=== PATIENT | male | born 1950 | race Caucasian/White ===

== ENCOUNTER → 2018-11-26 08:14 | Outpatient (CLI) | payer MEDICARE, OTHER, SELFPAY ==
--- NOTE | 2018-11-26 08:25 | RAD_ITS ---
STUDY: X-RAY - ESOPHAGUS (BARIUM SWALLOW) WITH FLUOROSCOPY REASON FOR EXAM: Male, 68 years old. Dysphagia for solids. Hoarseness. TECHNIQUE: 17 view(s) of the esophagus were obtained following swallowing of barium. FLUOROSCOPY TIME (if supplied): (0:39) minutes/seconds COMPARISON: None. FINDINGS: There is no demonstrated esophageal foreign body. There is no demonstrated stricture or mucosal abnormality. Normal gastroesophageal junction, without a demonstrated hiatal hernia. The patient ingested a 12 mm tablet of barium without any difficulty. Normal visualized aortic arch and descending thoracic aorta. Normal visualized pulmonary parenchyma. Normal visualized osseous structures of the thorax. RAD/Esophagus Only IMPRESSION: Normal plain film x-ray examination (barium swallow) of the esophagus. Electronically Signed: Tomás Davison, at 10:26 EDT , Service support ,
== END ==
PROVIDERS: Family Provider Family Medicine; PCP Family Medicine; Referring Provider Otolaryngology; Visit Provider Otolaryngology
DX: R13.10 Dysphagia, unspecified (principal)
CPT/HCPCS: 74220

== ENCOUNTER 2019-06-06 05:29 | Day surgery (SDC) | payer MEDICARE, OTHER, SELFPAY ==
--- NOTE | 2019-05-23 03:14 | HP_ITS ---
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 Is patient in pain?: No Allergies amoxicillin trihydrate [From Augmentin] Allergy (Verified 05/23/19 09:03) Angioedema potassium clavulanate [From Augmentin] Allergy (Verified 05/23/19 09:03) Angioedema Medications Aspirin [Aspirin, Baby] 81 mg PO QHS 01/21/16 [History Confirmed 05/23/19] Colestipol Tablet [Colestid Tablet] 1 gm PO BID 01/21/16 [History Confirmed 05/23/19] Gemfibrozil [Lopid] 600 mg PO BIDAC 01/21/16 [History Confirmed 05/23/19] Hydrochlorothiazide [Hctz] 25 mg PO DAILY 01/21/16 [History Confirmed 05/23/19] Lisinopril [Zestril] 20 mg PO DAILY 01/21/16 [History Confirmed 05/23/19] azelastine 137 mcg (0.1 %) nasal spray aerosol 2 spray INTRANASAL ONCE ml 05/23/19 [History Confirmed 05/23/19] fluticasone propionate 50 mcg/actuation nasal spray,suspension 2 spray INTRANASAL DAILY 05/23/19 [History Confirmed 05/23/19] gabapentin 300 mg capsule 300 mg PO TID cap 05/23/19 [History Confirmed 05/23/19] inulin 2 gram chewable tablet 4 g PO QDAY tab 05/23/19 [History Confirmed 05/23/19] multivitamin chewable tablet 2 tab PO DAILY 05/23/19 [History] omeprazole 20 mg capsule,delayed release 20 mg PO DAILY 05/23/19 [History Confirmed 05/23/19] vitamin B complex tablet 2 tab PO DAILY tab 05/23/19 [History Confirmed 05/23/19] [facility] Medical History Acid reflux (Acute) Hemorrhoids (Acute) Hypertension (Chronic) Hypertriglyceridemia (Acute) Hypercholesterolemia (Acute) Gout (Acute) Neuropathy (Acute) COPD (chronic obstructive pulmonary disease) (Chronic) B12 deficiency (Acute) Surgical History Hx of colonoscopy (Acute) Hx of tonsillectomy (Acute) Hx of hemorrhoidectomy (Acute) Hx of right inguinal hernia repair (Acute) Family History Father Heart disease Hypertension High cholesterol Mother High cholesterol Hypertension Sister CVA (cerebral vascular accident) Social History (Updated 05/23/19 @ 15:14 by Nils Brown MD) Smoking Status: Former smoker second hand exposure: No alcohol intake: current alcohol intake frequency: holidays/special occasions only substance use type: does not use caffeine: Yes what type of physical activity do you participate in: none frequency: does not exercise HPI HPI HPI: VALERIA PRADHAN, is a 69 M who presents to the office today for HPI HPI Surgical H&P: Yes HPI: VALERIA PRADHAN, is a 69 M who presents to the office today for surgical consultation regarding a suspected recurrent right inguinal the patient had a remote emergency repair of a right inguinal hernia that was incarcerated when he was in the [employer]. 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 Small bowel was involved in the hernia. Prior to that he had had a burning sensation. Recently he has been doing more heavy lifting straining. He has had recurrence of the discomfort. It is of note that January 21, [address] scan for diverticulitis. Already at that time there was felt to be a mildly enlarged prostate and fat prominently within 2 small internal ring defects and a small umbilical hernia. It is only the right side that is currently causing him a burning discomfort. He does have nocturia 1-3 times nightly. He has been a previously heavy cigarette smoker and then cigar smoker. He finally quit approximately 12 years ago. He has been evaluated by pulmonology and does have a degree of pulmonary disease The patient is referred to me by Dr. Eulalio Pan his primary care physician for evaluation of potential recurrent right inguinal hernia and a written compromise surgical consult recommendations will be returned to him Pelvis CT [facility] Imaging Services [address] [place] [address] Abdomen/Pelvis WITH Contrast MR#: [id number]:[id number] Name: VALERIA PRADHAN [facility] #:[id number] : 1950M 65 From: Nathan Miranda MD PCP:Eulalio Pan MD Status:REG ER Study:Abdomen/Pelvis WITH Contrast Date of Exam:01/21/16 Exam#[id number] Ordering Dr: Radhika Rucker MD STUDY: CT ABDOMEN AND PELVIS WITH CONTRAST REASON FOR EXAM: Male, 65 years old. Lower abdominal pain since yesterday, blood in stool RADIATION DOSAGE (If Supplied By Facility): CTDIvol = ( 18.40 ) mGy, DLP = ( 1021.90 ) mGycm TECHNIQUE: Transaxial images were obtained from the dome of the diaphragm to the symphysis pubis without oral contrast. 100mL ml of Isovue 300 contrast was administered. Sagittal and coronal images were reconstructed. Individualized dose optimization techniques were used for this CT. COMPARISON: None. FINDINGS: The visualized lung bases are unremarkable. The visualized portions of the heart are within normal limits. There is a subcentimeter low-attenuation focus of the dome of the liver indeterminate for solid versus cystic process. Normal gallbladder and extrahepatic biliary system. Normal spleen. Normal pancreas. Normal bilateral adrenal glands. Normal right kidney. Normal left kidney. Normal visualized stomach. Normal small intestine. There is mild fatty stranding of the left paracolic gutter. There are several short segment regions of wall thickening of the mid to distal descending colon. There is moderately severe sigmoid diverticulosis. The appendix is visualized and appears normal. There are calcified plaques of the abdominal aorta and iliac arteries. Normal inferior vena cava. Normal retroperitoneum. Normal urinary bladder. The prostate is mildly enlarged and contains calcifications. The seminal vesicles and seminal vesicle angles are preserved. The fascial planes of the ischiorectal fossa are intact. There are prominent bilateral inguinal rings with no bowel seen in either defect. There is a tiny fat-containing available hernia. There are mild degenerative changes of the lumbar spine. IMPRESSION: 1. Fatty stranding of the left paracolic cutter with several short segment regions of wall thickening of the mid to distal descending colon. There is moderately severe sigmoid diverticulosis. Findings are compatible with diverticulitis. 2. Calcified plaques of the abdominal aorta and iliac arteries. 3. Tiny fat-containing umbilical hernia. 4. Degenerative changes of the lumbar spine. 5. Subcentimeter low-attenuation focus of the dome of the liver indeterminate for solid versus cystic process. If clinically indicated, ultrasound may be helpful for further evaluation of this finding. 6. Mildly enlarged prostate containing calcifications. 7. Prominent inguinal rings bilaterally with no bowel seen in either hernia defect. Electronically Signed: Nathan Miranda MD at 18:17 EDT , Service support [phone], ROS General General: No weight change, appetite, fatigue, colon cancer, breast cancer or weakness HEENT HEENT: No difficulty swallowing, eye injury, eye surgery, swollen glands or hoarseness Endo Endocrine: No thyroid disease, diabetes mellitus, thyroid cancer, Hair loss, heat intolerance or cold intolerance Skin Skin: No rash or changing moles Musc Musculoskeletal: No back problems, arthritis, rheumatoid arthritis, gout or joint pain Cardio Cardiovascular: Yes high blood pressure; no murmur, pacemaker, heart disease, atrial fibrillation, heart attack, heart stent, palpitations, shortness of breat with exertion or chest pain Psych Psychiatric: No depression, anxiety or hearing voices Resp Respiratory: No shortness of breath, No sleep apnea, No cough, No COPD, No asthma, No emphysema, No wheezing Gastro Gastrointestinal: No abdominal pain, No nausea or vomiting, No diarrhea, No constipation, No blood in stool, Yes acid reflux, Yes hemorrhoids, No ulcers, No gallbladder problem, No black,tarry stools Nolan Hematologic: No blood thinners, No blood disorders, No bleeding, No anemia, No blood clots Neuro Neurologic: Yes numbness, Yes tingling, No weakness Exam Const General: cooperative, comfortable, no acute distress Nutritional Appearance: average body habitus Orientation: alert, awake [facility] Head: normal to inspection Eyes General: appearance normal, both eyes and all related structures Chest Other: Increased anterior posterior diameter Resp Effort & Inspection: normal respiratory effort Auscultation: clear to auscultation bilaterally Other: Intermittent nonproductive cough. Slight shortness of breath with movement Cardio Rate: regular rate Rhythm: regular rhythm Heart Sounds: no murmurs GI Palpation: soft, no hepatosplenomegaly Other: Small nonreducible umbilical hernia Not pulsatile or expansile, normal bowel sounds Other: Testicles are descended bilaterally. Left groin appears solid. Right groin is tender at the external ring with slight bulging. No evidence to suggest incarceration Skin Other: Small erythematous punctate changes in the suprapubic hairline. Neuro Cognition: normal cognition Extrem General: no calf tenderness bilaterally Other: No lower extremity swelling Psych Affect: normal affect Assessment & Plan Problems 1. Umbilical hernia without obstruction or gangrene K42.9 2. Recurrent inguinal hernia of right side without obstruction or gangrene K40.91 3. Symptom of bladder outlet obstruction R39.89 Plan I have recommended to the patient a laparoscopic recurrent right inguinal hernia repair with mesh. He is aware that I would utilize a umbilical incision and then need to proceed with either a suture or suture and mesh repair of his umbilical hernia. He is aware of the technique, benefits, risks, alternatives to these combined procedures. He has had an opportunity to ask and have questions answered. In light of his bladder outlet obstruction and frequent nocturia we will initiate him on Flomax 0.4 mg nightly and we will do that preoperatively. He is aware of the potential need for a urinary catheter postoperatively. Questions were answered. We will now schedule and proceed at his discretion. I very much appreciate the kind opportunity of assisting with his surgical care. CC: Dr. Eulalio Brown M.D., F.A.C.S. Medications New: multivitamin chewable tablet 2 tabs PO DAILY fluticasone propionate 50 mcg/actuation 2 sprays intranasal DAILY azelastine 2 sprays intranasal ONCE inulin (Fiber Gummies) 4 grams PO QDAY vitamin B complex tablet (B Complex-Vitamin B12) 2 tabs PO DAILY Coding Level of Care Code 99512 Diagnoses Umbilical hernia without obstruction or gangrene K42.9 Recurrent inguinal hernia of right side without obstruction or gangrene K40.91 Symptom of bladder outlet obstruction R39.89 05/23/19 1514 <Electronically signed by Nils gore MD> Date _ Nils Brown MD I have re-examined the patient. There are no clinical changes since date of exam.
[2019-05-23 09:01] VITALS: BMI 28.2
--- NOTE | 2019-06-04 13:57 | EKG12_ITS ---
Test Reason : PRE OP Blood Pressure : / mmHG Vent. Rate : 073 BPM Atrial Rate : 073 BPM P-R Int : 190 ms QRS Dur : 094 ms QT Int : 388 ms P-R-T Axes : 039 -05 035 degrees QTc Int : 427 ms Sinus rhythm with Fusion complexes Otherwise normal ECG Confirmed by DIPIKA MCCLURE, NATALIO ([id number]), publications editor DEMETRIA GERMAN ([id number]) on 06/06/2019 12:35:05 PM Referred By: Nils Brown Confirmed By:ZEINA BAR MD
[2019-06-04 14:29] LABS: Hematocrit 42.5 % (40-54); Hemoglobin 14.7 g/dL (13.0-16.5); Mean Corp Hgb Conc 34.6 g/dL (32-36); Mean Corpuscular Volume 98.4 fL (80-94); Platelet Count 290 K/mm3 (150-450); RBC Distribution Width CV 12.2 % (11.6-14.6); Red Blood Count 4.32 M/mm3 (4.6-6.2); White Blood Count 7.1 K/mm3 (4.4-11.0)
[2019-06-04 14:53] LABS: Anion Gap 8 (5-15); BUN 18 mg/dL (7-18); BUN/Creat Ratio 18.8 RATIO (10-20); Calcium,Total 9.2 mg/dL (8.5-10.1); Chloride 98 mmol/L (98-107); Creatinine, Serum 0.96 mg/dL (0.70-1.30); EST Glomerular Filtration Rate 83 mL/min (>60); Est Glom Filt Rate - Afr Amer 101 mL/min (>60); Glucose 96 mg/dL (74-106); Potassium 4.1 mmol/L (3.5-5.1); Sodium Level 132 mmol/L (136-145)
[2019-06-06 05:57] VITALS: BP 135/86; PULSE 58; RESP 18; TEMP 36.5; O2SAT 97; BMI 29.1
--- NOTE | 2019-06-06 06:17 | DCINST_ITS ---
Discharge Diet: Light diet - advance as tolerated - if you have questions about your diet instructions, please talk to you doctor. Discharge Activity: May Not Drive - for 3-5 days or while taking narcotic pain medicine. May shower in (days): 1 Lifting Restrictions: 10 pounds Call your doctor if your incision/area has: Continuous Slow Oozing, Sudden Increased Bleeding, Increased Pain/ Swelling, Increased Redness, Foul Smelling Discharge Call your doctor if you observe: Fever of 101 or Higher Suture Line Care: Avoid Pulling/Pushing, Avoid Pinching/Bending Additional Dressing/Incision Instructions:: Change or remove dressing in 4 days. Leave steri-strips in place for 1 week. Allergies/Adverse Reactions: Allergies amoxicillin trihydrate [From Augmentin] Allergy (Verified 06/06/19 05:56) Angioedema potassium clavulanate [From Augmentin] Allergy (Verified 06/06/19 05:56) Angioedema Medications to take at Discharge Aspirin [Aspirin, Baby] 81 mg PO QHS 01/21/16 Colestipol Tablet [Colestid Tablet] 1 gm PO BID 01/21/16 Gemfibrozil [Lopid] 600 mg PO BIDAC 01/21/16 Hydrochlorothiazide [Hctz] 25 mg PO DAILY 01/21/16 Lisinopril [Zestril] 20 mg PO DAILY 01/21/16 azelastine 137 mcg (0.1 %) nasal spray aerosol 2 spray INTRANASAL ONCE ml 05/23/19 fluticasone propionate 50 mcg/actuation nasal spray,suspension 2 spray IN TRANASAL DAILY 05/23/19 gabapentin 300 mg capsule 300 mg PO TID cap 05/23/19 multivitamin chewable tablet 2 tab PO DAILY 05/23/19 omeprazole 20 mg capsule,delayed release 20 mg PO DAILY 05/23/19 Cyanocobalamin (Vitamin B-12) [Vitamin B-12] 1,000 mcg PO DAILY 06/04/19 Hydrocodone Bitart/Apap 5-325 [Hibernia 5MG-325MG] 1 tablet PO Q4H PRN PRN 2 Days #10 tablet 06/06/19 The following prescriptions were given: Hydrocodone Bitart/Apap 5-325 [Hibernia 5MG-325MG] 1 tablet PO Q4H PRN PRN 2 Days #10 tablet PRN Reason: Pain Transmission Status: Sent to [id number] Orders to be completed after discharge: Basic Metabolic Profile (BMP) Time Frame: 06/04/19, Facility: [facility], Location: Laboratory CBC-Complete Blood Cnt No Diff Time Frame: 06/04/19, Facility: [facility], Location: Laboratory Primary Care Physician: Eulalio Pan MD [Primary Care Provider] - Test Results: Test results from this visit will be discussed in further detail at your follow- up appointment, if applicable. Please Follow Up With: Nils Brown MD - [phone] When: Call to make an appointment to be seen in about 10 days.
[2019-06-06] MEDS: Lactated Ringers 1,000 ML 100 ML IV (06:18)
[2019-06-06] MEDS: Cefazolin 2 GM in 0.9% Normal Saline 100 ML IV (07:11)
--- NOTE | 2019-06-06 07:15 | HERN_PTH ---
PATIENT: VALERIA PRADHAN LOC: [facility] U#:[id number] AGE/SX: 69/M ROOM: RE06/06/[address]: Dr. Nils Brown MD : 1950 BED: DIS: 06/06/2019 SPEC #: [id number] RECD: 06/06/19 11:52 STATUS: ISABEL RERony #: [id number] TRACY: 06/06/19 07:[address]: Nils Brown DEPT: SURGICAL PATHOLOGY RECD BY: Ramone Valladares ENTERED: 06/06/19 13:22 SP TYPE: Hernia OTHR DR: Dr. Eulalio Pan MD Tissues: HERNIA Procedures: Surgery Specimen Level II HEADER OPERATION: Laparoscopic, recurrent inguinal/umbilical hernia repair PRE-OP DIAGNOSIS: Right inguinal hernia TISSUE SUBMITTED: Umbilical hernia sac MICROSCOPIC DIAGNOSIS Umbilical hernia sac: Fragments of fibroadipose and fibroconnective, consistent with hernia sac. SJ:damián 06/09/19 MICROSCOPIC DESCRIPTION Slides are reviewed. GROSS DESCRIPTION Received in fixative is one container labeled with the patient's name and designated umbilical hernia sac. The specimen consists of two pieces of yellow adipose tissue that in aggregate measure 2 x 0.7 x 0.5 cm. Both pieces are bisected. The entire specimen is submitted in one cassette. / SJ:rg 06/06/19 TC:5 [facility]: [id number]
[2019-06-06] MEDS: Bupivacaine Mpf 0.5% 30 ML VIAL (07:45)
--- NOTE | 2019-06-06 08:43 | OP.PCM_ITS ---
Problem List (1) Recurrent inguinal hernia of right side without obstruction or gangrene Status: Acute (2) Umbilical hernia without obstruction or gangrene Status: Acute Report of Operation Date of Procedure: 06/06/19 Pre-Operative Diagnosis: Recurrent right inguinal hernia. Umbilical hernia without obstruction Post-Operative Diagnosis: Recurrent indirect right inguinal hernia. Umbilical hernia without obstruction Surgery/Procedure Performed:: Laparoscopic repair recurrent right inguinal hernia. Umbilical herniorrhaphy with 6.4 cm ventralex mesh. 3 DMax right large colon lot number [id number]. Ventralex Lot number [id number]. Secure strap: Lot number [id number] Description of Surgical Findings:: Timeout and informed consent was obtained. 69-year-old gent was taken the operating taken to the operating room underwent general trach intubation anesthesia Ancef 2 g given for the M sterilely prepped draped Ioban draping was used as well 0.5% Marcaine was used as local anesthetic throughout the procedure total 30 cc was used. Skin sites were pre-anesthetized a curvilinear incision was made the inferior portion of the umbilicus sharp dissection carried down through the subcutaneous tissues hernia sac was identified it was sharply dissected free electrocautery was used for hemostasis specimen was sac and contents holding sutures of 0 Vicryl placed varies needle inserted saline drop test performed the abdomen was insufflated with CO2 to pressure of 10 the cervical pressure Lorrie trocar inserted 10 lap scope inserted of his ventricular injuries and direct physician 5 Martinez ports were placed in the right left lower quadrant. The left groin visually appeared to be intact the right groin appear to have a small indirect recurrence. The peritoneum superior lateral to the internal ring on the right was incised carried immediately it is of note that the patient noted to be significantly heavy with significant amount of fibrofatty tissue. Careful blunt dissection performed hemo-lock clips were used were needed with hemostasis the peritoneum was completely dissected free the direct indirect and femoral artery clearly identified. A large 3D max right- sided mesh was placed those to cover the defect. It nicely sent in the position and only 3 secure straps were required to help hold it in position. The peritoneum was then approximated to itself with hemo-lock clips and secure strap. Complete obliteration of the mesh was achieved. Because of the 2 cm defect at the umbilicus I placed a 6.4 cm ventral Ebenezer mesh. The tails were secured with 3-0 Nurolon and the fascia approximated transversely with the same. I inspected internally and I placed a 0 Vicryl suture with a grainy needle ball to help flatten the mesh and I placed one secure strap to help secure it. Peer to have a good positional lie and I made sure that the greater omentum was overlying the small bowel. Trochars removed. The abdomen was allowed to deflate the CO2. Skin edges approximate interrupted 4 Monocryl subdermal stitches. Were needed surgical glue was applied followed by Telfa and OpSite dressings. Sponge and instrument and needle counts reported the surgery were correct. Blood loss was minimal. It is of additional note that during the procedure lap scopic right inguinal hernia inguinal nerve block was performed using Marcaine and lap scopic control. Specimens umbilical hernia sac and contents. Drains none. Blood loss minimal. Nils Brown M.D., F.A.C.S. Type of Anesthesia:: General Anesthesiologist: Rashaun Weiss
[2019-06-06 08:50] VITALS: BP 128/93; BP 135/86; PULSE 68; RESP 18; TEMP 36.4; O2SAT 95
[2019-06-06 09:00] VITALS: BP 125/77; BP 135/86; PULSE 55; RESP 14; O2SAT 98
[2019-06-06 09:15] VITALS: BP 118/80; BP 135/86; PULSE 70; RESP 18; O2SAT 96
[2019-06-06 09:23] VITALS: BP 119/73; BP 135/86; PULSE 57; RESP 18; TEMP 36.2; O2SAT 95
[2019-06-06] MEDS: HYDROcodone Bitartrate/Apap 5/325 Tablet PO (10:01)
[2019-06-06 11:06] VITALS: BP 135/86; BP 149/103; PULSE 73; RESP 18; TEMP 36.1; O2SAT 100
== END 2019-06-06 11:06 | disposition home or self-care (01) ==
LOC: SDC 05:29 → AC 05:30
PROVIDERS: Family Provider Family Medicine; PCP Family Medicine; Referring Provider Surgery; Visit Provider Surgery
PROC: (CPT 49650; principal; 2019-06-06 06:55)
DX: K40.91 Unilateral inguinal hernia, without obstruction or gangrene, recurrent (principal); K42.9 Umbilical hernia without obstruction or gangrene; R39.89 Other symptoms and signs involving the genitourinary system; I10 Essential (primary) hypertension; E78.00 Pure hypercholesterolemia, unspecified; E78.1 Pure hyperglyceridemia; G62.9 Polyneuropathy, unspecified; M10.9 Gout, unspecified; Z79.82 Long term (current) use of aspirin; Z79.899 Other long term (current) drug therapy; Z87.891 Personal history of nicotine dependence
CPT/HCPCS: 49585; 49651; 36415; 80048; 85027; 88302; 93005; C1781; J7120; J2405

== ENCOUNTER → 2019-06-26 07:10 | Outpatient (CLI) | payer MEDICARE, OTHER, SELFPAY ==
[2019-06-06 05:57] VITALS: BMI 29.1
[2019-06-26 10:06] LABS: Color, Urine Yellow (Yellow); Glucose, Dipstick Normal (Normal); Ketone-Dipstick Negative (Negative); Leukocyte Esterase-Dipstick Negative /ul (Negative); Nitrite-Dipstick Negative (Negative); Occult Blood-Urine Negative /ul (Negative); Protein-Dipstick Negative (Negative); Urine Bilirubin Dipstick Negative (Negative); Urine Clarity Sl. Cloudy (Clear); Urine Urobilinogen Normal (Normal)
[2019-06-26 10:09] LABS: Absolute Lymphocyte Count 2.06 X10^3/uL (0.83-4.51); Absolute Neutrophil Count 3.8 X10^3/uL (2.0-7.7); Basophil# 0.02 X10^3/uL; Basophil% 0.3 % (0-1); Eosinophil# 0.38 X10^3/uL; Eosinophils% 5.3 % (0-5); Hematocrit 42.7 % (40-54); Hemoglobin 14.5 g/dL (13.0-16.5); Lymphocyte # 2.06 X10^3/ul (4.0); Lymphocyte % 28.8 % (19-41); Mean Corpuscular Hgb 33.7 pg (27.0-32.0); Mean Corpuscular Volume 99.3 fL (80-94); Mean Platelet Vol. 10.2 fl (6.2-12.0); Monocyte# 0.89 X10^3/uL; Monocyte% 12.4 % (0-10); NRBC Flagged by Analyzer 0 % (0-5); Neutrophil # 3.76 X10^3/uL (2.7-7.7); Neutrophil % 52.6 % (47-70); Platelet Count 311 K/mm3 (150-450); RBC Distribution Width CV 12.8 % (11.6-14.6); RBC Distribution Width SD 46.5 fl (35.1-43.9); White Blood Count 7.2 K/mm3 (4.4-11.0)
[2019-06-26 10:29] LABS: ALB/GLOB Ratio 1.1 RATIO (0.9-2.4); AST(SGOT) 12 U/L (15-37); Alanine Aminotransfer ALT/SGPT 29 U/L (16-61); Alkaline Phosphatase 61 U/L (45-117); Anion Gap 6 (5-15); BUN 19 mg/dL (7-18); BUN/Creat Ratio 21.8 RATIO (10-20); Calcium,Total 8.9 mg/dL (8.5-10.1); Chloride 99 mmol/L (98-107); Cholesterol 237 mg/dL (200); Creatinine, Serum 0.87 mg/dL (0.70-1.30); EST Glomerular Filtration Rate 93 mL/min (>60); Est Glom Filt Rate - Afr Amer 112 mL/min (>60); Globulin 3.5 g/dL (2.2-4.2); Glucose 85 mg/dL (74-106); High Density Lipoprotein 54 mg/dL; PSA,Total - Annual Screen 0.46 ng/mL (0.00-4.00); Protein, Total 7.5 g/dL (6.4-8.2); Sodium Level 134 mmol/L (136-145); Triglycerides 160 mg/dL; Uric Acid 5.5 mg/dL (3.5-7.2); Very Low Density Lipoprotein 32 mg/dL (5-40)
[2019-06-26 10:32] LABS: Vitamin B12 809 pg/mL (211-911)
== END ==
PROVIDERS: Family Provider Family Medicine; PCP Family Medicine; Referring Provider Family Medicine; Visit Provider Family Medicine
DX: Z00.00 Encounter for general adult medical examination without abnormal findings (principal); Z12.5 Encounter for screening for malignant neoplasm of prostate; E78.00 Pure hypercholesterolemia, unspecified; I10 Essential (primary) hypertension; M10.9 Gout, unspecified; E53.8 Deficiency of other specified B group vitamins
CPT/HCPCS: 36415; 80053; 80061; 81002; 82607; 84153; 84550; 85025; G0103

== ENCOUNTER 2019-08-13 07:05 | Emergency (ER) | payer MEDICARE, OTHER, SELFPAY ==
[2019-08-13 07:06] VITALS: BP 176/88; PULSE 78; RESP 17; TEMP 36.6; O2SAT 99; BMI 29.6
--- NOTE | 2019-08-13 07:16 | VDLE_ITS ---
Reason For Study: Pain RIGHT LEFT CFV is compressible, spontaneous, phasic, GSV is normal. competent and demonstrates normal CFV is compressible, spontaneous, phasic, augmentation. competent, and demonstrates normal Procedure augmentation. Exam performed portable in ED. FV is compressible, spontaneous, phasic, A preliminary report was called and/or faxed competent and demonstrates normal to [place]. augmentation. POP V is compressible, spontaneous, phasic, competent and demonstrates normal augmentation. T/P Trunk is compressible. PTV is compressible. LT PerV is compressible. Interpretation Summary There is no evidence of left lower extremity deep vein thrombosis. Left great saphenous vein appears patent and compressible segmentally. Patent and compressible right common femoral vein Ordering Physician: Ke Jeronimo Referring Physician: Rd Pan M.D. Performed By: Melissa Richard RVT
--- NOTE | 2019-08-13 07:18 | ED.VISSUMM ---
- ER Visit Summary Date of Service: 08/13/19 Chief Complaint: [Left calf pain] History of Present Illness: The patient is a 69 M [presents to the emergency department with complaint of pain in his left calf for the last 6 days. Patient denies any injury. Patient incidentally states that he had a massage the day before the pain started however his legs were not massaged. Patient denies any trauma to the leg. He denies any chest pain or shortness of breath. He denies recent travel. Patient did have a hernia repair 2-1/2 months ago. He has no history of prior PE or DVT. Patient states that the pain is worse with walking. Patient was concerned because his sister has factor V Leiden and has had prior stroke.] Physical Examination: [HEENT-PERRLA, EOMI. Cranial nerves II through XII grossly intact. TMs clear. Mucous membranes moist. No adenopathy. Cardiovascular-regular rate and rhythm without murmur or ectopy Lungs-clear to auscultation, chest wall stable without crepitus or subcu emphysema Abdomen-normoactive bowel sounds, soft, nontender, no rebound or rigidity, no peritoneal signs. Extremities-intact ?4, normal range of motion, normal pulses, atraumatic. Left calf-patient has diffuse tenderness over the calf muscle. No ropes or cords palpated. He does have a positive Homans sign. He is neurovascular intact with normal cap refill and normal dorsal pedal and posterior tibial pulses. There is no evidence of edema or erythema.] Test Results: [Venous Doppler of left lower extremity ordered and was negative for DVT.] Emergency Department Course and Treatment: [] Treatment Plan: [Patient advised to follow-up with primary care physician in 5 to 7 days. Patient to use ibuprofen or Tylenol for discomfort.] Disposition: [Discharged home in stable condition] Impression: [Left calf strain] This note was generated with [employer] dictation software. It may contain incorrect words, spelling, and punctuation that were not noted in review of the chart prior to signing ED Disposition - Plan for ED Patient: Referrals: Eulalio Pan MD [Primary Care Provider] -
--- NOTE | 2019-08-13 08:59 | ED.DEP ---
ED Disposition - Plan for ED Patient: Instructions: MUSCLE STRAIN, Extremity Referrals: Eulalio Pan MD [Primary Care Provider] - 5-7 Days
== END 2019-08-13 09:30 | disposition home or self-care (01) ==
LOC: ED 07:19
PROVIDERS: Emergency Provider Emergency Medicine; PCP Family Medicine
DX: S86.112A Strain of other muscle(s) and tendon(s) of posterior muscle group at lower leg level, left leg, initial encounter (principal); X58.XXXA Exposure to other specified factors, initial encounter; Y93.9 Activity, unspecified; I10 Essential (primary) hypertension; J44.9 Chronic obstructive pulmonary disease, unspecified; K21.9 Gastro-esophageal reflux disease without esophagitis; M10.9 Gout, unspecified; G62.9 Polyneuropathy, unspecified; Z79.82 Long term (current) use of aspirin
CPT/HCPCS: 93971; 99282

== ENCOUNTER → 2020-06-29 07:36 | Outpatient (CLI) | payer MEDICARE, OTHER, SELFPAY ==
[2020-06-29 10:04] LABS: Absolute Lymphocyte Count 2.89 X10^3/uL (0.83-4.51); Absolute Neutrophil Count 3.2 X10^3/uL (2.0-7.7); Basophil# 0.04 X10^3/uL; Basophil% 0.6 % (0-1); Eosinophil# 0.31 X10^3/uL; Eosinophils% 4.3 % (0-5); Hematocrit 47.3 % (40-54); Lymphocyte # 2.89 X10^3/ul (4.0); Mean Corp Hgb Conc 33.8 g/dL (32-36); Mean Corpuscular Hgb 34.1 pg (27.0-32.0); Mean Corpuscular Volume 100.9 fL (80-94); Mean Platelet Vol. 10.5 fl (6.2-12.0); Monocyte# 0.78 X10^3/uL; Monocyte% 10.8 % (0-10); NRBC Flagged by Analyzer 0 % (0-5); Neutrophil # 3.16 X10^3/uL (2.7-7.7); Neutrophil % 43.6 % (47-70); Platelet Count 314 K/mm3 (150-450); RBC Distribution Width CV 12.1 % (11.6-14.6); RBC Distribution Width SD 45.3 fl (35.1-43.9); Red Blood Count 4.69 M/mm3 (4.6-6.2); White Blood Count 7.2 K/mm3 (4.4-11.0)
[2020-06-29 10:17] LABS: Vitamin B12 1000 pg/mL (211-911)
[2020-06-29 10:26] LABS: ALB/GLOB Ratio 1.2 RATIO (0.9-2.4); AST(SGOT) 15 U/L (15-37); Alanine Aminotransfer ALT/SGPT 32 U/L (16-61); Albumin, Serum 4.1 g/dL (3.2-5.0); Alkaline Phosphatase 69 U/L (45-117); Anion Gap 6 (5-15); BUN 12 mg/dL (7-18); BUN/Creat Ratio 15.3 RATIO (10-20); Calcium,Total 8.9 mg/dL (8.5-10.1); Chloride 102 mmol/L (98-107); Cholesterol 227 mg/dL (200); Creatinine, Serum 0.78 mg/dL (0.70-1.30); EST Glomerular Filtration Rate 105 mL/min (>60); Est Glom Filt Rate - Afr Amer 127 mL/min (>60); Globulin 3.5 g/dL (2.2-4.2); Glucose 82 mg/dL (74-106); High Density Lipoprotein 58 mg/dL; PSA,Total - Annual Screen 0.32 ng/mL (0.00-4.00); Potassium 4.3 mmol/L (3.5-5.1); Protein, Total 7.6 g/dL (6.4-8.2); Sodium Level 136 mmol/L (136-145); Triglycerides 128 mg/dL; Very Low Density Lipoprotein 26 mg/dL (5-40)
== END ==
PROVIDERS: PCP Family Medicine; Referring Provider Family Medicine; Visit Provider Family Medicine
DX: Z00.00 Encounter for general adult medical examination without abnormal findings (principal); Z12.5 Encounter for screening for malignant neoplasm of prostate; E53.8 Deficiency of other specified B group vitamins; E78.00 Pure hypercholesterolemia, unspecified; I10 Essential (primary) hypertension
CPT/HCPCS: 36415; 80053; 80061; 82607; 84153; 85025; G0103

== ENCOUNTER 2020-09-08 09:32 | Outpatient (RCR) | payer MEDICARE, OTHER, SELFPAY | END 2020-09-08 23:59 | LOC: IMMUN 09:32 | PROVIDERS: PCP Family Medicine; Referring Provider Family Medicine; Visit Provider Family Medicine | DX: Z23 Encounter for immunization (principal) | CPT/HCPCS: 0011A; 0012A; 91301 ==

== ENCOUNTER → 2022-08-05 | Outpatient (CLI) | payer MEDICARE, OTHER, SELFPAY ==
--- NOTE | 2022-08-05 07:02 | MRI_ITS ---
STUDY: MRI CERVICAL SPINE WITHOUT CONTRAST REASON FOR EXAM: Male, 72 years old. PAIN,RADICULOPATHY TECHNIQUE: Standardized fat and water weighted pulse sequences were obtained in the sagittal and axial planes. COMPARISON: July 27, 2006 FINDINGS: Craniocervical junction is intact and aligned with mild C1-C2 degeneration. There is reversal of cervical lordosis with mild kyphosis centered on C5-C6. There is no AP plane displacement. Marrow and paraspinous soft tissues are normal. There are small ventral osteophytes at C3 C5 and C6. Prevertebral soft tissues are normal. C2-C3 has patent canal. There is left greater than right facet hypertrophy. Foraminal are patent. C3-C4 has uncinate and facet hypertrophy with mild canal stenosis without cord compression. Facet degenerative change produces mild left foraminal stenosis with patent right foramen. C4-C5 has uncinate and facet hypertrophy, asymmetrically worse on the right. Canal is patent. There is mild right foraminal stenosis with patent left foramina. C5-C6 has uncinate and facet hypertrophy and broad disc endplate osteophyte. Canal is patent. There is flattening of the ventral cord with effacement of ventral but not dorsal CSF. There is mild impression on the ventral cord without circumferential cord compression. Foramina are mildly stenotic bilaterally. C6-C7 has uncinate and facet hypertrophy and broad disc endplate osteophyte. Canal is patent. Foramina are moderately stenotic on the left, patent on the right. C7-T1 has uncinate and facet hypertrophy with patent canal and foramina. There is mild spinal cord deviation around reversed cervical lordosis with impression on the ventral cord due to anterior positioning of the cord within the canal. There is no cord compression. MRI/Spine Cervical (Routine) IMPRESSION: 1. Multilevel mild ventral impression on the cord without thecal sac or cord compression. 2. Multilevel mild and moderate bilateral foraminal stenoses. Electronically Signed: Eula Boateng MD at 15:04 EST ,
== END | disposition home or self-care (01) ==
PROVIDERS: PCP Family Medicine; Visit Provider Nurse Practitioner Family
DX: M54.2 Cervicalgia (principal); M54.12 Radiculopathy, cervical region; M48.02 Spinal stenosis, cervical region; M47.812 Spondylosis without myelopathy or radiculopathy, cervical region
CPT/HCPCS: 72141

== ENCOUNTER → 2022-12-30 | Outpatient (CLI) | payer MEDICARE, OTHER, SELFPAY ==
--- NOTE | 2022-12-30 08:12 | MRI_ITS ---
STUDY: MRI LUMBAR SPINE WITHOUT CONTRAST REASON FOR EXAM: Male, 72 years old. Low back pain and left l4 radiculopathy with neurological deficits, quadriceps atrophy. TECHNIQUE: Standardized fat and water weighted pulse sequences were obtained in the sagittal and axial planes. COMPARISON: CT abdomen and pelvis with contrast 01/21/2016. No prior MRI lumbar spine for comparison. FINDINGS: T11-T12: (Sagittal only). Normal endplates. Mild disc space height narrowing. No ventral extradural defect. Normal central canal and bilateral intervertebral neural foramina. T12-L1: (Sagittal only). Normal endplates. Normal disc height, hydration and morphology. Normal central canal and bilateral intervertebral neural foramina. Normal lumbar lordosis. There is no substantial scoliosis. Normal conus medullaris that terminates at the upper L1 vertebral body level. L1-2: Mild Modic type I degenerative vertebral marrow edema underneath the anterior vertebral endplates.. Mild disc space height narrowing. Mild ventral extradural defect due to posterior bulging annulus. No significant facet arthropathy. Capacious central canal and bilateral lateral recesses. Normal bilateral intervertebral neural foramina. L2-3: Normal endplates. Mild disc space height narrowing. Mild ventral extradural defect due to posterior bulging annulus. No significant facet arthropathy. Normal central canal and bilateral lateral recesses. Normal bilateral intervertebral neural foramina. L3-4: Moderate Modic type I degenerative vertebral marrow edema underneath the right side of the L4 superior endplate more than the L3 inferior endplate. Mild disc space height narrowing. Mild degenerative retrolisthesis of L3 on L4 with posterior bulging annulus. Mild asymmetric degenerative facet arthropathy. Normal central canal and bilateral lateral recesses. Prominent dorsal epidural lipomatosis. Mild stenosis of the right intervertebral neural foramen. Normal left intervertebral neural foramen. L4-5: Mild Modic type II degenerative vertebral marrow fat infiltration underneath the vertebral endplates. Pronounced right-sided disc space height narrowing. Minimal ventral extradural defect due to posterior marginal spur. Mild asymmetric degenerative facet arthropathy. Prominent dorsal epidural lipomatosis. Normal central canal and bilateral lateral recesses. Moderately pronounced stenosis of the right intervertebral neural foramen with osteophytic impingement of the right L4 nerve. Mild stenosis of the left intervertebral neural foramen. L5-S1: Normal endplates. Normal disc height, hydration and morphology. Mild asymmetric degenerative facet arthropathy, left greater than right. Normal central canal and bilateral lateral recesses. Moderate stenosis of the left intervertebral neural foramen. Normal right intervertebral neural foramen. Normal visualized sacral ala. Normal visualized paraspinous soft tissue structures. MRI/Spine Lumbar (Routine) IMPRESSION: 1. Moderate stenosis of the left L5-S1 intervertebral neural foramen with suspicious impingement of the left L5 nerve. 2. Moderately pronounced stenosis of the right L4-L5 intervertebral neural foramen with osteophytic impingement of the right L4 nerve. 3. Right-sided L3-L4 intervertebral osteochondritis (Modic type I), mild degenerative retrolisthesis of L3 on L4 limits small posterior bulging annulus and mild stenosis of the right intervertebral neural foramen. 4. No MRI evidence of lumbar extruded disc fragment. Electronically Signed: Fernando Hines MD at 9:58 EDT ,
== END | disposition home or self-care (01) ==
PROVIDERS: PCP Family Medicine; Referring Provider Orthopaedic Surgery; Visit Provider Orthopaedic Surgery
DX: M54.17 Radiculopathy, lumbosacral region (principal)
CPT/HCPCS: 72148

== ENCOUNTER 2023-04-24 09:30 | Outpatient (RCR) | payer MEDICARE, OTHER, SELFPAY ==
--- NOTE | 2023-01-12 09:59 | HP.PTEVAL_ITS ---
Patient's Visit Information Visit Information Visit Information: VALERIA PRADHAN is a 72 year old M referred to Physical Therapy by Dr. Ced Johnston, DO with a diagnosis of RADICULOPATHY ,LUMBOSCARAL. Date of Evaluation: 01/12/23 Physical Therapist: Reggie Marie, PT, Cert MDT, OCS Visit Plan Frequency: 2x /Week Duration: 4 Weeks Plan: PT INTERVTIONS LUMBAR FLEXION ,DLS ,POSTURAL EX'S ,LE FLEXABLITY ,LEFT LEG STRENGTHNEING AND MODALTIES PRN Subjective Subjective: This 72 y/o male presents to physical therapy with lumbar radiculopathy. Patient has had lumbar pain L4 with weakness in thigh for ~ [address] Johnston and had MRI DDD /bulging disc/stenosis. Patient said not Candidate with lumbar surgery. Patient seen DR Trevizo did epidural injection 2 days ago. Pain has pain in lumbar and buttock . Aggravating factors standing/walking. Alleviating factors rest and sitting. Patient condition affects sleeping. C/O paresthesia in legs from neuropathy. Patient has fallen due to knee give way on left side ~ 3months ago. Patient has difficulty with steps. Coughing/sneezing-. Bowel/bladder-. Pain medication Aleve ,hydrocodone . Patient condition affects QOL and function. Patient goals to have less pain and get stronger. Patient had THR 2 years ago. SOCIAL: VOCATION: retired Pain Bilateral Back: Pain Intensity (Out of 10): 2 Pain Intensity Range: 10 Left Hip: Pain Intensity (Out of 10): 2 Pain Intensity Range: 10 Objective Objective: POSTURE: mild forward posture NEURO: denies paresthesia/tingling , reflexes L3-L4-5 ,L5-S1 1/3 SYMMTRIES: align PALAPTION: tender SI/LS FLEXABLITY: hamstrings WFL MMT: (peak force) left quads 22.2 ,hamstrings 28.8 ,hip flexion 13.8 ,hip bad 12.0 LUMBAR ROM: flexion mod loss ,extension mod loss ,side glides mod loss Special Tests L/S Slump test left side: Negative L/S Slump test right side: Negative L/S Left Straight Leg Raise: Negative L/S Right Straight Leg Raise: Negative Lumbar Standing: Flexion - Mechanical Response: No effect Lumbar Standing: Flexion - Symptoms During Testing: No effect Lumbar Standing: Flexion - Symptoms After Testing: No effect Lumbar Standing: Extension - Mechanical Response: No effect Lumbar Standing: Extension - Symptoms During Testing: Increases Lumbar Standing: Extension - Symptoms After Testing: No worse Lumbar Standing: Right Side Glides - Mechanical Response: No effect Lumbar Standing: Right Side [place] - Symptoms During Testing: No effect Lumbar Standing: Right Side [place] - Symptoms After Testing: No effect Lumbar Standing: Left Side [place] - Mechanical Response: No effect Lumbar Standing: Left Side [place] - Symptoms During Testing: No effect Lumbar Standing: Left Side [place] - Symptoms After Testing: No effect Comments:: SEATED BACK FLEXION --ABOLISHED ; BETTER Lumbar Lying: Flexion - Mechanical Response: No effect Lumbar Lying: Flexion - Symptoms During Testing: Decreases Lumbar Lying: Flexion - Symptoms After Testing: Better Balance/Special Test Scores Oswestry Low Back Score: 26 Goals Goal 1:: Patient to be I with HEP Goal Time Frame: 4-6 Weeks Goal 2:: Patient to demonstrate 50% improvement with decrease pain and improved function. Goal Time Frame: 4-6 Weeks Goal 3:: Patient to improve lumbar ROM for function of recovery to tie shoes Goal Time Frame: 4-6 Weeks Goal 4:: Patient to improve peak force left leg by 10 # to improve gait and function Goal Time Frame: 4-6 Weeks Goal 5:: Patient to improve back oswestry score by 5 points to improve QOL and function Goal Time Frame: 4-6 Weeks Rehabilitation Potential Physical Therapy Diagnosis: This patient has lumbar radiculopathy with stenosis causing pain with symptoms worse with walking/standing ,better with sitting and worse with motion testing and positioning thus benefit from skilled PT Rehabilitation Potential: Good Anticipated Interventions Patient/Client Instruction: Educate patient on: Condition and Plan of Care For the Purpose of:: To decrease pain, To increase ROM, To improve muscle performance and motor function, To improve ability to perform ADL's, To increase tolerance to activity/condition/position, To improve ability of physical actions for home/community/work/leisure, To improve health of tissue, To decrease soft tissue restriction, To increase flexibility/ROM, To improve endurance, To improve balance and To improve safety with gait Therapeutic Exercise to Include: Strength training, Endurance training, Balance training, Body mechanics, Postural training, Flexibilty training and Dynamic Lumbar Stabilization For the Purpose of:: To decrease pain, To improve muscle performance and motor function, To improve ability to perform ADL's, To increase tolerance to act ivity/condition/position, To improve ability of physical actions for home/community/work/leisure, To improve health of tissue, To decrease soft tissue restriction, To increase flexibility/ROM and To improve tolerance to ADL's TENS: Yes IF ES: Yes Cryotherapy (ice pack, ice massage): Yes Thermo therapy (hot pack): Yes Ultrasound (thermal/non thermal): Yes For the Purpose of:: To decrease pain, To increase ROM, To improve nutrient delivery to tissue, To increase oxygenation perfusion, To improve health of tissue and To decrease soft tissue restriction Text: Thank you for the opportunity to evaluate your patient. For Medicare and Medicare HMO plans, please review the plan of care and approve it. It will need to be FAXED BACK to us at [phone] for Medicare purposes. For Medicare only, by signing this I certify the plan of care. Please let me know if there are questions or concerns regarding this plan of care. Physician Signature: Date:
--- NOTE | 2023-02-09 09:14 | HP.PTREVAL_ITS ---
Re-Evaluation Intro: Dr. Ced Johnston, DO, It has been my pleasure to treat VALERIA PRADHAN over the last 8 visits for RADICULOPATHY ,LUMBOSCARAL. Please see the progress note below for an update on the physical therapy plan of care! Subjective Subjective: Patient feels like getting stronger. Some less walking and standing but end day pain is worse. No pain medication Objective Objective/Function: Objective: POSTURE: mild forward posture NEURO: denies paresthesia/tingling , reflexes L3-L4-5 ,L5-S1 1/3 SYMMTRIES: align PALAPTION: tender SI/LS FLEXABLITY: hamstrings WFL MMT: (peak force) left quads 34.2 ,hamstrings 28.9 ,hip flexion 21.0 ,hip bad 12.0 LUMBAR ROM: flexion min loss ,extension min loss ,side glides mod loss Plan Plan Plan: PT INTERVTIONS LUMBAR FLEXION ,DLS ,POSTURAL EX'S ,LE FLEXABLITY ,LEFT LEG STRENGTHNEING ( HIP STRENGTHENING) AND MODALTIES PRN Balance/Gait/Functional tests Balance/Special Test Scores Oswestry Low Back Score: 20 Goals Goals Goal 1:: Patient to be I with HEP Goal Time Frame: 4-6 Weeks Goal Progress: Progressing Goal 2:: Patient to demonstrate 50% improvement with decrease pain and improved function. Goal Time Frame: 4-6 Weeks Goal Progress: Progressing Goal 3:: Patient to improve lumbar ROM for function of recovery to tie shoes Goal Time Frame: 4-6 Weeks Goal Progress: Progressing Goal 4:: Patient to improve peak force left leg by 10 # to improve gait and function Goal Time Frame: 4-6 Weeks Goal Progress: Progressing Goal 5:: Patient to improve back oswestry score by 5 points to improve QOL and function Goal Time Frame: 4-6 Weeks Goal Progress: Progressing Anticipated Interventions Anticipated Interventions Patient/Client Instruction: Educate patient on: Condition and Plan of Care For the Purpose of:: To decrease pain, To increase ROM, To improve muscle performance and motor function, To improve ability to perform ADL's, To increase tolerance to activity/condition/position, To improve ability of physical actions for home/community/work/leisure, To improve health of tissue, To decrease soft tissue restriction, To increase flexibility/ROM, To improve endurance, To improve balance and To improve safety with gait Therapeutic Exercise to Include: Strength training, Endurance training, Balance training, Body mechanics, Postural training, Flexibilty training and Dynamic Lumbar Stabilization For the Purpose of:: To decrease pain, To improve muscle performance and motor function, To improve ability to perform ADL's, To increase tolerance to activity/condition/position, To improve ability of physical actions for home/community/work/leisure, To improve health of tissue, To decrease soft tissue restriction, To increase flexibility/ROM and To improve tolerance to ADL's TENS: Yes IF ES: Yes Cryotherapy (ice pack, ice massage): Yes Thermo therapy (hot pack): Yes Ultrasound (thermal/non thermal): Yes For the Purpose of:: To decrease pain, To increase ROM, To improve nutrient del johann to tissue, To increase oxygenation perfusion, To improve health of tissue and To decrease soft tissue restriction Re-Evaluation Ending Re-evaluation ending: Please do not hesitate to contact me at [phone] by phone or if you have questions or concerns regarding this new plan of care! Sincerely, Reggie Marie, PT, Cert MDT, OCS
--- NOTE | 2023-03-22 09:57 | HP.PTREVAL ---
Re-Evaluation Intro: Dr. Ced Johnston, DO, It has been my pleasure to treat VALERIA PRADHAN over the last 16 visits for RADICULOPATHY ,LUMBOSCARAL. Please see the progress note below for an update on the physical therapy plan of care! Subjective Subjective: Seen DR happy with progress ,getting stronger ..pain same with standing/walking Dr sent new order Objective Objective/Function: POSTURE: mild forward posture NEURO: denies paresthesia/tingling , reflexes L3-L4-5 ,L5-S1 1/3 GAIT: reciprocal pattern slight decrease stance PALAPTION: tender SI/LS FLEXABLITY: hamstrings WFL MMT: (peak force) left quads 45.6 ,hamstrings 35.9 ,hip flexion 49.0 ,hip bad 25.5 LUMBAR ROM: flexion min loss ,extension min loss ,side glides mod loss Plan Plan Plan: PT INTERVTIONS LUMBAR FLEXION ,DLS ,POSTURAL EX'S ,LE FLEXABLITY ,LEFT LEG STRENGTHNEING ( HIP STRENGTHENING) AND MODALTIES PRN Balance/Gait/Functional tests Balance/Special Test Scores Oswestry Low Back Score: 17 Goals Goals Goal 1:: Patient to be I with HEP Goal Time Frame: 4-6 Weeks Goal Progress: Progressing Goal 2:: Patient to demonstrate 50% improvement with decrease pain and improved function. Goal Time Frame: 4-6 Weeks Goal Progress: Progressing Goal 3:: Patient to improve lumbar ROM for function of recovery to tie shoes Goal Time Frame: 4-6 Weeks Goal Progress: Progressing Goal 4:: Patient to improve peak force left leg by 10 # to improve gait and function Goal Time Frame: 4-6 Weeks Goal Progress: Progressing Goal 5:: Patient to improve back oswestry score by 5 points to improve QOL and function Goal Time Frame: 4-6 Weeks Goal Progress: Progressing Anticipated Interventions Anticipated Interventions Patient/Client Instruction: Educate patient on: Condition and Plan of Care For the Purpose of:: To decrease pain, To increase ROM, To improve muscle performance and motor function, To improve ability to perform ADL's, To increase tolerance to activity/condition/position, To improve ability of physical actions for home/community/work/leisure, To improve health of tissue, To decrease soft tissue restriction, To increase flexibility/ROM, To improve endurance, To improve balance and To improve safety with gait Therapeutic Exercise to Include: Strength training, Endurance training, Balance training, Body mechanics, Postural training, Flexibilty training and Dynamic Lumbar Stabilization For the Purpose of:: To decrease pain, To improve muscle performance and motor function, To improve ability to perform ADL's, To increase tolerance to activity/condition/position, To improve ability of physical actions for home/community/work/leisure, To improve health of tissue, To decrease soft tissue restriction, To increase flexibility/ROM and To improve tolerance to ADL's TENS: Yes IF ES: Yes Cryotherapy (ice pack, ice massage): Yes Thermo therapy (hot pack): Yes Ultrasound (thermal/non thermal): Yes For the Purpose of:: To decrease pain, To increase ROM, To improve nutrient delivery to tissue, To increase oxygenation perfusion, To improve health of tissue and To decrease soft tissue restriction Re-Evaluation Ending Re-evaluation ending: Please do not hesitate to contact me at [phone] by phone or if you have questions or concerns regarding this new plan of care! Sincerely, Reggie Marie, PT, Cert MDT, OCS
--- NOTE | 2023-04-24 10:10 | HP.PTDCSUM ---
Discharge Summary D/C summary: It has been my pleasure to treat VALERIA PRADHAN referred by Dr. Ced Johnston DO, with the diagnosis of RADICULOPATHY ,LUMBOSCARAL for a total of 24 visit(s). Discharge Date: Please see the following information for a summary of their discharge status. Subjective Subjective: Ready to be d/c own on to gym Pain Bilateral Back: Pain Intensity (Out of 10): 3 Left Hip: Pain Intensity (Out of 10): 3 Overall Improvement % Improvement: 60 Objective Objective/Function: POSTURE: mild forward posture NEURO: denies paresthesia/tingling , reflexes L3-L4-5 ,L5-S1 1/3 GAIT: reciprocal pattern slight decrease stance PALAPTION: tender SI/LS FLEXABLITY: hamstrings WFL MMT: (peak force) left quads 45.6 ,hamstrings 35.9 ,hip flexion 49.0 ,hip abd 25.5 LUMBAR ROM: flexion min loss ,extension min loss ,side glides mod loss Goals Goal 1:: Patient to be I with HEP Goal Progress: Progressing Goal 2:: Patient to demonstrate 50% improvement with decrease pain and improved function. Goal Progress: Goal Met Goal 3:: Patient to improve lumbar ROM for function of recovery to tie shoes Goal Progress: Goal Met Goal 4:: Patient to improve peak force left leg by 10 # to improve gait and function Goal Progress: Progressing Goal 5:: Patient to improve back oswestry score by 5 points to improve QOL and function Goal Progress: Goal Met Plan Plan: d/c to Gym on own and HEP D/C Information d/c sentence: If there are questions or concerns regarding this patient's physical therapy, please feel free to call me at [phone]. Thank you for the referral of this patient. Sincerely, Reggie Marie, PT, Cert MDT, OCS Balance/Gait/Functional tests Balance/Special Test Scores Oswestry Low Back Score: 9 Improvement % Improvement: 60
== END 2023-04-24 19:00 | disposition home or self-care (01) ==
LOC: PT 09:30
PROVIDERS: PCP Family Medicine; Referring Provider Orthopaedic Surgery; Visit Provider Orthopaedic Surgery
DX: M54.17 Radiculopathy, lumbosacral region (principal)
CPT/HCPCS: 97110; 97162; 97530

== ENCOUNTER 2023-09-20 10:00 | Outpatient (RCR) | payer MEDICARE, OTHER, SELFPAY ==
--- NOTE | 2023-08-16 11:59 | HP.PTEVAL_ITS ---
Patient's Visit Information Visit Information Visit Information: VALERIA PRADHAN is a 73 year old M referred to Physical Therapy by Dr. Joe James DO with a diagnosis of L shoulder strain, impingement, and arthritis. Date of Evaluation: 08/16/23 Physical Therapist: Epifanio Guerra DPT Visit Plan Frequency: 2x /Week Duration: 4 Weeks Plan: 1) Stretch neck/shoulders/pecs, may include STM d/t hx of neck pain 2) Improve ER and scapular strength 3) Shoulder stability ex Subjective Subjective: Pt presents to PT with L shoulder pain that began 3 months ago. For the last 2-3 years, overhead motions bothered him while exercising and he began avoiding those movements. Pt has tried using heat and rest. Pt takes tramadol and xanax to help with sleep, pt has some pain while trying to sleep but meds help, sleeps about 6 hours. Pt describes pain as aching in post L shoulder, worse with movement and overhead lifting. Pain Left Shoulder: Pain Intensity (Out of 10): 2 Pain Intensity Range: 2 and 8 Objective Objective: ROM: WNL, felt scaption helped, scapular retraction with functional ER behind head helped relieve pain MMT: global strength 4+/5, some pain and fatigue with L ER 4/5 POSTURE: extended trunk, some shoulder rounding PALPATION: tenderness and tightness in L delt, pecs, UT, supra, teres major/minor, mild chris scapular winging JOINT PLAY: WNL Dougherty Elfego: positive Speeds test: negative Hornblowers at 30 deg flex in scap: positive at 90 deg flex in scap: positive pain in post L shoulder Balance/Special Test Scores Quick DASH Score: 38.6350 Goals Goal 1:: Pt will report <3/10 pain at worst with overhead movement Goal Time Frame: 2-4 Weeks Goal 2:: Pt will improve L shoulder strength to 5/5 with 0/10 pain Goal Time Frame: 2-4 Weeks Goal 3:: Pt will consistently perform HEP at least 4 days per week with correct form Goal Time Frame: 2-4 Weeks Goal 4:: Pt will improve Quick DASH sum to 19 to demonstrate improved ADL tolerance and function Rehabilitation Potential Physical Therapy Diagnosis: Pt presents to PT with L shoulder pain. Pt would benefit from PT services to improve rotator cuff strength, decrease muscular tightness in neck and shoulders, and improve scapular endurance/posture with overhead act. Anticipated Interventions Patient/Client Instruction: Educate patient on: Plan of Care and Benefits of Fitness Program For the Purpose of:: To decrease pain, To improve ability to perform ADL's, To increase tolerance to activity/condition/position, To improve performance and independence with ADL's, To improve ability of physical actions for home/community/work/leisure, To decrease soft tissue restriction, To increase flexibility/ROM, To assume or resume ADL's, To improve health and function, To foster healthy habits, To improve self management and To improve tolerance to ADL's Therapeutic Exercise to Include: Strength training, Body mechanics, Postural training, Flexibilty training and Relaxation training For the Purpose of:: To decrease pain, To improve nutrient delivery to tissue, To improve muscle performance and motor function, To improve ability to perform ADL's, To increase tolerance to activity/condition/position, To decrease soft tissue restriction, To increase flexibility/ROM, To assume or resume ADL's, To foster healthy habits, To improve self management and To improve ability to perform tasks related to life management Manual Therapy Techniques to Include: Passive ROM and Soft tissue mobilization For the Purpose of:: To decrease pain, To improve nutrient delivery to tissue, To increase oxygenation perfusion, To improve muscle performance and motor function, To improve ability to perform ADL's, To decrease soft tissue restriction and To increase flexibility/ROM Biofeedback: Yes TENS: Yes Cryotherapy (ice pack, ice massage): Yes Thermo therapy (hot pack): Yes Ultrasound (thermal/non thermal): Yes For the Purpose of:: To decrease pain, To improve health of tissue, To decrease soft tissue restriction, To increase flexibility/ROM and To improve ability to perform tasks related to life management Text: Thank you for the opportunity to evaluate your patient. For Medicare and Medicare HMO plans, please review the plan of care and approve it. It will need to be FAXED BACK to us at [phone] for Medicare purposes. For Medicare only, by signing this I certify the plan of care. Please let me know if there are questions or concerns regarding this plan of care. Physician Signature: Date:
--- NOTE | 2023-09-20 12:51 | HP.PTDCSUM ---
Discharge Summary D/C summary: It has been my pleasure to treat VALERIA PRADHAN referred by Dr. Joe James DO, with the diagnosis of L shoulder strain, impingement, and arthritis for a total of 9 visit(s). Discharge Date: 09/20/23 Please see the following information for a summary of their discharge status. Subjective Subjective: Pt feels that PT has helped with shoulder pain, but still feels that it needs to be fixed with surgery . Has been working out a few time a week consistently and has no major limitations d/t shoulder pain. Pain Left Shoulder: Pain Intensity (Out of 10): 2 Overall Improvement % Improvement: 50 Objective Objective/Function: ROM: full AROM, some pain with IR at 90 deg ABD MMT: 5/5 chris shoulders PALPATION: some tightness in L biceps, UT, and teres major Dougherty-Elfego: (+) at very end range with OP Pt overall has decreased pain, still has some catching with impingement positions. Pt has been able to workout consistently and recognizes what he can or cannot do and feels he would benefit the most from surgery. Goals Goal 1:: Pt will report <3/10 pain at worst with overhead movement Goal Progress: 1/10 Goal 2:: Pt will improve L shoulder strength to 5/5 with 0/10 pain Goal Progress: Goal Met Goal 3:: Pt will consistently perform HEP at least 4 days per week with correct form Goal Progress: Goal Met Goal 4:: Pt will improve Quick DASH sum to 19 to demonstrate improved ADL tolerance and function Goal Progress: 21 not met Plan Plan: Pt to d/c back to physician to have further work up. Pt has had some pain relief with PT, but feels it did not fix the problem. D/C Information Discharge Comments: D/C back to surgeon, pt feels PT helped to reduce pain but did not fix the issue . d/c sentence: If there are questions or concerns regarding this patient's physical therapy, please feel free to call me at [phone]. Thank you for the referral of this patient. Sincerely, Epifanio Christian Sipos, DPT Balance/Gait/Functional tests Balance/Special Test Scores Quick DASH Score: 22.7250 Improvement % Improvement: 50
== END 2023-09-20 14:18 | disposition home or self-care (01) ==
LOC: PT 10:00
PROVIDERS: PCP Family Medicine; Referring Provider Student in an Organized Health Care Education/Training Program; Visit Provider Student in an Organized Health Care Education/Training Program
DX: S46.012D Strain of muscle(s) and tendon(s) of the rotator cuff of left shoulder, subsequent encounter (principal); M19.012 Primary osteoarthritis, left shoulder; M75.42 Impingement syndrome of left shoulder
CPT/HCPCS: 97110; 97140; 97161; 97530

== ENCOUNTER 2023-11-04 05:57 | Emergency (ER) | payer MEDICARE, OTHER, SELFPAY ==
[2023-11-04 05:57] VITALS: BP 162/89; PULSE 114; RESP 14; TEMP 36.4; O2SAT 98; BMI 24.5
--- NOTE | 2023-11-04 06:22 | EX.ED.DYSGE1 ---
[facility] <Dr. Chris Madden DO - Last Filed: 11/10/23 15:36> History of Present Illness Chief Complaint: General Illness Informant: patient Narrative Narrative: Presents here with spouse currently not feeling well with recent elevated blood pressure. Patient on lisinopril 40 mg hydrochlorothiazide 25 mg daily for blood pressure. Stable blood pressure 130s over 70s. Over a week ago had spinal stimulator placed for his chronic back pain. This was turned on 2 days ago. He also had blood work 2 days ago as an outpatient. He reports 30 pound weight loss unintentional over 8 months. He saw his PCP couple weeks ago had blood work was drawn 2 days ago. Concerning numbers reporting and seen on his phone is a hemoglobin 18 and sodium 129. He does have tobacco history of smoking cigars. No cancer history. PSA was normal. He said colonoscopies in the past. Normal bowel movements for him with constipation with 1 normal today. No bloody stools. No upper endoscopies in the past. Reports decreased appetite. States over the last few days systolic blood pressure up to 200. No headache or chest pain. He does report continued ongoing chronic low back pain. FORMERLY [facility], [facility]–1983 <Dr. Chris Madden DO - Last Filed: 11/10/23 15:36> FORMERLY [facility], [facility] Medical History (Updated 11/04/23 @ 07:[address] Chris Madden DO) Acid reflux B12 deficiency COPD (chronic obstructive pulmonary disease) Gout Hemorrhoids Hypercholesterolemia Hypertension Hypertriglyceridemia Neuropathy Recurrent inguinal hernia of right side without obstruction or gangrene Symptom of bladder outlet obstruction Umbilical hernia without obstruction or gangrene Home Medications lisinopril 20 mg tablet 40 mg PO DAILY 01/21/16 [History Last Taken 06/06/19] azelastine 137 mcg (0.1 %) nasal spray aerosol 2 spray intranasal ONCE 05/23/19 [History Last Taken Unknown] fluticasone propionate 50 mcg/actuation nasal spray,suspension 2 spray intranasal DAILY 05/23/19 [History Last Taken Unknown] gabapentin 300 mg capsule 100 mg PO TID 05/23/19 [History Last Taken 06/06/19] omeprazole 20 mg capsule,delayed release 40 mg PO DAILY 05/23/19 [History Last Taken 11/03/23] cyanocobalamin (vitamin B-12) 1,000 mcg tablet 1,000 mcg PO DAILY 06/04/19 [History Last Taken 11/03/23] naproxen sodium 220 mg tablet (Aleve) 440 mg PO BID PRN pain 02/12/23 [History Last Taken Unknown] alprazolam 0.5 mg tablet (Xanax) 0.5 mg PO BID PRN anxiety 11/04/23 [History Last Taken 11/03/23] atorvastatin 20 mg tablet 20 mg PO DAILY 11/04/23 [History Last Taken 11/03/23] tramadol 25 mg tablet 25 mg PO QHS 11/04/23 [History Last Taken Unknown] Allergy/AdvReac Type Severity Reaction Status Date / Time amoxicillin trihydrate Allergy Angioedema Verified 11/04/23 05:57 [From Augmentin] potassium clavulanate Allergy Angioedema Verified 11/04/23 05:57 [From Augmentin] Family History Father Heart disease Hypertension High cholesterol Mother High cholesterol Hypertension Sister CVA (cerebral vascular accident) Surgical History Hx of colonoscopy Hx of hemorrhoidectomy Hx of right inguinal hernia repair Hx of tonsillectomy Hx of umbilical hernia repair Social History Smoking Status: Light Smoker (<10/day) second hand exposure: No alcohol intake: current alcohol intake frequency: holidays/special occasions only substance use type: does not use caffeine: Yes what type of physical activity do you participate in: none frequency: does not exercise ROS <Dr. Chris Madden DO - Last Filed: 11/10/23 15:36> ROS ED Constitutional Constitutional ED: Denies chills, fever(s) or sweats Eyes Eyes: Denies change in vision ENT ENT ED: Denies dysphagia or sore throat Cardiovascular Cardiovascular: Denies chest pain, leg edema, palpitations or racing heartbeat Respiratory/Chest Respiratory/Chest: Denies cough, dyspnea or dyspnea on exertion Gastrointestinal Gastrointestinal: Denies abdominal pain, diarrhea, nausea or vomiting Genitourinary Genitourinary ED: Denies dysuria, hematuria or urinary frequency Musculoskeletal Musculoskeletal: Reports back pain; Denies extremity pain or neck pain Integumentary Denies rash or wounds Neurologic Neurologic: Denies headache(s), paresthesias or weakness EXAM <Dr. Chris Madden DO - Last Filed: 11/10/23 15:36> Physical Exam Const Vital Signs: 11/04/23 05:57 11/04/23 05:57 11/04/23 08:00 Temperature 97.5 F L Temperature Source Temporal Pulse Rate 114 H 67 Respiratory Rate 14 19 H Respiratory Effort Normal Non-Labored Respiratory Pattern Normal Blood Pressure 162/89 H 140/79 H Blood Pressure Mean 113 99 Pulse Ox 98 97 Oxygen Delivery Method Room Air Room Air Positive well nourished and well developed General Appearance ED: well developed and NAD HEENT Reports moist mucous membranes normocephalic and atraumatic Eyes PERRL, EOMs intact bilaterally and conjunctivae normal General Eye ED: Yes normal appearance of both eyes Neck no lymphadenopathy and supple General: Negative for tenderness Chest Wall Chest: Negative for tenderness Resp normal respiratory effort and normal air movement Effort and Inspection: symmetric chest movement; Negative for respiratory distress Cardio regular rhythm and no murmurs Rate: tachycardic Peripheral Pulses: pulses 2+ throughout GI normal to inspection, nondistended, normoactive bowel sounds and non-tender Palpation: Negative for guarding or rebound tenderness present Back/Spine no CVA tenderness and no thoracic nor lumbar tenderness Back/Spine Narrative: Incision vertical left paralumbar couple of loose stitches, no surrounding erythema or induration. No drainage. Extremity normal to inspection General Extremety ED: Negative for edema or tenderness General Extremity: Negative for edema Neuro oriented x3 and no sensory deficits noted Sensorium / Orientation: awake and alert Skin no rashes or lesions noted and no wounds <Dr. Rick Galvez MD - Last Filed: 11/04/23 09:32> Physical Exam Const Vital Signs: 11/04/23 05:57 11/04/23 05:57 11/04/23 08:00 Temperature 97.5 F L Temperature Source Temporal Pulse Rate 114 H 67 Respiratory Rate 14 19 H Respiratory Effort Normal Non-Labored Respiratory Pattern Normal Blood Pressure 162/89 H 140/79 H Blood Pressure Mean 113 99 Pulse Ox 98 97 Oxygen Delivery Method Room Air Room Air MDM <Dr. Chris Madden DO - Last Filed: 11/10/23 15:36> MDM MDM Narrative Medical decision making narrative: Interventions / MDM: Differential diagnosis: Weight loss, elevated blood pressure, cancer, electrolyte abnormalities Diagnosis considered but do not suspect: No stimulator infection. My EKG interpretation: N/A Imaging independently reviewed and interpreted by myself: 1 view chest x-ray: No acute process. CT abdomen pelvis with IV contrast: External documents reviewed: N/A Test considered but not ordered:N/A ED course: Patient blood pressure arrived 160/89 in the room systolic 145 during my evaluation. Blood work sodium 129 hemoglobin 18. Blood pressure improving without intervention. However discussed concern of his unexpected weight loss over the last 8 months of 30 pounds. 0705: Hemoglobin 18.1. Sodium 127 potassium 3.4 creatinine 0.75. Chest x-ray 1 view shows no acute process. CT abdomen pelvis IV contrast ordered due to unexpected weight loss and hyponatremia to rule out cancers. Patient signed out to morning physician Dr. Galvez. Re-evaluation: stable Disposition discussed with patient/family/significant other: Patient and significant other Case discussed with consulting clinician: N/A This note was generated with [employer] dictation software. It may contain incorrect words, spelling, and punctuation that were not noted in checking the note before signing. Lab Data Labs: Laboratory Results - last 24 hr 11/04/23 06:08 WBC 7.2 RBC 5.12 Hgb 18.1 H* Hct 50.5 MCV 98.6 H MCH 35.4 H MCHC 35.8 RDW Std Deviation 49.0 H RDW Coeff of Luna 13.4 Plt Count 258 MPV 10.2 Immature Gran % (Auto) 0.400 Neut % (Auto) 43.7 L Lymph % (Auto) 39.4 Taney % (Auto) 13.1 H Eos % (Auto) 2.7 Baso % (Auto) 0.7 Absolute Neuts (auto) 3.1 Absolute Lymphs (auto) 2.82 Nucleated RBC % 0 Sodium 127 L Potassium 3.4 L Chloride 95 L Carbon Dioxide 26.0 Anion Gap 6 BUN 13 Creatinine 0.75 Estim Creat Clear Calc 106.73 Est GFR (MDRD) Af Amer 132 Est GFR (MDRD) Non-Af 109 BUN/Creatinine Ratio 17.4 Glucose 117 H Calcium 8.9 Radiography Diagnostic Testing: Clinical Impression(s) from Imaging Studies Abdomen/Pelvis CT 11/04/23 06:32 IMPRESSION: No acute abdominal or pelvic pathology. No cause for patient''s weight loss identified on this examination. Please note that this study does not exclude colon cancer. Electronically Signed: Zion Gaffney MD at 8:33 EDT , Chest X-Ray 11/04/23 06:32 IMPRESSION: No acute thoracic pathology. Electronically Signed: Zion Gaffney MD at 7:27 EDT , <Dr. Rick Galvez MD - Last Filed: 11/04/23 09:32> [facility] Lab Data Labs: Laboratory Results - last 24 hr 11/04/23 06:08 WBC 7.2 RBC 5.12 Hgb 18.1 H* Hct 50.5 MCV 98.6 H MCH 35.4 H MCHC 35.8 RDW Std Deviation 49.0 H RDW Coeff of Luna 13.4 Plt Count 258 MPV 10.2 Immature Gran % (Auto) 0.400 Neut % (Auto) 43.7 L Lymph % (Auto) 39.4 Taney % (Auto) 13.1 H Eos % (Auto) 2.7 Baso % (Auto) 0.7 Absolute Neuts (auto) 3.1 Absolute Lymphs (auto) 2.82 Nucleated RBC % 0 Sodium 127 L Potassium 3.4 L Chloride 95 L Carbon Dioxide 26.0 Anion Gap 6 BUN 13 Creatinine 0.75 Estim Creat Clear Calc 106.73 Est GFR (MDRD) Af Amer 132 Est GFR (MDRD) Non-Af 109 BUN/Creatinine Ratio 17.4 Glucose 117 H Calcium 8.9 Radiography Diagnostic Testing: Clinical Impression(s) from Imaging Studies Abdomen/Pelvis CT 11/04/23 06:32 IMPRESSION: No acute abdominal or pelvic pathology. No cause for patient''s weight loss identified on this examination. Please note that this study does not exclude colon cancer. Electronically Signed: Zion Gaffney MD at 8:33 EDT , Chest X-Ray 11/04/23 06:32 IMPRESSION: No acute thoracic pathology. Electronically Signed: Zion Gaffney MD at 7:27 EDT , Treatment and Re-Evaluation Comments:: Patient checked out to me pending CT results. I reviewed the images and the report which I agree with. It is negative for anything acute or any type of radiographically visible mass or suspicion for cancer. I discussed this with him in addition to the fact that this does not necessarily rule out colon cancer which is not uncommon, he states he gets regular screening colonoscopies every 5 years and he thinks he is due later this year. I recommend following up prior to that. With regards to his hyponatremia, he is on a thiazide diuretic, and so for now I am having him discontinue that. If he still has high blood pressures he may double his lisinopril which she was given in the instructions. Discharge Plan Triage Chief Complaint: General Illness ED Provider: Chris Madden Dx/Rx/DC Orders Clinical Impression: Unintentional weight loss, Hyponatremia, Elevated blood pressure reading in office with diagnosis of hypertension Instructions: Hypertension Dc, ED Hyponatremia Prescriptions: Continued omeprazole 20 mg capsule,delayed release(DR/EC) 40 mg PO DAILY fluticasone propionate 50 mcg/actuation spray,suspension 2 spray INTRANASAL DAILY azelastine 137 mcg (0.1 %) aerosol,spray 2 spray INTRANASAL ONCE naproxen sodium [Aleve] 220 mg tablet 440 mg PO BID PRN (Reason: pain) lisinopril 20 MG tablet 40 mg PO DAILY Patient Comments: BLOOD PRESSURE gabapentin 300 mg capsule 100 mg PO TID Patient Comments: NERVE PAIN cyanocobalamin (vitamin B-12) 1,000 MCG tablet 1,000 mcg PO DAILY atorvastatin 20 mg tablet 20 mg PO DAILY alprazolam [Xanax] 0.5 mg tablet 0.5 mg PO BID PRN (Reason: anxiety) tramadol 25 mg tablet 25 mg PO QHS Patient Comments: Unsure about dose. Discontinued hydrochlorothiazide 25 MG tablet 25 mg PO DAILY Patient Comments: WATER PILL/DIURETIC/BLOOD PRESSURE Primary Care Provider: Eulalio Pan Referrals: Eulalio Pan MD [Primary Care Provider] - Doctor,Your [Non-Staff] - As soon as possible Activity Restrictions/Additional Instructions: Stop your diuretic it could be causing your low sodium level. Follow-up with your doctor regarding your blood pressure. If you continue to have very high readings over 165 fairly consistently before you follow-up, you may double your dose of lisinopril to 40 mg daily. Disposition Disposition: Home, Self Care Discharge Date/Time: 11/04/23 09:43
--- NOTE | 2023-11-04 06:32 | RAD_ITS ---
STUDY: X-RAY CHEST REASON FOR EXAM: Male, 73 years old. Cough. TECHNIQUE: Frontal view of the chest COMPARISON: None. FINDINGS: The lungs are clear. There are no pleural effusions. There is no pneumothorax. The heart is normal in size. There is a spinal stimulator electrode in place. The visualized osseous structures are within normal limits. RAD/Chest 1 View (Portable) IMPRESSION: No acute thoracic pathology. Electronically Signed: Zion Gaffney MD at 7:27 EDT ,
--- NOTE | 2023-11-04 06:32 | CT_ITS ---
STUDY: CT ABDOMEN AND PELVIS WITH CONTRAST REASON FOR EXAM: Male, 73 years old. Pain. Weight loss. RADIATION DOSAGE (If Supplied By Facility): CTDIvol = ( 16.64 ) mGy, DLP = ( 1096.08 ) mGycm TECHNIQUE: Transaxial images were obtained through the abdomen and pelvis without oral contrast. 100 ml of Isovue-370 contrast was administered. Sagittal and coronal images were reconstructed. Individualized dose optimization techniques were used for this CT. COMPARISON: No relevant prior comparison study available FINDINGS: LOWER THORAX: The visualized lung bases are clear. The visualized portions of the heart and pericardium are within normal limits. GALLBLADDER / BILE DUCTS: There are no calcified gallstones present. There is no intrahepatic biliary duct dilatation. The common bile duct is normal in caliber. There are no calcified ductal stones. LIVER: The liver is within normal limits. There are no suspicious hepatic lesions. SPLEEN: The spleen is normal in size. PANCREAS: The pancreas is within normal limits. ADRENAL GLANDS: The adrenal glands are within normal limits. KIDNEYS / BLADDER: There are no renal or ureteral stones. There is no hydronephrosis. There are no focal renal lesions. The urinary bladder is partially distended and appears grossly unremarkable. STOMACH / BOWEL: Normal visualized stomach. There is no bowel obstruction or inflammation. The appendix is visualized and appears normal. PERITONEUM/RETROPERITONEUM: There is no abdominal or pelvic free air, free fluid or fluid collection. There is no abnormal soft tissue mass identified. There is no abdominal or pelvic lymphadenopathy. VESSELS: There are atherosclerotic calcifications noted in the aorta and its branches. The aorta is normal in caliber. The IVC is unremarkable. BONES: There are degenerative changes noted in the spine. There are no destructive osseous lesions. The patient is status post left hip arthroplasty. SOFT TISSUES: The visualized soft tissues are within normal limits. CT/Abdomen/Pelvis W IV Cont ONLY IMPRESSION: No acute abdominal or pelvic pathology. No cause for patient''s weight loss identified on this examination. Please note that this study does not exclude colon cancer. Electronically Signed: Zion Gaffney MD at 8:33 EDT ,
[2023-11-04 06:40] LABS: Absolute Lymphocyte Count 2.82 X10^3/uL (0.83-4.51); Absolute Neutrophil Count 3.1 X10^3/uL (2.0-7.7); Basophil# 0.05 X10^3/uL; Basophil% 0.7 % (0-1); Eosinophil# 0.19 X10^3/uL; Eosinophils% 2.7 % (0-5); Hematocrit 50.5 % (40-54); Lymphocyte # 2.82 X10^3/ul (0.83-4.51); Lymphocyte % 39.4 % (19-41); Mean Corp Hgb Conc 35.8 g/dL (32-36); Mean Corpuscular Hgb 35.4 pg (27.0-32.0); Mean Corpuscular Volume 98.6 fL (80-94); Mean Platelet Vol. 10.2 fl (6.2-12.0); Monocyte# 0.94 X10^3/uL; Monocyte% 13.1 % (0-10); NRBC Flagged by Analyzer 0 % (0-5); Neutrophil # 3.12 X10^3/uL (2.7-7.7); Neutrophil % 43.7 % (47-70); Platelet Count 258 K/mm3 (150-450); RBC Distribution Width CV 13.4 % (11.6-14.6); Red Blood Count 5.12 M/mm3 (4.6-6.2); White Blood Count 7.2 K/mm3 (4.4-11.0)
[2023-11-04 06:50] LABS: Hemoglobin 18.1 g/dL (13.0-16.5)
[2023-11-04 06:53] LABS: Anion Gap 6 (5-15); BUN 13 mg/dL (7-18); BUN/Creat Ratio 17.4 RATIO (10-20); Calcium,Total 8.9 mg/dL (8.5-10.1); Chloride 95 mmol/L (98-107); Creatinine, Serum 0.75 mg/dL (0.70-1.30); EST Glomerular Filtration Rate 109 mL/min (>60); Est Glom Filt Rate - Afr Amer 132 mL/min (>60); Estimated Creatinine Clearance 106.73 ml/min; Glucose 117 mg/dL (74-106); Potassium 3.4 mmol/L (3.5-5.1); Sodium Level 127 mmol/L (136-145)
[2023-11-04] MEDS: 0.9% Normal Saline (500mL Bag) 500 ML 999 ML IV (07:15)
[2023-11-04 08:00] VITALS: BP 140/79; PULSE 67; RESP 19; O2SAT 97
[2023-11-04 09:41] VITALS: BP 130/69; PULSE 60; RESP 17; TEMP 36.3; O2SAT 98
[2023-11-05 16:07] LABS: Pathologist Review Reviewed
== END 2023-11-04 09:43 | disposition home or self-care (01) ==
PROVIDERS: Emergency Provider Emergency Medicine; PCP Family Medicine; Visit Provider Emergency Medicine
DX: I10 Essential (primary) hypertension (principal); E87.1 Hypo-osmolality and hyponatremia; E78.00 Pure hypercholesterolemia, unspecified; F17.200 Nicotine dependence, unspecified, uncomplicated; R63.4 Abnormal weight loss; Z68.24 Body mass index [BMI] 24.0-24.9, adult; Z79.899 Other long term (current) drug therapy
CPT/HCPCS: 71045; 74177; 80048; 85025; 99285; Q9967; A4216

== ENCOUNTER 2024-02-14 13:05 | Emergency (ER) | payer MEDICARE, OTHER, SELFPAY ==
[2024-02-14 13:05] VITALS: BP 162/84; PULSE 67; RESP 19; TEMP 36.4; O2SAT 98; BMI 25.6
--- NOTE | 2024-02-14 13:29 | CT_ITS ---
STUDY: CT ABDOMEN AND PELVIS WITH CONTRAST REASON FOR EXAM: Male, 74 years old. Left lower quadrant pain, history diverticulitis, -- No improvement with antibiotics x 1 week RADIATION DOSAGE (If Supplied By Facility): CTDIvol = ( 13.32 ) mGy, DLP = ( 934.49 ) mGycm TECHNIQUE: Transaxial images were obtained from the dome of the diaphragm to the symphysis pubis without oral contrast. IV 100mL Isovue-370 was administered. Sagittal and coronal images were reconstructed. Individualized dose optimization techniques were used for this CT. COMPARISON: Comparison is made with prior study dated November 04, 2023. FINDINGS: Minimal increase in the markings in the anterior lateral aspect of the right lower lobe abutting the right major fissure. This suggestive of a mild scarring. Coronary artery calcification. Normal liver. Normal gallbladder and extrahepatic biliary system. Normal spleen. Normal pancreas. Normal bilateral adrenal glands. Normal right kidney. Normal left kidney. Nonspecific mild degree of bilateral perinephric stranding. There is diffuse gastric wall thickening. Clinical correlation is recommended. This is unchanged. Normal small intestine. There are multiple colonic diverticula consistent with diverticulosis. The appendix is visualized and appears normal. There is diffuse atherosclerotic calcification of the abdominal aorta, without a demonstrated aneurysm. Normal inferior vena cava. Normal retroperitoneum. Normal urinary bladder. Prostatic enlargement with central prostatic calcification. Small bilateral inguinal hernias containing fat. There are diffuse degenerative changes of the visualized lumbar spine. There is loss of the normal lumbar lordosis. Prior left total hip replacement. The spinal cord similar device is seen. CT/Abdomen/Pelvis W IV Cont ONLY IMPRESSION: There is diffuse gastric wall thickening. Clinical correlation recommended. Sigmoid diverticulosis. No radiographic evidence of diverticulitis at this time. Electronically Signed: Tomás Davison MD at 14:48 EDT ,
[2024-02-14 13:55] LABS: Absolute Lymphocyte Count 2.01 X10^3/uL (0.83-4.51); Absolute Neutrophil Count 4.3 X10^3/uL (2.0-7.7); Basophil# 0.03 X10^3/uL; Basophil% 0.4 % (0-1); Eosinophil# 0.19 X10^3/uL; Eosinophils% 2.6 % (0-5); Hematocrit 45.4 % (40-54); Hemoglobin 15.4 g/dL (13.0-16.5); Lymphocyte # 2.01 X10^3/ul (0.83-4.51); Lymphocyte % 27.1 % (19-41); Mean Corp Hgb Conc 33.9 g/dL (32-36); Mean Corpuscular Hgb 34.6 pg (27.0-32.0); Mean Platelet Vol. 11.5 fl (6.2-12.0); Monocyte# 0.84 X10^3/uL; Monocyte% 11.3 % (0-10); NRBC Flagged by Analyzer 0 % (0-5); Neutrophil # 4.34 X10^3/uL (2.7-7.7); Neutrophil % 58.3 % (47-70); Platelet Count 155 K/mm3 (150-450); RBC Distribution Width CV 13.5 % (11.6-14.6); RBC Distribution Width SD 51.5 fl (35.1-43.9); Red Blood Count 4.45 M/mm3 (4.6-6.2); White Blood Count 7.4 K/mm3 (4.4-11.0)
[2024-02-14 14:08] LABS: Anion Gap 6 (5-15); BUN 12 mg/dL (7-18); BUN/Creat Ratio 17.2 RATIO (10-20); Calcium,Total 8.8 mg/dL (8.5-10.1); Chloride 102 mmol/L (98-107); EST Glomerular Filtration Rate 118 mL/min (>60); Est Glom Filt Rate - Afr Amer 143 mL/min (>60); Estimated Creatinine Clearance 105.19 ml/min; Glucose 109 mg/dL (74-106); Potassium 3.8 mmol/L (3.5-5.1); Sodium Level 134 mmol/L (136-145)
--- NOTE | 2024-02-14 15:23 | EX.ED.DYSGE1 ---
HPI History of Present Illness Chief Complaint: Abd Pain Detail of Chief Complaint: Lower left quadrant abdominal pain, diagnosed with diverticulitis on ciprof Informant: patient Onset/Context/Timing Onset: Weeks Context: Sudden Onset Timing: Intermittent Quality: Pain Location: Left lower quadrant Current Severity: Mild Maximum Severity: Moderate Worsened by: Palpation and movement Relieved by: Nothing Associated Symptoms Associated Symptoms: None Narrative Narrative: Patient is a 74-year-old male. He has history of diverticulitis, hypertriglycerides, hypercholesterolemia, COPD, umbilical and inguinal hernia, degenerative disc disease cervical and lumbar who presents with. He was seen last Sunday by his primary care physician Dr. Pan. He was placed on ciprofloxacin. He states he felt better on Sunday. He developed pain again on Sunday. He presents because of persistent pain. He denies fever or chills. He has had intermittent night sweats. He does not endorse weight loss or weight gain. He states he has chronic back pain. His pain is no different than normal. He denies change in consistency or caliber of his stool. Patient denies dysuria, frequency, urgency or hematuria Patient has not noted a recurrent umbilical or inguinal which she has had in the past. Prior similar symptoms: Yes Recent Illness/Hospitalization: Yes [facility] Medical History (Updated 02/14/24 @ 15:[address] Zach Weber MD) Symptom of bladder outlet obstruction Recurrent inguinal hernia of right side without obstruction or gangrene Umbilical hernia without obstruction or gangrene Acid reflux Hemorrhoids Hypertension Hypertriglyceridemia Hypercholesterolemia Gout Neuropathy COPD (chronic obstructive pulmonary disease) B12 deficiency Home Medications ?Medication ?Instructions ?Recorded ?Last Taken ?Type lisinopril 20 mg tablet 40 mg PO DAILY 01/21/16 06/06/19 History azelastine 137 mcg (0.1 %) nasal 2 spray intranasal ONCE 05/23/19 Unknown History spray fluticasone propionate 50 2 spray intranasal DAILY 05/23/19 Unknown History mcg/actuation nasal spray,suspension gabapentin 300 mg capsule 100 mg PO TID 05/23/19 06/06/19 History omeprazole 20 mg capsule,delayed 40 mg PO DAILY 05/23/19 11/03/23 History release cyanocobalamin (vitamin B-12) 1,000 mcg PO DAILY 06/04/19 11/03/23 History 1,000 mcg tablet naproxen sodium 220 mg tablet 440 mg PO BID PRN pain 02/12/23 Unknown History (Aleve) alprazolam 0.5 mg tablet (Xanax) 0.5 mg PO BID PRN anxiety 11/04/23 11/03/23 History atorvastatin 20 mg tablet 20 mg PO DAILY 11/04/23 11/03/23 History tramadol 25 mg tablet 25 mg PO QHS 11/04/23 Unknown History Allergy/AdvReac Type Severity Reaction Status Date / Time amoxicillin trihydrate (From Allergy Angioedema Verified 11/04/23 05:57 Augmentin) potassium clavulanate (From Allergy Angioedema Verified 11/04/23 05:57 Augmentin) Family History Father Heart disease Hypertension High cholesterol Mother High cholesterol Hypertension Sister CVA (cerebral vascular accident) Surgical History Hx of umbilical hernia repair Hx of colonoscopy Hx of tonsillectomy Hx of hemorrhoidectomy Hx of right inguinal hernia repair Social History Smoking Status: Light Smoker (<10/day) second hand exposure: No alcohol intake: current alcohol intake frequency: holidays/special occasions only substance use type: does not use caffeine: Yes what type of physical activity do you participate in: none frequency: does not exercise ROS ROS ED Constitutional Constitutional ED: Reports sweats; Denies chills, fever(s), subjective or weight loss Eyes Eyes: Denies blurry vision or change in vision ENT ENT ED: Denies ear pain, rhinorrhea or sore throat Cardiovascular Cardiovascular: Denies palpitations Respiratory/Chest Respiratory/Chest: Denies cough, dyspnea or dyspnea on exertion Gastrointestinal Gastrointestinal: Reports abdominal pain and nausea; Denies constipation, diarrhea, melena or vomiting Genitourinary Genitourinary ED: Denies dysuria, hematuria or urinary frequency Musculoskeletal Musculoskeletal: Denies arthralgias, back pain, myalgias or neck pain Integumentary Denies rash Neurologic Neurologic: Denies headache(s), paresthesias or weakness Psychiatric Psychiatric: Denies anxiety or depression Endocrine Endocrinology: Denies cold intolerance or heat intolerance Hematologic/Lymphatic Hematologic/Lymphatic: Reports systems reviewed and no addt'l complaints, except as documented EXAM Physical Exam Const Vital Signs: 02/14/24 13:05 Temperature 97.5 F L Temperature Source Temporal Pulse Rate 67 Respiratory Rate 19 H Blood Pressure 162/84 H Blood Pressure Mean 110 Pulse Ox 98 Oxygen Delivery Method Room Air Positive well nourished and well developed General Appearance ED: well developed and NAD; Negative for cyanotic, diaphoretic or pallor HEENT Reports moist mucous membranes HEENT Narrative: Head is atraumatic normocephalic. Ears normal. Nares patent Eyes PERRL and EOMs intact bilaterally General Eye ED: Negative for pale conjunctiva or scleral icterus Neck no lymphadenopathy Chest Wall inspection of chest normal and palpation of chest normal Resp normal respiratory effort and clear to auscultation bilaterally Cardio regular rate, regular rhythm, S1 normal heart sound, S2 normal heart sound and no murmurs GI normal to inspection, nondistended, normoactive bowel sounds, non-tender, non-distended and no masses; Negative for hepatosplenomegaly Back/Spine no CVA tenderness Extremity normal to inspection General Extremety ED: Negative for edema or tenderness General Extremity: Negative for edema Neuro oriented x3, CN's II-XII intact bilaterally and no sensory deficits noted Sensorium / Orientation: alert Motor Exam: strength 5/5 throughout Psych mental status grossly normal Skin no rashes or lesions noted, no wounds and skin turgor normal General Skin Exam: Negative for jaundice or pallor MDM MDM MDM Narrative Medical decision making narrative: The patient have left lower quadrant pain initially improving with antibiotics and now worse need to rule out failed outpatient therapy or perforation or abscess. Will obtain CT as well as appropriate blood work. UA was not obtained since he has no urinary symptoms. Prior records were reviewed. His senior courtroom clerk is Dr. Joel Cervantes. His primary care physician is Dr. Pan. Lab Data Attestation: I reviewed the patient's lab results. Lab results narrative: CBC reveals macrocytic indices. Electrolyte panel is unremarkable. Labs: Laboratory Results - last 24 hr 02/14/24 13:45 WBC 7.4 RBC 4.45 L Hgb 15.4 Hct 45.4 MCV 102.0 H MCH 34.6 H MCHC 33.9 RDW Std Deviation 51.5 H RDW Coeff of Luna 13.5 Plt Count 155 MPV 11.5 Immature Gran % (Auto) 0.300 Neut % (Auto) 58.3 Lymph % (Auto) 27.1 [place] % (Auto) 11.3 H Eos % (Auto) 2.6 Baso % (Auto) 0.4 Absolute Neuts (auto) 4.3 Absolute Lymphs (auto) 2.01 Nucleated RBC % 0 Sodium 134 L Potassium 3.8 Chloride 102 Carbon Dioxide 26.0 Anion Gap 6 BUN 12 Creatinine 0.70 Estim Creat Clear Calc 105.19 Est GFR (MDRD) Af Amer 143 Est GFR (MDRD) Non-Af 118 BUN/Creatinine Ratio 17.2 Glucose 109 H Calcium 8.8 Radiography Diagnostic Testing: Clinical Impression(s) from Imaging Studies Abdomen/Pelvis CT 02/14/24 13:29 IMPRESSION: There is diffuse gastric wall thickening. Clinical correlation recommended. Sigmoid diverticulosis. No radiographic evidence of diverticulitis at this time. Electronically Signed: Tomás Davison MD at 14:48 EDT , CT reveals diverticulosis without evidence of diverticulitis. Patient has significant gastric wall thickening. Patient was told he will need to contact Dr. Cervantes for EGD and biopsy. Discharge Plan Triage Chief Complaint: Abd Pain ED Provider: Zach Weber Dx/Rx/DC Orders Clinical Impression: Gastric wall thickening, Hypercholesterolemia, Hypertriglyceridemia, Hypertension, Diverticulosis, Abdominal pain, left lower quadrant Instructions: ED Diverticulosis Prescriptions: No Action omeprazole 20 mg capsule,delayed release(DR/EC) 40 mg PO DAILY fluticasone propionate 50 mcg/actuation spray,suspension 2 spray INTRANASAL DAILY azelastine 137 mcg (0.1 %) aerosol,spray 2 spray INTRANASAL ONCE naproxen sodium [Aleve] 220 mg tablet 440 mg PO BID PRN (Reason: pain) lisinopril 20 MG tablet 40 mg PO DAILY Patient Comments: BLOOD PRESSURE gabapentin 300 mg capsule 100 mg PO TID Patient Comments: NERVE PAIN cyanocobalamin (vitamin B-12) 1,000 MCG tablet 1,000 mcg PO DAILY atorvastatin 20 mg tablet 20 mg PO DAILY alprazolam [Xanax] 0.5 mg tablet 0.5 mg PO BID PRN (Reason: anxiety) tramadol 25 mg tablet 25 mg PO QHS Patient Comments: Unsure about dose. Primary Care Provider: Eulalio Pan Referrals: Eulalio Pan MD [Primary Care Provider] - 1 Week if not improving Joel Cervantes MD [Non-Staff] - 1 Week Print Language: [place] Disposition Disposition: Home, Self Care
[2024-02-14 15:28] VITALS: BP 153/81; PULSE 79; RESP 14; O2SAT 98
[2024-02-14 15:46] VITALS: BP 153/75; PULSE 97; RESP 14; TEMP 36.1; O2SAT 98
== END 2024-02-14 15:47 | disposition home or self-care (01) ==
PROVIDERS: Emergency Provider Emergency Medicine; PCP Family Medicine; Visit Provider Emergency Medicine
DX: K57.30 Diverticulosis of large intestine without perforation or abscess without bleeding (principal); J44.9 Chronic obstructive pulmonary disease, unspecified; G89.29 Other chronic pain; F17.200 Nicotine dependence, unspecified, uncomplicated; E78.00 Pure hypercholesterolemia, unspecified; I10 Essential (primary) hypertension; Z87.19 Personal history of other diseases of the digestive system; R10.32 Left lower quadrant pain; E78.1 Pure hyperglyceridemia
CPT/HCPCS: 74177; 80048; 85025; 99282; Q9967; A4216

== ENCOUNTER → 2024-08-13 | Outpatient (CLI) | payer MEDICARE, OTHER, SELFPAY ==
--- NOTE | 2024-08-13 16:20 | MRI_ITS ---
PROCEDURE: SPINE LUMBAR (ROUTINE) REASON FOR EXAM: Low back pain. Spinal stimulator TECHNIQUE: Multiplanar multisequence imaging of the lumbar spine performed without IV contrast enhancement, utilizing a standard protocol. COMPARISON: Plain film imaging dated 12/30/2022 FINDINGS: Levocurvature involving the lumbar spine. Multilevel Modic endplate changes most conspicuous at the L3 through L5 levels. No acute lumbar spine fractures or dislocations are identified. There is disc desiccation noted at all levels, with loss of intervertebral disc space height most prominent at the L3-4 and L4-5 levels. The conus medullaris terminates posterior to the T12-L1 level. Distal cord and cauda equina appear intact. Susceptibility artifact from stimulator wires overlie the right gluteal region and enter the spinal canal at the T11-12 level. Paraspinal soft tissues appear intact. Disc levels as follows:: T11-12, T12-L1: Evaluated on sagittal imaging only. No disc herniation, central spinal or neural foraminal stenosis bilaterally L1-2: Mild paracentral disc bulge on the left. Facet arthrosis and ligamentum flavum thickening. No central spinal or neural foraminal stenosis bilaterally L2-3: Broad-based disc bulge. Subtle posterior annular tear. There is facet arthrosis and mild ligamentum flavum thickening. No significant central spinal or neural foraminal stenosis bilaterally L3-4: Broad-based disc osteophyte complex. Facet arthrosis and ligamentum flavum thickening. Mild narrowing of the lateral recesses. No central spinal or neural foraminal stenosis bilaterally L4-5: Broad-based disc osteophyte complex. There are facet arthrosis and mild ligamentum flavum thickening. No central spinal or left neural foraminal stenosis. Moderate to severe neural foraminal stenosis on the right. L5-S1: Broad-based disc bulge. There is facet arthrosis bilaterally. No central spinal stenosis. Moderate left and mild right neural foraminal stenosis. Sacrum: Visualized upper sacrum and SI joints are unremarkable. MRI/Spine Lumbar (Routine) IMPRESSION: 1. Levocurvature involving the lumbar spine. 2. At the L4-5 level, degenerative disc and endplate changes with a broad-based disc osteophyte complex. Facet arthrosis contributes to moderate to severe neuroforaminal stenosis on the right. No lars tral spinal stenosis. 3. At the L5-S1 level, broad-based disc bulge. Facet arthrosis contributes to moderate left and mild right neural foraminal stenosis. No central spinal stenosis. 4. Additional less prominent spondylotic changes of the remaining lumbar spine, as detailed above. Reading [facility]
== END | disposition home or self-care (01) ==
LOC: MRI 16:16
PROVIDERS: PCP Family Medicine; Referring Provider Orthopaedic Surgery Orthopaedic Surgery of the Spine; Visit Provider Orthopaedic Surgery Orthopaedic Surgery of the Spine
DX: M48.061 Spinal stenosis, lumbar region without neurogenic claudication (principal)
CPT/HCPCS: 72148

== ENCOUNTER 2024-10-06 08:00 | Outpatient (CLI) | payer MEDICARE, OTHER, SELFPAY ==
[2024-10-07 10:37] LABS: Absolute Lymphocyte Count 1.85 X10^3/uL (0.83-4.51); Absolute Neutrophil Count 2.3 X10^3/uL (2.0-7.7); Basophil# 0.02 X10^3/uL; Basophil% 0.4 % (0-1); Eosinophil# 0.26 X10^3/uL; Eosinophils% 5.1 % (0-5); Hematocrit 44.3 % (40-54); Hemoglobin 15.4 g/dL (13.0-16.5); Lymphocyte # 1.85 X10^3/ul (0.83-4.51); Lymphocyte % 36.6 % (19-41); Mean Corp Hgb Conc 34.8 g/dL (32-36); Mean Corpuscular Hgb 34.1 pg (27.0-32.0); Mean Platelet Vol. 10.9 fl (6.2-12.0); Monocyte% 11.9 % (0-10); NRBC Flagged by Analyzer 0 % (0-5); Neutrophil # 2.31 X10^3/uL (2.7-7.7); Neutrophil % 45.6 % (47-70); Platelet Count 183 K/mm3 (150-450); RBC Distribution Width CV 13.2 % (11.6-14.6); RBC Distribution Width SD 47.6 fl (35.1-43.9); Red Blood Count 4.52 M/mm3 (4.6-6.2); White Blood Count 5.1 K/mm3 (4.4-11.0)
[2024-10-07 12:13] LABS: Magnesium 1.9 mg/dL (1.5-2.2)
[2024-10-07 12:15] LABS: Anion Gap 12 (5-15); BUN 13 mg/dL (4-19); BUN/Creat Ratio 14.8 RATIO (10-20); Calcium,Total 8.9 mg/dL (7.6-11.0); Carbon Dioxide 23.5 mmol/L (21.0-32.0); Chloride 101 mmol/L (98-108); Creatinine, Serum 0.91 mg/dL (0.70-1.20); EST Glomerular Filtration Rate 90 (>60); Glucose 86 mg/dL (70-99); HIV Nonreactive (Nonreactive); Potassium 3.9 mmol/L (3.3-5.1); Sodium Level 136 mmol/L (133-145)
[2024-10-08 01:08] LABS: Hepatitis B Surface Antibody Nonreactive; Hepatitis C Antibody Nonreactive (Nonreactive)
[2024-10-08 07:08] LABS: Hepatitis A AB, Total Negative (Negative)
== END 2024-10-06 19:00 | disposition home or self-care (01) ==
LOC: SDC 05-14 08:00
PROVIDERS: Anesthesiology; PCP Family Medicine; Referring Provider Orthopaedic Surgery Orthopaedic Surgery of the Spine; Visit Provider Orthopaedic Surgery Orthopaedic Surgery of the Spine
DX: Z01.818 Encounter for other preprocedural examination (principal)
CPT/HCPCS: 36415; 80048; 83735; 85025; 86703; 86706; 86708; 86803; 86850; 86900; 86901; 87081; 93005

== ENCOUNTER → 2024-10-28 | Outpatient (CLI) | payer MEDICARE, OTHER, SELFPAY ==
[2024-10-28 13:42] LABS: ALB/GLOB Ratio 1.7 RATIO (0.9-2.4); AST(SGOT) 22 U/L (<=37); Alanine Aminotransfer ALT/SGPT 25 U/L (<=46); Albumin, Serum 4.3 g/dL (3.4-4.8); Alkaline Phosphatase 72 U/L (40-129); Anion Gap 10 (5-15); BUN 15 mg/dL (4-19); BUN/Creat Ratio 16.7 RATIO (10-20); Calcium,Total 9.1 mg/dL (7.6-11.0); Carbon Dioxide 26.5 mmol/L (21.0-32.0); Chloride 101 mmol/L (98-108); Creatinine, Serum 0.91 mg/dL (0.70-1.20); EST Glomerular Filtration Rate 89 (>60); Globulin 2.5 g/dL (2.2-4.2); Glucose 104 mg/dL (70-99); Potassium 4.1 mmol/L (3.3-5.1); Protein, Total 6.8 g/dL (5.9-8.4); Sodium Level 137 mmol/L (133-145); Total Bilirubin 0.99 mg/dL (0.00-1.30)
== END | disposition home or self-care (01) ==
LOC: LAB 11:56
PROVIDERS: PCP Family Medicine; Referring Provider Internal Medicine Cardiovascular Disease; Visit Provider Internal Medicine Cardiovascular Disease
DX: I10 Essential (primary) hypertension (principal)
CPT/HCPCS: 36415; 80053; 84443

== ENCOUNTER → 2024-11-19 | Outpatient (CLI) | payer MEDICARE, OTHER, SELFPAY ==
--- NOTE | 2024-11-19 06:47 | ECHOD_ITS ---
Reason For Study Reason For Study: PREOP CV EXAM Procedure This was a 2D Doppler, Color Flow transthoracic echocardiogram. Exam performed in department. Left Ventricle Normal LV size. Mild concentric left ventricular hypertrophy. The LV systolic function is normal. EF is 65 %. Stage 1 diastolic dysfunction. Right Ventricle Normal right ventricle. Atria The left atrium is mildly enlarged. Normal right atrium. Mitral Valve Trivial mitral valve insufficiency. Tricuspid Valve Trivial tricuspid valve insufficiency. Right ventricular systolic pressure estimated to be 43 mmHg. Aortic Valve Trisinus/trileaflet aortic valve. Mildly thickened and calcified noncoronary cusp of the aortic valve. Pulmonic Valve The pulmonic valve is not well visualized. Great Vessels Normal sized aortic root. Pericardium/Pleural No pericardial effusion. MMode/2D Measurements & Calculations LVIDd: 5.7 cm IVSd: 1.2 cm Ao root diam: 3.5 cm LVIDs: 3.9 cm LVPWd: 1.1 cm LA dimension: 4.2 cm RVDd: 3.6 cm FS: 30.6 % LAV(MOD-bp): 97.1 ml LVAd ap4: 30.9 cm2 SV(MOD-sp4): 63.1 ml LAV(MOD-bp) Indexed: 40.6 ml/m2 LVLd ap4: 8.2 cm SI(MOD-sp4): 26.4 ml/m2 LAV(MOD-sp2): 95.6 ml EDV(MOD-sp4): 96.6 ml LAV(MOD-sp4): 95.4 ml EDV(sp4-el): 99.2 ml LVAs ap4: 16.5 cm2 LVLs ap4: 6.7 cm ESV(MOD-sp4): 33.6 ml ESV(sp4-el): 34.6 ml EF(MOD-sp4): 65.3 % EF(sp4-el): 65.1 % SV(sp4-el): 64.6 ml LA A4 area: 26.2 cm2 LA dimension(2D): 3.9 cm RA A4 area: 17.9 cm2 TAPSE: 2.6 cm Time Measurements MV dec time: 0.22 sec Doppler Measurements & Calculations MV E max cholo: 63.1 cm/sec Lat Peak E' Cholo: 7.1 cm/sec Med Peak E' Cholo: 6.1 cm/sec MV A max cholo: 72.0 cm/sec E/E' lat: 8.9 E/E' med: 10.3 MV E/A: 0.88 Ao V2 max: 116.4 cm/sec LV V1 max: 115.3 cm/sec MV dec slope: 297.1 cm/sec2 Ao max P.4 mmHg LV V1 max P.3 mmHg Ao V2 mean: 80.7 cm/sec LV V1 mean P.8 mmHg Ao mean P.8 mmHg LV V1 mean: 78.9 cm/sec Ao V2 VTI: 28.9 cm LV V1 VTI: 28.5 cm AV (velocity ratio): 0.99 PA V2 max: 108.0 cm/sec TR max cholo: 266.5 cm/sec PA V2 mean: 76.6 cm/sec TR max P.4 mmHg ECHO/Echo Complete Interpretation Summary Mild concentric left ventricular hypertrophy. The LV systolic function is normal. EF is 65 %. Stage 1 diastolic dysfunction. The left atrium is mildly enlarged. Right ventricular systolic pressure estimated to be 43 mmHg. Mildly thickened and calcified noncoronary cusp of the aortic valve. Ordering Physician: Eileen Soto Referring Physician: Eulalio Pan Performed By: Meron Paz, JERMAN, RVT
--- NOTE | 2024-11-19 06:47 | CDU_ITS ---
Reason For Study Reason For Study: Preop Rt. Velocities/BP Lt. Velocities/BP Prox CCA 78.7/8.4 cm/sec. Prox CCA 92.4/23.0 cm/sec. Mid CCA 82.0/16.0 cm/sec. Mid CCA 86.9/17.5 cm/sec. Dist CCA 84.2/19.3 cm/sec. Dist CCA 68.7/13.9 cm/sec. Prox ICA 49.0/17.1 cm/sec. Prox ICA 56.0/19.2 cm/sec. Mid ICA 73.4/21.7 cm/sec. Mid ICA 75.1/23.2 cm/sec. Dist ICA 110.4/27.5 cm/sec. Dist ICA 113.4/39.6 cm/sec. Rt. ICA/CCA = 1.3. Lt. ICA/CCA = 1.3. Prox ECA 85.5/4.4 cm/sec. Prox ECA 70.7/4.4 cm/sec. Rt. Vert. 25.1/2.5 cm/sec. Lt. Vert. 45.0/12.8 cm/sec. Right Extracranial There is intimal thickening but no significant atherosclerotic plaque noted in the right common carotid artery. There is heterogeneous, irregular atherosclerotic plaque noted in the right internal carotid artery. There is heterogeneous, irregular atherosclerotic plaque noted in the right external carotid artery. Antegrade flow is noted in the right vertebral artery. Left Extracranial There is heterogeneous, smooth atherosclerotic plaque noted in the left common carotid artery. There is heterogeneous, irregular atherosclerotic plaque noted in the left internal carotid artery. There is heterogeneous, irregular atherosclerotic plaque noted in the left external carotid artery. Antegrade flow is noted in the left vertebral artery. Procedure Carotid Duplex 43251. This is a Carotid Duplex examination using B-mode, color flow and specral Doppler. Exam performed in department. VL/Carotid Duplex Ultrasound Interpretation Summary Mild (<50%) stenosis right extracranial internal carotid. Mild (<50%) stenosis left extracranial internal carotid. Patent and antegrade vertebrals bilaterally. Ordering Physician: Eileen Soto Referring Physician: Rd Pan M.D. Performed By: Latrice Paris RVT
--- NOTE | 2024-11-19 09:38 | STRESSREP ---
Stress Test Report Date: 11/19/2024 Procedure: Pharmacologic stress nuclear imaging study Indications: Preoperative cardiovascular risk assessment Consent: Per the patient Procedure: The patient underwent pharmacologic (Regadenoson 0.4mg ) evaluation with a peak heart rate of 71 beats per minute (47%predicted maximal heart rate) and a peak blood pressure of 158/76 mmHg. The baseline ECG demonstrated sinus rhythm. The peak pharmacologic ECG failed to show any ischemic changes. There were no cardiac dysrhythmias pretest, during pharmacologic infusion, or recovery. There was no complaint of chest discomfort during pharmacologic infusion or recovery. The patient was injected with 13.9 millicuries of technetium 99m Cardiolite and subsequently rest SPECT Cardiolite nuclear imaging was obtained in the horizontal long, vertical long, and short axis views. The patient underwent pharmacologic (Regadenoson) evaluation. The patient was injected with 44.6 millicuries of technetium 99m Cardiolite and subsequently stress SPECT Cardiolite nuclear imaging was obtained in the horizontal long, vertical long, and short axis views. A gated Cardiolite study at peak stress was obtained. The examination was stopped secondary to completion of protocol. Rest and stress SPECT Cardiolite nuclear imaging status post realignment, normalization, and attenuation correction demonstrate mildly reduced perfusion of the mid to distal anterior wall and apex suggestive of mild ischemia. There is end systolic thickening and brightening. The gated Cardiolite study demonstrates myocardial thickening and inward wall motion. The reported LVEF is 64%. Impression: 1. Pharmacologic (Regadenoson) evaluation 2. Peak pharmacologic ECG with no ischemic changes. 3. There were no cardiac dysrhythmias pretest, during pharmacologic infusion, or recovery. 5. Anterior and apical reversible perfusion defect suggestive of ischemia. 6. The gated Cardiolite study reports an LVEF of 64%. This note was generated with Booyahation software. It may contain incorrect words, spelling, and punctuation that were not noted in checking the note before signing.
== END | disposition home or self-care (01) ==
LOC: CVS 06:47
PROVIDERS: PCP Family Medicine; Referring Provider Internal Medicine Cardiovascular Disease; Visit Provider Internal Medicine Cardiovascular Disease
DX: Z01.810 Encounter for preprocedural cardiovascular examination (principal); I49.5 Sick sinus syndrome; R26.89 Other abnormalities of gait and mobility; I25.10 Atherosclerotic heart disease of native coronary artery without angina pectoris
CPT/HCPCS: 78452; 93017; 93306; 93880; A9500; A4216; J2785

== ENCOUNTER → 2024-11-24 | Outpatient (CLI) | payer MEDICARE, OTHER, SELFPAY ==
--- NOTE | 2024-11-24 08:45 | RAD_ITS ---
PROCEDURE: CHEST PA AND LATERAL 11/24/2024 REASON FOR EXAM: PRE-PROCEDURE DIAGNOSTIC TECHNIQUE: Frontal and lateral views of the chest. COMPARISON: Prior study dated November 04, 2019 4. FINDINGS: Hardware: Electrodes from a spinal cord stimulating device is seen. Heart: The heart size is normal. Mediastinum: The mediastinal contour is unremarkable. Lungs: Stable mild increased markings at the lung bases suggestive of mild basilar scarring. Bones: Degenerative changes are identified within the thoracic spine. RAD/Chest PA and Lateral IMPRESSION: Mild degree of stable linear scarring at the lung bases. Reading Location: [id number]
[2024-11-24 09:16] LABS: Absolute Lymphocyte Count 2.66 X10^3/uL (0.83-4.51); Absolute Neutrophil Count 3.5 X10^3/uL (2.0-7.7); Basophil# 0.04 X10^3/uL; Basophil% 0.6 % (0-1); Eosinophil# 0.33 X10^3/uL; Eosinophils% 4.6 % (0-5); Hemoglobin 15.5 g/dL (13.0-16.5); Lymphocyte # 2.66 X10^3/ul (0.83-4.51); Lymphocyte % 36.9 % (19-41); Mean Corp Hgb Conc 34.4 g/dL (32-36); Mean Corpuscular Hgb 34.2 pg (27.0-32.0); Mean Corpuscular Volume 99.3 fL (80-94); Mean Platelet Vol. 10.4 fl (6.2-12.0); Monocyte# 0.68 X10^3/uL; Monocyte% 9.4 % (0-10); NRBC Flagged by Analyzer 0 % (0-5); Neutrophil # 3.46 X10^3/uL (2.7-7.7); Neutrophil % 47.9 % (47-70); Platelet Count 225 K/mm3 (150-450); RBC Distribution Width CV 14.8 % (11.6-14.6); RBC Distribution Width SD 54.3 fl (35.1-43.9); Red Blood Count 4.53 M/mm3 (4.6-6.2); White Blood Count 7.2 K/mm3 (4.4-11.0)
[2024-11-24 09:27] LABS: Prothrombin Time (Protime)PT. 12.9 SECONDS (11.7-14.9)
[2024-11-24 09:43] LABS: Anion Gap 11 (5-15); BUN 11 mg/dL (4-19); BUN/Creat Ratio 14.5 RATIO (10-20); Calcium,Total 9.1 mg/dL (7.6-11.0); Carbon Dioxide 24.9 mmol/L (21.0-32.0); Chloride 102 mmol/L (98-108); Creatinine, Serum 0.78 mg/dL (0.70-1.20); EST Glomerular Filtration Rate 95 (>60); Glucose 114 mg/dL (70-99); Potassium 3.6 mmol/L (3.3-5.1); Sodium Level 138 mmol/L (133-145)
== END | disposition home or self-care (01) ==
LOC: LAB 08:37
PROVIDERS: Physician Assistant Medical; PCP Family Medicine; Referring Provider Internal Medicine Cardiovascular Disease; Visit Provider Internal Medicine Cardiovascular Disease
DX: R94.39 Abnormal result of other cardiovascular function study (principal); I49.5 Sick sinus syndrome
CPT/HCPCS: 36415; 71046; 80048; 85025; 85610

== ENCOUNTER 2024-12-04 08:26 | Day surgery (SDC) | payer MEDICARE, OTHER, SELFPAY ==
--- NOTE | 2024-11-24 10:13 | HP.PCM_ITS ---
History and Physical Date of Admission: 12/04/24 This is a 74-year-old male who presents to the cardiac Placement Specialist to undergo a cardiac catheterization following an abnormal stress test. He has a past medical history significant for hypertension, dyslipidemia and COPD. He has been having chronic back pain and is being contemplated for spinal fusion. We are asked to evaluate his cardiac risk for the proposed procedure. Patient denies any chest pains either at rest or with exertion. He does have some shortness of breath with exertion. His functional capacity is limited because of his severe lower back pain. Denies orthopnea. No PND. No ankle edema. Per patient, he occasionally sees floaters in front of his eyes. This is mostly after he exerts himself. No syncope or presyncope with these events. Remote history of syncope which according to the patient, happened because of his neck problems. Per patient, he checks his pulse and notices it to be in the 40s on occasions. He has had a 14-day event monitor done. It showed normal sinus rhythm. Low heart rate was noted to be sinus bradycardia at 37 bpm. Few runs of supraventricular rhythm were also noted. Intake Vital Signs See EMR Allergies See EMR Medications See EMR [facility] Medical History Acid reflux Alcohol use Arthritis B12 deficiency Back pain Cardiology follow-up encounter COPD (chronic obstructive pulmonary disease) Easy bruising Former smoker Gastric reflux Gout Hemorrhoids High cholesterol History of echocardiogram History of Holter monitoring History of pain when walking History of stress test Hypercholesterolemia Hypertension Hypertriglyceridemia Injury of back Recurrent inguinal hernia of right side without obstruction or gangrene Symptom of bladder outlet obstruction Umbilical hernia without obstruction or gangrene Wears glasses Wears hearing aid Surgical History History of right and left heart catheterization (01/06/10) Hx of colonoscopy Hx of hemorrhoidectomy Hx of right inguinal hernia repair Hx of tonsillectomy Hx of umbilical hernia repair Family History Father Heart disease Hypertension High cholesterolMother High cholesterol HypertensionSister CVA (cerebral vascular accident) Social History Smoking Status: Light Smoker (<10/day) second hand exposure: No alcohol intake: current alcohol intake frequency: holidays/special occasions only substance use type: does not use caffeine: Yes what type of physical activity do you participate in: none frequency: does not exercise ROS Const Const: Negative for fatigue, weakness, headache(s) or weight gain Eyes Eyes: Positive for blurry vision, change in vision and other (yellow/nevarez spots; exertion worsens) ENT ENT: Positive for balance problems (r/t neuropathy); Negative for headache(s), dizziness or Nosebleed/epistaxis Cardio Chest Pain: No Palpitations: Yes (seconds) feels like its: fast Edema: None Muscle aches with walking: None Additional Details: Low HR- 40s-50s Resp Respiratory: Negative for SOB with activity, SOB at rest or SOB orthopnea\SOB lying down GI GI: Negative nausea, vomiting or heartburn Musc Musc: Positive for joint pain (back; surgery pending) and balance problems (r/t neuropathy); Negative for muscle aches/ myalgia or muscle weakness Neuro Neuro: Positive for blurry vision; Negative for dizziness, lightheadedness, near syncope, syncope, headache(s) or weakness Endo Endo: Negative for fatigue Cardiology Exam Const Appearance: comfortable and no acute distress Nutritional Appearance: well nourished Neck Neck: no JVD Carotids: Negative bruit Chest Auscultation: Bilateral: Clear to Auscultation Cardio Rate: regular rate Rhythm: regular rhythm Heart sounds: S1 normal and S2 normal Neuro General: patient alert, patient awake and patient oriented x3 Extremities Lower Extremity Edema: None: Bilateral Supplemental Info Supplemental Information Blood Flow Screening 10/02/2022 Interpretation Summary Normal carotid artery screening (0 to 15% narrowing). Normal aortic ultrasound exam. The ankle/brachial index is normal (1.0 or greater). Echocardiogram 11/01/2009 Interpretation Summary Normal LV size. Mild concentric left ventricular hypertrophy. Left ventricular systolic function is normal. The estimated ejection fraction is 65%. Structurally normal valves. Stress Test 11/01/2009 Conclusion 1. Normal myocardial perfusion scan. 2. Preserved ejection fraction. Assessment and Plan Assessment and Plan (1) Abnormal Stress Test: Status: Acute Plan: Patient's most recent stress test was noted to be abnormal. Would like to proceed with a cardiac catheterization to further assess this. Depending on r esults, further recommendations will be made.
[2024-12-03 09:01] VITALS: BMI 27.2
--- NOTE | 2024-12-04 12:21 | CL.D_ITS ---
Patient Name: VALERIA PRADHAN Study Date: 12/04/2024 Performing: Eileen Soto MD Ht: 77 inches 195.58 cm : 1950 Wt: 230.01 lbs 104.33 kg Age: 74 Gender: male BSA: 2.37 PROCEDURE(S) PERFORMED [id number]-([id number])[facility] CLINICAL PROFILE AND INDICATIONS Indications: Suspected CAD Heart Failure: None Stress/Imaging Stress Test w/SPECT MPI: Yes Result: Positive Intermediate RiskStress Test with SPECT MPI: Positive Intermediate Risk CAD Presentations: Symptom unlikely to be ischemic. CONCLUSIONS Mild LAD disease; Moderate bridging midLAD 50% prox high OM RECOMMENDATIONS Medical therapy Risk factor modification DESCRIPTION OF PROCEDURE The patient arrived to the procedure lab. The risks and benefits of the procedure as well as a full description of our services here and current unavailability of surgical backup were fully explained to the patient and/or their significant other prior to the catheterization. The Timeout was completed, verifying the correct patient and procedure. The patient's procedural site was prepped and draped in the usual fashion. Local anesthetic was given subcutaneously to right radial region with Lidocaine 2%. Using a modified Seldinger technique, arterial access was obtained via the right radial artery, a 6Fr sheath was inserted. LV to AO pullback pressures were then recorded. Left Coronary Artery selective angiography was performed in multiple views using a 5 Fr. 4.0 [place] catheter. Right Coronary Artery selective angiography was then performed in multiple views using a 5 Fr. 4.0 [place] catheter.The arterial sheath was pulled and a TR Band was applied for hemostasis CORONARY ANGIOGRAPHY DOMINANCE: Right Dominant LEFT MAIN: Angiographically normal LEFT ANTERIOR DESCENDING ARTERY: LAD: Tubular 40% Proximal lesion in LAD OM 1: Tubular 50% Ostial lesion in MARG1 OM 2: Tubular 50% Ostial lesion in MARG1 RIGHT CORONARY ARTERY: RCA: Tubular 40% Proximal lesion in RCA RT PDA: Tubular 50% Proximal lesion in RT PDA Tubular 50% Mid lesion in RT PDA COMPLICATIONS No Complications PROCEDURE MEDICATIONS Versed 1 mg IV Fentanyl 50 mcg IV Fentanyl 50 mcg IV Oxygen: 2 L/min via nasal cannula Heparin given IA 12/04/2024 11:55:55 Verapamil 2.5mg, Ntg 200mcgs, 2000 units of Heparin given IA 12/04/2024 11:55:55 SUMMARY OF HEMODYNAMIC DATA Time AIR REST ECG 08:49:21 LV 111/10, 21 12:02:18 LV 98/16, 24 12:02:27 LVp 110/11, 26 12:02:45 AOp 101/64 (76) 12:02:52 AIR REST 12:19:33 Signed By Eileen Soto MD On 12/04/2024 12:20:18 Eileen Soto MD
== END 2024-12-04 14:05 | disposition home or self-care (01) ==
PROVIDERS: PCP Family Medicine; Referring Provider Internal Medicine Cardiovascular Disease; Visit Provider Internal Medicine Cardiovascular Disease
DX: I25.10 Atherosclerotic heart disease of native coronary artery without angina pectoris (principal); J44.9 Chronic obstructive pulmonary disease, unspecified; F17.200 Nicotine dependence, unspecified, uncomplicated; I10 Essential (primary) hypertension; E78.00 Pure hypercholesterolemia, unspecified; Z79.82 Long term (current) use of aspirin; Z79.899 Other long term (current) drug therapy
CPT/HCPCS: 93454; 99152; 99153; Q9967; C1769; C1894

== ENCOUNTER 2025-02-04 13:49 | Inpatient (IN) | payer MEDICARE, OTHER, SELFPAY ==
--- NOTE | 2025-01-21 07:26 | PAT.ANESEVAL ---
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 When Was Last Pacemaker Check QUESTION #4 FULL TEXT: You/Your Family Experience fever (hyperthermia) with Anesthesia Last Oral Intake Last Oral intake: Last Oral Intake NPO since Meds taken in AM with sips of water? Meds patient instructed to take am of surgery PONV PONV - nuclear equipment design engineer: PONV - nuclear equipment design engineer Female No 01/20/25 11:35 HX of Motion Sickness No 01/20/25 11:35 HX of N/V After Surgery No 01/20/25 11:35 Non-Smoker Yes 01/20/25 11:35 Duration of Surgery greater Yes 01/20/25 11:35 than 60 minutes Number of Risk Factors 2 01/20/25 11:35 PONV Score Moderate Risk 01/20/25 11:35 Height & Weight Height & Weight: Anesthesia: Height & Weight Height 6 ft 5 in 12/04/24 08:37 Respiratory Assessment Respiratory Assessment - nuclear equipment design engineer: Respiratory Tract Infection Hx - nuclear equipment design engineer Hx Respiratory Tract Infection No 01/20/25 11:35 STOP Sleep Apnea STOP Sleep Apnea - nuclear equipment design engineer: STOP Sleep Apnea - nuclear equipment design engineer Hx Hypertension Yes: CONTROLLED WITH MED 01/20/25 11:35 Hx Sleep Apnea No 01/20/25 11:35 CPAP BIPAP Do you snore loudly (louder No 01/20/25 11:35 than talking or can be heard Do you often feel tired/ Yes 01/20/25 11:35 fatigued/ sleepy during daytime? Has anyone observed you stop No 01/20/25 11:35 breathing during sleep? STOP Results Positive 01/20/25 11:35 QUESTION #5 FULL TEXT : Do you snore loudly (louder than talking or can be heard through closed doors)? Tobacco Use History Tobacco Use History - nuclear equipment design engineer: Tobacco Use History - nuclear equipment design engineer Tobacco Use Smoking Status Former smoker 01/20/25 11:35 Hx Tobacco Use Yes 01/20/25 11:35 Years Smoking Packs Smoked per Day Smoking Cessation Date was Yes - quit smoking within 15 01/20/25 11:35 within the last 15 years years Hx Smoking Cessation Date Hx Smoking Cessation Counseling Hematologic Medial History Hematologic Hx - nuclear equipment design engineer: Hematologic Medical Hx - behaviorist Hx of Blood Transfusion No 01/20/25 11:35 Hx of Transfusion in last 3 No 01/20/25 11:35 Months Date of Last Transfusion (if within last 3 months) Ever experience any problems No 01/20/25 11:35 with transfusion(s)? Specify any problems Hx of Preganancy in last 3 N/A 01/20/25 11:35 Months Nurse Filling Out Transfusion DSCHRIBER 01/20/25 11:35 & Questions: Date: 01/20/25 01/20/25 11:35 Time: 11:38 01/20/25 11:35 Patient unable to answer at this time (ie. confused, unrespo /Reproduction History /Reproductive History - nuclear equipment design engineer: /Reproductive Hx- nuclear equipment design engineer Hx Now No 01/20/25 11:35 Gestational Age (in weeks): EDC: Hx Hx Para Hx Section SAB No 01/20/25 11:35 [facility] Medical History (Updated 01/20/25 @ 11:46 by China Espinosa) Bladder disease Shortness of breath on exertion Neuropathy Wears hearing aid Wears glasses Alcohol use Arthritis High cholesterol Easy bruising Back pain Injury of back Gastric reflux Former smoker History of pain when walking History of echocardiogram History of stress test Cardiology follow-up encounter History of Holter monitoring Symptom of bladder outlet obstruction Recurrent inguinal hernia of right side without obstruction or gangrene Umbilical hernia without obstruction or gangrene Hemorrhoids Hypertension Hypertriglyceridemia Hypercholesterolemia Gout COPD (chronic obstructive pulmonary disease) B12 deficiency Home Medications ?Medication ?Instructions ?Recorded ?Last Taken ?Type cyanocobalamin (vitamin B-12) 1,000 mcg PO DAILY SUPPLEMENT 06/04/19 12/04/24 History 1,000 mcg tablet atorvastatin 20 mg tablet 20 mg PO QHS CHOLESTEROL 11/04/23 11/03/23 History amlodipine 5 mg tablet 5 mg PO QDAY BP 08/07/24 12/04/24 History gabapentin 300 mg capsule 300 mg PO 1200 PAIN 08/07/24 12/04/24 History trazodone 50 mg tablet 50 mg PO QHS SLEEP 08/07/24 Unknown History alprazolam 0.5 mg tablet (Xanax) 0.5 mg PO BID PRN anxiety 10/10/24 Unknown History coenzyme Q10 200 mg capsule 200 mg PO QDAY SUPPLEMENT 10/10/24 Unknown History lisinopril 40 mg tablet 40 mg PO QDAY BP 10/10/24 12/04/24 History omeprazole 20 mg capsule,delayed 20 mg PO DAILY GERD 10/10/24 12/04/24 History release tamsulosin 0.4 mg capsule 0.8 mg PO QHS PROSTATE 10/10/24 Unknown History aspirin 81 mg tablet,delayed 81 mg PO QDAY HEART HEALTH #90 tabs 11/25/24 12/04/24 Rx release (Adult Aspirin Regimen) isosorbide mononitrate 30 mg 30 mg PO QDAY HEART #90 tabs 11/25/24 12/04/24 Rx tablet,extended release 24 hr hydrocodone 7.5 mg-acetaminophen 1 tab PO QD-BID PRN pain 12/23/24 Unknown History 325 mg tablet gabapentin 300 mg capsule 600 mg PO BID NERVE PAIN 01/20/25 Unknown History Allergy/AdvReac Type Severity Reaction Status Date / Time amoxicillin trihydrate (From Allergy Angioedema Verified 01/20/25 11:27 Augmentin) potassium clavulanate (From Allergy Angioedema Verified 01/20/25 11:27 Augmentin) pravastatin AdvReac Unknown Unknown Verified 01/20/25 11:27 simvastatin AdvReac Unknown Unknown Verified 01/20/25 11:27 Family History Father Heart disease Hypertension High cholesterol Mother High cholesterol Hypertension Sister CVA (cerebral vascular accident) Surgical History (Updated 01/20/25 @ 11:46 by China Espinosa) History of right and left heart catheterization (01/06/10) Hx of umbilical hernia repair Hx of colonoscopy Hx of tonsillectomy Hx of hemorrhoidectomy Hx of right inguinal hernia repair Social History Smoking Status: Former smoker second hand exposure: No alcohol intake: current alcohol intake frequency: holidays/special occasions only substance use type: does not use caffeine: Yes what type of physical activity do you participate in: none frequency: does not exercise Audit: Pertinent Findings Pertinent Findings EKG Perinent findings: EKG on October 07, 2024 sinus bradycardia Heart catheterization pertinent findings: Cardiac cath on 12/04/2024. Findings mild LAD disease. Moderate bridging mild LAD 50% proximal high OM. recommendations: medical therapy Consult pertinent findings: Cardiology visit 11/25/2024. Patient had a Lexiscan stress done showed mild anterior and apical ischemia. Echo showed normal left ventricular systolic function. Stage I diastolic dysfunction was noted. Additional pertinent findings: Holter monitoring results on the September 2024 minimum heart rate of 34. Maximum heart rate of 158. Average heart rate of 54. Underlying sinus rhythm. First-degree AV block was present. 6 supraventricular tachycardia runs occurred. The run with the fastest interval lasting 7 beats with a max rate of 158. The longest lasting 8 beats with average rate of 116 bpm Recommendation Anesthesia Recommendation Anesthesia recommendation: OPTIMIZED for anesthesia (Cardiac cath reviewed showed mild disease. [employer] had recommended medication therapy)
[2025-01-21 09:08] LABS: AST(SGOT) 16 U/L (<=37); Alanine Aminotransfer ALT/SGPT 14 U/L (<=46); Albumin, Serum 4.4 g/dL (3.4-4.8); Alkaline Phosphatase 78 U/L (40-129); Bilirubin, Direct 0.29 mg/dL (0.00-0.30); Globulin 2.7 g/dL (2.2-4.2); Magnesium 2.0 mg/dL (1.5-2.2)
[2025-01-21 09:23] LABS: HIV Nonreactive (Nonreactive); Hepatitis C Antibody Nonreactive (Nonreactive)
[2025-02-04] VITALS (17 sets, daily range): BP systolic 101–146; BP diastolic 61–89; PULSE 56–89; RESP 15–18; TEMP 36.1–36.6; O2SAT 95–100; BMI 27.1
--- OUTSIDE RECORDS SUMMARY | 2025-02-04 05:34 | XMS RPT_ITS | CCD ---
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 Reyes Saucedo Primary Care Provider Dr. Nils Brown Attending Provider Dr. Reyes Saucedo Referring Provider Dr. Ced Johnston Attending Provider Reyes Saucedo MD Primary Care Provider Joel Cervantes Unavailable Joel Cervantes MD Unavailable Dr. Reyes Saucedo Primary Care Provider Dr. Reyes Saucedo Referring Provider Dr. Ced Johnston Attending Provider [phone] Reyes Saucedo MD Primary Care Provider Reyes Saucedo MD Primary Care Provider REYES SAUCEDO Primary Care Unavailab REYES Thakur Referring Unavailab SHELLY Rodriguez Referring Unavailable REYES SAUCEDO Primary Care Unavailab le REYES SAUCEDO Referring Unavailab le SHELLY ROSE Attending Unavailable REYES SAUCEDO Primary Care Unavailab le REYES SAUCEDO Referring Unavailab le REYES SAUCEDO Primary Care Unavailab le REYES SAUCEDO Referring Unavailab REYES Thakur Primary Care Unavailab lane Saucedo MD, Dr. Tsai Primary Care Provider Lewis MCCLURE, Dr. Tsai Referring Provider Dylan MCCLURE, Dr. Ye Attending Provider Deysi MCCLURE, Dr. Salmeron Attending Provider Dylan MCCLURE, Dr. Ye Referring Provider Charles MCCLURE, Dr. Arellano Attending Provider Charles MCCLURE, Dr. Arellano Referring Provider Rashmi MCCLURE, Dr. Ralph Attending Provider Charles MCCLURE, Dr. Arellano Other Provider Lewis MCCLURE, Dr. Tsai Primary Care Provider Deysi MCCLURE, Dr. Salmeron Attending Provider Dylan MCCLURE, Dr. Ye Referring Provider Lewis MCCLURE, Dr. Tsai Referring Provider Dylan MCCLURE, Dr. Ye Attending Provider REYES SAUCEDO Attending Unavailab le LEWISREYES Primary Care Unavailab le LEWISREYES Attending Unavailab le LEWISREYES Primary Care Unavailab le LEWISREYES Attending Unavailab le LEWISREYES Primary Care Unavailab le LEWISREYES Attending Unavailab le LEWIS, REYES VIVEROS Primary Care Unavailab le LEWISREYES Attending Unavailab le LEWIS, REYES VIVEROS Primary Care Unavailab le LEWISREYES Attending Unavailab le SELF Referring Unavailable LEWISREYES Primary Care Unavailab le Lewis, Reyes Primary Care Unavailable Charles, Eileen Attending Unavailable Charles, Eileen Referring Unavailable LewisReyes Referring Unavailable Charles, Eileen Attending Unavailable Lewis, Reyes Primary Care Unavailable Lewis, Reyes Primary Care Unavailable Jaron Jo Attending Unavailable Lewis, Reyes Primary Care Unavailable LewisReyes Referring Unavailable Charles, Eileen Attending Unavailable Charles, Eileen Referring Unavailable Charles, Eileen Attending Unavailable Lewis, Reyes Primary Care Unavailable Lewis, Reyes Primary Care Unavailable Charles, Eileen Attending Unavailable Charles, Eileen Referring Unavailable Lewis, Reyes Primary Care Unavailable Weber, Zach Attending Unavailable Richardson, Timothy Attending Unavailable Richardson, Timothy Admitting Unavailable Richardson, Timothy Referring Unavailable Lewis, Reyes Primary Care Unavailable Richardson, Timothy Attending Unavailable Lewis, Reyes Referring Unavailable Lewis, Reyes Primary Care Unavailable Lewis, Reyes Primary Care Unavailable Deysi, Carolina Attending Unavailable Richardson, Timothy Admitting Unavailable Richardson, Timothy Referring Unavailable Richardson, Timothy Attending Unavailable Kancherla, Bin Consulting Unavailable Lewis, Reyes Primary Care Unavailable Charles, Eileen Referring Unavailable Charles, Eileen Attending Unavailable Lewis, Reyes Primary Care Unavailable Richardson, Timothy Attending Unavailable Lewis, Reyes Referring Unavailable Lewis, Reyes Primary Care Unavailable Lewis, Reyes Primary Care Unavailable Deysi, Jaron Attending Unavailable Richardson, Timothy Attending Unavailable Lewis, Reyes Referring Unavailable Lewis, Reyes Primary Care Unavailable Richardson, Timothy Attending Unavailable Lewis, Reyes Primary Care Unavailable Lewis, Reyes Referring Unavailable Richardson, Timothy Referring Unavailable Lewis, Reyes Primary Care Unavailable Deysi, Jaron Attending Unavailable [place], Ramo Attending Unavailable Lewis, Reyes Primary Care Unavailable Charles, Eileen Referring Unavailable Lewis, Reyes Primary Care Unavailable Charles, Eileen Attending Unavailable Charles, Eileen Consulting Unavailable Charles, Eileen Referring Unavailable Charles, Eileen Referring Unavailable Charles, Eileen Attending Unavailable Charles, Eileen Consulting Unavailable Lewis, Reyes Primary Care Unavailable Richardson, Timothy Attending Unavailable Lewis, Reyes Primary Care Unavailable Lewis, Reyes Referring Unavailable Richardson, Timothy Attending Unavailable Richardson, Timothy Referring Unavailable Lewis, Reyes Primary Care Unavailable Allergies Allergy Classification Reported Allergen(s) Allergy Type Date of Onset Reaction(s) Facility Clavulanate (1 source) Clavulanate Drug Allergy 9 Angioedema [facility] HMG-CoA Reductase Inhibitors (statins) (2 sources) Pravastatin Drug Allergy 2 Unknown [facility] (17 sources) Amoxicillin / Clavulanate; Translations: [AMOXICILLIN-PO T CLAVULANATE] Drug Allergy 1 Swelling [facility] (5 sources) House dust mite Allergy to substance 8 Unknown [facility] (13 sources) Amoxicillin; Translations: [amoxicillin trihydrate] Drug Allergy 0 Angioedema [facility] (20 sources) potassium clavulanate; Translations: [POTASSIUM CLAVULANATE] Allergy to substance 9 Angioedema [facility] (20 sources) Pravastatin; Translations: [PRAVASTATIN] Drug Allergy 2 Other: See Comments, Unknown [facility] (20 sources) Simvastatin; Translations: [SIMVASTATIN] Drug Allergy 2 Other: See Comments, Unknown [facility] (20 sources) House Dust Mite; Translations: [HOUSE DUST MITE] Drug Allergy 8 Other: See Comments, Unknown [facility] (10 sources) Amoxicillin; Translations: [AMOXICILLIN] Drug Allergy 9 Angioedema [facility] (1 source) Pravastatin Drug Allergy 5 [facility] (1 source) Simvastatin Drug Allergy 5 [facility] Medications Current Medications Medication Drug Class(es) Dates Sig (Normalized) Sig (Original) ALPRAZolam 0.5 mg oral tablet (20 sources) Benzodiazepine Start: 01-05-2025 End: 04-05-2025 take 1 tablet by mouth once daily at bedtime ALPRAZolam (XANAX) 0.5 mg tablet Indications: Anxiety Take 1 tablet by mouth daily at bedtime for 90 days. 30 tablet 2 01/05/2025 04/05/2025 Active Start: 08-06-2024 End: 09-26-2024 take 1 tablet by mouth every twelve hours ALPRAZolam (XANAX) 0.5 mg tablet Take 1 tablet by mouth every 12 hours. 08/06/2024 09/26/2024 Discontinued Start: 06-13-2023 End: 12-25-2024 take 1 tablet by mouth twice daily as needed for anxiety Alprazolam (Xanax) 0.5 mg tablet Discontinued 0.5 mg PO TWICE A DAY as needed for anxiety November 04, 2023 12:00am October 10, 2024 11:29am Start: 01-18-2023 End: 07-15-2023 take 1 tablet by mouth once daily at bedtime ALPRAZolam (XANAX) 0.5 mg tablet Indications: Anxiety Take 1 tablet by mouth daily at bedtime for 90 days. 30 tablet 2 04/16/2023 06/13/2023 Discontinued Start: 09-18-2022 End: 01-09-2023 take 1 tablet by mouth once daily at bedtime ALPRAZolam (XANAX) 0.5 mg tablet Indications: Anxiety Take 1 tablet by mouth daily at bedtime for 90 days. 30 tablet 2 10/11/2022 01/09/2023 Active Start: [birth year]-1969 End: 07-18-2022 ALPRAZolam (XANAX) 0.5 mg ta blet Indications: Anxiety TAKE 1 TABLET BY MOUTH AT NIGHT 30 tablet 2 04/19/2022 04/19/2022 Discontinued Comment on above: Take by mouth. TAKE 1 TABLET BY EMILEE TH AT NIGHT Take 1 tablet by emilee th daily at bedtime for 90 days. Take 0.5 mg by mouth daily at bedtime. Take 1 tablet by emilee th two times a day as needed for up to 90 days. amLODIPine 5 mg oral tablet (20 sources) Dihydropyridine Calcium Channel Shayy Start: 11-04-19 End: 09-25-19 26 take 1 tablet by mouth once daily Amlodipine 5 mg tablet Active 5 mg PO daily August 07, 2024 1:00am BP Comment on above: Take 1 tablet by emilee th once daily. amoxicillin 500 mg oral capsule (12 sources) Penicillin-class Antibacterial Start: 09-16-19 25 take 4 capsules by mouth every hour amoxicillin (AMOXIL) 500 mg capsule take 4 capsules by mouth 1 hour prior to dental appointment 09/15/2024 Active Start: 10-03-2022 End: 10-11-2022 take 1 capsule by mouth three times daily amoxicillin (AMOXIL) 500 mg capsule TAKE 1 CAPSULE BY MOUTH THREE TIMES DAILY UNTIL GONE 0 10/03/2022 10/11/2022 Discontinued Comment on above: TAKE 1 CAPSULE BY MO UTH THREE TIMES DAILY UNTIL GONE aspirin 81 mg delayed release oral tablet (20 sources) Platelet Aggregation Inhibitor, Nonsteroidal Anti-inflammatory Drug Start: 11-25-2024 take 1 tablet by mouth once daily Aspirin (Adult Aspirin Regimen) 81 mg tablet,delayed release (DR/EC) Active 81 mg PO daily 90 November 25, 2024 12:00am HEART HEALTH Start: 05-25-2017 End: 10-11-2022 aspirin 81 mg cap ADULT ASPI RIN EC LOW STRENGTH 81 MG ORAL TABLET DELAYED RELEASE 0 05/25/2017 10/11/2022 Discontinued Start: 01-21-2016 End: 11-04-2023 take 1 tablet by mouth at bedtime Aspirin 81 MG tablet,chewable Discontinued 81 mg PO AT BEDTIME January 21, 2016 12:00am November 04, 2023 6:34am Comment on above: ADULT ASPIRIN EC LOW STRENGTH 81 MG ORAL TABLET DELAYED RELEASE atorvastatin 20 mg oral tablet (20 sources) HMG-CoA Reductase Inhibitor Start: 03-13-20 take 1 tablet by mouth at bedtime Atorvastatin 20 mg tablet Active 20 mg PO AT BEDTIME November 04, 2023 12:00am CHOLESTEROL Comment on above: 20 mg. Take 20 mg by mouth once daily. diazePAM 10 mg oral tablet (2 sources) Benzodiazepine Start: 02-04-20 End: 04-19-20 take 1 tablet by mouth every hour diazePAM (VALIUM) 10 mg tablet TAKE 1 TABLET BY MOUTH ONE HOUR PRIOR TO MRI 0 02/03/2022 04/19/2022 Discontinued (Course of therapy completed) Comment on above: TAKE 1 TABLET BY EMILEE TH ONE HOUR PRIOR TO MRI 24 hr isosorbide mononitrate 30 mg extended release oral tablet (8 sources) Nitrate Vasodilator Start: 11-20-19 take 1 tablet by mouth once daily, then take 1 tablet by mouth every twenty-four hours Isosorbide Mononitrate 30 mg tablet extended release 24 hr Active 30 mg PO daily 90 November 25, 2024 12:00am HEART lisinopril 40 mg oral tablet (20 sources) Angiotensin Converting Enzyme Inhibitor Start: 06-29-20 23 take 1 tablet by mouth once daily Lisinopril 40 mg tablet Active 40 mg PO daily October 10, 2024 12:00am BP Start: 01-21-2016 take 40 mg by mouth once daily Lisinopril Active 40 MG PO DAILY January 21, 2016 12:00am Start: 05-03-2012 End: 10-10-2024 take 2 tablets by mouth once daily Lisinopril 20 MG tablet Discontinued 40 mg PO DAILY January 21, 2016 12:00am October 10, 2024 11:27am BP Start: 05-03-2012 take 1 tablet by emilee th once daily lisinopril (ZESTRIL) 20 mg tablet Take 1 tablet by mouth once daily. 0 05/03/2012 Active Start: 05-03-2012 End: 10-11-2022 take 1 tablet by mouth twice daily lisinopril (PRINIVIL) 20 mg tablet Take 1 tablet by mouth twice daily. 0 05/03/2012 10/11/2022 Discontinued Comment on above: Take 1 tablet by emilee th twice daily. Take 1 tablet by emilee th once daily. Take 40 mg by mouth once daily. [facility] increased mecobalamin (20 sources) mecobalamin (B12 ACTIVE ORAL) Take by mouth. Active mecobalamin (B12 ACTIVE ORAL) Take by mouth. 0 Active omeprazole 20 mg delayed release oral capsule (20 sources) Proton Pump Inhibitor Start: 10-10-2024 take 1 capsule by mouth once daily Omeprazole 20 mg capsule,delayed release(DR/EC) Active 20 mg PO DAILY October 10, 2024 11:28am GERD Start: 05-23-2019 End: 10-10-2024 take 2 capsules by mouth once daily Omeprazole 20 mg capsule,delayed release(DR/EC) Discontinued 40 mg PO DAILY May 23, 2019 1:00am October 10, 2024 11:29am GERD Start: 05-23-2019 take 40 mg by mouth once daily Omeprazole Active 40 MG PO DAILY May 23, 2019 1:00am Start: 08-20-2017 End: 10-11-2022 take 20 mg by mouth once daily Omeprazole Active 20 MG PO DAILY May 23, 2019 12:00am Comment on above: Take by mouth. pregabalin 75 mg oral capsule (2 sources) Start: 5 End: 5 take 1 capsule by mouth three times daily Pregabalin (Lyrica) 75 mg capsule Active 75 mg PO THREE TIMES A DAY January 29, 2025 12:00am SUTAB 1.479-0.188- 0.225 gram tab (20 sources) Start: 4 SUTAB 1.479-0.188- 0.225 gram tab TAKE TABLETS BY MOUTH A SPLIT DOSEAGE DIRECTED 04/02/2024 Active tamsulosin hydrochloride 0.4 mg oral capsule (20 sources) alpha-Adrenergic Shayy Start: take 2 capsules by mouth at bedtime Tamsulosin 0.4 mg capsule Active 0.8 mg PO AT BEDTIME October 10, 2024 12:00am PROSTATE Start: 10-10-2024 take 1 capsule by mo [facility] once daily Tamsulosin 0.4 mg capsule Active 0.4 mg PO daily October 10, 2024 12:00am Comment on above: Take 0.4 mg by mouth once daily. traZODone hydrochloride 50 mg oral tablet (20 sources) Serotonin Reuptake Inhibitor Start: take 1 tablet by mouth at bedtime Trazodone 50 mg tablet Active 50 mg PO AT BEDTIME August 07, 2024 1:00am SLEEP Start: 04-16-2023 End: 04-15-2024 take 1 tablet by mouth once daily at bedtime traZODone (DESYREL) 50 mg tablet take 1 tablet by mouth once daily at bedtime 90 tablet 3 03/24/2024 Active Comment on above: Take 1 tablet by emliee daily at bedtime. ubidecarenone 200 mg oral capsule (20 sources) Start: take 10 capsules by mouth once daily Coenzyme Q10 200 mg capsule Active 200 mg PO daily October 10, 2024 12:00am SUPPLEMENT take 1 capsule by mouth once lee ly Coenzyme Q10 (CO Q-10) 200 mg cap Take by mouth once daily. Active vitamin b12 1 mg oral tablet (18 sources) Vitamin B12 Start: 06-04-2019 take 1 tablet by mouth once daily Cyanocobalamin (Vitamin B-12) 1,000 MCG tablet Active 1000 ug PO DAILY June 04, 2019 1:00am SUPPLEMENT Start: 05-25-2017 End: 10-11-2022 Cyanocobalamin 1,000 mcg sub l cyanocobalamin (vitamin B-12) 1,000 mcg tablet, sublingual 0 05/25/2017 10/11/2022 Discontinued Comment on above: cyanocobalamin (anabella min B-12) 1,000 mcg tablet, sublingual Completed/Discontinued Medications Medication Drug Class(es) Dates Sig (Normalized) Sig (Original) acetaminophen 325 mg / HYDROcodone bitartrate 7.5 mg oral tablet (20 sources) Opioid Agonist Start: 12-16-2024 End: 01-29-2025 Hydrocodone-Acetami nophen 7.5-325 mg tablet Discontinued 1 {tbl} PO 1 to 2 times per day as needed for pain 0 December 23, 2024 12:00am January 29, 2025 9:00am Start: 09-12-2023 End: 11-14-2023 take 0.5-1 tablets by mouth three times daily as needed for pain HYDROcodone-acetaminophen (NORCO) 5-325 mg per tablet TAKE 1/2 (ONE-HALF) TO 1 TABLET BY MOUTH THREE TIMES DAILY NEEDED FOR PAIN 0 09/12/2023 11/14/2023 Discontinued Start: 06-06-2019 End: 06-12-2019 Hydrocodone-Acetaminophen 1 TABLET tablet Discontinued 1 {tbl} PO EVERY 4 HOURS NEEDED as needed for Pain 10 2 0 June 06, 2019 June 07, 2019 1:00am June 12, 2019 1:08am Postoperative pain Other acute postprocedural pain Start: 06-06-2019 End: 06-12-2019 take 1 tablet by mouth every four hours as needed Hydrocodone-Acetaminophen Discontinued 1 TABLET PO EVERY 4 HOURS NEEDED 10 2 June 06, 2019 June 12, 2019 1:08am Comment on above: TAKE 1/2 (ONE-HALF) TO 1 TABLET BY MOUTH THREE TIMES DAILY NEEDED FOR PAIN acetaminophen 325 mg / oxyCODONE hydrochloride 7.5 mg oral tablet (20 sources) Opioid Agonist Start: 03-05-2024 End: 01-20-2025 Oxycodone-Acetaminophen 7.5-325 mg tablet Discontinued 1 {tbl} PO TWICE A DAY as needed for pain 0 August 07, 2024 1:00am January 20, 2025 11:30am azelastine hydrochloride 0.137 mg/actuat metered dose nasal spray (20 sources) Histamine-1 Receptor Antagonist Start: 05-23-2019 End: 08-07-2024 Azelastine 137 mcg (0.1 %) aerosol,spray Discontinued 2 NMA INTRANASAL ONCE May 23, 2019 1:00am August 07, 2024 11:44am Start: 05-23-2019 Azelastine Act armand 2 SPRAY INTRANASAL ONCE May 23, 2019 1:00am Start: 06-25-2018 End: 11-14-2023 Azelastine 205.5 mcg (0.15 % ) spry Apply to affected area. 0 06/25/2018 11/14/2023 Discontinued Comment on above: Apply to affected ar ea. ciprofloxacin 500 mg oral tablet (5 sources) Quinolone Antimicrobial Start: 02-06-20 End: 04-21-20 take 1 tablet by mouth three times daily ciprofloxacin HCl (CIPRO) 500 mg tablet Take 1 tablet by mouth three times a day. 30 tablet 02/06/2024 04/21/2024 Discontinued colestipol hydrochloride 1000 mg oral tablet (18 sources) Bile Acid Sequestrant Start: 01-21-20 End: 11-04-19 take 1 tablet by mouth twice daily Colestipol 1 GM tablet Discontinued 1 g PO TWICE A DAY January 21, 2016 12:00am November 04, 2023 6:34am Comment on above: Colestid 1 gram tabl et DULoxetine 30 mg delayed release oral capsule (2 sources) Serotonin and Norepinephrine Reuptake Inhibitor Start: 03-14-20 End: 04-21-20 take 1 capsule by mouth once DULoxetine (CYMBALTA) 30 mg capsule Take 1 capsule by mouth every afternoon. 03/14/2024 04/21/2024 Discontinued fluticasone propionate 0.05 mg/actuat metered dose nasal spray (20 sources) Corticosteroid Start: 05-23-20 End: 08-07-19 Fluticasone Propionate 50 mcg/actuation spray,suspension Discontinued 2 NMA INTRANASAL DAILY May 23, 2019 1:00am August 07, 2024 11:44am Start: 05-23-2019 Fluticasone Pr opionate Active 2 SPRAY INTRANASAL DAILY May 23, 2019 1:00am Start: 08-20-2017 End: 11-14-2023 take 1 spray(s) nasal route once daily fluticasone (FLONASE) 50 mcg/actuation nasal spray Use 1 Braggs in each nostril once daily. 0 08/20/2017 11/14/2023 Discontinued Start: 08-20-2017 End: 10-11-2022 fluticasone (FLONASE) 50 mcg/actuation nasal spray Apply to affected area. 0 08/20/2017 10/11/2022 Discontinued Comment on above: Apply to affected ar ea. Use 1 Braggs in each nostril once daily. gabapentin 300 mg oral capsule (20 sources) Anti-epileptic Agent Start: End: take 2 capsules by mouth twice daily Gabapentin 300 mg capsule Discontinued 600 mg PO TWICE A DAY January 20, 2025 12:00am January 29, 2025 8:58am NERVE PAIN Start: 03-25-2024 End: 01-29-2025 Gabapentin 300 mg capsule Discontinued 300 mg PO 1200 August 07, 2024 11:44am January 29, 2025 8:58am PAIN Start: 07-31-2023 End: 04-21-2024 gabapentin (NEURONTIN) 100 m g capsule 100 mg. 07/31/2023 04/21/2024 Discontinued Start: 05-23-2019 End: 08-07-2024 Gabapentin 300 mg capsule Discontinued 100 mg PO THREE TIMES A DAY May 23, 2019 10:07am August 07, 2024 11:46am Start: 05-23-2019 take 100 mg by mouth three times daily Gabapentin Active 100 MG PO THREE TIMES A DAY May 23, 2019 10:07am Start: 05-25-2017 End: 11-14-2023 take 1 capsule by mouth three times daily gabapentin (NEURONTIN) 300 mg capsule Take 300 mg by mouth three times daily. 0 08/02/2020 11/14/2023 Discontinued Start: 01-21-2016 End: 05-23-2019 take 1 capsule by mouth twice daily at mealtime Gabapentin 300 MG capsule Discontinued 300 mg PO TWICE DAILY WITH MEALS January 21, 2016 12:00am May 23, 2019 10:14am Comment on above: gabapentin 300 mg ca psule Take 300 mg by mouth three times daily. gemfibrozil 600 mg oral tablet (15 sources) Peroxisome Proliferator Receptor alpha Agonist Start : 01-20 End: 11-03 take 1 tablet by mouth twice daily before mealtime Gemfibrozil 600 MG tablet Discontinued 600 mg PO TWICE DAILY BEFORE MEALS January 21, 2016 12:00am November 04, 2023 6:35am Comment on above: gemfibrozil 600 mg t ablet hydroCHLOROthiazide 25 mg oral tablet (20 sources) Thiazide Diuretic Start : 05-03 End: 11-13 take 1 tablet by mouth once daily Hydrochlorothiazide 25 MG tablet Discontinued 25 mg PO DAILY January 21, 2016 12:00am November 04, 2023 9:29am Comment on above: [facility]. L.acid/L.casei/B.bif/B.lo n/FOS (PROBIOTIC BLEND ORAL) (6 sources) End: 11-03 L.acid/L.casei/B.bif/B.l on/FOS (PROBIOTIC BLEND ORAL) Take by mouth. 0 11/04/2023 Discontinued L.acid/L.casei/B .bif/B.federico/FOS (PROBIOTIC BLEND ORAL) Take by mouth. 0 Active Comment on above: Take by mouth. moxifloxacin 400 mg oral tablet (12 sources) Quinolone Antimicrobial Start: 01-21-20 End: 05-23-20 take 1 tablet by mouth once daily Moxifloxacin 400 MG tablet Discontinued 400 mg PO DAILY 10 0 January 21, 2016 12:00am May 23, 2019 9:44am multivitamin chewable tablet (5 sources) Start: 05-23-20 End: 11-04-19 take 2 tablets by mouth once daily multivitamin chewable tablet Discontinued 2 TABLET PO DAILY May 23, 2019 1:00am November 04, 2023 6:35am Start: 05-23-2019 take 2 tablets by mo [facility] once daily multivitamin chewable tablet Active 2 TABLET PO DAILY May 23, 2019 1:00am Start: 05-23-2019 take 2 tablets by [facility] once daily multivitamin chewable tablet Active 2 TABLET PO DAILY May 23, 2019 12:00am Multivitamin tablet,chewable (7 sources) Start: 05-23-2019 End: 11-04-2023 Multivitamin tablet,chewable Discontinued 2 {tbl} PO DAILY May 23, 2019 1:00am November 04, 2023 6:35am naproxen sodium 220 mg oral tablet (10 sources) Nonsteroidal Anti-inflammatory Drug Start: 02-12-2023 End: 08-07-2024 take 2 tablets by mouth twice daily as needed for pain Naproxen Sodium (Aleve) 220 mg tablet Discontinued 440 mg PO TWICE A DAY as needed for pain February 12, 2023 12:00am August 07, 2024 11:45am Sod Sulf-Pot Chloride-Mag Sulf (7 sources) Start: 10-10-2024 End: 01-20-2025 take 1.479 tablets by mouth once Sod Sulf-Pot Chloride-Mag Sulf (Sutab) 1.479-0.188- 0.225 gram tablet Discontinued 0 PO per package directions October 10, 2024 12:00am January 20, 2025 11:31am PO PER PKG DIR Start: 10-10-2024 take 1.479 tablets b y mouth once Sod Sulf-Pot Chloride-Mag Sulf (Sutab) 1.479-0.188- 0.225 gram tablet Active 0 PO per package directions October 10, 2024 12:00am PO PER PKG DIR sucralfate 1000 mg oral tablet (2 sources) Aluminum Complex Start: 03-08-2024 End: 04-21-2024 take 1 tablet by mouth four times daily sucralfate (CARAFATE) 1 gram tablet Take 1 g by mouth four times daily. 03/08/2024 04/21/2024 Discontinued Tramadol (8 sources) Opioid Agonist Start: 11-04-2023 End: 08-07-2024 take 1 tablet by mouth at bedtime Tramadol 25 mg tablet Discontinued 25 mg PO AT BEDTIME November 04, 2023 12:00am August 07, 2024 11:43am Start: 11-04-2023 take 25 mg by mouth at bedtime Tramadol Active 25 MG PO AT BEDTIME November 04, 2023 12:00am Problems Active Problems Problem Classification Problem Date Documented Da te Episodic/Chronic Abdominal hernia (20 sources) Right inguinal hernia ; Translations: [Unilateral inguinal hernia, without obstruction or gangrene, not specified as recurrent] Onset: 9 04-14-2022 Episodic Administrative/social admission (1 source) Other specified counseling; Translations: [Encounter for counseling regarding advance directives] Onset: 5 Episodic Alcohol-related disorders (20 sources) Alcoholic polyneuropathy; 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-2022 Chronic Anxiety disorders (20 sources) Anxiety; Translations: [Anxiety disorder, unspecified] Onset: 3 Chronic Cardiac dysrhythmias (20 sources) Sick sinus syndrome; Translations: [Sick sinus syndrome] Onset: 5 10-28-2024 Chronic Chronic obstructive pulmonary disease and bronchiectasis (20 sources) Chronic obstructive lung disease; Translations: [Chronic obstructive pulmonary disease, unspecified] Onset: 7 04-14-2022 Chronic Disorders of lipid metabolism (20 sources) Hypercholesterolemia; Translations: [Pure hypercholesterolemia, unspecified] Onset: 7 04-14-2022 Chronic Diverticulosis and diverticulitis (8 sources) Diverticulitis; Translations: [Diverticulitis of intestine, part unspecified, without perforation or abscess without bleeding] 02-06-2024 Chronic Esophageal disorders (12 sources) Gastroesophageal reflux disease; Translations: [Gastro-esophageal reflux disease without esophagitis] 06-06-2019 Chronic Essential hypertension (20 sources) Hypertensive disorder; Translations: [Essential (primary) hypertension] Onset: 7 04-14-2022 Chronic Comment on above: CONTROLLED ON MED Fluid and electrolyte disorders (20 sources) Hyponatremia; Translations: [Hypo-osmolality and hyponatremia] Onset: 4 11-04-2023 Episodic Gout and other crystal arthropathies (20 sources) Gout; Translations: [Gout, unspecified] Onset: 7 04-14-2022 Chronic Hemorrhoids (12 sources) Hemorrhoids; Translations: [Unspecified hemorrhoids] 06-06-2019 Episodic Malaise and fatigue (1 source) Asthenia; Translations: [Weakness] Episodic Miscellaneous mental health disorders (4 sources) Primary insomnia; Translations: [Primary insomnia] Onset: Chronic Nutritional deficiencies (20 sources) Cobalamin deficiency; Translations: [Deficiency of other specified B group vitamins] Onset: 7 04-14-2022 Episodic Osteoarthritis (20 sources) Osteoarthritis of hip; Translations: [Osteoarthritis of hip, unspecified] Onset: 2 04-19-2022 Chronic Other acquired deformities (20 sources) Scoliosis of lumbar spine; Translations: [Scoliosis, unspecified] 08-07-2024 Chronic Other acquired deformities (1 source) Other secondary scoliosis, lumbar region; Translations: [Other secondary scoliosis, lumbar region] Onset: Chronic Other and ill-defined heart disease (12 sources) Diastolic dysfunction; Translations: [Other ill-defined heart diseases] 11-25-2024 Chronic Other and ill-defined heart disease (1 source) Other ill-defined heart diseases; Translations: [Other ill-defined heart diseases] Onset: 5 Chronic Other diseases of bladder and urethra (12 sources) Urinary symptoms ; Translations: [Bladder-neck obstruction] 05-23-2019 Chronic Other disorders of stomach and duodenum (7 sources) Disorder of stomach; Translations: [Other diseases of stomach and duodenum] 02-22-2024 Episodic Other ear and sense organ disorders (20 sources) Sensorineural hearing loss, bilateral; Translations: [Sensorineural hearing loss, bilateral] Onset: 2 04-19-2022 Chronic Other gastrointestinal disorders (1 source) Irritable bowel syndrome with diarrhea; Translations: [Irritable bowel syndrome with diarrhea] 04-16-2023 Chronic Other nervous system disorders (20 sources) Neuropathy; Translations: [Polyneuropathy, unspecified] Onset: 7 04-14-2022 Chronic Other nervous system disorders (2 sources) Chronic pain syndrome; Translations: [Chronic pain syndrome] 08-31-2024 Chronic Other nervous system disorders (11 sources) Peripheral nerve disease ; Translations: [Polyneuropathy, unspecified] 08-07-2024 Chronic Other nervous system disorders (1 source) Other chronic pain; Translations: [Chronic midline low back pain without sciatica] Onset: 5 Chronic Other nervous system disorders (1 source) Chronic pain syndrome; Translations: [Chronic pain syndrome] Onset: 5 Chronic Other nervous system disorders (11 sources) Impairment of balance; Translations: [Other abnormalities of gait and mobility] 08-07-2024 Episodic Other nervous system disorders (1 source) Other abnormalities of gait and mobility; Translations: [Other abnormalities of gait and mobility] Onset: 5 Episodic Other nutritional; endocrine; and metabolic disorders (20 sources) Unintentional weight loss; Translations: [Abnormal weight loss] Onset: 4 11-04-2023 Episodic Other screening for suspected conditions (not mental disorders or infectious disease) (16 sources) Encounter for screening for diseases of the blood and blood-forming organs and certain disorders involving the immune mechanism; Translations: [Encounter for screening for malignant neoplasm of prostate] Onset: 4 11-21-2024 Episodic Residual codes; unclassified (12 sources) History of repair of umbilical hernia; Translations: [Other specified postprocedural states] 06-16-2019 Episodic Comment on above: 06/06/19 Residual codes; unclassified (12 sources) History of colonoscopy; Translations: [Other specified postprocedural states] 06-06-2019 Episodic Comment on above: 04/2019 Residual codes; unclassified (4 sources) Tobacco user; Translations: [Tobacco use] 11-14-2023 Episodic Residual codes; unclassified (1 source) Tobacco use; Translations: [Tobacco abuse] Onset: 4 Episodic Screening and history of mental health and substance abuse codes (1 source) Encounter for screening for depression; Translations: [Screening for depression] Onset: 5 Episodic Spondylosis; intervertebral disc disorders; other back problems (20 sources) Degeneration of cervical intervertebral disc; Translations: [Other cervical disc degeneration, unspecified cervical region] 09-01-2022 Chronic Unclassified (20 sources) Hypogonadism; Translations: [Hypogonadism] Onset: 2 04-19-2022 Unclassified (1 source) Chronic midline low back pain without sciatica; Translations: [Chronic midline low back pain without sciatica] Onset: 5 Unclassified (1 source) Low back pain, unspecified; Translations: [Low back pain, unspecified] Onset: 5 Unclassified (1 source) Other intervertebral disc degeneration, lumbar region with discogenic back pain and lower extremity pain; Translations: [Other intervertebral disc degeneration, lumbar region with discogenic back pain and lower extremity pain] Onset: 5 Viral infection (4 sources) Herpes zoster without complication; Translations: [Zoster without complications] Onset: 5 06-13-2023 Episodic Past or Other Problems Problem Classification Problem Date Documented Da te Episodic/Chronic Abdominal pain (9 sources) Left lower quadrant pain; Translations: [Left lower quadrant pain] Onset: 02-06-2024 02-22-2024 Episodic Acute bronchitis (20 sources) Acute bronchitis; Translations: [Acute bronchitis, unspecified] Onset: 09-18-2019 04-14-2022 Episodic Cardiac dysrhythmias (3 sources) Bradycardia; Translations: [Bradycardia, unspecified] Onset: 09-24-2024 09-28-2024 Episodic Immunizations and screening for infectious disease (20 sources) Patient encounter status; Translations: [Encounter for immunization] Onset: 06-25-2018 04-14-2022 Episodic Other upper respiratory infections (20 sources) Acute upper respiratory infection; Translations: [Acute upper respiratory infection, unspecified] Onset: 08-20-2017 04-14-2022 Episodic Residual codes; unclassified (20 sources) Insomnia; Translations: [Insomnia, unspecified] Onset: 11-26-2018 04-14-2022 Episodic Skin and subcutaneous tissue infections (20 sources) Cellulitis and abscess of toe; Translations: [Cellulitis of unspecified toe] Onset: 05-03-2012 05-03-2012 Episodic Spondylosis; intervertebral disc disorders; other back problems (20 sources) Chronic neck pain; Translations: [Cervicalgia] Onset: 09-01-2020 04-14-2022 Episodic Results Test Name Value Interpretation Reference Range Facility Orthopedic Visit Reporton Orthopedic Visit Report [facility] [address] [place] [address] OFFICE VISIT Date of Service: 01/29/25 MR#: [id number] Acct: [id number] Name: VALERIA PRADHAN Rep #: [id number] : 1950 Provider: Dr. Timothy Richardson MD Age/Sex: 74/M Location: [facility] [place] Status: Signed Intake Vital Signs 12/23/24 14:59 Height 6 ft 5 in Weight: 230 lb BMI 27.2 Intake Visit Reasons: lumbar spine Chief Complaint: Lumbar spine pain Allergies amoxicillin trihydrate (From Augmentin) Allergy (Verified 01/29/25 08:58) Angioedema potassium clavulanate (From Augmentin) Allergy (Verified 01/29/25 08:58) Angioedema pravastatin Adverse Reaction (Unknown, Verified 01/29/25 08:58) Unknown simvastatin Adverse Reaction (Unknown, Verified 01/29/25 08:58) Unknown Medications ???Medication ???Instructions ???Recorded ???Confirmed ???Type cyanocobalamin (vitamin B-12) 1,000 mcg PO DAILY SUPPLEMENT 05/1701/29/25 History 1,000 mcg tablet atorvastatin 20 mg tablet 20 mg PO QHS CHOLESTEROL 11/04/23 01/29/25 History amlodipine 5 mg tablet 5 mg PO QDAY BP 08/07/24 01/29/25 History trazodone 50 mg tablet 50 mg PO QHS SLEEP 08/07/24 History alprazolam 0.5 mg tablet (Xanax) 0.5 mg PO BID PRN anxiety 10/10/24 01/29/25 History coenzyme Q10 200 mg capsule 200 mg PO QDAY SUPPLEMENT 10/10/24 01/29/25 History lisinopril 40 mg tablet 40 mg PO QDAY BP 10/10/24 01/29/25 History omeprazole 20 mg capsule,delayed 20 mg PO DAILY GERD 10/10/2401/29 History release tamsulosin 0.4 mg capsule 0.8 mg PO QHS PROSTATE 10/10/24 History aspirin 81 mg tablet,delayed 81 mg PO QDAY HEART HEALTH #90 tab s 11/25/24 01/29/25 Rx release (Adult Aspirin Regimen) isosorbide mononitrate 30 mg 30 mg PO QDAY HEART #90 tabs 11/2501/29/25 Rx tablet,extended release 24 hr pregabalin 75 mg capsule (Lyrica) 75 mg PO TID 01/29/25 01/29/25 Hi story Have you fallen in the past year?: No PFSH Medical History Bladder disease Shortness of breath on exertion Neuropathy Wears hearing aid Wears glasses Alcohol use Arthritis High cholesterol Easy bruising Back pain Injury of back Gastric reflux Former smoker History of pain when walking History of echocardiogram History of stress test Cardiology follow-up encounter History of Holter monitoring Symptom of bladder outlet obstruction Recurrent inguinal hernia of right side without obstruction or gangrene Umbilical hernia without obstruction or gangrene Hemorrhoids Hypertension Hypertriglyceridemia Hypercholesterolemia Gout COPD (chronic obstructive pulmonary disease) B12 deficiency Surgical History History of right and left heart catheterization (01/06/10) Hx of umbilical hernia repair Hx of colonoscopy Hx of tonsillectomy Hx of hemorrhoidectomy Hx of right inguinal hernia repair Family History Father Heart disease Hypertension High cholesterol Mother High cholesterol Hypertension Sister CVA (cerebral vascular accident) Social History Smoking Status: Former smoker second hand exposure: No alcohol intake: current alcohol intake frequency: holidays/special occasions only substance use type: does not use caffeine: Yes what type of physical activity do you participate in: none frequency: does not exercise HPI lumbar spine Details: This documentation accurately reflects the service provided and the decisions made by me, Dr. Timothy Richardson MD 01/29/25 0843. Part of today???s visit was documented by Fannie CAT, acting as scribe. VALERIA PRADHAN is a 74 year old M here today for preop, lumbar spine, dos 02/04/25. The patient is a 74-year-old male presenting with chronic pain issues. He reports neuropathic pain, suspected to be due to neuropathy or postherpetic neuralgia, persisting for a couple of years with recent exacerbation. The pain is described as burning and stinging, affecting multiple areas including the back and ribs, without any skin rash. Gabapentin was ineffective, leading to a switch to pregabalin, which he has been taking for three days with hopes for improvement soon. Chronic back pain persists despite cessation of pain medications five weeks ago due to ineffectiveness. The patient plans to resume pain medications post-surgery, anticipating improved efficacy. Rib pain is constant, with sharp jabs exacerbated by coughing, primarily on the right side, yet the patient remains functionally mobile. He has a history of hernia repair and a spinal cord stimulator, currently turned off, which will b (more content not included)... Normal [facility] CNOVon 01-26-2025 CNOV Office Visit (FAMMAS ) ----- VALERIA PRADHAN Maverick ([id number]) 1950 M Date Time Provider Department 01/26/25 11:30 AM REYES SAUCEDO During your visit today, we recorded the following information about you: Temperature Pulse Respiration Blood pressure 97.3 degrees 62/minute 18/minute 128/82 Weight Height 101.6 kg 1.88 m Nat Ojeda LPN 01/26/2025 1:38 PM Signed Patient is in office for follow up for shingles. Patient was last seen in office on 01-05-2025 Patient was advised: Herpes zoster with complication B02.8 Recent exacerbation. Increase gabapentin to 600 mg in the morning and evening to treat increased nerve pain from shingles. Patient states pain continues to increase. Gabapentin is not effective Nat Ojeda LPN January 26, 2025 11:38 AM Reyes Saucedo MD 01/26/2025 1:38 PM Signed Subjective Torsten Pradhan is a 74-year-old male with a history of neuropathy, presenting for evaluation of neuropathic pain. Neuropathic Pain: - Chronic neuropathic pain, managed with gabapentin 1500 mg daily for 20-25 years. - Reports current gabapentin regimen is ineffective. - Tried lidoderm cream, Biofreeze, and peppermint oil with minimal relief. - Previously trialed duloxetine for 5 days, but discontinued due to adverse effects including insomnia and elevated blood pressure. - Denies history of rash or blisters. - Scheduled for lower back surgery next Sunday. Review of Systems GENERAL: No weight loss, malaise, or fever. HEENT: Negative for frequent or significant headaches, no changes in vision or hearing, no epistaxis or other nasal problems. NECK: Negative for lumps, goiter, pain, and significant neck swelling. RESPIRATORY: Negative for cough, dyspnea, or shortness of breath. CARDIOVASCULAR: Negative for chest pain, leg swelling, congestive heart failure, or palpitations. GI: No nausea, vomiting, diarrhea, heartburn, abdominal pain, hematochezia, or melena. GENITOURINARY: No history of dysuria, frequency, or incontinence. MUSCULOSKELETAL: Positive for chronic back pain; negative for joint pain, joint swelling, or myalgia. SKIN: Negative for lesions, rash, and itching; positive for lump in the right inner thigh. PSYCH: Negative for anxiety or depression. HEMATOLOGY/LYMPHOLOGY: No bleeding concerns. NEURO: Positive for neuropathic pain; negative for headaches, syncope, paralysis, seizures, or tremors. ENDOCRINE: No history of polydipsia, increased thirst, or other endocrine symptoms. PAST SURGICAL HISTORY Procedure Laterality Date COLONOSCOPY FLX DX W/COLLJ SPEC WHEN PFRMD 10/05/2003 [facility] out[facility] HEMORRHOID;BAND LIGAT, SNGL/MUL INGUINAL HERNIA REPAIR HX TONSILLECTOMY AND ADENOIDECTOMY PAST MEDICAL HISTORY Diagnosis Date B12 deficiency Dust allergy Gout HTN (hypertension) HTN (hypertension) Hypercholesteremia Hypercholesterolemia Hypertriglyceridemia Neuropathy History reviewed. No pertinent family history. Social History Tobacco Use Smoking status: Former Current packs/day: 1.00 Average packs/day: 1 pack/day for 30.0 years (30.0 ttl pk-yrs) Types: Cigarettes, Cigars Passive exposure: Never Smokeless tobacco: Never Tobacco comments: Quits smoking cigarettes in 1999. Was smoking stacey sweets since then. Vaping Use Vaping status: Never Used Substance Use Topics Alcohol use: Yes Comment: occasional Drug use: No ALLERGIES Allergen Reactions Augmentin [Amoxicil* Swelling Other reaction(s): SWELLING-THROAT, SWELLING (NON-SPECIFIC) Potassium Clavulana* Angioedema Can take Amoxicillin, but Augmentin caused swelling of the tongue Pravastatin Unknown Simvastatin Unknown MEDICATIONS: isosorbide mononitrate ER (IMDUR) 30 mg 24 hr tablet 30 mg. HYDROcodone-Acetaminophen (NORCO) 7.5-325 mg per tablet TAKE 1 TABLET BY MOUTH 1 TO 2 TIMES A DAY NEEDED FOR PAIN ALPRAZolam (XANAX) 0.5 mg tablet Take 1 tablet by mouth daily at bedtime for 90 days. amoxicillin (AMOXIL) 500 mg capsule take 4 capsules by mouth 1 hour prior to dental appointment amLODIPine (NORVASC) 5 mg tablet Take 1 tablet by mouth once daily. SUTAB 1.479-0.188- 0.225 gram tab TAKE TABLETS BY MOUTH A SPLIT DOSEAGE DIRECTED oxyCODONE-acetaminophen (PERCOCET) 7.5-325 mg tablet Take 1 tablet by mouth two times a day as needed. traZODone (DESYREL) 50 mg tablet take 1 tablet by mouth once daily at bedtime lisinopril (ZESTRIL) 40 mg tablet Take 1 tablet by mouth once daily. omeprazole (PRILOSEC) 20 mg capsule Take 20 mg by mouth once daily. mecobalamin (B12 ACTIVE ORAL) Take by mouth. Coenzyme Q10 (CO Q-10) 200 mg cap Take by mouth once daily. tamsulosin (FLOMAX) 0.4 mg Take 0.4 mg by mouth once daily. atorvastatin (LIPITOR) 20 mg tablet Take 20 mg by mouth once daily. pregabalin (LYRICA) 75 mg capsule Take 1 capsule by mouth three ti (more content not included)... Normal [facility] Hepatitis A AB, Totalon 01-13 HEPATITIS A,TOT Negative Normal Negative [facility] Comment on above: Result Comment: Comm ent: The HAV total antibody assay detects both IgG and IgM but does not differentiate between them. A negative result suggests susceptibility to infection. A positive result could be due to vaccination, previously resolved infection or active infection. Testing for HAV IgM should be performed if active HAV infection is suspected. [facility] offers profiles that will automatically reflex positive HAV total antibody results to IgM (e.g., panel #[id number] HAV Antibody w/ Rfx). Performed at: [address] [id number] [employer] Sorter: Joel Thornton PhD, Phone: [phone] Performed By: #### L 501.9985, L3100.0300, L3890.6202, M100.651, L3890.6006, L3890.6301, BTSPAT ####[facility] [address] [place], [address] HIVon 01-21-2025 HIV Non-Reactive Normal Nonreactive [facility] Comment on above: Result Comment: Non- Reactive Reactive Repeatedly reactive samples must be confirmed according to CDC recommended confirmatory algorithms. The subresults for either HIVAG or AHIV can be used as an aid in the selection of the confirmation algorithm for reactive samples. [facility]. Order the HIV antibody detection and differentiation: lc#[id number] Performed By: #### L 501.9985, L3100.0300, L3890.6202, M100.651, L3890.6006, L3890.6301, BTSPAT ####[facility] [address] [place], [place], [id number] Hemoglobin A1con 01-21-2025 HbA1c (Bld) [Mass fraction] 5.4 % Normal <=5.6 [facility] Comment on above: Result Comment: Norm al < 5.7 % Prediabetic 5.7 - 6.4 % Diabetic >or= 6.5 % Please note range changes. Performed By: #### L 501.9985, L3100.0300, L3890.6202, M100.651, L3890.6006, L3890.6301, BTSPAT ####[facility] [address] [place], [place], [id number] Hepatitis B Surface Antibody on 01-21-2025 HEP B Surf Ab Non-Reactive Normal [facility] Comment on above: Result Comment: <8.5 mIU/mL: Non-Reactive 8.5<= x <11.5 mIU/mL: Indeterminate >=11.5 mIU/mL: Reactive Non Reactive: Inconsistent with immunity less than <10 mIU/mL Reactive: Consistent with immunity greater than or equal to 10 mIU/mL Performed By: #### L 501.9985, L3100.0300, L3890.6202, M100.651, L3890.6006, L3890.6301, BTSPAT ####[facility] [address] [place], [address] Hepatitis C Antibodyon 01-21 Hepatitis C Ab Non-Reactive Normal Nonreactive [facility] Comment on above: Result Comment: Reac tive: Presumptive evidence of antibodies to HCV. Follow CDC recommendations for supplemental testing. Non-Reactive: Antibodies to HCV were not detected; does not exclude the possibility of exposure to HCV Reactive Results are presumptive evidence of antibodies to HCV. Follow CDC recommendations for supplemental testing. Order confirmation testing: HCV Quant by PCR testing - HCVPCR #[id number] Non Reactive: < 0.8 Equivocal: >/= 0.8 to < 1.0 Reactive: >/= 1.0 The CDC requires that a reactive/equivocal HCV antibody result be sent out for confirmation. HCV Quant by PCR testing. Performed By: #### L 501.9985, L3100.0300, L3890.6202, M100.651, L3890.6006, L3890.6301, BTSPAT ####[facility] [address] [place], [address] Liver Profileon 01-21-2025 Albumin [Mass/Vol] 4.4 g/dL Normal 3.4-4.8 [facility] Comment on above: Performed By: #### L 500.3400, L501.5200 ####[facility] [address] [place], [address] ALK PHOS 78 U/L Normal 40-129 [facility] Comment on above: Performed By: #### L 500.3400, L501.5200 ####[facility] [address] [place], [address] ALT [Catalytic activity/Vol] 14 U/L Normal <=46 [facility] Comment on above: Performed By: #### L 500.3400, L501.5200 ####[facility] [address] [place], [address] AST [Catalytic activity/Vol] 16 U/L Normal <=37 [facility] Comment on above: Performed By: #### L 500.3400, L501.5200 ####[facility] [address] [place], [address] Bilirubin [Mass/Vol] 0.73 mg/dL Normal 0.00-1.30 [facility] Comment on above: Performed By: #### L 500.3400, L501.5200 ####[facility] [address] [place], [address] Bilirubin.direct [Mass/Vol] 0.29 mg/dL Normal 0.00-0.30 [facility] Comment on above: Performed By: #### L 500.3400, L501.5200 ####[facility] [address] [place], [address] Globulin (S) [Mass/Vol] 2.7 g/dL Normal 2.2-4.2 [facility] Comment on above: Performed By: #### L 500.3400, L501.5200 ####[facility] [address] [place], [address] T PROT 7.1 g/dL Normal 5.9-8.4 [facility] Comment on above: Performed By: #### L 500.3400, L501.5200 ####[facility] [address] [place], [address] MR/PAT.VARGHESE 01-21-2025 MR/PAT.VARGHESE [facility] Medical Records Department [address] [place] [address] PAT - Anesthesia 01/21/25 07 MR#: [id number] Acct: [id number] Name: VALERIA PRADHAN Rep #: [id number] : 1950 74 From: [place] MD PCP: Dr. Reyes Saucedo MD Status:PRE IN Y Race: C Location: [facility] Pre-Assessment Diagnosis/Proposed Procedure Planned Operative Procedure(s): 360 LUMBAR FUSION L3-4 L4-5 L5-S1 Anesthesia History Anesthesia History - scrap burner: Anesthesia History - scrap burner Hx Hospitalization No 01/20/25 11:35 Any Problems With Anesthesia No 01/20/25 11:35 Cholinesterase deficiency No 01/20/25 11:35 You/Your Family Experience No 01/20/25 11:35 fever (hyperthermia) with Relationship Recent Exposure to Contagious No 12/19/22 10:03 Disease Does patient have nerve Yes: SPINAL CORD STIMULATOR/ 01/20/25 11:35 stimulator TURN OFF Patient instructed to have device shut off --Does patient have Pacemaker or ICD? When Was Last Pacemaker Check QUESTION #4 FULL TEXT: You/Your Family Experience fever (hyperthermia) with Anesthesia Last Oral Intake Last Oral intake: Last Oral Intake NPO since Meds taken in AM with sips of water? Meds patient instructed to take am of surgery PONV PONV - scrap burner: PONV - scrap burner Female No 01/20/25 11:35 HX of Motion Sickness No 01/20/25 11:35 HX of N/V After Surgery No 01/20/25 11:35 Non-Smoker Yes 01/20/25 11:35 Duration of Surgery greater Yes 01/20/25 11:35 than 60 minutes Number of Risk Factors 2 01/20/25 11:35 PONV Score Moderate Risk 01/20/25 11:35 Height Weight Height Weight: Anesthesia: Height Weight Height 6 ft 5 in 12/04/24 08:37 Respiratory Assessment Respiratory Assessment - scrap burner: Respiratory Tract Infection Hx - scrap burner Hx Respiratory Tract Infection No 01/20/25 11:35 STOP Sleep Apnea STOP Sleep Apnea - scrap burner: STOP Sleep Apnea - scrap burner Hx Hypertension Yes: CONTROLLED WITH MED 01/20/25 11:35 Hx Sleep Apnea No 01/20/25 11:35 CPAP BIPAP Do you snore loudly (louder No 01/20/25 11:35 than talking or can be heard Do you often feel tired/ Yes 01/20/25 11:35 fatigued/ sleepy during daytime? Has anyone observed you stop No 01/20/25 11:35 breathing during sleep? STOP Results Positive 01/20/25 11:35 QUESTION #5 FULL TEXT : Do you snore loudly (louder than talking or can be heard through closed doors)? Tobacco Use History Tobacco Use History - scrap burner: Tobacco Use History - scrap burner Tobacco Use Smoking Status Former smoker 01/20/25 11:35 Hx Tobacco Use Yes 01/20/25 11:35 Years Smoking Packs Smoked per Day Smoking Cessation Date was Yes - quit smoking within 15 01/20/25 11:35 within the last 15 years years Hx Smoking Cessation Date Hx Smoking Cessation Counseling Hematologic Medial History Hematologic Hx - scrap burner: Hematologic Medical Hx - transplant registered nurse Hx of Blood Transfusion No 01/20/25 11:35 Hx of Transfusion in last 3 No 01/20/25 11:35 Months Date of Last Transfusion (if within last 3 months) Ever experience any problems No 01/20/25 11:35 with transfusion(s)? Specify any problems Hx of Preganancy in last 3 N/A 01/20/25 11:35 Months Nurse Filling Out Transfusion DSCHRIBER 01/20/25 11:35 Questions: Date: 01/20/25 01/20/25 11:35 Time: 11:38 01/20/25 11:35 Patient unable to answer at this time (ie. confused, unrespo /Reproduction History /Reproductive History - scrap burner: /Reproductive Hx- scrap burner Hx Now No 01/20/25 11:35 Gestational Age (in weeks): EDC: Hx Hx Para Hx Section SAB No 01/20/25 11:35 [facility] Medical History (Updated 01/20/25 @ 11:46 by China Espinosa) Bladder disease Shortness of breath on exertion Neuropathy Wears hearing aid Wears glasses Alcohol use Arthritis High cholesterol Easy bruising Back pain Injury of back Gastric reflux Former smoker History of pain when walking History of echocardiogram History of stress test Cardiology follow-up encounter History of Holter monitoring Symptom of bladder outlet obstruction Recurrent inguinal hernia of right side without obstruction or gangrene Umbilical hernia without obstruction or gangrene Hemorrhoids Hypertension Hypertriglyceridemia Hypercholesterolemia Gout COPD (chronic obstructive pulmonary disease) B12 deficiency Home Medications ???Medication ???Instructions ???Recorded ???Last Taken ???Type cyanocobalamin (vitamin B-12) 1,000 mcg (more content not included)... Normal [facility] MRSA/SAID NASAL SCREENon MRSA+SAID SCRN Reason for Exam: Yael chuckie MRSA MRSA Negative S. AUREUS S. aureus Negative Normal [facility] Comment on above: Performed By: #### L 501.9985, L3100.0300, L3890.6202, M100.651, L3890.6006, L3890.6301, BTSPAT ####[facility] [id number] [place], [address] Magnesiumon 01-21-2025 Magnesium [Mass/Vol] 2.0 mg/dL Normal 1.5-2.2 [facility] Comment on above: Performed By: #### L 500.3400, L501.5200 ####[facility] [id number] [place], [address] Type AND Screen - PAT ONLYon 01-21-2025 Ab SCREEN GEL Negative Normal [facility] Comment on above: Order Comment: Surge ry Date: 02/04/25Reason for Laboratory Test [id number] LUMBAR FUSION L3-L4,L4-5,L5-S1 Performed By: #### L 501.9985, L3100.0300, L3890.6202, M100.651, L3890.6006, L3890.6301, BTSPAT ####[facility] [id number] [place], [address] CNOVon 01-05-2025 CNOV Office Visit (FAMMAS ) ----- VALERIA PRADHAN ([id number]) 1950 M Date Time Provider Department 01/05/25 9:30 AM REYES SAUCEDO During your visit today, we recorded the following information about you: Temperature Pulse Respiration Blood pressure 97.1 degrees 62/minute 18/minute 130/84 Weight Height 101.6 kg 1.88 m Nat Ojeda LPN 01/05/2025 10:23 AM Signed [facility] Abdominal Aortic Aneurysm Screening declined Hepatitis C Screening declined RSV Vaccine(1 - Risk 60-74 years 1-dose series) declined Covid-19 Vaccine(2023- season) declined Medicare Annual Wellness Visit - today Patient currently has shingles on right side. Nat Ojeda LPN January 05, 2025 9:35 AM Reyes Saucedo MD 01/05/2025 10:23 AM Signed Subjective Valeria Maverick Cristosaad is a 74 year old male. Torsten presents today for his Medicare wellness visit. Additionally follows up for multiple medical problems. See list. His chronic medical problems been stable. His blood pressures been under good control on current medication. Cholesterol is well-controlled on Lipitor. Breathing has been stable. He has had increased pain in his right side around his rib cage from recent shingles exacerbation. He has been taking Percocet without much relief. He is also on gabapentin 300 mg 3 times a day. Review of Systems Constitutional: Negative. HENT: Negative. Eyes: Negative. Respiratory: Negative. Cardiovascular: Negative. Gastrointestinal: Negative. Endocrine: Negative. Genitourinary: Negative. Musculoskeletal: Negative. Skin: Negative. Allergic/Immunologic: Negative. Neurological: Negative. Hematological: Negative. Psychiatric/Behavioral: Negative. PAST SURGICAL HISTORY Procedure Laterality Date COLONOSCOPY FLX DX W/COLLJ SPEC WHEN PFRMD 10/05/2003 Colonoscopy [facility] outpt HEMORRHOID;BAND LIGAT, SNGL/MUL INGUINAL HERNIA REPAIR HX TONSILLECTOMY AND ADENOIDECTOMY PAST MEDICAL HISTORY Diagnosis Date B12 deficiency Dust allergy Gout HTN (hypertension) HTN (hypertension) Hypercholesteremia Hypercholesterolemia Hypertriglyceridemia Neuropathy History reviewed. No pertinent family history. Social History Tobacco Use Smoking status: Former Current packs/day: 1.00 Average packs/day: 1 pack/day for 30.0 years (30.0 ttl pk-yrs) Types: Cigarettes, Cigars Passive exposure: Never Smokeless tobacco: Never Tobacco comments: Quits smoking cigarettes in 1999. Was smoking stacey sweets since then. Vaping Use Vaping status: Never Used Substance Use Topics Alcohol use: Yes Comment: occasional Drug use: No ALLERGIES Allergen Reactions Augmentin [Amoxicil* Swelling Other reaction(s): SWELLING-THROAT, SWELLING (NON-SPECIFIC) Potassium Clavulana* Angioedema Can take Amoxicillin, but Augmentin caused swelling of the tongue Pravastatin Unknown Simvastatin Unknown MEDICATIONS: isosorbide mononitrate ER (IMDUR) 30 mg 24 hr tablet 30 mg. HYDROcodone-Acetaminophen (NORCO) 7.5-325 mg per tablet TAKE 1 TABLET BY MOUTH 1 TO 2 TIMES A DAY NEEDED FOR PAIN amoxicillin (AMOXIL) 500 mg capsule take 4 capsules by mouth 1 hour prior to dental appointment amLODIPine (NORVASC) 5 mg tablet Take 1 tablet by mouth once daily. SUTAB 1.479-0.188- 0.225 gram tab TAKE TABLETS BY MOUTH A SPLIT DOSEAGE DIRECTED gabapentin (NEURONTIN) 300 mg capsule Take 300 mg by mouth three times a day. oxyCODONE-acetaminophen (PERCOCET) 7.5-325 mg tablet Take 1 tablet by mouth two times a day as needed. traZODone (DESYREL) 50 mg tablet take 1 tablet by mouth once daily at bedtime lisinopril (ZESTRIL) 40 mg tablet Take 1 tablet by mouth once daily. omeprazole (PRILOSEC) 20 mg capsule Take 20 mg by mouth once daily. mecobalamin (B12 ACTIVE ORAL) Take by mouth. Coenzyme Q10 (CO Q-10) 200 mg cap Take by mouth once daily. tamsulosin (FLOMAX) 0.4 mg Take 0.4 mg by mouth once daily. atorvastatin (LIPITOR) 20 mg tablet Take 20 mg by mouth once daily. ALPRAZolam (XANAX) 0.5 mg tablet Take 1 tablet by mouth daily at bedtime for 90 days. Allergies, past surgical history, family history and past medical history were reviewed per this encounter. Medications were reviewed and verified. 09/17/2024 12/29/2024 INTAKE PAIN ASSESSMENT Are you having pain associated with your visit today? Yes, Provider notified Yes, Provider notified Pain Level 7 9 Pain Location Back Description Aching;Radiating;Sharp;St abbing Duration Units Months Years Frequency Continuous Continuous Intervention/Comfort measure Medication If pain assessment is 0, no action needed. If pain assessment is positive, please see assessment and plain. Objective BP 130/84 (BP Site: Left Arm, BP Position: Sitting, BP Cuff Size: Regular Adult) Pulse 62 Temp 36.2 ?C (97.1 ?F) (Temporal) Resp 18 Ht 188 cm (6' 2) Wt (more content not included)... Normal [facility] Lumbar Spine 2 or 3 Viewson 12-23-2024 Lumbar Spine 2 or 3 Views [facility] Imaging Services [address] [place] [address] Lumbar Spine 2 or 3 Views MR#: [id number] Acct: [id number] Name: VALERIA PRADHAN Rep #: [id number] : 1950 M 74 From: Chin roy MD PCP: Dr. Reyes Saucedo MD Status: DEP AMB Study: Lumbar Spine 2 or 3 Views Date of Exam: Exam# [id number] Ordering Dr: Trista Upton PROCEDURE: LUMBAR SPINE 2 OR 3 VIEWS 12/23/2024 REASON FOR EXAM: ON GOING PAIN TECHNIQUE: 2 view(s) of the lumbar spine COMPARISON: MRI of the lumbar spine on 08/13/2024. FINDINGS: S shaped degenerative scoliosis. There are diffuse spondylotic changes. Findings are demonstrated to by diffuse disc space narrowing, osteophyte formation and degenerative endplate sclerosis. There is diffuse facet joint arthropathy with secondary bilateral neural foramina narrowing. No fracture or dislocation is seen. No aggressive lytic or blastic bony lesion is noted. Spinal stimulator is noted. RAD/Lumbar Spine 2 or 3 Views IMPRESSION: Spondylosis. S shaped degenerative scoliosis. Reading Location: [place] [address] CC: JOJO Guthrie; Dr. Reyes Saucedo MD Sharepoint Specialist: Signed Normal [facility] Orthopedic Visit Reporton Orthopedic Visit Report [facility] [address] [place] [address] OFFICE VISIT Date of Service: 12/23/24 MR#: [id number] Acct: [id number] Name: VALERIA PRDAHAN Rep #: [id number] : 1950 Provider: Dr. Timothy Richardson MD Age/Sex: 74/M Location: [facility] Status: Signed Intake Vital Signs 12/04/24 08:37 12/22/24 08:40 12/23/24 14:59 Height 6 ft 5 in 6 ft 5 in 6 ft 5 in Weight: 230 lb 230 lb BMI 27.2 Intake Visit Reasons: LUMBAR SPINE Chief Complaint: Lumbar spine pain Accompanied by: Self Is patient in pain?: Yes Pain scale (1-10): 10 Allergies amoxicillin trihydrate (From Augmentin) Allergy (Verified 12/23/24 15:03) Angioedema potassium clavulanate (From Augmentin) Allergy (Verified 12/23/24 15:03) Angioedema pravastatin Adverse Reaction (Unknown, Verified 12/23/24 15:03) Unknown simvastatin Adverse Reaction (Unknown, Verified 12/23/24 15:03) Unknown Medications ???Medication ???Instructions ???Recorded ???Confirmed ???Type cyanocobalamin (vitamin B-12) 1,000 mcg PO DAILY SUPPLEMENT 05/1712/23/24 History 1,000 mcg tablet atorvastatin 20 mg tablet 20 mg PO QHS CHOLESTEROL 11/04/23 12/23/24 History amlodipine 5 mg tablet 5 mg PO QDAY BP 08/07/24 12/23/24 History gabapentin 300 mg capsule 300 mg PO TID PAIN 08/07/24 History oxycodone-acetaminophen 7.5 mg-325 1 tab PO BID PRN pain 08/07/24 0 12/23/24 History mg tablet trazodone 50 mg tablet 50 mg PO QHS SLEEP 08/07/24 History alprazolam 0.5 mg tablet (Xanax) 0.5 mg PO BID anxiety 10/10/2405/09 History coenzyme Q10 200 mg capsule 200 mg PO QDAY 10/10/24 12/23/24 H istory lisinopril 40 mg tablet 40 mg PO QDAY 10/10/24 12/23/24 Hi story omeprazole 20 mg capsule,delayed 20 mg PO DAILY GERD 10/10/2412/23 History release sodium sul 1.479 gram-potas ch See Rx Instructions PO PER PKG DIR 10/10/24 12/23/24 History 0.188 gram-magnes sul 0.225 gram tablet (Sutab) tamsulosin 0.4 mg capsule 0.4 mg PO QDAY 10/10/24 12/23/24 H istory aspirin 81 mg tablet,delayed 81 mg PO QDAY #90 tabs 11/25/24 Rx release (Adult Aspirin Regimen) isosorbide mononitrate 30 mg 30 mg PO QDAY #90 tabs 11/25/24 Rx tablet,extended release 24 hr hydrocodone 7.5 mg-acetaminophen 1 tab PO QD-BID PRN pain 12/23/24 12/23/24 History 325 mg tablet Have you fallen in the past year?: No PFSH Medical History Wears hearing aid Wears glasses Alcohol use Arthritis High cholesterol Easy bruising Back pain Injury of back Gastric reflux Former smoker History of pain when walking History of echocardiogram History of stress test Cardiology follow-up encounter History of Holter monitoring Symptom of bladder outlet obstruction Recurrent inguinal hernia of right side without obstruction or gangrene Umbilical hernia without obstruction or gangrene Acid reflux Hemorrhoids Hypertension Hypertriglyceridemia Hypercholesterolemia Gout COPD (chronic obstructive pulmonary disease) B12 deficiency Surgical History History of right and left heart catheterization (01/06/10) Hx of umbilical hernia repair Hx of colonoscopy Hx of tonsillectomy Hx of hemorrhoidectomy Hx of right inguinal hernia repair Family History Father Heart disease Hypertension High cholesterol Mother High cholesterol Hypertension Sister CVA (cerebral vascular accident) Social History Smoking Status: Light Smoker (<10/day) second hand exposure: No alcohol intake: current alcohol intake frequency: holidays/special occasions only substance use type: does not use caffeine: Yes what type of physical activity do you participate in: none frequency: does not exercise HPI LUMBAR SPINE Details: This documentation accurately reflects the service provided and the decisions made by me, Dr. Timothy Richardson MD 12/23/24 6254. Part of today???s visit was documented by Nate Streeter MA, acting as scribe. VALERIA PRADHAN is a 74 year old M here today for lumbar spine pain. Patient is have severe pain in his lower back. The pain goes into the left hip and goes down both legs. The pain is a constant sharp, and achy pain. He is not able to sleep at night due to the pain. Patient states that he has a pain on his right side of his abdomen. He describes it as a constant burning pain that does go into his leg. He states this has happened once before in the past and it lasted for almost a year. He does have a spinal cord stimulator and the programming (more content not included)... [facility] 12-05-2024 [facility] Telephone ([employer]) ----- VALERIA PRADHAN ([id number]) 1950 M Date Time Provider Department 12/05/24 REYES SAUCEDO [facility] During your visit today, we recorded the following information about you: Allergies As of Date: 12/05/2024 Noted Allergy Reaction AUGMENTIN (AMOXICILLIN-POT CLAVUL*09/20/2000 7 - Swelling Comments: Other reaction(s): SWELLING-THROAT, SWELLING (NON-SPECIFIC) POTASSIUM CLAVULANATE 06/06/2019 18 - Angioedema Comments: Can take Amoxicillin, but Augmentin caused swelling of the tongue PRAVASTATIN 01/22/2012 16 - Unknown SIMVASTATIN 01/22/2012 16 - Unknown Date Reviewed: 09/24/2024 Reviewed by: Nat Ojeda LPN - Fully Assessed Prescriptions as of 12/05/2024 - ALPRAZolam (XANAX) 0.5 mg tablet Take 1 tablet by mouth two times a day as needed for up to 90 days. - amoxicillin (AMOXIL) 500 mg capsule take 4 capsules by mouth 1 hour prior to dental appointment - amLODIPine (NORVASC) 5 mg tablet Take 1 tablet by mouth once daily. - SUTAB 1.479-0.188- 0.225 gram tab TAKE TABLETS BY MOUTH A SPLIT DOSEAGE DIRECTED - gabapentin (NEURONTIN) 300 mg capsule Take 300 mg by mouth three times a day. - oxyCODONE-acetaminophen (PERCOCET) 7.5-325 mg tablet Take 1 tablet by mouth two times a day as needed. - traZODone (DESYREL) 50 mg tablet take 1 tablet by mouth once daily at bedtime - lisinopril (ZESTRIL) 40 mg tablet Take 1 tablet by mouth once daily. - omeprazole (PRILOSEC) 20 mg capsule Take 20 mg by mouth once daily. - mecobalamin (B12 ACTIVE ORAL) Take by mouth. - Coenzyme Q10 (CO Q-10) 200 mg cap Take by mouth once daily. - tamsulosin (FLOMAX) 0.4 mg Take 0.4 mg by mouth once daily. - atorvastatin (LIPITOR) 20 mg tablet Take 20 mg by mouth once daily. Problem List As Of Date 12/05/2024 Noted Resolved Cellulitis and abscess of toe, unspecified [L03*05/03/2012 Acute bronchitis [J20.9] 09/18/2019 Acute upper respiratory infection [J06.9] 08/20/2017 B12 deficiency [E53.8] 05/25/2017 Chronic obstructive pulmonary disease (HCC) [J4*05/25/2017 Well adult health check [Z00.00] 05/30/2017 Encounter for immunization [Z23] 06/25/2019 Encounter for screening for malignant neoplasm *06/25/2018 Gout [M10.9] 05/25/2017 Hypertension, essential [I10] 05/25/2017 Hypercholesterolemia [E78.00] 05/25/2017 Hypertriglyceridemia [E78.1] 05/25/2017 Inguinal hernia, right [K40.90] 05/06/2019 Insomnia [G47.00] 11/26/2018 Neck pain, chronic [M54.2, G89.29] 09/01/2020 Neuropathy [G62.9] 05/25/2017 Preop examination [Z01.818] 07/23/2020 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] 04/19/2022 Hypogonadism [AIW1607] 04/19/2022 Osteoarthritis of hip [M16.9] 04/19/2022 Sensorineural hearing loss, bilateral [H90.3] 04/19/2022 Thoracic or lumbosacral neuritis or radiculitis*04/19/2022 Anxiety disorder [F41.9] 04/16/2023 Hyponatremia [E87.1] 11/25/2023 Unintended weight loss [R63.4] 11/25/2023 Encounter Status:Closed by CHRIS OJEDA LAUREN on 12/05/24 [facility] Cardiac Cath Diagnosticon Cardiac Cath Diagnostic [facility] Imaging Services [address] [place], [place] [address] [address] Cardiac Cath Diagnostic MR#: [id number] Acct: [id number] Name: VALERIA PRADHAN Rep #: [id number] : 1950 74 From: Eileen Soto MD PCP: Dr. Reyes Saucedo MD Status:REG [facility] Patient Name: VALERIA PRADHAN Study Date: 12/04/2024 Performing: Eileen Soto MD Ht: 77 inches 195.58 cm : 1950 Wt: 230.01 lbs 104.33 kg Age: 74 Gender: male BSA: 2.37 PROCEDURE(S) PERFORMED DC02-([id number])[facility] CLINICAL PROFILE AND INDICATIONS Indications: Suspected CAD Heart Failure: None Stress/Imaging Stress Test w/SPECT MPI: Yes Result: Positive Intermediate RiskStress Test with SPECT MPI: Positive Intermediate Risk CAD Presentations: Symptom unlikely to be ischemic. CONCLUSIONS Mild LAD disease; Moderate bridging midLAD 50% prox high OM RECOMMENDATIONS Medical therapy Risk factor modification DESCRIPTION OF PROCEDURE The patient arrived to the procedure lab. The risks and benefits of the procedure as well as a full description of our services here and current unavailability of surgical backup were fully explained to the patient and/or their significant other prior to the catheterization. The Timeout was completed, verifying the correct patient and procedure. The patient's procedural site was prepped and draped in the usual fashion. Local anesthetic was given subcutaneously to right radial region with Lidocaine 2%. Using a modified Seldinger technique, arterial access was obtained via the right radial artery, a 6Fr sheath was inserted. LV to AO pullback pressures were then recorded. Left Coronary Artery selective angiography was performed in multiple views using a 5 Fr. 4.0 [place] catheter. Right Coronary Artery selective angiography was then performed in multiple views using a 5 Fr. 4.0 [place] catheter.The arterial sheath was pulled and a TR Band was applied for hemostasis CORONARY ANGIOGRAPHY DOMINANCE: Right Dominant LEFT MAIN: Angiographically normal LEFT ANTERIOR DESCENDING ARTERY: LAD: Tubular 40% Proximal lesion in LAD OM 1: Tubular 50% Ostial lesion in MARG1 OM 2: Tubular 50% Ostial lesion in MARG1 RIGHT CORONARY ARTERY: RCA: Tubular 40% Proximal lesion in RCA RT PDA: Tubular 50% Proximal lesion in RT PDA Tubular 50% Mid lesion in RT PDA COMPLICATIONS No Complications PROCEDURE MEDICATIONS Versed 1 mg IV Fentanyl 50 mcg IV Fentanyl 50 mcg IV Oxygen: 2 L/min via nasal cannula Heparin given IA 12/04/2024 11:55:55 Verapamil 2.5mg, Ntg 200mcgs, 2000 units of Heparin given IA 12/04/2024 11:55:55 SUMMARY OF HEMODYNAMIC DATA Time AIR REST ECG 08:49:21 LV 111/10, 21 12:02:18 LV 98/16, 24 12:02:27 LVp 110/11, 26 12:02:45 AOp 101/64 (76) 12:02:52 AIR REST 12:19:33 Signed By Eileen Soto MD On 12/04/2024 12:20:18 Eileen Soto MD 12/04/24 1221 Date Eileen Soto MD [facility] Signature: Date (if indicated) CC: Dr. Eileen Soto MD; Dr. Reyes Saucedo MD Date Dictated: 12/04/24 1152 Date Transcribed: 12/04/24 1220 Sharepoint Specialist: OSMANI Signed Normal [facility] Cardiology Visit Reporton Cardiology Visit Report [facility] [address] [place] [address] OFFICE VISIT Date of Service: 11/25/24 MR#: [id number] Acct: [id number] Name: VALERIA PRADHAN Rep #: [id number] : 1950 Provider: Dr. Eileen Soto MD Age/Sex: 74/M Location: [facility] Status: Signed HPI HPI History of Present Illness Details: This gentleman has had a Lexiscan stress Myoview done. It showed mild anterior and apical ischemia. Echocardiogram showed normal left ventricular systolic function. Stage I diastolic dysfunction was noted. Clinically, patient continues to have floaters in his vision with moderate to strenuous exertion. Denies any chest pains or shortness of breath. Carotid Doppler failed to show any significant disease. 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 Accompanied by: Self Is patient in pain?: Yes (chronic; back; managed by specialist) Allergies amoxicillin trihydrate (From Augmentin) Allergy (Verified 11/25/24 09:20) Angioedema potassium clavulanate (From Augmentin) Allergy (Verified 11/25/24 09:20) Angioedema pravastatin Adverse Reaction (Unknown, Verified 11/25/24 09:20) Unknown simvastatin Adverse Reaction (Unknown, Verified 11/25/24 09:20) Unknown Medications ???Medication ???Instructions ???Recorded ???Confirmed ???Type cyanocobalamin (vitamin B-12) 1,000 mcg PO DAILY SUPPLEMENT 05/1711/25/24 History 1,000 mcg tablet atorvastatin 20 mg tablet 20 mg PO QHS CHOLESTEROL 11/04/23 11/25/24 History amlodipine 5 mg tablet 5 mg PO QDAY BP 08/07/24 11/25/24 History gabapentin 300 mg capsule 300 mg PO TID PAIN 08/07/24 History oxycodone-acetaminophen 7.5 mg-325 1 tab PO BID PRN pain 08/07/24 0 11/25/24 History mg tablet trazodone 50 mg tablet 50 mg PO QHS SLEEP 08/07/24 History alprazolam 0.5 mg tablet (Xanax) 0.5 mg PO BID anxiety 10/10/24 History coenzyme Q10 200 mg capsule 200 mg PO QDAY 10/10/24 11/25/24 H istory lisinopril 40 mg tablet 40 mg PO QDAY 10/10/24 11/25/24 Hi story omeprazole 20 mg capsule,delayed 20 mg PO DAILY GERD 10/10/2411/25 History release sodium sul 1.479 gram-potas ch See Rx Instructions PO PER PKG DIR 10/10/24 11/25/24 History 0.188 gram-magnes sul 0.225 gram tablet (Sutab) tamsulosin 0.4 mg capsule 0.4 mg PO QDAY 10/10/24 11/25/24 H istory Ejection fraction %: 65 Have you fallen in the past year?: No PFSH Medical History Acid reflux Alcohol use Arthritis B12 deficiency Back pain Cardiology follow-up encounter COPD (chronic obstructive pulmonary disease) Easy bruising Former smoker Gastric reflux Gout Hemorrhoids High cholesterol History of echocardiogram History of Holter monitoring History of pain when walking History of stress test Hypercholesterolemia Hypertension Hypertriglyceridemia Injury of back Recurrent inguinal hernia of right side without obstruction or gangrene Symptom of bladder outlet obstruction Umbilical hernia without obstruction or gangrene Wears glasses Wears hearing aid Surgical History History of right and left heart catheterization (01/06/10) Hx of colonoscopy Hx of hemorrhoidectomy Hx of right inguinal hernia repair Hx of tonsillectomy Hx of umbilical hernia repair Family History Father Heart disease Hypertension High cholesterol Mother High cholesterol Hypertension Sister CVA (cerebral vascular accident) Social History Smoking Status: Light Smoker (<10/day) second hand exposure: No alcohol intake: current alcohol intake frequency: holidays/special occasions only substance use type: does not use caffeine: Yes what type of physical activity do you participate in: none frequency: does not exercise ROS Const Const: Positive for fatigue and weakness; Negative for headache(s) or weight gain Eyes Eyes: Positive for blurry vision, change in vision, floaters and other (bright yellow/nevarez spots; resolves in 20mins or so) ENT ENT: Positive for dizziness and balance problems; Negative for headache(s) or Nosebleed/epistaxis Cardio Chest Pain: No Palpitations: Yes (at rest; brief) feels like its: fast Edema: None Muscle aches with walking: None Resp Respiratory: Positive for SOB with activity (with exertion); Negative for SOB at rest or SOB orthopnea (more content not included)... Normal [facility] Absolute lymphocyte countOrd ered By: Damaris Jean-Baptiste on 11-24-2024 Lymphocytes Auto (Unsp spec) [#/Vol] 2.66 10*3/uL 0.83-4.51 [facility] Absolute neutrophil countOrd ered By: Damaris Jean-Baptiste on 11-24-2024 Neutrophils (Bld) [#/Vol] 3.5 10*3/uL 2.0-7.7 [facility] Anion gap in Serum or Plasma Ordered By: Damaris Jean-Baptiste on 11-24-2024 Anion gap [Moles/Vol] 11 mmol/L - [facility] Automated lymphocyte count a s percentage of total leukocytesOrdered By: Damaris Jean-Baptiste on 11-24-2024 Lymphocytes/100 WBC Auto (Unsp spec) 36.9 % - [facility] BUN/creatinine ratioOrdered By: Damaris Jean-Baptiste on 11-24-2024 Urea nitrogen/Creatinine [Mass ratio] 14.5 mg/mg - [facility] Basic Metabolic Profile (BMP )on 11-24-2024 BUN/CRE 14.5 RATIO Normal 05-04 [facility] Comment on above: Performed By: #### L 300.3900, L100.0100, L500.2500 ####[facility] [id number], [address] Calcium [Mass/Vol] 9.1 mg/dL Normal 7.6-11.0 [facility] Comment on above: Performed By: #### L 300.3900, L100.0100, L500.2500 ####[facility] [address] [place], [address] Chloride [Moles/Vol] 102 mmol/L Normal 98-108 [facility] Comment on above: Performed By: #### L 300.3900, L100.0100, L500.2500 ####[facility] [address] [place], [address] CO2 [Moles/Vol] 24.9 mmol/L Normal 21.0-32.0 [facility] Comment on above: Performed By: #### L 300.3900, L100.0100, L500.2500 ####[facility] [address] [place], [address] Creatinine [Mass/Vol] 0.78 mg/dL Normal 0.70-1.20 [facility] Comment on above: Performed By: #### L 300.3900, L100.0100, L500.2500 ####[facility] [address] [place], [address] GAP 11 Normal 5-15 [facility] Comment on above: Performed By: #### L 300.3900, L100.0100, L500.2500 ####[facility] [address] [place], [address] GFR/1.73 sq M.predicted among non-blacks MDRD (S/P/Bld) [Vol rate/Area] 95 mL/min/{1.73_m2} Normal >60 [facility] Comment on above: Result Comment: mL/m in/1.73m2 CKD-EPI Creatinine Equation (2020) Performed By: #### L 300.3900, L100.0100, L500.2500 ####[facility] [address] [place], [address] Glucose [Mass/Vol] 114 mg/dL High 70-99 [facility] Comment on above: Performed By: #### L 300.3900, L100.0100, L500.2500 ####[facility] [address] [place], [address] Potassium [Moles/Vol] 3.6 mmol/L Normal 3.3-5.1 [facility] Comment on above: Performed By: #### L 300.3900, L100.0100, L500.2500 ####[facility] [address] [place], [address] Sodium [Moles/Vol] 138 mmol/L Normal 133-145 [facility] Comment on above: Performed By: #### L 300.3900, L100.0100, L500.2500 ####[facility] [address] [place], [address] Urea nitrogen [Mass/Vol] 11 mg/dL Normal 4-19 [facility] Comment on above: Performed By: #### L 300.3900, L100.0100, L500.2500 ####[facility] [address] [place], [address] Basophil percentageOrdered B y: Damaris Jean-Baptiste on 11-24-2024 Basophils/100 WBC (Bld) 0.6 % 0-1 [facility] CBC W/Diff, Automatedon 11-13 Absolute Lymph 2.66 X10 3/uL Normal 0.83-4.51 [facility] Comment on above: Performed By: #### L 300.3900, L100.0100, L500.2500 ####[facility] [address] [place], [address] Absolute Neut 3.5 X10 3/uL Normal 2.0-7.7 [facility] Comment on above: Performed By: #### L 300.3900, L100.0100, L500.2500 ####[facility] [address] [place], [address] Basophils/100 WBC (Bld) 0.6 % Normal 0-1 [facility] Comment on above: Performed By: #### L 300.3900, L100.0100, L500.2500 ####[facility] [address] [place], [address] Eosinophils/100 WBC (Bld) 4.6 % Normal 0-5 [facility] Comment on above: Performed By: #### L 300.3900, L100.0100, L500.2500 ####[facility] [address] [place], [address] Erythrocyte distribution width (RBC) [Ratio] 14.8 % High 11.6-14.6 [facility] Comment on above: Performed By: #### L 300.3900, L100.0100, L500.2500 ####[facility] [address] [place], [address] Hematocrit (Bld) [Volume fraction] 45.0 % Normal 40-54 [facility] Comment on above: Performed By: #### L 300.3900, L100.0100, L500.2500 ####[facility] [address] [place], [address] Hemoglobin (Bld) [Mass/Vol] 15.5 g/dL Normal 13.0-16.5 [facility] Comment on above: Performed By: #### L 300.3900, L100.0100, L500.2500 ####[facility] [address] [place], [address] IG% 0.600 Normal 0.0-0.9 [facility] Comment on above: Result Comment: IG% - Immature Granulocytes (promyelocytes, myelocytes and metamyelocytes) > 1% indicates that a LEFT SHIFT is Present. Performed By: #### L 300.3900, L100.0100, L500.2500 ####[facility] [address] [place], [address] Lymphocytes/100 WBC (Bld) 36.9 % Normal 19-41 [facility] Comment on above: Performed By: #### L 300.3900, L100.0100, L500.2500 ####[facility] [address] [place], [address] MCH (RBC) [Entitic mass] 34.2 pg High 27.0-32.0 [facility] Comment on above: Performed By: #### L 300.3900, L100.0100, L500.2500 ####[facility] [address] [place], [address] MCHC (RBC) [Mass/Vol] 34.4 g/dL Normal 32-36 [facility] Comment on above: Performed By: #### L 300.3900, L100.0100, L500.2500 ####[facility] [address] [place], [address] MCV (RBC) [Entitic vol] 99.3 fL High 80-94 [facility] Comment on above: Performed By: #### L 300.3900, L100.0100, L500.2500 ####[facility] [address] [place], [address] Monocytes/100 WBC (Bld) 9.4 % Normal 0-10 [facility] Comment on above: Performed By: #### L 300.3900, L100.0100, L500.2500 ####[facility] [address] [place], [address] Neutrophils/100 WBC (Bld) 47.9 % Normal 47-70 [facility] Comment on above: Performed By: #### L 300.3900, L100.0100, L500.2500 ####[facility] [address] [place], [address] Nucleated RBC (Bld) [#/Vol] 0 10*3/uL Normal 0-5 [facility] Comment on above: Performed By: #### L 300.3900, L100.0100, L500.2500 ####[facility] [address] [place], [address] Platelet mean volume (Bld) [Entitic vol] 10.4 fL Normal 6.2-12.0 [facility] Comment on above: Performed By: #### L 300.3900, L100.0100, L500.2500 ####[facility] [address] [place], [address] Platelets (Bld) [#/Vol] 225 10*3/uL Normal 150-450 [facility] Comment on above: Performed By: #### L 300.3900, L100.0100, L500.2500 ####[facility] [address] [place], [address] RBC (Bld) [#/Vol] 4.53 10*6/uL Low 4.6-6.2 [facility] Comment on above: Performed By: #### L 300.3900, L100.0100, L500.2500 ####[facility] [address] [place], [address] RDW SD 54.3 fl High 35.1-43.9 [facility] Comment on above: Performed By: #### L 300.3900, L100.0100, L500.2500 ####[facility] [address] [place], [address] WBC (Bld) [#/Vol] 7.2 10*3/uL Normal 4.4-11.0 [facility] Comment on above: Performed By: #### L 300.3900, L100.0100, L500.2500 ####[facility] [address] [place], [address] Carbon dioxide, total [Moles /volume] in Central venous bloodOrdered By: Damaris Jean-Baptiste on 11-24-2024 CO2 [Moles/Vol] 24.9 mmol/L 21.0-32.0 [facility] Chest PA and Lateralon 11-24 Chest PA and Lateral [facility] Imaging Services [address] [place] [address] Chest PA and Lateral MR#: [id number] Acct: [id number] Name: VALERIA PRADHAN Rep #: [id number] : 1950 M 74 From: Tomás chavez MD PCP: Dr. Reyes Saucedo MD Status: REG CLI Study: Chest PA and Lateral Date of Exam: 11/24/24 Exam# [id number] Ordering Dr: Damaris Jean-Baptiste PA PROCEDURE: CHEST PA AND LATERAL 11/24/2024 REASON FOR EXAM: PRE-PROCEDURE DIAGNOSTIC TECHNIQUE: Frontal and lateral views of the chest. COMPARISON: Prior study dated November 04, 2019 4. FINDINGS: Hardware: Electrodes from a spinal cord stimulating device is seen. Heart: The heart size is normal. Mediastinum: The mediastinal contour is unremarkable. Lungs: Stable mild increased markings at the lung bases suggestive of mild basilar scarring. Bones: Degenerative changes are identified within the thoracic spine. RAD/Chest PA and Lateral IMPRESSION: Mild degree of stable linear scarring at the lung bases. Reading Location: [id number] CC: Dr. Reyes Saucedo MD; JOJO Guardado Sharepoint Specialist: Signed Normal [facility] Chloride assayOrdered By: Ginny Jean-Baptiste on 11-24-2024 Chloride [Moles/Vol] 102 mmol/L 98-108 [facility] Eosinophil percentageOrdered By: Damaris Jean-Baptiste on 11-24-2024 Eosinophils/100 WBC (Bld) 4.6 % 0-5 [facility] Erythrocyte distribution wid th ratioOrdered By: Damaris Jean-Baptiste on 11-24-2024 Erythrocyte distribution width (RBC) [Ratio] 14.8 % High 11.6-14.6 [facility] Erythrocyte distribution wid th standard deviationOrdered By: Damaris Jean-Baptiste on 11-24-2024 Erythrocyte distribution width (RBC) [Ratio] 54.3 fl High 35.1-43.9 [facility] Glomerular filtration rate ( GFR) estimation/1.73 sq m using serum, plasma, or whole bOrdered By: Damaris Jean-Baptiste on 11-24-2024 GFR/1.73 sq M.predicted among non-blacks MDRD (S/P/Bld) [Vol rate/Area] 95 mL/min/{1.73_m2} >60 [facility] Comment on above: mL/min/1.73m2 CKD-EP I Creatinine Equation (2020) Hematocrit Auto (Bld) [Volum e fraction]Ordered By: Damaris Jean-Baptiste on 11-24-2024 Hematocrit (Bld) [Volume fraction] 45.0 % 40-54 [facility] Hemoglobin measurementOrdere d By: Damaris Jean-Baptiste on 11-24-2024 Hemoglobin (Bld) [Mass/Vol] 15.5 g/dL 13.0-16.5 [facility] Immature granulocytes/100 WB C Auto (Bld)Ordered By: Damaris Jean-Baptiste on 11-24-2024 Immature granulocytes/100 WBC (Bld) 0.600 % 0.0-0.9 [facility] Comment on above: IG% - Immature Granu locytes (promyelocytes, myelocytes and metamyelocytes) > 1% indicates that a LEFT SHIFT is Present. International normalized rat io (INR) calculationOrdered By: Damaris Jean-Baptiste on 11-24-2024 INR Coag (Bld) [Relative time] 1.0 {INR} [facility] MCV (mean corpuscular volume ) determinationOrdered By: Damaris Jean-Baptiste on 11-24-2024 MCV (RBC) [Entitic vol] 99.3 fL High 80-94 [facility] Mean corpuscular hemoglobin (MCH) determinationOrdered By: Damaris Jean-Baptiste on 11-24-2024 MCH (RBC) [Entitic mass] 34.2 pg High 27.0-32.0 [facility] Mean corpuscular hemoglobin concentration (MCHC) determinationOrdered By: Damaris Jean-Baptiste on 11-24-2024 MCHC (RBC) [Mass/Vol] 34.4 g/dL 32-36 [facility] Mean platelet volume determi nationOrdered By: Damaris Jean-Baptiste on 11-24-2024 Platelet mean volume (Bld) [Entitic vol] 10.4 fL 6.2-12.0 [facility] Monocyte percentageOrdered B y: Damaris Jean-Baptiste on 11-24-2024 Monocytes/100 WBC (Bld) 9.4 % 0-10 [facility] Neutrophil percentageOrdered By: Damaris Jean-Baptiste on 11-24-2024 Neutrophils/100 WBC (Bld) 47.9 % 47-70 [facility] Nucleated red blood cell per centageOrdered By: Damaris Jean-Baptiste on 11-24-2024 Nucleated RBC/100 WBC (Bld) [Ratio] 0 % 0-5 [facility] Platelet countOrdered By: Ginny Jean-Baptiste on 11-24-2024 Platelets (Bld) [#/Vol] 225 10*3/uL 150-450 [facility] Potassium measurement (mass/ volume)Ordered By: Damaris Jean-Baptiste on 11-24-2024 Potassium (Unsp spec) [Mass/Vol] 3.6 mmol/L 3.3-5.1 [facility] Prothrombin Time w/INRon INR Coag (PPP) [Relative time] 1.0 {INR} Normal [facility] Comment on above: Performed By: #### L 300.3900, L100.0100, L500.2500 ####[facility] [address] [facility] [place], [place], [id number] PT Coag (PPP) [Time] 12.9 s Normal 11.7-14.9 [facility] Comment on above: Performed By: #### L 300.3900, L100.0100, L500.2500 ####[facility] [address] [facility] [place], [address] Prothrombin timeOrdered By: Damaris Jean-Baptiste on 11-24-2024 PT Coag (PPP) [Time] 12.9 s 11.7-14.9 [facility] RBC Auto (Bld) [#/Vol]Ordere d By: Damaris Jean-Baptiste on 11-24-2024 RBC (Bld) [#/Vol] 4.53 10*6/uL Low 4.6-6.2 [facility] Serum creatinine measurement (mass/volume)Ordered By: Damaris Jean-Baptiste on 11-24-2024 Creatinine [Mass/Vol] 0.78 mg/dL 0.70-1.20 [facility] Serum glucose measurement (m ass/volume)Ordered By: Damaris Jean-Baptiste on 11-24-2024 Glucose [Mass/Vol] 114 mg/dL High 70-99 [facility] Serum or plasma calcium tejas urement (mass/volume)Ordered By: Damaris Jean-Baptiste on 11-24-2024 Calcium [Mass/Vol] 9.1 mg/dL 7.6-11.0 [facility] Serum or plasma urea nitroge n measurement (mass/volume)Ordered By: Damaris Jean-Baptiste on 11-24-2024 Urea nitrogen [Mass/Vol] 11 mg/dL 4-19 [facility] Sodium levelOrdered By: Mejia Jean-Baptiste on 11-24-2024 Sodium [Moles/Vol] 138 mmol/L 133-145 [facility] White blood cell (WBC) count Ordered By: Damaris Jean-Baptiste on 11-24-2024 WBC (Bld) [#/Vol] 7.2 10*3/uL 4.4-11.0 [facility] Cardiovascular stress test r eportOrdered By: Eileen Soto on 11-19-2024 Study report [facility] [address] [place] [address] MR#: [id number] Acct: [id number] Name: VALERIA PRDAHAN Rep #: [id number] : 1950 74 From: Eileen Soto MD Primary Care: Dr. Reyes Saucedo MD Statu s: REG CLI Referring Dr: Eileen Soto MD Sex: M C Stress Test Report Date: 11/19/2024 Procedure: Pharmacologic stress nuclear imaging study Indications: Preoperative cardiovascular risk assessment Consent: Per the patient Procedure: The patient underwent pharmacologic (Regadenoson 0.4mg ) evaluation with a peak heart rate of 71 beats per minute (47%predicted maximal heart rate) and a peak blood pressure of 158/76 mmHg. The baseline ECG demonstrated sinus rhythm. The peak pharmacologic ECG failed to show any ischemic changes. There were no cardiac dysrhythmias pretest, during pharmacologic infusion, or recovery. There was no complaint of chest discomfort during pharmacologic infusion or recovery. The patient was injected with 13.9 millicuries of technetium 99m Cardiolite and subsequently rest SPECT Cardiolite nuclear imaging was obtained in the horizontal long, vertical long, and short axis views. The patient underwent pharmacologic (Regadenoson) evaluation. The patient was injected with 44.6 millicuries of technetium 99m Cardiolite and subsequently stress SPECT Cardiolite nuclear imaging was obtained in the horizontal long, vertical long, and short axis views. A gated Cardiolite study at peak stress was obtained. The examination was stopped secondary to completion of protocol. Rest and stress SPECT Cardiolite nuclear imaging status post realignment, normalization, and attenuation correction demonstrate mildly reduced perfusion of the mid to distal anterior wall and apex suggestive of mild ischemia. There is end systolic thickening and brightening. The gated Cardiolite study demonstrates myocardial thickening and inward wall motion. The reported LVEF is64%. Impression: 1. Pharmacologic (Regadenoson) evaluation 2. Peak pharmacologic ECG with no ischemic changes. 3. There were no cardiac dysrhythmias pretest, during pharmacologic infusion, or recovery. 5. Anterior and apical reversible perfusion defect suggestive of ischemia. 6. The gated Cardiolite study reports an LVEF of 64%. This note was generated with Unblabation software. It may contain incorrectwords, spelling, and punctuation that were not noted in checking the note beforesigning. 11/19/24939 Date _ Eileen Soto MD CC: Dr. Eileen Soto MD; Dr. Reyes Saucedo MD ~ Date Dictated: 11/19/24937 Date Transcribed: 11/19/24937 Sharepoint Specialist: OSMANI Gottlieb [facility] Work Phone: Carotid Duplex Ultrasoundon 11-19-2024 Carotid Duplex Ultrasound [facility] [address] [place] [address] Carotid Duplex Ultrasound 11/19/24904 MR#: [id number] Acct: [id number] Name: VALERIA PRADHAN Rep #: [id number] : 1950 74 From: Ramo Caraballo MD Attending Dr: Dr. Eileen oSto MD Status: REG CLI Ordering Dr: Eileen Soto MD Date: 11/19/24 Location: [facility] Sex: M C Admitted: Reason For Study Reason For Study: Preop Rt. Velocities/BP Lt. Velocities/BP Prox CCA 78.7/8.4 cm/sec. Prox CCA 92.4/23.0 cm/sec. Mid CCA 82.0/16.0 cm/sec. Mid CCA 86.9/17.5 cm/sec. Dist CCA 84.2/19.3 cm/sec. Dist CCA 68.7/13.9 cm/sec. Prox ICA 49.0/17.1 cm/sec. Prox ICA 56.0/19.2 cm/sec. Mid ICA 73.4/21.7 cm/sec. Mid ICA 75.1/23.2 cm/sec. Dist ICA 110.4/27.5 cm/sec. Dist ICA 113.4/39.6 cm/sec. Rt. ICA/CCA = 1.3. Lt. ICA/CCA = 1.3. Prox ECA 85.5/4.4 cm/sec. Prox ECA 70.7/4.4 cm/sec. Rt. Vert. 25.1/2.5 cm/sec. Lt. Vert. 45.0/12.8 cm/sec. Right Extracranial There is intimal thickening but no significant atherosclerotic plaque noted in the right common carotid artery. There is heterogeneous, irregular atherosclerotic plaque noted in the right internal carotid artery. There is heterogeneous, irregular atherosclerotic plaque noted in the right external carotid artery. Antegrade flow is noted in the right vertebral artery. Left Extracranial There is heterogeneous, smooth atherosclerotic plaque noted in the left common carotid artery. There is heterogeneous, irregular atherosclerotic plaque noted in the left internal carotid artery. There is heterogeneous, irregular atherosclerotic plaque noted in the left external carotid artery. Antegrade flow is noted in the left vertebral artery. Procedure Carotid Duplex 71921. This is a Carotid Duplex examination using B-mode, color flow and specral Doppler. Exam performed in department. VL/Carotid Duplex Ultrasound Interpretation Summary Mild (<50%) stenosis right extracranial internal carotid. Mild (<50%) stenosis left extracranial internal carotid. Patent and antegrade vertebrals bilaterally. ___ Ordering Physician: Eileen Soto Referring Physician: Rd Saucedo M.D. Performed By: Latrice Paris RVT 11/19/241646 Date Ramo Caraballo MD CC: Dr. Eileen Soto MD; Dr. Reyes Saucedo MD Date Dictated: 11/19/24904 Date Transcribed: 11/19/241646 Sharepoint Specialist: Signed Normal [facility] Duplex ultrasound of carotid artery reportOrdered By: Ramo Caraballo on 11-19-2024 Study report [facility] [address] [place] [address]. [place] [address] Carotid Duplex Ultrasound 11/19/24904 MR#: [id number] Acct: [id number] Name: VALERIA PRADHAN Rep #:[id number] : 1950 74 From: Ramo Akins Attending Dr: Dr. Eileen Soto MD Status: REG CLI Ordering Dr: Eileen Soto MD Date: Location: [facility] Sex: M C Admitted: Reason For Study Reason For Study: Preop Rt. Velocities/BP Lt. Velocities/BP Prox CCA 78.7/8.4 cm/sec. Prox CCA 92.4/23.0 cm/sec. Mid CCA 82.0/16.0 cm/sec. Mid CCA 86.9/17.5 cm/sec. Dist CCA 84.2/19.3 cm/sec. Dist CCA 68.7/13.9 cm/sec. Prox ICA 49.0/17.1 cm/sec. Prox ICA 56.0/19.2 cm/sec. Mid ICA 73.4/21.7 cm/sec. Mid ICA 75.1/23.2 cm/sec. Dist ICA 110.4/27.5 cm/sec. Dist ICA 113.4/39.6 cm/sec. Rt. ICA/CCA = 1.3. Lt. ICA/CCA = 1.3. Prox ECA 85.5/4.4 cm/sec. Prox ECA 70.7/4.4 cm/sec. Rt. Vert. 25.1/2.5 cm/sec. Lt. Vert. 45.0/12.8 cm/sec. Right Extracranial There is intimal thickening but no significant atherosclerotic plaque noted in the right common carotid artery. There is heterogeneous, irregular atherosclerotic plaque noted in the right internal carotid artery. There is heterogeneous, irregular atherosclerotic plaque noted in the right external carotid artery. Antegrade flow is noted in the right vertebral artery. Left Extracranial There is heterogeneous, smooth atherosclerotic plaque noted in the left common carotid artery. There is heterogeneous, irregular atherosclerotic plaque noted in the left internal carotid artery. There is heterogeneous, irregular atherosclerotic plaque noted in the left external carotid artery. Antegrade flowis noted in the left vertebral artery. Procedure Carotid Duplex 10043. This is a Carotid Duplex examination using B-mode, color flow and specral Doppler. Exam performed in department. VL/Carotid Duplex Ultrasound Interpretation Summary Mild (<50%) stenosis right extracranial internal carotid. Mild (<50%) stenosis left extracranial internal carotid. Patent and antegrade vertebrals bilaterally. ___ Ordering Physician: Eileen Soto Referring Physician: Rd Saucedo M.D. Performed By: Latrice Paris RVT 11/19/24 9394 Date _ Ramo Caraballo MD CC: Dr. Eileen Soto MD; Dr. Reyes Saucedo MD ~ Date Dictated: 11/19/24904 Date Transcribed: 11/19/241646 Sharepoint Specialist: Signed [facility] Work Phone: Echo Completeon 11-19-2024 Echo Complete [facility] [address] [place] [address] Echo Complete 11/19/24 0835 MR#: [id number] Acct: [id number] Name: VALERIA PRADHAN Rep #: [id number] : 1950 74 From: Eileen Soto MD Attending Dr: Dr. Eileen Soto MD Status: REG CLI Ordering Dr: Eileen Soto MD Date: 11/19/24 Location: [facility] Sex: M C Admitted: Reason For Study Reason For Study: PREOP CV EXAM Procedure This was a 2D Doppler, Color Flow transthoracic echocardiogram. Exam performed in department. Left Ventricle Normal LV size. Mild concentric left ventricular hypertrophy. The LV systolic function is normal. EF is 65 %. Stage 1 diastolic dysfunction. Right Ventricle Normal right ventricle. Atria The left atrium is mildly enlarged. Normal right atrium. Mitral Valve Trivial mitral valve insufficiency. Tricuspid Valve Trivial tricuspid valve insufficiency. Right ventricular systolic pressure estimated to be 43 mmHg. Aortic Valve Trisinus/trileaflet aortic valve. Mildly thickened and calcified noncoronary cusp of the aortic valve. Pulmonic Valve The pulmonic valve is not well visualized. Great Vessels Normal sized aortic root. Pericardium/Pleural No pericardial effusion. MMode/2D Measurements Calculations LVIDd: 5.7 cm IVSd: 1.2 cm Ao root diam: 3.5 cm LVIDs: 3.9 cm LVPWd: 1.1 cm LA dimension: 4.2 cm RVDd: 3.6 cm FS: 30.6 % LAV(MOD-bp): 97.1 ml LVAd ap4: 30.9 cm2 SV(MOD-sp4): 63.1 ml LAV(MOD-bp) Indexed: 40.6 ml/m2 LVLd ap4: 8.2 cm SI(MOD-sp4): 26.4 ml/m2 LAV(MOD-sp2): 95.6 ml EDV(MOD-sp4): 96.6 ml LAV(MOD-sp4): 95.4 ml EDV(sp4-el): 99.2 ml LVAs ap4: 16.5 cm2 LVLs ap4: 6.7 cm ESV(MOD-sp4): 33.6 ml ESV(sp4-el): 34.6 ml EF(MOD-sp4): 65.3 % EF(sp4-el): 65.1 % SV(sp4-el): 64.6 ml LA A4 area: 26.2 cm2 LA dimension(2D): 3.9 cm RA A4 area: 17.9 cm2 TAPSE: 2.6 cm Time Measurements MV dec time: 0.22 sec Doppler Measurements Calculations MV E max umer: 63.1 cm/sec Lat Peak E' Umer: 7.1 cm/sec Med Peak E' Umer: 6.1 cm/sec MV A max umer: 72.0 cm/sec E/E' lat: 8.9 E/E' med: 10.3 MV E/A: 0.88 Ao V2 max: 116.4 cm/sec LV V1 max: 115.3 cm/sec MV dec slope: 297.1 cm/sec2 Ao max P.4 mmHg LV V1 max P.3 mmHg Ao V2 mean: 80.7 cm/sec LV V1 mean P.8 mmHg Ao mean P.8 mmHg LV V1 mean: 78.9 cm/sec Ao V2 VTI: 28.9 cm LV V1 VTI: 28.5 cm AV (velocity ratio): 0.99 PA V2 max: 108.0 cm/sec TR max umer: 266.5 cm/sec PA V2 mean: 76.6 cm/sec TR max P.4 mmHg ECHO/Echo Complete Interpretation Summary Mild concentric left ventricular hypertrophy. The LV systolic function is normal. EF is 65 %. Stage 1 diastolic dysfunction. The left atrium is mildly enlarged. Right ventricular systolic pressure estimated to be 43 mmHg. Mildly thickened and calcified noncoronary cusp of the aortic valve. ___ Ordering Physician: Eileen Soto Referring Physician: Reyes Saucedo Performed By: Meron Paz, JERMAN, RVT 11/19/24 1124 Date Eileen Soto MD CC: Dr. Eileen Soto MD; Dr. Reyes Saucedo MD Date Dictated: 11/19/24834 Date Transcribed: 11/19/241123 Sharepoint Specialist: Signed Normal [facility] Echocardiogram study reportO rdered By: Eileen Soto on 11-19-2024 Study report [facility] [address] [place] [address] Echo Complete 11/19/24834 MR#: [id number] Acct: [id number] Name: VALERIA PRADHAN Rep #:[id number] : 1950 74 From: Eileen Soto MD Attending Dr: Dr. Eileen Soto MD Status: REG CLI Ordering Dr: Eileen Soto MD Date: Location: [facility] Sex: M C Admitted: Reason For Study Reason For Study: PREOP CV EXAM Procedure This was a 2D Doppler, Color Flow transthoracic echocardiogram. Exam performed in department. Left Ventricle Normal LV size. Mild concentric left ventricular hypertrophy. The LV systolic function is normal. EF is 65 %. Stage 1 diastolic dysfunction. Right Ventricle Normal right ventricle. Atria The left atrium is mildly enlarged. Normal right atrium. Mitral Valve Trivial mitral valve insufficiency. Tricuspid Valve Trivial tricuspid valve insufficiency. Right ventricular systolic pressure estimated to be 43 mmHg. Aortic Valve Trisinus/trileaflet aortic valve. Mildly thickened and calcified noncoronary cusp of the aortic valve. Pulmonic Valve The pulmonic valve is not well visualized. Great Vessels Normal sized aortic root. Pericardium/Pleural No pericardial effusion. MMode/2D Measurements & Calculations LVIDd: 5.7 cm IVSd: 1.2 cm Ao root diam: 3.5 cm LVIDs: 3.9 cm LVPWd: 1.1 cm LA dimension: 4.2 cm RVDd: 3.6 cm FS: 30.6 % LAV(MOD-bp): 97.1 ml LVAd ap4: 30.9 cm2 SV(MOD-sp4): 63.1 ml LAV(MOD-bp) Indexed: 40.6 ml/m2 LVLd ap4: 8.2 cm SI(MOD-sp4): 26.4 ml/m2 LAV(MOD-sp2): 95.6 ml EDV(MOD-sp4): 96.6 ml LAV(MOD-sp4): 95.4 ml EDV(sp4-el): 99.2 ml LVAs ap4: 16.5 cm2 LVLs ap4: 6.7 cm ESV(MOD-sp4): 33.6 ml ESV(sp4-el): 34.6 ml EF(MOD-sp4): 65.3 % EF(sp4-el): 65.1 % SV(sp4-el): 64.6 ml LA A4 area: 26.2 cm2 LA dimension(2D): 3.9 cm RA A4 area: 17.9 cm2 TAPSE: 2.6 cm Time Measurements MV dec time: 0.22 sec Doppler Measurements & Calculations MV E max umer: 63.1 cm/sec Lat Peak E' Umer: 7.1 cm/sec Med Peak E' Umer: 6.1 cm/sec MV A max umer: 72.0 cm/sec E/E' lat: 8.9 E/E' med: 10.3 MV E/A: 0.88 Ao V2 max: 116.4 cm/sec LV V1 max: 115.3 cm/sec MV dec slope: 297.1 cm/sec2 Ao max P.4 mmHg LV V1 max P.3 mmHg Ao V2 mean: 80.7 cm/sec LV V1 mean P.8 mmHg Ao mean P.8 mmHg LV V1 mean: 78.9 cm/sec Ao V2 VTI: 28.9 cm LV V1 VTI: 28.5 cm AV (velocity ratio): 0.99 PA V2 max: 108.0 cm/sec TR max umer: 266.5 cm/sec PA V2 mean: 76.6 cm/sec TR max P.4 mmHg ECHO/Echo Complete Interpretation Summary Mild concentric left ventricular hypertrophy. The LV systolic function is normal. EF is 65 %. Stage 1 diastolic dysfunction. The left atrium is mildly enlarged. Right ventricular systolic pressure estimated to be 43 mmHg. Mildly thickened and calcified noncoronary cusp of the aortic valve. ___ Ordering Physician: Eileen Soto Referring Physician: Reyes Saucedo Performed By: Meron Paz, JERMAN, RVT 11/19/24 1124 Date _ Eileen Soto MD CC: Dr. Eileen Soto MD; Dr. Reyes Saucedo MD ~ Date Dictated: 11/19/2435 Date Transcribed: 11/19/24 112 Sharepoint Specialist: Signed [facility] Work Phone: Stress Reporton 11-19-2024 Stress Report [facility] [address] [place] [address] MR#: [id number] Acct: [id number] Name: VALERIA PRADHAN Rep #: [id number] : 1950 74 From: Eileen Soto MD Primary Care: Dr. Reyes Saucedo MD Status: REG CLI Referring Dr: Eileen Soto MD Sex: M C Stress Test Report Date: 11/19/2024 Procedure: Pharmacologic stress nuclear imaging study Indications: Preoperative cardiovascular risk assessment Consent: Per the patient Procedure: The patient underwent pharmacologic (Regadenoson 0.4mg ) evaluation with a peak heart rate of 71 beats per minute (47%predicted maximal heart rate) and a peak blood pressure of 158/76 mmHg. The baseline ECG demonstrated sinus rhythm. The peak pharmacologic ECG failed to show any ischemic changes. There were no cardiac dysrhythmias pretest, during pharmacologic infusion, or recovery. There was no complaint of chest discomfort during pharmacologic infusion or recovery. The patient was injected with 13.9 millicuries of technetium 99m Cardiolite and subsequently rest SPECT Cardiolite nuclear imaging was obtained in the horizontal long, vertical long, and short axis views. The patient underwent pharmacologic (Regadenoson) evaluation. The patient was injected with 44.6 millicuries of technetium 99m Cardiolite and subsequently stress SPECT Cardiolite nuclear imaging was obtained in the horizontal long, vertical long, and short axis views. A gated Cardiolite study at peak stress was obtained. The examination was stopped secondary to completion of protocol. Rest and stress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 [facility] Comment on above: Result Comment: <8.5 mIU/mL: Non-Reactive 8.5<= x <11.5 mIU/mL: Indeterminate >=11.5 mIU/mL: Reactive Non Reactive: Inconsistent with immunity less than <10 mIU/mL Reactive: Consistent with immunity greater than or equal to 10 mIU/mL Performed By: #### L 3890.6006, M100.651, BTSPAT, L3890.6301, L500.2500, L100.0100, L3100.0300, L3890.6202 ####[facility] [id number] [facility]. [place], [place], [id number] L3890.6301on 10-08-2024 Hepatitis C Ab Non-Reactive Normal Nonreactive [facility] Comment on above: Result Comment: Reac tive: Presumptive evidence of antibodies to HCV. Follow CDC recommendations for supplemental testing. Non-Reactive: Antibodies to HCV were not detected; does not exclude the possibility of exposure to HCV Reactive Results are presumptive evidence of antibodies to HCV. Follow CDC recommendations for supplemental testing. Order confirmation testing: HCV Quant by PCR testing - HCVPCR #[id number] Non Reactive: < 0.8 Equivocal: >/= 0.8 to < 1.0 Reactive: >/= 1.0 The CDC requires that a reactive/equivocal HCV antibody result be sent out for confirmation. HCV Quant by PCR testing. Performed By: #### L 3890.6006, M100.651, BTSPAT, L3890.6301, L500.2500, L100.0100, L3100.0300, L3890.6202 ####[facility] [id number], [address] MRSA/SAID NASAL SCREENon MRSA+SAID SCRN Reason for Exam: Yael chuckie MRSA MRSA Negative S. AUREUS S. aureus Negative Normal [facility] Comment on above: Performed By: #### L 3890.6006, M100.651, BTSPAT, L3890.6301, L500.2500, L100.0100, L3100.0300, L3890.6202 ####[facility] [id number] [place], [address] 12 Lead EKGon 10-07-2024 12 Lead EKG [facility] [address] [place] [address] 12 Lead EKG 10/07/24 0939 MR#: [id number] Acct: [id number] Name: VALERIA PRADHAN Rep #: [id number] : 1950 74 From: Jaron Jo MD Attending Dr: Dr. Timothy Richardson MD Status: PRE IN Ordering Dr: Timothy Richardson MD Date: 10/07/24 Location: [facility] Sex: M C Admitted: Test Reason : PREOP Blood Pressure : */* mmHG Vent. Rate : 54 BPM Atrial Rate : 54 BPM P-R Int : 170 ms QRS Dur : 104 ms QT Int : 436 ms P-R-T Axes : 49 11 36 degrees QTcB Int : 413 ms Sinus bradycardia Otherwise normal ECG Reconfirmed by JARON JO MD ([id number]), videotape editor NELSY FISCHER ([id number]) on 10/08/2024 7:21:22 AM Referred By: TIMOTHY RICHARDSON Confirmed By: JARON JO MD 10/08/24 0721 Date Jaron Jo MD CC: Dr. Timothy Richardson MD; Dr. Reyes Saucedo MD Signed Normal [facility] Basic Metabolic Profile (BMP )on 10-07-2024 BUN/CRE 14.8 RATIO Normal 10-20 [facility] Comment on above: Performed By: #### L 3890.6006, M100.651, BTSPAT, L3890.6301, L500.2500, L100.0100, L3100.0300, L3890.6202 #### [facility] [address] [place], [address] Calcium [Mass/Vol] 8.9 mg/dL Normal 7.6-11.0 [facility] Comment on above: Performed By: #### L 3890.6006, M100.651, BTSPAT, L3890.6301, L500.2500, L100.0100, L3100.0300, L3890.6202 #### [facility] [address] [place], [address] Chloride [Moles/Vol] 101 mmol/L Normal 98-108 [facility] Comment on above: Performed By: #### L 3890.6006, M100.651, BTSPAT, L3890.6301, L500.2500, L100.0100, L3100.0300, L3890.6202 #### [facility] [address] [place], [address] CO2 [Moles/Vol] 23.5 mmol/L Normal 21.0-32.0 [facility] Comment on above: Performed By: #### L 3890.6006, M100.651, BTSPAT, L3890.6301, L500.2500, L100.0100, L3100.0300, L3890.6202 #### [facility] [address] [place], [address] Creatinine [Mass/Vol] 0.91 mg/dL Normal 0.70-1.20 [facility] Comment on above: Performed By: #### L 3890.6006, M100.651, BTSPAT, L3890.6301, L500.2500, L100.0100, L3100.0300, L3890.6202 #### [facility] [address] [place], [address] GAP 12 Normal 5-15 [facility] Comment on above: Performed By: #### L 3890.6006, M100.651, BTSPAT, L3890.6301, L500.2500, L100.0100, L3100.0300, L3890.6202 #### [facility] [address] [place], [address] GFR/1.73 sq M.predicted among non-blacks MDRD (S/P/Bld) [Vol rate/Area] 90 mL/min/{1.73_m2} Normal >60 [facility] Comment on above: Result Comment: mL/m in/1.73m2 CKD-EPI Creatinine Equation (2020) Performed By: #### L 3890.6006, M100.651, BTSPAT, L3890.6301, L500.2500, L100.0100, L3100.0300, L3890.6202 #### [facility] [address] [place], [address] Glucose [Mass/Vol] 86 mg/dL Normal 70-99 [facility] Comment on above: Performed By: #### L 3890.6006, M100.651, BTSPAT, L3890.6301, L500.2500, L100.0100, L3100.0300, L3890.6202 #### [facility] [address] [place], [address] Potassium [Moles/Vol] 3.9 mmol/L Normal 3.3-5.1 [facility] Comment on above: Performed By: #### L 3890.6006, M100.651, BTSPAT, L3890.6301, L500.2500, L100.0100, L3100.0300, L3890.6202 #### [facility] [address] [place], [address] Sodium [Moles/Vol] 136 mmol/L Normal 133-145 [facility] Comment on above: Performed By: #### L 3890.6006, M100.651, BTSPAT, L3890.6301, L500.2500, L100.0100, L3100.0300, L3890.6202 #### [facility] [address] [place], [address] Urea nitrogen [Mass/Vol] 13 mg/dL Normal 4-19 [facility] Comment on above: Performed By: #### L 3890.6006, M100.651, BTSPAT, L3890.6301, L500.2500, L100.0100, L3100.0300, L3890.6202 #### [facility] [address] [place], [address] CBC W/Diff, Automatedon 03-2 -2024 Absolute Lymph 1.85 X10 3/uL Normal 0.83-4.51 [facility] Comment on above: Performed By: #### L 3890.6006, M100.651, BTSPAT, L3890.6301, L500.2500, L100.0100, L3100.0300, L3890.6202 #### [facility] [address] [place], [address] Absolute Neut 2.3 X10 3/uL Normal 2.0-7.7 [facility] Comment on above: Performed By: #### L 3890.6006, M100.651, BTSPAT, L3890.6301, L500.2500, L100.0100, L3100.0300, L3890.6202 #### [facility] [address] [place], [address] Basophils/100 WBC (Bld) 0.4 % Normal 0-1 [facility] Comment on above: Performed By: #### L 3890.6006, M100.651, BTSPAT, L3890.6301, L500.2500, L100.0100, L3100.0300, L3890.6202 #### [facility] [address] [place], [address] Eosinophils/100 WBC (Bld) 5.1 % High 0-5 [facility] Comment on above: Performed By: #### L 3890.6006, M100.651, BTSPAT, L3890.6301, L500.2500, L100.0100, L3100.0300, L3890.6202 #### [facility] [address] [place], [address] Erythrocyte distribution width (RBC) [Ratio] 13.2 % Normal 11.6-14.6 [facility] Comment on above: Performed By: #### L 3890.6006, M100.651, BTSPAT, L3890.6301, L500.2500, L100.0100, L3100.0300, L3890.6202 #### [facility] [address] [place], [address] Hematocrit (Bld) [Volume fraction] 44.3 % Normal 40-54 [facility] Comment on above: Performed By: #### L 3890.6006, M100.651, BTSPAT, L3890.6301, L500.2500, L100.0100, L3100.0300, L3890.6202 #### [facility] [address] [place], [address] Hemoglobin (Bld) [Mass/Vol] 15.4 g/dL Normal 13.0-16.5 [facility] Comment on above: Performed By: #### L 3890.6006, M100.651, BTSPAT, L3890.6301, L500.2500, L100.0100, L3100.0300, L3890.6202 #### [facility] [address] [place], [address] IG% 0.400 Normal 0.0-0.9 [facility] Comment on above: Result Comment: IG% - Immature Granulocytes (promyelocytes, myelocytes and metamyelocytes) > 1% indicates that a LEFT SHIFT is Present. Performed By: #### L 3890.6006, M100.651, BTSPAT, L3890.6301, L500.2500, L100.0100, L3100.0300, L3890.6202 #### [facility] [address] [place], [address] Lymphocytes/100 WBC (Bld) 36.6 % Normal 19-41 [facility] Comment on above: Performed By: #### L 3890.6006, M100.651, BTSPAT, L3890.6301, L500.2500, L100.0100, L3100.0300, L3890.6202 #### [facility] [address] [place], [address] MCH (RBC) [Entitic mass] 34.1 pg High 27.0-32.0 [facility] Comment on above: Performed By: #### L 3890.6006, M100.651, BTSPAT, L3890.6301, L500.2500, L100.0100, L3100.0300, L3890.6202 #### [facility] [address] [place], [address] MCHC (RBC) [Mass/Vol] 34.8 g/dL Normal 32-36 [facility] Comment on above: Performed By: #### L 3890.6006, M100.651, BTSPAT, L3890.6301, L500.2500, L100.0100, L3100.0300, L3890.6202 #### [facility] [address] [place], [address] MCV (RBC) [Entitic vol] 98.0 fL High 80-94 [facility] Comment on above: Performed By: #### L 3890.6006, M100.651, BTSPAT, L3890.6301, L500.2500, L100.0100, L3100.0300, L3890.6202 #### [facility] [address] [place], [address] Monocytes/100 WBC (Bld) 11.9 % High 0-10 [facility] Comment on above: Performed By: #### L 3890.6006, M100.651, BTSPAT, L3890.6301, L500.2500, L100.0100, L3100.0300, L3890.6202 #### [facility] [address] [place], [address] Neutrophils/100 WBC (Bld) 45.6 % Low 47-70 [facility] Comment on above: Performed By: #### L 3890.6006, M100.651, BTSPAT, L3890.6301, L500.2500, L100.0100, L3100.0300, L3890.6202 #### [facility] [address] [place], [address] Nucleated RBC (Bld) [#/Vol] 0 10*3/uL Normal 0-5 [facility] Comment on above: Performed By: #### L 3890.6006, M100.651, BTSPAT, L3890.6301, L500.2500, L100.0100, L3100.0300, L3890.6202 #### [facility] [address] [place], [address] Platelet mean volume (Bld) [Entitic vol] 10.9 fL Normal 6.2-12.0 [facility] Comment on above: Performed By: #### L 3890.6006, M100.651, BTSPAT, L3890.6301, L500.2500, L100.0100, L3100.0300, L3890.6202 #### [facility] [address] [place], [address] Platelets (Bld) [#/Vol] 183 10*3/uL Normal 150-450 [facility] Comment on above: Performed By: #### L 3890.6006, M100.651, BTSPAT, L3890.6301, L500.2500, L100.0100, L3100.0300, L3890.6202 #### [facility] [address] [place], [address] RBC (Bld) [#/Vol] 4.52 10*6/uL Low 4.6-6.2 [facility] Comment on above: Performed By: #### L 3890.6006, M100.651, BTSPAT, L3890.6301, L500.2500, L100.0100, L3100.0300, L3890.6202 #### [facility] [address] [place], [address] RDW SD 47.6 fl High 35.1-43.9 [facility] Comment on above: Performed By: #### L 3890.6006, M100.651, BTSPAT, L3890.6301, L500.2500, L100.0100, L3100.0300, L3890.6202 #### [facility] [address] [place], [address] WBC (Bld) [#/Vol] 5.1 10*3/uL Normal 4.4-11.0 [facility] Comment on above: Performed By: #### L 3890.6006, M100.651, BTSPAT, L3890.6301, L500.2500, L100.0100, L3100.0300, L3890.6202 #### [facility] [address] [place], [place], [id number] L3890.6006on 10-07-2024 HIV Non-Reactive Normal Nonreactive [facility] Comment on above: Result Comment: Non- Reactive Reactive Repeatedly reactive samples must be confirmed according to CDC recommended confirmatory algorithms. The subresults for either HIVAG or AHIV can be used as an aid in the selection of the confirmation algorithm for reactive samples. Send out specimens with Reactive results to [facility] for confirmation. Order the HIV antibody detection and differentiation: lc#[id number] Performed By: #### L 3890.6006, M100.651, BTSPAT, L3890.6301, L500.2500, L100.0100, L3100.0300, L3890.6202 #### [facility] [address] [place], [place], [id number] Magnesiumon 10-07-2024 Magnesium [Mass/Vol] 1.9 mg/dL Normal 1.5-2.2 [facility] Comment on above: Performed By: #### L 501.5200 #### [facility] [address] [place], [place], [id number] Type AND Screen - PAT ONLYon 10-07-2024 Ab SCREEN GEL Negative Normal [facility] Comment on above: Order Comment: Surge ry Date: 10/20/24 Reason for Laboratory Test PRE-OP [id number] No N N S 360 lumbar fusion L3-4, L4-5 and L5-S1 Performed By: #### L 3890.6006, M100.651, BTSPAT, L3890.6301, L500.2500, L100.0100, L3100.0300, L3890.6202 #### [facility] [address] [place], [place], [address] CNOVon 09-24-2024 CNOV Office Visit (FAMMAS ) ----- VALERIA PRADHAN ([id number]) 1950 M Date Time Provider Department 09/24/24 9:50 AM REYES SAUCEDO During your visit today, we recorded the following information about you: Temperature Pulse Respiration Blood pressure 96.9 degrees 54/minute 18/minute 136/84 Weight Height 104.8 kg 1.88 m Nat Ojeda LPN 09/28/2024 7:33 PM Signed Patient is in office for surgical clearance for upcoming lumbar fusion. He has not had any prior difficulties with anesthesia. He denies cardiovascular, pulmonary, or neurological symptoms. Patient has been experiencing seeing floaters. Patient recently had an eye exam, and it was brought up to check his blood pressure during episodes. Patient states that his pulse has been becoming low throughout the day. Radial pulse is 54 at this time. Patient is followed with Dr. Jo, but has not seen in years. Nat Ojeda LPN September 24, 2024 9:53 AM Reyes Sauecdo MD 09/28/2024 7:33 PM Signed Subjective Valeria Pradhan is a 74 year old male. Patient is in office for surgical clearance for upcoming lumbar fusion. He has not had any prior difficulties with anesthesia. He denies cardiovascular, pulmonary, or neurological symptoms. Patient has been experiencing seeing floaters. Patient recently had an eye exam, and it was brought up to check his blood pressure during episodes. Patient states that his pulse has been becoming low throughout the day. Radial pulse is 54 at this time. Patient is followed with Dr. Jo, but has not seen in years. Review of Systems Constitutional: Negative. HENT: Negative. Eyes: Negative. Respiratory: Negative. Cardiovascular: Negative. Gastrointestinal: Negative. Endocrine: Negative. Genitourinary: Negative. Musculoskeletal: Negative. Skin: Negative. Allergic/Immunologic: Negative. Neurological: Negative. Hematological: Negative. Psychiatric/Behavioral: Negative. PAST SURGICAL HISTORY Procedure Laterality Date COLONOSCOPY FLX DX W/COLLJ SPEC WHEN PFRMD 10/05/2003 Colonoscopy [facility] outpt HEMORRHOID;BAND LIGAT, SNGL/MUL INGUINAL HERNIA REPAIR HX TONSILLECTOMY AND ADENOIDECTOMY PAST MEDICAL HISTORY Diagnosis Date B12 deficiency Dust allergy Gout HTN (hypertension) HTN (hypertension) Hypercholesteremia Hypercholesterolemia Hypertriglyceridemia Neuropathy History reviewed. No pertinent family history. Social History Tobacco Use Smoking status: Former Current packs/day: 1.00 Average packs/day: 1 pack/day for 30.0 years (30.0 ttl pk-yrs) Types: Cigarettes, Cigars Passive exposure: Never Smokeless tobacco: Never Tobacco comments: Quits smoking cigarettes in 1999. Was smoking stacey sweets since then. Vaping Use Vaping status: Never Used Substance Use Topics Alcohol use: Yes Comment: occasional Drug use: No ALLERGIES Allergen Reactions Augmentin [Amoxicil* Swelling Other reaction(s): SWELLING-THROAT, SWELLING (NON-SPECIFIC) Potassium Clavulana* Angioedema Can take Amoxicillin, but Augmentin caused swelling of the tongue Pravastatin Unknown Simvastatin Unknown MEDICATIONS: amoxicillin (AMOXIL) 500 mg capsule take 4 capsules by mouth 1 hour prior to dental appointment ALPRAZolam (XANAX) 0.5 mg tablet Take 1 tablet by mouth every 12 hours. SUTAB 1.479-0.188- 0.225 gram tab TAKE TABLETS BY MOUTH A SPLIT DOSEAGE DIRECTED gabapentin (NEURONTIN) 300 mg capsule Take 300 mg by mouth three times a day. oxyCODONE-acetaminophen (PERCOCET) 7.5-325 mg tablet Take 1 tablet by mouth two times a day as needed. traZODone (DESYREL) 50 mg tablet take 1 tablet by mouth once daily at bedtime lisinopril (ZESTRIL) 40 mg tablet Take 1 tablet by mouth once daily. omeprazole (PRILOSEC) 20 mg capsule Take 20 mg by mouth once daily. mecobalamin (B12 ACTIVE ORAL) Take by mouth. Coenzyme Q10 (CO Q-10) 200 mg cap Take by mouth once daily. tamsulosin (FLOMAX) 0.4 mg Take 0.4 mg by mouth once daily. atorvastatin (LIPITOR) 20 mg tablet Take 20 mg by mouth once daily. amLODIPine (NORVASC) 5 mg tablet Take 1 tablet by mouth once daily. Allergies, past surgical history, family history and past medical history were reviewed per this encounter. Medications were reviewed and verified. 08/21/2024 09/17/2024 INTAKE PAIN ASSESSMENT Are you having pain associated with your visit today? Yes, Provider notified Yes, Provider notified Pain Level 8 7 Description Aching;Burning;Numbness;S harp;Stabbing;Tingling Aching;Radiating;Sharp;St abbing Duration Amount of Time 24 Duration Units Months Months Frequency Continuous Continuous Intervention/Comfort measure Medication If pain assessment is 0, no action needed. If pain assessment is positive, please see assessment and plain. Objective BP 136/84 (BP Site: Left Arm, BP Position: Sitting, BP Cuff Size: Regu (more content not included)... Normal [facility] CMP (EXTERNAL)on 09-17-2024 Albumin [Mass/Vol] 4.1 g/dL [facility] Alk Phos Total 63 U/L 45 - 117 U/L [facility] ALT [Catalytic activity/Vol] 20 U/L 12 - 78 U/L [facility] Anion gap [Moles/Vol] 12 mmol/L [facility] AST [Catalytic activity/Vol] 20 U/L 8 - 37 U/L [facility] Bili Total 1.2 mg/dL Abnormal 0.2 - 1 mg/dL [facility] Calcium [Mass/Vol] 8.9 mg/dL 8.5 - 10. 1 mg/dL [facility] Chloride [Moles/Vol] 107 mmol/L [facility] CO2 [Moles/Vol] 23 mmol/L [facility] Creatinine [Mass/Vol] 0.9 mg/dL [facility] GFR 91 mL/MIN [facility] Glucose [Mass/Vol] 81 mg/dL [facility] Interpretation and review of laboratory results Abnormal [facility] Potassium [Moles/Vol] 4.2 mmol/L 3.5 - 5.1 mmol/L [facility] Protein [Mass/Vol] 6.5 g/dL [facility] Sodium [Moles/Vol] 138 mmol/L 136 - 145 mmol/L [facility] Urea nitrogen [Mass/Vol] 16 mg/dL [facility] HbA1c (Bld)on 09-17-2024 HbA1c (Bld) [Mass fraction] 5.6 % 4 - 6 % [facility] Lipid 1996 panelon Cholesterol [Mass/Vol] 151 mg/dL 100 - 200 mg/dL [facility] Cholesterol in HDL [Mass/Vol] 48 mg/dL [facility] Cholesterol in LDL [Mass/Vol] 92 mg/dL [facility] Triglyceride [Mass/Vol] 99 mg/dL [facility] No Panel Informationon 09-17 Scanned into chart f rom outside source [facility] CNPNon 08-28-2024 CNPN Telephone (FAMMAS) ----- VALERIA PRADHAN ([id number]) 1950 M Date Time Provider Department 08/28/24 REYES SAUCEDO During your visit today, we recorded the following information about you: Dilcia Simms MA 08/28/2024 6:58 AM Signed Items addressed in this encounter: Fax/Forms Pain Mgmt referral faxed to Dr Watters [phone] Faxed via RightFax, fax confirmation received Able to close encounter. Dilcia Simms MA August 28, 2024 6:48 AM 6:48 AM Allergies As of Date: 08/28/2024 Noted Allergy Reaction AMOXICILLIN 06/06/2019 18 - Angioedema POTASSIUM CLAVULANATE 06/06/2019 18 - Angioedema Comments: Can take Amoxicillin, but Augmentin caused swelling of the tongue PRAVASTATIN 01/22/2012 16 - Unknown SIMVASTATIN 01/22/2012 16 - Unknown Date Reviewed: 08/27/2024 Reviewed by: Andreas Patton LPN - Fully Assessed Reason for Visit: Pain Mgmt referral faxed to Dr Watters [Other] Prescriptions as of 08/28/2024 - ALPRAZolam (XANAX) 0.5 mg tablet Take 1 tablet by mouth every 12 hours. - SUTAB 1.479-0.188- 0.225 gram tab TAKE TABLETS BY MOUTH A SPLIT DOSEAGE DIRECTED - gabapentin (NEURONTIN) 300 mg capsule Take 300 mg by mouth three times a day. - oxyCODONE-acetaminophen (PERCOCET) 7.5-325 mg tablet Take 1 tablet by mouth two times a day as needed. - traZODone (DESYREL) 50 mg tablet take 1 tablet by mouth once daily at bedtime - lisinopril (ZESTRIL) 40 mg tablet Take 1 tablet by mouth once daily. - omeprazole (PRILOSEC) 20 mg capsule Take 20 mg by mouth once daily. - mecobalamin (B12 ACTIVE ORAL) Take by mouth. - Coenzyme Q10 (CO Q-10) 200 mg cap Take by mouth once daily. - amLODIPine (NORVASC) 5 mg tablet Take 1 tablet by mouth once daily. - tamsulosin (FLOMAX) 0.4 mg Take 0.4 mg by mouth once daily. - atorvastatin (LIPITOR) 20 mg tablet Take 20 mg by mouth once daily. Problem List As Of Date 08/28/2024 Noted Resolved Cellulitis and abscess of toe, unspecified [L03*05/03/2012 Acute bronchitis [J20.9] 09/18/2019 Acute upper respiratory infection [J06.9] 08/20/2017 B12 deficiency [E53.8] 05/25/2017 Chronic obstructive pulmonary disease (HCC) [J4*05/25/2017 Well adult health check [Z00.00] 05/30/2017 Encounter for immunization [Z23] 06/25/2019 Encounter for screening for malignant neoplasm *06/25/2018 Gout [M10.9] 05/25/2017 Hypertension, essential [I10] 05/25/2017 Hypercholesterolemia [E78.00] 05/25/2017 Hypertriglyceridemia [E78.1] 05/25/2017 Inguinal hernia, right [K40.90] 05/06/2019 Insomnia [G47.00] 11/26/2018 Neck pain, chronic [M54.2, G89.29] 09/01/2020 Neuropathy [G62.9] 05/25/2017 Preop examination [Z01.818] 07/23/2020 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] 04/19/2022 Hypogonadism [XSS3753] 04/19/2022 Osteoarthritis of hip [M16.9] 04/19/2022 Sensorineural hearing loss, bilateral [H90.3] 04/19/2022 Thoracic or lumbosacral neuritis or radiculitis*04/19/2022 Anxiety disorder [F41.9] 04/16/2023 Hyponatremia [E87.1] 11/25/2023 Unintended weight loss [R63.4] 11/25/2023 Encounter Status:Closed by DILCIA SIMMS on 08/28/24 [facility] CNPN Telephone (NutriVenturesS) ----- VALERIA PRADHAN ([id number]) 1950 M Date Time Provider Department 08/28/24 [facility]ED[facility] During your visit today, we recorded the following information about you: Dilcia Simms MA 08/28/2024 7:00 AM Signed Items addressed in this encounter: [employer] Encounter referral info given via [employer] Able to close encounter. Dilcia Simms MA August 28, 2024 6:59 AM 6:59 AM Allergies As of Date: 08/28/2024 Noted Allergy Reaction AMOXICILLIN 06/06/2019 18 - Angioedema POTASSIUM CLAVULANATE 06/06/2019 18 - Angioedema Comments: Can take Amoxicillin, but Augmentin caused swelling of the tongue PRAVASTATIN 01/22/2012 16 - Unknown SIMVASTATIN 01/22/2012 16 - Unknown Date Reviewed: 08/27/2024 Reviewed by: Andreas Patton LPN - Fully Assessed Reason for Visit: referral info given via [employer] [Other] Prescriptions as of 08/28/2024 - ALPRAZolam (XANAX) 0.5 mg tablet Take 1 tablet by mouth every 12 hours. - SUTAB 1.479-0.188- 0.225 gram tab TAKE TABLETS BY MOUTH A SPLIT DOSEAGE DIRECTED - gabapentin (NEURONTIN) 300 mg capsule Take 300 mg by mouth three times a day. - oxyCODONE-acetaminophen (PERCOCET) 7.5-325 mg tablet Take 1 tablet by mouth two times a day as needed. - traZODone (DESYREL) 50 mg tablet take 1 tablet by mouth once daily at bedtime - lisinopril (ZESTRIL) 40 mg tablet Take 1 tablet by mouth once daily. - omeprazole (PRILOSEC) 20 mg capsule Take 20 mg by mouth once daily. - mecobalamin (B12 ACTIVE ORAL) Take by mouth. - Coenzyme Q10 (CO Q-10) 200 mg cap Take by mouth once daily. - amLODIPine (NORVASC) 5 mg tablet Take 1 tablet by mouth once daily. - tamsulosin (FLOMAX) 0.4 mg Take 0.4 mg by mouth once daily. - atorvastatin (LIPITOR) 20 mg tablet Take 20 mg by mouth once daily. Problem List As Of Date 08/28/2024 Noted Resolved Cellulitis and abscess of toe, unspecified [L03*05/03/2012 Acute bronchitis [J20.9] 09/18/2019 Acute upper respiratory infection [J06.9] 08/20/2017 B12 deficiency [E53.8] 05/25/2017 Chronic obstructive pulmonary disease (HCC) [J4*05/25/2017 Well adult health check [Z00.00] 05/30/2017 Encounter for immunization [Z23] 06/25/2019 Encounter for screening for malignant neoplasm *06/25/2018 Gout [M10.9] 05/25/2017 Hypertension, essential [I10] 05/25/2017 Hypercholesterolemia [E78.00] 05/25/2017 Hypertriglyceridemia [E78.1] 05/25/2017 Inguinal hernia, right [K40.90] 05/06/2019 Insomnia [G47.00] 11/26/2018 Neck pain, chronic [M54.2, G89.29] 09/01/2020 Neuropathy [G62.9] 05/25/2017 Preop examination [Z01.818] 07/23/2020 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] 04/19/2022 Hypogonadism [QWK2558] 04/19/2022 Osteoarthritis of hip [M16.9] 04/19/2022 Sensorineural hearing loss, bilateral [H90.3] 04/19/2022 Thoracic or lumbosacral neuritis or radiculitis*04/19/2022 Anxiety disorder [F41.9] 04/16/2023 Hyponatremia [E87.1] 11/25/2023 Unintended weight loss [R63.4] 11/25/2023 Encounter Status:Closed by DILCIA SIMMS on 08/28/24 [facility] CNOVon 08-27-2024 CNOV Office Visit (RICARDOMAS ) ----- VALERIA PRADHAN ([id number]) 1950 M Date Time Provider Department 08/27/24 2:40 PM REYES SAUCEDO During your visit today, we recorded the following information about you: Temperature Pulse Respiration Blood pressure 97.9 degrees 56/minute 18/minute 132/82 Weight Height 102.1 kg 1.88 m Andreas Patton LPN 08/27/2024 3:07 PM Signed Patient is here to get a referral to Pain Mgmt for second opinion. Pain has C/O back/neck pain. Andreas Patton LPN August 27, 2024 3:07 PM Reyes Saucedo MD 09/01/2024 12:00 PM Addendum Subjective Valeria Pradhan is a 74 year old male. He presents today with history of low back pain. He is currently being treated at pain management but request second opinion. He would like to see Dr. Lau in [place]. Additionally he is seeking surgical clearance for upcoming lumbar fusion. He has not had any prior difficulties with anesthesia. He denies cardiovascular, pulmonary, or neurological symptoms. Review of Systems Constitutional: Negative. HENT: Negative. Eyes: Negative. Respiratory: Negative. Cardiovascular: Negative. Gastrointestinal: Negative.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 2023. FINDINGS: Minimal increase in the markings in the anterior lateral aspect of the right lower lobe abutting the right major fissure. This suggestive of a mild scarring. Coronary artery calcification. Normal liver. Normal gallbladder and extrahepatic biliary system. Normal spleen. Normal pancreas. Normal bilateral adrenal glands. Normal right kidney. Normal left kidney. Nonspecific mild degree of bilateral perinephric stranding. There is diffuse gastric wall thickening. Clinical correlation is recommended. This is unchanged. Normal small intestine. There are multiple colonic diverticula consistent with diverticulosis. The appendix is visualized and appears normal. There is diffuse atherosclerotic calcification of the abdominal aorta, without a demonstrated aneurysm. Normal inferior vena cava. Normal retroperitoneum. Normal urinary bladder. Prostatic enlargement with central prostatic calcification. Small bilateral inguinal hernias containing fat. There are diffuse degenerative changes of the visualized lumbar spine. There is loss of the normal lumbar lordosis. Prior left total hip replacement. The spinal cord similar device is seen. CT/Abdomen/Pelvis W IV Cont ONLY IMPRESSION: There is diffuse gastric wall thickening. Clinical correlation recommended. Sigmoid diverticulosis. No radiographic evidence of diverticulitis at this time. Electronically Signed: Tomás Davison MD at 14:48 EDT , CC: Dr. Reyes Saucedo MD; Dr. Zach Weber MD Sharepoint Specialist: Signed Normal [facility] Basic Metabolic Profile (BMP )on 02-14-2024 BUN/CRE 17.2 RATIO Normal 10-20 [facility] Comment on above: Performed By: #### L 500.2500, L100.0100 ####[facility] [address] [place], [address] CA,Total 8.8 mg/dL Normal 8.5-10.1 [facility] Comment on above: Performed By: #### L 500.2500, L100.0100 ####[facility] [address] [place], [address] Chloride [Moles/Vol] 102 mmol/L Normal 98-107 [facility] Comment on above: Performed By: #### L 500.2500, L100.0100 ####[facility] [address] [place], [address] CO2 [Moles/Vol] 26.0 mmol/L Normal 21.0-32.0 [facility] Comment on above: Performed By: #### L 500.2500, L100.0100 ####[facility] [address] [place], [address] Creatinine [Mass/Vol] 0.70 mg/dL Normal 0.70-1.30 [facility] Comment on above: Result Comment: The validity of the calculated GFR GFRAA in patients over 70 years has not been determined. Clinical correlation is essential. Performed By: #### L 500.2500, L100.0100 ####[facility] [address] [place], [address] ECRCL 105.19 ml/min Normal [facility] Comment on above: Performed By: #### L 500.2500, L100.0100 ####[facility] [address] [place], [address] EST GFR - AA 143 mL/min Normal >60 [facility] Comment on above: Result Comment: Afri can Ukrainian GFR Calc Performed By: #### L 500.2500, L100.0100 ####[facility] [address] [place], [address] GAP 6 Normal 5-15 [facility] Comment on above: Performed By: #### L 500.2500, L100.0100 ####[facility] [address] [place], [address] GFR/1.73 sq M.predicted among non-blacks MDRD (S/P/Bld) [Vol rate/Area] 118 mL/min/{1.73_m2} Normal >60 [facility] Comment on above: Result Comment: Non- GFR Calc Performed By: #### L 500.2500, L100.0100 ####[facility] [address] [place], [address] Glucose [Mass/Vol] 109 mg/dL High 74-106 [facility] Comment on above: Result Comment: Fast ing Glucose result from 100 to 125 mg/dL suggests IMPAIRED HOMEOSTASIS per A.D.A. criteria. Performed By: #### L 500.2500, L100.0100 ####[facility] [address] [place], [address] Potassium [Moles/Vol] 3.8 mmol/L Normal 3.5-5.1 [facility] Comment on above: Performed By: #### L 500.2500, L100.0100 ####[facility] [address] [place], [address] Sodium [Moles/Vol] 134 mmol/L Low 136-145 [facility] Comment on above: Performed By: #### L 500.2500, L100.0100 ####[facility] [address] [place], [address] Urea nitrogen [Mass/Vol] 12 mg/dL Normal 7-18 [facility] Comment on above: Performed By: #### L 500.2500, L100.0100 ####[facility] [address] [place], [address] CBC W/Diff, Automatedon 08-0 1-4 Absolute Lymph 2.01 X10 3/uL Normal 0.83-4.51 [facility] Comment on above: Performed By: #### L 500.2500, L100.0100 ####[facility] [address] [place], [address] Absolute Neut 4.3 X10 3/uL Normal 2.0-7.7 [facility] Comment on above: Performed By: #### L 500.2500, L100.0100 ####[facility] [address] [place], [address] Basophils/100 WBC (Bld) 0.4 % Normal 0-1 [facility] Comment on above: Performed By: #### L 500.2500, L100.0100 ####[facility] [address] [place], [address] Eosinophils/100 WBC (Bld) 2.6 % Normal 0-5 [facility] Comment on above: Performed By: #### L 500.2500, L100.0100 ####[facility] [address] [place], [address] Erythrocyte distribution width (RBC) [Ratio] 13.5 % Normal 11.6-14.6 [facility] Comment on above: Performed By: #### L 500.2500, L100.0100 ####[facility] [address] [place], [address] Hematocrit (Bld) [Volume fraction] 45.4 % Normal 40-54 [facility] Comment on above: Performed By: #### L 500.2500, L100.0100 ####[facility] [address] [place], [address] Hemoglobin (Bld) [Mass/Vol] 15.4 g/dL Normal 13.0-16.5 [facility] Comment on above: Performed By: #### L 500.2500, L100.0100 ####[facility] [address] [place], [address] IG% 0.300 Normal 0.0-0.9 [facility] Comment on above: Result Comment: IG% - Immature Granulocytes (promyelocytes, myelocytes and metamyelocytes) > 1% indicates that a LEFT SHIFT is Present. Performed By: #### L 500.2500, L100.0100 ####[facility] [address] [place], [address] Lymphocytes/100 WBC (Bld) 27.1 % Normal 19-41 [facility] Comment on above: Performed By: #### L 500.2500, L100.0100 ####[facility] [address] [place], [address] MCH (RBC) [Entitic mass] 34.6 pg High 27.0-32.0 [facility] Comment on above: Performed By: #### L 500.2500, L100.0100 ####[facility] [address] [place], [address] MCHC (RBC) [Mass/Vol] 33.9 g/dL Normal 32-36 [facility] Comment on above: Performed By: #### L 500.2500, L100.0100 ####[facility] [address] [place], [address] MCV (RBC) [Entitic vol] 102.0 fL High 80-94 [facility] Comment on above: Performed By: #### L 500.2500, L100.0100 ####[facility] [address] [place], [address] Monocytes/100 WBC (Bld) 11.3 % High 0-10 [facility] Comment on above: Performed By: #### L 500.2500, L100.0100 ####[facility] [address] [place], [address] Neutrophils/100 WBC (Bld) 58.3 % Normal 47-70 [facility] Comment on above: Performed By: #### L 500.2500, L100.0100 ####[facility] [address] [place], [address] Nucleated RBC (Bld) [#/Vol] 0 10*3/uL Normal 0-5 [facility] Comment on above: Performed By: #### L 500.2500, L100.0100 ####[facility] [address] [place], [address] Platelet mean volume (Bld) [Entitic vol] 11.5 fL Normal 6.2-12.0 [facility] Comment on above: Performed By: #### L 500.2500, L100.0100 ####[facility] [address] [place], [address] Platelets (Bld) [#/Vol] 155 10*3/uL Normal 150-450 [facility] Comment on above: Performed By: #### L 500.2500, L100.0100 ####[facility] [address] [place], [address] RBC (Bld) [#/Vol] 4.45 10*6/uL Low 4.6-6.2 [facility] Comment on above: Performed By: #### L 500.2500, L100.0100 ####[facility] [address] [place], [address] RDW SD 51.5 fl High 35.1-43.9 [facility] Comment on above: Performed By: #### L 500.2500, L100.0100 ####[facility] [address] [place], [address] WBC (Bld) [#/Vol] 7.4 10*3/uL Normal 4.4-11.0 [facility] Comment on above: Performed By: #### L 500.2500, L100.0100 ####[facility] [address] [place], [address] Emergency Department Summary on 02-14-2024 Emergency Department Summary [facility] Medical Records Department [address] [place] [address] Emergency Department Summary 02/14/24 MR#: [id number] Acct: [id number] Name: VALERIA PRADHAN Rep #: [id number] : 1950 74 From: Zach Weber MD PCP: Dr. Reyes Saucedo MD Status:REG ER Location: ED ADDENDUM by Dr. Zach Weber MD on 02/14/24 at [address] Cervantes's nurse. She will contact the meat wrapper and will have patient scheduled for visit and EGD. 02/14/24 1535 Cosigner Signature (if applicable): cc: Dr. Reyes Saucedo MD * Signed HPI History of Present Illness Chief Complaint: Abd Pain Detail of Chief Complaint: Lower left quadrant abdominal pain, diagnosed with diverticulitis on ciprof Informant: patient Onset/Context/Timing Onset: Weeks Context: Sudden Onset Timing: Intermittent Quality: Pain Location: Left lower quadrant Current Severity: Mild Maximum Severity: Moderate Worsened by: Palpation and movement Relieved by: Nothing Associated Symptoms Associated Symptoms: None Narrative Narrative: Patient is a 74-year-old male. He has history of diverticulitis, hypertriglycerides, hypercholesterolemia, COPD, umbilical and inguinal hernia, degenerative disc disease cervical and lumbar who presents with. He was seen last Sunday by his primary care physician Dr. Saucedo. He was placed on ciprofloxacin. He states he felt better on Sunday. He developed pain again on Sunday. He presents because of persistent pain. He denies fever or chills. He has had intermittent night sweats. He does not endorse weight loss or weight gain. He states he has chronic back pain. His pain is no different than normal. He denies change in consistency or caliber of his stool. Patient denies dysuria, frequency, urgency or hematuria Patient has not noted a recurrent umbilical or inguinal which she has had in the past. Prior similar symptoms: Yes Recent Illness/Hospitalization: Yes [facility] Medical History (Updated 02/14/24 @ 15:[address] Zach Weber MD) Symptom of bladder outlet obstruction Recurrent inguinal hernia of right side without obstruction or gangrene Umbilical hernia without obstruction or gangrene Acid reflux Hemorrhoids Hypertension Hypertriglyceridemia Hypercholesterolemia Gout Neuropathy COPD (chronic obstructive pulmonary disease) B12 deficiency Home Medications ???Medication ???Instructions ???Recorded ???Last Taken ???Type lisinopril 20 mg tablet 40 mg PO DAILY 01/21/16 06/06/19 History azelastine 137 mcg (0.1 %) nasal 2 spray intranasal ONCE 05/23/19 Unknown History spray fluticasone propionate 50 2 spray intranasal DAILY 05/23/19 Unknown History mcg/actuation nasal spray,suspension gabapentin 300 mg capsule 100 mg PO TID 05/23/19 06/06/19 History omeprazole 20 mg capsule,delayed 40 mg PO DAILY 05/23/19 11/03/23 History release cyanocobalamin (vitamin B-12) 1,000 mcg PO DAILY 06/04/19 11/03/23 History 1,000 mcg tablet naproxen sodium 220 mg tablet 440 mg PO BID PRN pain 02/12/23 Unknown History (Aleneto) alprazolam 0.5 mg tablet (Xanax) 0.5 mg PO BID PRN anxiety 11/04/23 11/03/23 History atorvastatin 20 mg tablet 20 mg PO DAILY 11/04/23 11/03/23 History tramadol 25 mg tablet 25 mg PO QHS 11/04/23 Unknown History Allergy/AdvReac Type Severity Reaction Status Date / Time amoxicillin trihydrate (From Allergy Angioedema Verified 11/04/23 05:57 Augmentin) potassium clavulanate (From Allergy Angioedema Verified 11/04/23 05:57 Augmentin) Family History Father Heart disease Hypertension High cholesterol Mother High cholesterol Hypertension Sister CVA (cerebral vascular accident) Surgical History Hx of umbilical hernia repair Hx of colonoscopy Hx of tonsillectomy Hx of hemorrhoidectomy Hx of right inguinal hernia repair Social History Smoking Status: Light Smoker (<10/day) second hand exposure: No alcohol intake: current alcohol intake frequency: holidays/special occasions only substance use type: does not use caffeine: Yes what type of physical activity do you participate in: none frequency: does not exercise ROS ROS ED Constitutional Constitutional ED: Reports sweats; Denies chills, fever(s), subjective or weight loss Eyes Eyes: Denies blurry vision or change in vision ENT ENT ED: Denies ear pain, rhinorrhea or sore throat Cardiovascular Cardiovascular: Denies palpitations Respiratory/Chest Respiratory/Chest: Denies cough, dyspnea or dyspnea on exertion Gastrointestinal Gastrointestinal: Reports abdominal pain and nausea; Denies constipation, diarrhea, melena or vomiting Genitourinary Genitourin (more content not included)... Normal [facility] CNOVon 02-06-2024 CNOV Office Visit (FAMMAS ) ----- VALERIA PRADHAN ([id number]) 1950 M Date Time Provider Department 02/06/24 9:10 AM REYES SAUCEDO During your visit today, we recorded the following information about you: Temperature Pulse Respiration Blood pressure 98.2 degrees 57/minute 17/minute 126/72 Weight Height 99.4 kg 1.88 m Macey Carr LPN 02/06/2024 9:49 AM Signed Patient is in office with complaint of abdominal pain x 11 days. Patient does have history of diverticulitis. Referral for Gastroenterology was sent to Dr. Cervantes on 01-29-2024. Refills entered. Macey Carr LPN February 06, 2024 9:12 AM Reyes Saucedo MD 02/06/2024 9:49 AM Signed Subjective Valeria Pradhan is a 74 year old male. Patient presents today with history of left lower quadrant pain for the last 11 days. He denies any blood in his stool. He denies fever. Symptoms occurred after eating cashews. He has a history of diverticulitis. He states this feels the same as the last time he had diverticulitis. Review of Systems All other systems reviewed and are negative. PAST SURGICAL HISTORY Procedure Laterality Date COLONOSCOPY FLX DX W/COLLJ SPEC WHEN PFRMD 10/05/2003 [facility] HEMORRHOID;BAND LIGAT, SNGL/MUL INGUINAL HERNIA REPAIR HX TONSILLECTOMY AND ADENOIDECTOMY PAST MEDICAL HISTORY Diagnosis Date B12 deficiency Gout HTN (hypertension) HTN (hypertension) Hypercholesteremia Hypercholesterolemia Hypertriglyceridemia Neuropathy History reviewed. No pertinent family history. Social History Tobacco Use Smoking status: Former Packs/day: 1.00 Years: 30.00 Additional pack years: 0.00 Total pack years: 30.00 Types: Cigarettes, Cigars Passive exposure: Never Smokeless tobacco: Never Tobacco comments: Quits smoking cigarettes in 1999. Was smoking stacey sweets since then. Vaping Use Vaping Use: Never used Substance Use Topics Alcohol use: Yes Comment: occasional Drug use: No ALLERGIES Allergen Reactions House Dust Mite Unknown Potassium Clavulana* Angioedema Can take Amoxicillin, but Augmentin caused swelling of the tongue Pravastatin Unknown Simvastatin Unknown MEDICATIONS: ALPRAZolam (XANAX) 0.5 mg tablet Take 1 tablet by mouth two times a day as needed for up to 90 days. gabapentin (NEURONTIN) 100 mg capsule 100 mg. lisinopril (ZESTRIL) 40 mg tablet Take 1 tablet by mouth once daily. omeprazole (PRILOSEC) 20 mg capsule Take 20 mg by mouth once daily. mecobalamin (B12 ACTIVE ORAL) Take by mouth. Coenzyme Q10 (CO Q-10) 200 mg cap Take by mouth once daily. amLODIPine (NORVASC) 5 mg tablet Take 1 tablet by mouth once daily. tamsulosin (FLOMAX) 0.4 mg Take 0.4 mg by mouth once daily. traZODone (DESYREL) 50 mg tablet Take 1 tablet by mouth daily at bedtime. atorvastatin (LIPITOR) 20 mg tablet Take 20 mg by mouth once daily. ciprofloxacin HCl (CIPRO) 500 mg tablet Take 1 tablet by mouth three times a day. Allergies, past surgical history, family history and past medical history were reviewed per this encounter. Medications were reviewed and verified. Objective BP 126/72 (BP Site: Left Arm, BP Position: Sitting, BP Cuff Size: Large Adult) Pulse (!) 57 Temp 36.8 ?C (98.2 ?F) (Temporal) Resp 17 Ht 188 cm (6' 2) Wt 99.4 kg (219 lb 2 oz) SpO2 98% BMI 28.13 kg/m? Physical Exam Vitals reviewed. Constitutional: Appearance: Normal appearance. HENT: Head: Normocephalic and atraumatic. Nose: Nose normal. Eyes: Extraocular Movements: Extraocular movements intact. Pupils: Pupils are equal, round, and reactive to light. Cardiovascular: Rate and Rhythm: Normal rate and regular rhythm. Pulmonary: Effort: Pulmonary effort is normal. Breath sounds: Normal breath sounds. Abdominal: General: Bowel sounds are normal. Palpations: Abdomen is soft. Tenderness: There is abdominal tenderness in the left lower quadrant. Musculoskeletal: General: Normal range of motion. Cervical back: Normal range of motion and neck supple. Skin: General: Skin is warm and dry. Capillary Refill: Capillary refill takes less than 2 seconds. Neurological: General: No focal deficit present. Mental Status: He is alert and oriented to person, place, and time. Mental status is at baseline. Psychiatric: Mood and Affect: Mood normal. Behavior: Behavior normal. Assessment and Plan Encounter Diagnosis ICD-10-CM 1. Diverticulitis K57.92 Treat with Cipro. Patient does not want Flagyl due to history of alcohol use. Reyes Saucedo MD Allergies As of Date: 02/06/2024 Noted Allergy Reaction HOUSE DUST MITE 08/20/2017 16 - Unknown POTASSIUM CLAVULANATE 06/06/2019 18 - Angioedema Comments: Can take Amoxicillin, but Augmentin caused swelling of the tongue PRAVASTATIN 01/22/2012 16 - Unknown SIMVASTATIN 01/22/2012 16 - Unknown Date Reviewed: 0 (more content not included)... [facility] 2024 [facility] Telephone ([employer]) ----- VALERIA PRADHAN ([id number]) 1950 Date Time Provider Department 02/05/24 REYES SAUCEDO [facility] During your visit today, we recorded the following information about you: Allergies As of Date: 2024 Noted Allergy Reaction HOUSE DUST MITE 08/20/2017 16 - Unknown POTASSIUM CLAVULANATE 06/06/2019 18 - Angioedema Comments: Can take Amoxicillin, but Augmentin caused swelling of the tongue PRAVASTATIN 01/22/2012 16 - Unknown SIMVASTATIN 01/22/2012 16 - Unknown Date Reviewed: 12/31/2023 Reviewed by: Isidra Bronson LPN - Fully Assessed Reason for Visit: Patient Question [9207] Prescriptions as of 2024 - ALPRAZolam (XANAX) 0.5 mg tablet Take 1 tablet by mouth two times a day as needed for up to 90 days. - gabapentin (NEURONTIN) 100 mg capsule 100 mg. - lisinopril (ZESTRIL) 40 mg tablet Take 1 tablet by mouth once daily. - omeprazole (PRILOSEC) 20 mg capsule Take 20 mg by mouth once daily. - mecobalamin (B12 ACTIVE ORAL) Take by mouth. - Coenzyme Q10 (CO Q-10) 200 mg cap Take by mouth once daily. - amLODIPine (NORVASC) 5 mg tablet Take 1 tablet by mouth once daily. - tamsulosin (FLOMAX) 0.4 mg Take 0.4 mg by mouth once daily. - traZODone (DESYREL) 50 mg tablet Take 1 tablet by mouth daily at bedtime. - atorvastatin (LIPITOR) 20 mg tablet Take 20 mg by mouth once daily. Problem List As Of Date 2024 Noted Resolved Cellulitis and abscess of toe, unspecified [L03*05/03/2012 Acute bronchitis [J20.9] 09/18/2019 Acute upper respiratory infection [J06.9] 08/20/2017 B12 deficiency [E53.8] 05/25/2017 Chronic obstructive pulmonary disease (HCC) [J4*05/25/2017 Well adult health check [Z00.00] 05/30/2017 Encounter for immunization [Z23] 06/25/2019 Encounter for screening for malignant neoplasm *06/25/2018 Gout [M10.9] 05/25/2017 Hypertension [I10] 05/25/2017 Hypercholesterolemia [E78.00] 05/25/2017 Hypertriglyceridemia [E78.1] 05/25/2017 Inguinal hernia, right [K40.90] 05/06/2019 Insomnia [G47.00] 11/26/2018 Neck pain, chronic [M54.2, G89.29] 09/01/2020 Neuropathy [G62.9] 05/25/2017 Preop examination [Z01.818] 07/23/2020 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] 04/19/2022 Hypogonadism [[id number]] 04/19/2022 Osteoarthritis of hip [M16.9] 04/19/2022 Sensorineural hearing loss, bilateral [H90.3] 04/19/2022 Thoracic or lumbosacral neuritis or radiculitis*04/19/2022 Anxiety disorder [F41.9] 04/16/2023 Hyponatremia [E87.1] 11/25/2023 Unintended weight loss [R63.4] 11/25/2023 Encounter Status:Closed by DAWNA IZAGUIRRE on 02/05/24 [facility] CT Chest for screening WO guadalupe ntraston 01-15-2024 IMPRESSION: LungRADS category: 2 LungRADS modifier: None LungRADS 0 reason: n/a Recommendations: Continue annual screening with LDCT in 12 months. Other actionable findings: Reference: [employer]. Lung CT Screening Reporting and Data System (Lung-RADS). Available at: http://www.acr.org/Qualit y-Safety/Resources/LungRA DS Sharepoint Specialist: LOU Transcribe Date/Time: Jan 15 2024 3:47P Dictated by : JULIA BYRNE MD This examination was interpreted and the report reviewed and electronically signed by: JULIA BYRNE MD on Jan 15 2024 4:06PM [facility] DIVISION OF RADIOLOGY * * *Final Report* * * DATE OF EXAM: Jan 15 2024 9:24AM [facility] 0562 - CT LUNG SCREEN WO IVCON / PROCEDURE REASON: Tobacco abuse * * * * Physician Interpretation * * * * EXAMINATION: CHEST CT WITHOUT CONTRAST (LOW-DOSE CT LUNG CANCER SCREENING PROTOCOL) CLINICAL HISTORY: Lung cancer LDCT screening ? absence of signs or symptoms of lung cancer. Nicotine dependence (cigarettes). Baseline (initial) Technique: Spiral CT acquisition of the chest from the thoracic inlet to the upper abdomen without contrast. MQ: CTLCS_6 Patient characteristics: * Bbuc-qf-Nmomh: 1950; Age at exam: 73 years * Gender: Male * Lung Disease: Asymptomatic (no signs or symptoms of lung disease) * Number of Pack Years: 30 * Current smoker (=0) or Number of Years since Quit: 0 * Ordering provider and NPI: SHELLY ROSE [id number] * Interpreting radiologist and NPI: Filomena, [id number] Exam acquisition parameters: * Exam Date: 01/15/2024 9:24 AM * Site: [facility] * * CT System Die Trouble Shooter: Siemens * CT System Model: Sensation * Tube Current-Time (mA-sec): 32 * Peak Voltage (kV): 120V * Scan Time (sec): 11.96 * Scan Volume (z-length, cm): -32.05 * Pitch: 0.75 * Slice Thickness (mm): 1.5 * CT Dose-Length Product: 108 mGy*cm * CT Dose Index: 2.50mGy * CT Dose Reduction Method: Automated exposure control(AEC) and iterative recon COMPARISON: None available RESULT: Are nodules present? Yes, 6 or more nodules Nodule 1: This Perifissural nodule is located along the minor fissure on slice number 142 with an average diameter of 7.5 mm (11.2 mm x 3.7 mm). Likely a lymph node given location and shape. Nodule 2: This Non-solid nodule is located in the Right Lower Lobe on slice number 201 with an average diameter of 5.3 mm (6.1 mm x 4.5 mm). Nodule 3: This Solid nodule is located in the Left Lower Lobe on slice number 249 with an average diameter of 5.3 mm (6.1 mm x 4.5 mm). Nodule 4: This Perifissural nodule is located along the right major fissure on slice number 116 with an average diameter of 3.5 mm (3.8 mm x 3.1 mm). Likely a lymph node given location along the fissure. Nodule 5: This Solid nodule is located in the Left Lower Lobe on slice number 199 with an average diameter of 2.4 mm (2.4 mm x 2.4 mm). Other lung nodule comments: There is a 3 mm medial left upper lobe nodule, image 69. Other findings: There is mild upper lobe predominant centrilobular and paraseptal emphysema, which is associated with bronchial wall thickening. Linear density in the anterior right lower lobe along the major fissure, image 196 is likely due to atelectasis or scar. No enlarged thoracic lymph nodes. Mild atherosclerosis is present within the thoracic aorta is mildly ectatic measuring 3.9 cm in the mid ascending segment. There is common origin of the right brachiocephalic and left common carotid arteries, a normal anatomic variant. There are mild scattered coronary artery atherosclerotic calcifications, however, this exam is not optimized for coronary artery assessment. No abnormality identified within the imaged solid abdominal organs on this noncontrast exam. Mild atherosclerosis is present in the proximal abdominal aorta, which is nondilated. No destructive lytic or blastic bone lesion. A lead is noted within the central canal of the thoracic spine terminating at the level of T7-T8. Mild endplate degenerative changes are present within the imaged spine. Emphysema: Mild (5-25%), Centrilobular, Upper lobe Coronary Artery Calcifications: Circumflex Mild; Left Anterior Descending Mild; Right Coronary Mild Incidental coronary calcium as automatically processed and calculated using AI: Total Coronary Calcium Score = [100+] Agatston Units Percentile Rank (age and gender matched relative to reference population): [25th-75th] percentile* [* [email or web address]://www.avila-[email or web address] g/calcium/input.aspx] Localizer images: There is a partially imaged left hip arthroplasty. The generator device is present overlying the right aspect of the pelvis. DIVISION OF RADIOLOGY Provider, [facility] - 01/15/2024 * * *Final Report* * * DATE OF EXAM: Jan 15 2024 9:24AM [facility] 0562 - CT LUNG SCREEN WO IVCON / PROCEDURE REASON: Tobacco abuse * * * * Physician Interpretation * * * * EXAMINATION: CHEST CT WITHOUT CONTRAST (LOW-DOSE CT LUNG CANCER SCREENING PROTOCOL) CLINICAL HISTORY: Lung cancer LDCT screening ? absence of signs or symptoms of lung cancer. Nicotine dependence (cigarettes). Baseline (initial) Technique: Spiral CT acquisition of the chest from the thoracic inlet to the upper abdomen without contrast. MQ: CTLCS_6 Patient characteristics: * Wacd-kk-Dkalg: 1950; Age at exam: 73 years * Gender: Male * Lung Disease: Asymptomatic (no signs or symptoms of lung disease) * Number of Pack Years: 30 * Current smoker (=0) or Number of Years since Quit: 0 * Ordering provider and NPI: SHELLY ROSE [id number] * Interpreting radiologist and NPI: Filomena [id number] Exam acquisition parameters: * Exam Date: 01/15/2024 9:24 AM * Site: [facility] * * CT System Die Trouble Shooter: Siemens * CT System Model: Sensation * Tube Current-Time (mA-sec): 32 * Peak Voltage (kV): 120V * Scan Time (sec): 11.96 * Scan Volume (z-length, cm): -32.05 * Pitch: 0.75 * Slice Thickness (mm): 1.5 * CT Dose-Length Product: 108 mGy*cm * CT Dose Index: 2.50mGy * CT Dose Reduction Method: Automated exposure control(AEC) and iterative recon COMPARISON: None available RESULT: Are nodules present? Yes, 6 or more nodules Nodule 1: This Perifissural nodule is located along the minor fissure on slice number 142 with an average diameter of 7.5 mm (11.2 mm x 3.7 mm). Likely a lymph node given location and shape. Nodule 2: This Non-solid nodule is located in the Right Lower Lobe on slice number 201 with an average diameter of 5.3 mm (6.1 mm x 4.5 mm). Nodule 3: This Solid nodule is located in the Left Lower Lobe on slice number 249 with an average diameter of 5.3 mm (6.1 mm x 4.5 mm). Nodule 4: This Perifissural nodule is located along the right major fissure on slice number 116 with an average diameter of 3.5 mm (3.8 mm x 3.1 mm). Likely a lymph node given location along the fissure. Nodule 5: This Solid nodule is located in the Left Lower Lobe on slice number 199 with an average diameter of 2.4 mm (2.4 mm x 2.4 mm). Other lung nodule comments: There is a 3 mm medial left upper lobe nodule, image 69. Other findings: There is mild upper lobe predominant centrilobular and paraseptal emphysema, which is associated with bronchial wall thickening. Linear density in the anterior right lower lobe along the major fissure, image 196 is likely due to atelectasis or scar. No enlarged thoracic lymph nodes. Mild atherosclerosis is present within the thoracic aorta is mildly ectatic measuring 3.9 cm in the mid ascending segment. There is common origin of the right brachiocephalic and left common carotid arteries, a normal anatomic variant. There are mild scattered coronary artery atherosclerotic calcifications, however, this exam is not optimized for coronary artery assessment. No abnormality identified within the imaged solid abdominal organs on this noncontrast exam. Mild atherosclerosis is present in the proximal abdominal aorta, which is nondilated. No destructive lytic or blastic bone lesion. A lead is noted within the central canal of the thoracic spine terminating at the level of T7-T8. Mild endplate degenerative changes are present within the imaged spine. Emphysema: Mild (5-25%), Centrilobular, Upper lobe Coronary Artery Calcifications: Circumflex Mild; Left Anterior Descending Mild; Right Coronary Mild Incidental coronary calcium as automatically processed and calculated using AI: Total Coronary Calcium Score = [100+] Agatston Units Percentile Rank (age and gender matched relative to reference population): [25th-75th] percentile* [* https://www.avila-[email or web address] g/calcium/input.aspx] Localizer images: There is a partially imaged left hip arthroplasty. The generator device is present overlying the right aspect of the pelvis. IMPRESSION IMPRESSION: LungRADS category: 2 LungRADS modifier: None LungRADS 0 reason: n/a Recommendations: Continue annual screening with LDCT in 12 months. Other actionable findings: Reference: [employer]. Lung CT Screening Reporting and Data System (Lung-RADS). Available at: http://www.acr.org/Qualit y-Safety/Resources/LungRA DS Sharepoint Specialist: LOU Transcribe Date/Time: Jan 15 2024 3:47P Dictated by : JULIA BYRNE MD This examination was interpreted and the report reviewed and electronically signed by: JULIA BYRNE MD on Jan 15 2024 4:06PM EST [facility] Radiology Study observation (narrative) [facility] CT Chest for screening WO co ntrastOrdered By: [facility] Provider on 01-15-[address] [facility] [address] LUNG SCREEN WO IVCONon CT LUNG SCREEN WO IVCON * * *Final Report* * * DATE OF EXAM: Jan 15 2024 9:24AM [facility] 0562 - CT LUNG SCREEN WO IVCON / PROCEDURE REASON: Tobacco abuse * * * * Physician Interpretation * * * * EXAMINATION: CHEST CT WITHOUT CONTRAST (LOW-DOSE CT LUNG CANCER SCREENING PROTOCOL) CLINICAL HISTORY: Lung cancer LDCT screening ? absence of signs or symptoms of lung cancer. Nicotine dependence (cigarettes). Baseline (initial) Technique: Spiral CT acquisition of the chest from the thoracic inlet to the upper abdomen without contrast. MQ: CTLCS_6 Patient characteristics: * Hced-rs-Cxxrk: 1950; Age at exam: 73 years * Gender: Male * Lung Disease: Asymptomatic (no signs or symptoms of lung disease) * Number of Pack Years: 30 * Current smoker (=0) or Number of Years since Quit: 0 * Ordering provider and NPI: SHELLY ROSE [id number] * Interpreting radiologist and NPI: Filomena [id number] Exam acquisition parameters: * Exam Date: 01/15/2024 9:24 AM * Site: [facility] * * CT System Die Trouble Shooter: Siemens * CT System Model: Sensation * Tube Current-Time (mA-sec): 32 * Peak Voltage (kV): 120V * Scan Time (sec): 11.96 * Scan Volume (z-length, cm): -32.05 * Pitch: 0.75 * Slice Thickness (mm): 1.5 * CT Dose-Length Product: 108 mGy*cm * CT Dose Index: 2.50mGy * CT Dose Reduction Method: Automated exposure control(AEC) and iterative recon COMPARISON: None available RESULT: Are nodules present? Yes, 6 or more nodules Nodule 1: This Perifissural nodule is located along the minor fissure on slice number 142 with an average diameter of 7.5 mm (11.2 mm x 3.7 mm). Likely a lymph node given location and shape. Nodule 2: This Non-solid nodule is located in the Right Lower Lobe on slice number 201 with an average diameter of 5.3 mm (6.1 mm x 4.5 mm). Nodule 3: This Solid nodule is located in the Left Lower Lobe on slice number 249 with an average diameter of 5.3 mm (6.1 mm x 4.5 mm). Nodule 4: This Perifissural nodule is located along the right major fissure on slice number 116 with an average diameter of 3.5 mm (3.8 mm x 3.1 mm). Likely a lymph node given location along the fissure. Nodule 5: This Solid nodule is located in the Left Lower Lobe on slice number 199 with an average diameter of 2.4 mm (2.4 mm x 2.4 mm). Other lung nodule comments: There is a 3 mm medial left upper lobe nodule, image 69. Other findings: There is mild upper lobe predominant centrilobular and paraseptal emphysema, which is associated with bronchial wall thickening. Linear density in the anterior right lower lobe along the major fissure, image 196 is likely due to atelectasis or scar. No enlarged thoracic lymph nodes. Mild atherosclerosis is present within the thoracic aorta is mildly ectatic measuring 3.9 cm in the mid ascending segment. There is common origin of the right brachiocephalic and left common carotid arteries, a normal anatomic variant. There are mild scattered coronary artery atherosclerotic calcifications, however, this exam is not optimized for coronary artery assessment. No abnormality identified within the imaged solid abdominal organs on this noncontrast exam. Mild atherosclerosis is present in the proximal abdominal aorta, which is nondilated. No destructive lytic or blastic bone lesion. A lead is noted within the central canal of the thoracic spine terminating at the level of T7-T8. Mild endplate degenerative changes are present within the imaged spine. Emphysema: Mild (5-25%), Centrilobular, Upper lobe Coronary Artery Calcifications: Circumflex Mild; Left Anterior Descending Mild; Right Coronary Mild Incidental coronary calcium as automatically processed and calculated using AI: Total Coronary Calcium Score = [100+] Agatston Units Percentile Rank (age and gender matched relative to reference population): [25th-75th] percentile* [* https://www.avila-[email or web address] g/calcium/input.aspx] Localizer images: There is a partially imaged left hip arthroplasty. The generator device is present overlying the right aspect of the pelvis. IMPRESSION: LungRADS category: 2 LungRADS modifier: None LungRADS 0 reason: n/a Recommendations: Continue annual screening with LDCT in 12 months. Other actionable findings: Reference: [employer]. Lung CT Screening Reporting and Data System (Lung-RADS). Available at: http://www.acr.org/Qualit y-Safety/Resources/LungRA DS Sharepoint Specialist: PSCB Transcribe Date/Time: Jan 15 2024 3:47P Dictated by : JULIA BYRNE MD This examination was interpreted and the report reviewed and electronically signed by: JULIA BYRNE MD on Jan 15 2024 4:06PM EST [id number] [facility] CNOVon 12-31-2023 CNOV Office Visit (PULMWS ) ----- VALERIA PRADHAN ([id number]) 1950 M Date Time Provider Department 12/31/23 8:00 AM SHELLY ROSE PULMJESSE During your visit today, we recorded the following information about you: Weight 99.3 kg Shelly Rose APRN.UPHOLSTERY REPAIRER 12/31/2023 8:59 AM Signed LUNG SCREENING VISIT PRIMARY CARE PHYSICIAN: Reyes Saucedo MD PULMONARY PROVIDER: None Results will be communicated via letter or electronic record if applicable. Visit Delivery: In Person Patient Visit Type: New to Screening Current or Ex-smoker? Current Exam Type: baseline LDCT Number of Pack Years: 30 cigarettes Current smoker (=0) or Number of Years since Quit: <1 REQUESTER: The referring provider advised the patient to have screening. HISTORY OF PRESENT ILLNESS: Valeria Pradhan is a 73 year old Former smoker who presents for lung screening. Respiratory symptoms include: SOB: No Chest tightness: No Coughing: No Hemoptysis: No Wheezing: No Fever/Chills: No Recent Respiratory Infection: No Unintentional weight loss: Yes, was in chronic pain was not eating, lost 35 lb. Last 6 Encounter Wt Readings: Date: Wt: 12/31/2023 219 lb 11/14/2023 94.8 kg (209 lb) 10/17/2023 98.5 kg (217 lb 4 oz) 06/13/2023 103.5 kg (228 lb 3.2 oz) 04/16/2023 103.1 kg (227 lb 3.2 oz) 10/11/2022 106.9 kg (235 lb 9.6 oz) ECOG PERFORMANCE STATUS: 0- Fully active, able to carry on all pre-disease performance w/o restriction. Modified Medical Research [place] Dyspnea Scale (MMRC) I only get breathless with strenous exercise 0 PAST MEDICAL HISTORY Diagnosis Date B12 deficiency Gout HTN (hypertension) HTN (hypertension) Hypercholesteremia Hypercholesterolemia Hypertriglyceridemia Neuropathy PAST SURGICAL HISTORY Procedure Laterality Date COLONOSCOPY FLX DX W/COLLJ SPEC WHEN PFRMD 10/05/2003 Colonoscopy [facility] outpt HEMORRHOID;BAND LIGAT, SNGL/MUL INGUINAL HERNIA REPAIR HX TONSILLECTOMY AND ADENOIDECTOMY History reviewed. No pertinent family history. ALPRAZolam (XANAX) 0.5 mg tablet Take 1 tablet by mouth two times a day as needed for up to 90 days. gabapentin (NEURONTIN) 100 mg capsule 100 mg. lisinopril (ZESTRIL) 40 mg tablet Take 1 tablet by mouth once daily. omeprazole (PRILOSEC) 20 mg capsule Take 20 mg by mouth once daily. mecobalamin (B12 ACTIVE ORAL) Take by mouth. Coenzyme Q10 (CO Q-10) 200 mg cap Take by mouth once daily. amLODIPine (NORVASC) 5 mg tablet Take 1 tablet by mouth once daily. tamsulosin (FLOMAX) 0.4 mg Take 0.4 mg by mouth once daily. traZODone (DESYREL) 50 mg tablet Take 1 tablet by mouth daily at bedtime. atorvastatin (LIPITOR) 20 mg tablet Take 20 mg by mouth once daily. ALLERGIES Allergen Reactions House Dust Mite Unknown Potassium Clavulana* Angioedema Pravastatin Unknown Simvastatin Unknown The medications and allergies were reviewed and reconciled for this patient and deemed current. Lung Cancer Risk Factors: 1.Tobacco Use: Start Age 19, Quit cigarettes in 1999, but continued to smoke small cigars-stacey sweets. Quit those 2 mos ago, but had 2 yesterday. Quit Age: 73, Average packs per day 1, Pack Years 54 2. Passive Smoke Exposure: Yes, as a Child 3. Personal hx of malignancy: No, Type of Cancer: 4. Significant exposures (1 year or more of exposure): , 5. Race: White 6. Education: High School Graduate 7. BMI:Body mass index is 25.81 kg/m?. Patient-entered Height: 6'4 Patient-entered Weight: 220 pounds 8. COPD: Yes 9. Pneumonia in the past 5 years: No 10. Is there a history of lung cancer in a first degree relative? No 11. Is there a history of lung cancer in a non-first degree relative? No 12. Is there a history of any other cancer in a first degree relative? Yes Health Maintenance Immunization History Administered Date(s) Administered AS03 adjuvant 06/27/2018 COVID-19 original vaccine, full dose, monovalent (MODERNA) 09/08/2020 10/06/2020 05/18/2021 COVID-19 vaccine, age 12+ yr, bivalent (PFIZER-BIONTLeveler) 04/17/2022 COVID-19 vaccine, unspecified formulation 04/17/2022 influenza (HD-IIV3) vaccine, age 65+ yr, high dose, PF (FLUZONE HIGH-DOSE) 06/25/2017 06/25/2019 04/13/2021 04/17/2022 influenza (HD-IIV4) vaccine, age 65+ yr, high dose, quadrivalent, PF (FLUZONE HIGH-DOSE) 05/25/2023 influenza (IIV3) vaccine, trivalent, PF (AFLURIA, FLUARIX, FLULAVAL, FLUVIRIN, FLUZONE) 04/21/2015 05/01/2016 influenza (LAIV) vaccine, nasal, unspecified formulation 05/23/2001 05/08/2008 04/28/2009 04/29/2010 04/27/2011 05/17/2012 03/27/2013 04/23/2014 04/21/2015 06/15/2019 04/05/2020 05/30/2021 05/23/2023 influenza vaccine, whole virus 08/05/2003 pneumococcal conjugate (PCV13) vaccine, 13 valent (PREVNAR 13) 06/25/2017 pneumococcal polysaccharide (PPV23) vaccine, 23 valent (PNEUMOVAX 23) 11/11/2014 03/03/2022 pneumococca (more content not included)... [facility] Basic metabolic 2000 panelon 11-19-2023 Anion gap [Moles/Vol] 7 mmol/L Low 9-18 [facility] Comment on above: Order Comment: Speci men Type: BLOOD SPECIMEN Ordering Facility: [facility] Address: [address] [place] [address] Performed By: #### 2 4321-2 #### [facility] CLIA [id number] [address] [place] [address] [place] Calcium [Mass/Vol] 9.3 mg/dL Normal 8.5-10.2 [facility] Comment on above: Order Comment: Speci men Type: BLOOD SPECIMEN Ordering Facility: [facility] Address: [address] [place] [address] Performed By: #### 2 4321-2 #### [facility] CLIA [id number] [address] [place] [address] [place] Chloride [Moles/Vol] 100 mmol/L Normal 97-105 [facility] Comment on above: Order Comment: Speci men Type: BLOOD SPECIMEN [facility] Address: [address] [place] [address] Performed By: #### 2 4321-2 #### [facility] CLIA [id number] [address] [place] [address] [place] CO2 [Moles/Vol] 30 mmol/L Normal 22-30 [facility] Comment on above: Order Comment: Speci men Type: BLOOD SPECIMEN [facility]ing Facility[facility] Address: [facility] [place] [address] Performed By: #### 2 4321-2 #### [facility] CLIA [id number] [address] [place] [address] [place] Creatinine [Mass/Vol] 0.71 mg/dL Low 0.73-1.22 [facility] Comment on above: Order Comment: Sandra pacheco Type: BLOOD SPECIMEN [facility]ing Facility[facility] Address: [address] [place] [address] Performed By: #### 2 4321-2 #### [id number] [address] [place] [address] [place] Creatinine and Glomerular filtration rate.predicted panel (S/P/Bld) 98 mL/min/1.73m??? Normal >=60 [facility] Comment on above: Order Comment: Sandra pacheco Type: BLOOD SPECIMEN [facility] Address: [address] [place] [address] Result Comment: Thalia mated Glomerular Filtration Rate (eGFR) is calculated using the 2020 CKD-EPI creatinine equation. This equation utilizes serum creatinine, sex, and age as parameters. The creatinine assay has traceable calibration to isotope dilution-mass spectrometry. Refer to KDIGO guidelines for clinical interpretation. In patients with unstable renal function, e.g. those with acute kidney injury, the eGFR may not accurately reflect actual GFR. Performed By: #### 2 4321-2 #### [facility] [id number] [address] [place] [address] [place] Glucose [Mass/Vol] 96 mg/dL Normal 74-99 [facility] Comment on above: Order Comment: Sandra pacheco Type: BLOOD SPECIMEN [facility] Address: [address] [id number] Result Comment: The [place] [employer] (ADA) provides guidance for cutoff values for fasting glucose and random glucose. The ADA defines fasting as no caloric intake for at least 8 hours. Fasting plasma glucose results between 100 to 125 mg/dL indicate increased risk for diabetes (prediabetes). Fasting plasma glucose results greater than or equal to 126 mg/dL meet the criteria for diagnosis of diabetes. In the absence of unequivocal hyperglycemia, results should be confirmed by repeat testing. In a patient with classic symptoms of hyperglycemia or hyperglycemic crisis, random plasma glucose results greater than or equal to 200 mg/dL meet the criteria for diagnosis of diabetes. Reference: Standards of Medical Care in Diabetes 2016, [place] [employer]. Diabetes Care. 2016.39(Suppl 1). Performed By: #### 2 4321-2 #### [facility] CLIA [id number] [address] [place] [address] [place] Potassium [Moles/Vol] 4.1 mmol/L Normal 3.7-5.1 [facility] Comment on above: Order Comment: Speci men Type: BLOOD SPECIMEN [facility] Address: [address] [place] [address] Performed By: #### 2 4321-2 #### [facility] [id number] [address] [place] [address] [place] Sodium [Moles/Vol] 137 mmol/L Normal 136-144 [facility] Comment on above: Order Comment: Speci men Type: BLOOD SPECIMEN [facility] Address: [address] [place] [address] Performed By: #### 2 4321-2 #### [facility] [id number] [address] [place] [address] [place] Urea nitrogen [Mass/Vol] 17 mg/dL Normal 9-24 [facility] Comment on above: Order Comment: Speci men Type: BLOOD SPECIMEN [facility] Address: [address] [place] [address] Performed By: #### 2 4321-2 #### [facility] [id number] [address] [place] [address] [place] Basic metabolic 2000 panelon 11-05-2023 Anion gap [Moles/Vol] 6 mmol/L Low 9-18 [facility] Comment on above: Order Comment: Speci men Type: BLOOD SPECIMEN [facility] Address: [address] [facility] [place] [address] Performed By: #### 2 4321-2 #### [facility] CLIA [id number] [address] [place] [address] [place] Calcium [Mass/Vol] 9.7 mg/dL Normal 8.5-10.2 [facility] Comment on above: Order Comment: Speci men Type: BLOOD SPECIMEN [facility] Address: [address] [id number] Performed By: #### 2 4321-2 #### [facility] CLIA [id number] [address] [place] [address] [place] Chloride [Moles/Vol] 95 mmol/L Low 97-105 [facility] Comment on above: Order Comment: Speci men Type: BLOOD SPECIMEN [facility] Address: [address] [place] [address] Performed By: #### 2 4321-2 #### [facility] CLIA [id number] [address] [place] [address] [place] CO2 [Moles/Vol] 28 mmol/L Normal 22-30 [facility] Comment on above: Order Comment: Speci men Type: BLOOD SPECIMEN [facility] Address: [address] [place] [address] Performed By: #### 2 4321-2 #### [facility] CLIA [id number] [address] [place] [address] [place] Creatinine [Mass/Vol] 0.68 mg/dL Low 0.73-1.22 [facility] Comment on above: Order Comment: Speci men Type: BLOOD SPECIMEN [facility] Address: [address] [place] [address] Performed By: #### 2 4321-2 #### [facility] CLIA [id number] [address] [place] [address] [place] Creatinine and Glomerular filtration rate.predicted panel (S/P/Bld) 99 mL/min/1.73m??? Normal >=60 [facility] Comment on above: Order Comment: Sandra pacheco Type: BLOOD SPECIMEN [facility] Address: [address] [place] [address] Result Comment: Thalia mated Glomerular Filtration Rate (eGFR) is calculated using the 2020 CKD-EPI creatinine equation. This equation utilizes serum creatinine, sex, and age as parameters. The creatinine assay has traceable calibration to isotope dilution-mass spectrometry. Refer to KDIGO guidelines for clinical interpretation. In patients with unstable renal function, e.g. those with acute kidney injury, the eGFR may not accurately reflect actual GFR. Performed By: #### 2 4321-2 #### [facility] [id number] [address] [place] [address] [place] Glucose [Mass/Vol] 108 mg/dL High 74-99 [facility] Comment on above: Order Comment: Sandra pacheco Type: BLOOD SPECIMEN [facility] Address: [address] [place] [address] Result Comment: The [place] Diabetes Association (ADA) provides guidance for cutoff values for fasting glucose and random glucose. The ADA defines fasting as no caloric intake for at least 8 hours. Fasting plasma glucose results between 100 to 125 mg/dL indicate increased risk for diabetes (prediabetes). Fasting plasma glucose results greater than or equal to 126 mg/dL meet the criteria for diagnosis of diabetes. In the absence of unequivocal hyperglycemia, results should be confirmed by repeat testing. In a patient with classic symptoms of hyperglycemia or hyperglycemic crisis, random plasma glucose results greater than or equal to 200 mg/dL meet the criteria for diagnosis of diabetes. Reference: Standards of Medical Care in Diabetes 2016, [place] [employer]. Diabetes Care. 2016.39(Suppl 1). Performed By: #### 2 4321-2 #### [facility] [id number] [address] [place] [address] [place] Potassium [Moles/Vol] 3.6 mmol/L Low 3.7-5.1 [facility] Comment on above: Order Comment: Speci men Type: BLOOD SPECIMEN [facility] Address: [facility] [place] [id number] Performed By: #### 2 4321-2 #### [facility] CLIA [id number] [address] [place] [address] [place] Sodium [Moles/Vol] 129 mmol/L Low 136-144 [facility] Comment on above: Order Comment: Speci men Type: BLOOD SPECIMEN [facility] Address: [address] [place] [address] Performed By: #### 2 4321-2 #### [facility] CLIA [id number] [address] [place] [address] [place] Urea nitrogen [Mass/Vol] 14 mg/dL Normal 9-24 [facility] Comment on above: Order Comment: Speci men Type: BLOOD SPECIMEN [facility] Address: [address] [place] [address] Performed By: #### 2 4321-2 #### [facility] CLIA [id number] [address] [place] [address] [place] Absolute lymphocyte countOrd ered By: Chris Madden on 11-04-2023 Lymphocytes Auto (Unsp spec) [#/Vol] 2.82 10*3/uL 0.83-4.51 [facility] Automated lymphocyte count a s percentage of total leukocytesOrdered By: Chris Madden on 11-04-2023 Lymphocytes/100 WBC Auto (Unsp spec) 39.4 % 19-41 [facility] Basophil percentageOrdered B y: Chris Madden on 11-04-2023 Basophils/100 WBC (Bld) 0.7 % 0-1 [facility] Chloride [Moles/Vol] 95 mmol/L 98-107 [facility] Eosinophils/100 WBC (Bld) 2.7 % 0-5 [facility] Glucose [Mass/Vol] 117 mg/dL 74-106 [facility] Comment on above: Fasting Glucose resu lt from 100 to 125 mg/dL suggests IMPAIRED HOMEOSTASIS per A.D.A. criteria. Hemoglobin (Bld) [Mass/Vol] 18.1 g/dL 13.0-16.5 [facility] Comment on above: CRITICAL VALUE VERIF IED. [facility] 0650 Amna Mcgregor.RESULTS READ BACK BY SAME. Monocytes/100 WBC (Bld) 13.1 % 0-10 [facility] Neutrophils (Bld) [#/Vol] 3.1 10*3/uL 2.0-7.7 [facility] Neutrophils/100 WBC (Bld) 43.7 % 47-70 [facility] Potassium [Moles/Vol] 3.4 mmol/L 3.5-5.1 [facility] Sodium [Moles/Vol] 127 mmol/L 136-145 [facility] WBC (Bld) [#/Vol] 7.2 10*3/uL 4.4-11.0 [facility] Determination of erythrocyte mean corpuscular volume (MCV)Ordered By: Chris Madden on 11-04-2023 MCV (RBC) [Entitic vol] 98.6 fL 80-94 [facility] Erythrocyte distribution wid th ratioOrdered By: Chris Madden on 11-04-2023 Erythrocyte distribution width (RBC) [Ratio] 13.4 % 11.6-14.6 [facility] Erythrocyte distribution wid th standard deviationOrdered By: Chris Madden on 11-04-2023 Erythrocyte distribution width (RBC) [Entitic vol] 49.0 fL 35.1-43.9 [facility] Hematocrit Auto (Bld) [Volum e fraction]Ordered By: Chris Madden on 11-04-2023 Hematocrit (Bld) [Volume fraction] 50.5 % 40-54 [facility] Immature granulocytes/100 WB C Auto (Bld)Ordered By: Chris Madden on 11-04-2023 Immature granulocytes/100 WBC (Bld) 0.400 % 0.0-0.9 [facility] Comment on above: IG% - Immature Granu locytes (promyelocytes, myelocytes and metamyelocytes) > 1% indicates that a LEFT SHIFT is Present. Laboratory - Chemistry and C hemistry - challengeOrdered By: Chris Madden on 11-04-2023 CO2 [Moles/Vol] 26.0 mmol/L 21.0-32.0 [facility] Urea nitrogen/Creatinine [Mass ratio] 17.4 mg/mg 10-20 [facility] Laboratory - Hematology and Cell countsOrdered By: Chris Madden on 11-04-2023 MCH (RBC) [Entitic mass] 35.4 pg 27.0-32.0 [facility] MCHC (RBC) [Mass/Vol] 35.8 g/dL 32-36 [facility] Nucleated RBC/100 WBC (Bld) [Ratio] 0 % 0-5 [facility] Platelet mean volume (Bld) [Entitic vol] 10.2 fL 6.2-12.0 [facility] Platelets (Bld) [#/Vol] 258 10*3/uL 150-450 [facility] No Panel InformationOrdered By: Chris Madden on 11-04-2023 Estimated Creatinine Clearance Calc 106.73 ml/min [facility] Estimated GFR (MDRD) Amer 132 mL/min >60 [facility] Comment on above: GFR Calc Estimated GFR (MDRD) Non-Af Amer 109 mL/min >60 [facility] Comment on above: Non- GFR Calc RBC Auto (Bld) [#/Vol]Ordere d By: Chris Madden on 11-04-2023 RBC (Bld) [#/Vol] 5.12 10*6/uL 4.6-6.2 [facility] Serum or plasma calcium tejas urement (mass/volume)Ordered By: Chris Madden on 11-04-2023 Calcium [Mass/Vol] 8.9 mg/dL 8.5-10.1 [facility] Serum or plasma creatinine m easurement (mass/volume)Ordered By: Chris Madden on 11-04-2023 Creatinine [Mass/Vol] 0.75 mg/dL 0.70-1.30 [facility] Comment on above: The validity of the calculated GFR & GFRAA in patients over 70 years has not been determined. Clinical correlation is essential. Serum or plasma urea nitroge n measurement (mass/volume)Ordered By: Chris Madden on 11-04-2023 Urea nitrogen [Mass/Vol] 13 mg/dL 01-30 [facility] Thin prep Papanicolaou smear with manual screeningOrdered By: Chris Madden on 11-04-2023 Thin prep Papanicolaou smear with manual screening 6 11-27 [facility] CBC W Auto Differential pane l (Bld)on 11-02-2023 Basophils (Bld) [#/Vol] 0.03 10*3/uL Normal <0.11 [facility] Comment on above: Order Comment: Speci men Type: BLOOD SPECIMEN [facility] Address: [address] [place] [address] Performed By: #### 5 7021-8 #### [facility] CLIA [id number] [address] [place] [address] [place] Basophils/100 WBC (Bld) 0.5 % Normal [facility] Comment on above: Order Comment: Speci men Type: BLOOD SPECIMEN [facility] Address: [address] [place] [address] Performed By: #### 5 7021-8 #### [facility] CLIA [id number] [address] [place] [address] [place] Differential cell count method Nom (Bld) Auto Normal [facility] Comment on above: Order Comment: Speci men Type: BLOOD SPECIMEN [facility] Address: [address] [place] [address] Performed By: #### 5 7021-8 #### [facility] CLIA [id number] [address] [place] [address] [place] Eosinophils (Bld) [#/Vol] 0.14 10*3/uL Normal <0.46 [facility] Comment on above: Order Comment: Speci men Type: BLOOD SPECIMEN [facility] Address: [address] [place] [address] Performed By: #### 5 7021-8 #### [facility] CLIA [id number] [address] [place] [address] [place] Eosinophils/100 WBC (Bld) 2.2 % Normal [facility] Comment on above: Order Comment: Speci men Type: BLOOD SPECIMEN [facility] Address: [address] [place] [address] Performed By: #### 5 7021-8 #### [facility] CLIA [id number] [address] [place] [address] [place] Erythrocyte distribution width (RBC) [Ratio] 13.6 % Normal 11.5-15.0 [facility] Comment on above: Order Comment: Speci men Type: BLOOD SPECIMEN [facility] Address: [address] [place] [address] Performed By: #### 5 7021-8 #### [facility] CLIA [id number] [address] [place] [address] [place] Hematocrit (Bld) [Volume fraction] 50.6 % Normal 39.0-51.0 [facility] Comment on above: Order Comment: Speci men Type: BLOOD SPECIMEN [facility] Address: [address] [place] [address] Performed By: #### 5 7021-8 #### [facility] CLIA [id number] [address] [place] [address] [place] Hemoglobin (Bld) [Mass/Vol] 18.2 g/dL High 13.0-17.0 [facility] Comment on above: Order Comment: Speci men Type: BLOOD SPECIMEN [facility] Address: [address] [place] [address] Performed By: #### 5 7021-8 #### [facility] CLIA [id number] [address] [place] [address] [place] Immature granulocytes (Bld) [#/Vol] 10*3/uL Normal <0.10 [facility] Comment on above: Order Comment: Speci men Type: BLOOD SPECIMEN [facility] Address: [address] [place] [address] Performed By: #### 5 7021-8 #### [facility] CLIA [id number] [address] [place] [address] [place] Immature granulocytes/100 WBC (Bld) 0.3 % Normal [facility] Comment on above: Order Comment: Speci men Type: BLOOD SPECIMEN [facility] Address: [address] [place] [address] Performed By: #### 5 7021-8 #### [facility] CLIA [id number] [address] [place] [address] [place] Lymphocytes (Bld) [#/Vol] 1.92 10*3/uL Normal 1.00-4.00 [facility] Comment on above: Order Comment: Speci men Type: BLOOD SPECIMEN [facility] Address: [address] [place] [address] Performed By: #### 5 7021-8 #### [facility] CLIA [id number] [address] [place] [address] [place] Lymphocytes/100 WBC (Bld) 29.9 % Normal [facility] Comment on above: Order Comment: Speci men Type: BLOOD SPECIMEN [facility] Address: [address] [place] [address] Performed By: #### 5 7021-8 #### [facility] CLIA [id number] [address] [place] [address] [place] MCH (RBC) [Entitic mass] 35.7 pg High 26.0-34.0 [facility] Comment on above: Order Comment: Speci men Type: BLOOD SPECIMEN [facility] Address: [address] [place] [address] Performed By: #### 5 7021-8 #### [facility] CLIA [id number] [address] [place] [address] [place] MCHC (RBC) [Mass/Vol] 36.0 g/dL Normal 30.5-36.0 [facility] Comment on above: Order Comment: Speci men Type: BLOOD SPECIMEN [facility] Address: [address] [place] [address] Performed By: #### 5 7021-8 #### [facility] CLIA [id number] [address] [place] [address] [place] MCV (RBC) [Entitic vol] 99.2 fL Normal 80.0-100.0 [facility] Comment on above: Order Comment: Speci men Type: BLOOD SPECIMEN [facility] Address: [address] [place] [address] Performed By: #### 5 7021-8 #### [facility] CLIA [id number] [address] [place] [address] [place] Monocytes (Bld) [#/Vol] 0.82 10*3/uL Normal <0.87 [facility] Comment on above: Order Comment: Speci men Type: BLOOD SPECIMEN [facility] Address: [address] [place] [address] Performed By: #### 5 7021-8 #### [facility] CLIA [id number] [address] [place] [address] [place] Monocytes/100 WBC (Bld) 12.8 % Normal [facility] Comment on above: Order Comment: Speci men Type: BLOOD SPECIMEN [facility] Address: [address] [place] [address] Performed By: #### 5 7021-8 #### [facility] CLIA [id number] [address] [place] [address] [place] Neutrophils (Bld) [#/Vol] 3.49 10*3/uL Normal 1.45-7.50 [facility] Comment on above: Order Comment: Speci men Type: BLOOD SPECIMEN [facility] Address: [address] [place] [address] Performed By: #### 5 7021-8 #### [facility] CLIA [id number] [address] [place] [address] [place] Neutrophils/100 WBC (Bld) 54.3 % Normal [facility] Comment on above: Order Comment: Speci men Type: BLOOD SPECIMEN [facility] Address: [address] [place] [address] Performed By: #### 5 7021-8 #### [facility] CLIA [id number] [address] [place] [address] [place] Nucleated RBC (Bld) [#/Vol] 10*3/uL Normal <0.01 [facility] Comment on above: Order Comment: Speci men Type: BLOOD SPECIMEN [facility] Address: [address] [place] [address] Performed By: #### 5 7021-8 #### [facility] CLIA [id number] [address] [place] [address] [place] Nucleated RBC/100 WBC (Bld) [Ratio] 0.0 /100 WBC Normal [facility] Comment on above: Order Comment: Speci men Type: BLOOD SPECIMEN [facility] Address: [address] [place] [address] Performed By: #### 5 7021-8 #### [facility] CLIA [id number] [address] [place] [address] [place] Platelet mean volume (Bld) [Entitic vol] 10.8 fL Normal 9.0-12.7 [facility] Comment on above: Order Comment: Speci men Type: BLOOD SPECIMEN [facility] Address: [address] [place] [address] Performed By: #### 5 7021-8 #### [facility] CLIA [id number] [address] [place] [address] [place] Platelets (Bld) [#/Vol] 237 10*3/uL Normal 150-400 [facility] Comment on above: Order Comment: Speci men Type: BLOOD SPECIMEN [facility] Address: [address] [place] [address] Performed By: #### 5 7021-8 #### [facility] CLIA [id number] [address] [place] [address] [place] RBC (Bld) [#/Vol] 5.10 10*6/uL Normal 4.20-6.00 [facility] Comment on above: Order Comment: Speci men Type: BLOOD SPECIMEN [facility] Address: [address] [place] [address] Performed By: #### 5 7021-8 #### [facility] CLIA [id number] [address] [place] [address] [place] WBC (Bld) [#/Vol] 6.42 10*3/uL Normal 3.70-11.00 [facility] Comment on above: Order Comment: Speci men Type: BLOOD SPECIMEN [facility] Address: [address] [place] [address] Performed By: #### 5 7021-8 #### [facility] CLIA [id number] [address] [place] [address] [place] Comprehensive metabolic 2000 panelon 11-02-2023 Albumin [Mass/Vol] 4.5 g/dL Normal 3.9-4.9 [facility] Comment on above: Order Comment: Speci men Type: BLOOD SPECIMEN [facility] Address: [address] [place] [address] Performed By: #### 2 4331-1, 95961-1 #### [facility] CLIA [id number] [address] [id number] [address] [place] ALP [Catalytic activity/Vol] 56 U/L Normal 38-113 [facility] Comment on above: Order Comment: Speci men Type: BLOOD SPECIMEN [facility] Address: [address] [place] [address] Performed By: #### 2 4331-1, 09356-8 #### [facility] CLIA [id number] [address] [place] [address] [place] ALT [Catalytic activity/Vol] 19 U/L Normal 10-54 [facility] Comment on above: Order Comment: Speci men Type: BLOOD SPECIMEN [facility] Address: [address] [place] [address] Performed By: #### 2 4331-1, 76296-4 #### [facility] CLIA [id number] [address] [place] [address] [place] Anion gap [Moles/Vol] 10 mmol/L Normal 9-18 [facility] Comment on above: Order Comment: Speci men Type: BLOOD SPECIMEN [facility] Address: [address] [place] [address] Performed By: #### 2 4331-1, 14438-3 #### [facility] CLIA [id number] [address] [place] [address] [place] AST [Catalytic activity/Vol] 32 U/L Normal 14-40 [facility] Comment on above: Order Comment: Speci men Type: BLOOD SPECIMEN [facility] Address: [address] [place] [address] Performed By: #### 2 4331-1, 60302-6 #### [facility] CLIA [id number] [address] [place] [address] [place] Bilirubin [Mass/Vol] 1.1 mg/dL Normal 0.2-1.3 [facility] Comment on above: Order Comment: Speci men Type: BLOOD SPECIMEN [facility] Address: [address] [place], [place] [address] Performed By: #### 2 4331-1, 41609-4 #### [facility] CLIA [id number] [address] [place] [address] [place] Calcium [Mass/Vol] 9.8 mg/dL Normal 8.5-10.2 [facility] Comment on above: Order Comment: Speci men Type: BLOOD SPECIMEN Ordering Facility: [facility] Address: [address] [place] [address] Performed By: #### 2 4331-1, 57821-6 #### [facility] CLIA [id number] [address] [place] [address] [place] Chloride [Moles/Vol] 92 mmol/L Low 97-105 [facility] Comment on above: Order Comment: Speci men Type: BLOOD SPECIMEN Ordering Facility: [facility] Address: [address] [place] [address] Performed By: #### 2 4331-, 37456-6 #### [facility] CLIA [id number] [address] [place] [address] [place] CO2 [Moles/Vol] 27 mmol/L Normal 22-30 [facility] Comment on above: Order Comment: Speci men Type: BLOOD SPECIMEN Ordering Facility: [facility] Address: [address] [place], [place] [id number] Performed By: #### 2 4331-1, 51696-0 #### [facility] CLIA [id number] [address] [place] [address] [place] Creatinine [Mass/Vol] 0.74 mg/dL Normal 0.73-1.22 [facility] Comment on above: Order Comment: Speci men Type: BLOOD SPECIMEN Ordering Facility: [facility] Address: [address] [place], [place] [id number] Performed By: #### 2 4331-1, 50317-4 #### [facility] CLIA [id number] [address] [place] [address] [place] Creatinine and Glomerular filtration rate.predicted panel (S/P/Bld) 97 mL/min/1.73m??? Normal >=60 [facility] Comment on above: Order Comment: Sandra pacheco Type: BLOOD SPECIMEN Ordering Facility: [facility] Address: [address] [place] [address] Result Comment: Thalia mated Glomerular Filtration Rate (eGFR) is calculated using the 2020 CKD-EPI creatinine equation. This equation utilizes serum creatinine, sex, and age as parameters. The creatinine assay has traceable calibration to isotope dilution-mass spectrometry. Refer to KDIGO guidelines for clinical interpretation. In patients with unstable renal function, e.g. those with acute kidney injury, the eGFR may not accurately reflect actual GFR. Performed By: #### 2 4331-1, 82738-9 #### [facility] CLIA [id number] [address] [place] [address] [place] Glucose [Mass/Vol] 94 mg/dL Normal 74-99 [facility] Comment on above: Order Comment: Sandra pacheco Type: BLOOD SPECIMEN [facility] Address: [address] [place] [address] Result Comment: The [place] Diabetes Association (ADA) provides guidance for cutoff values for fasting glucose and random glucose. The ADA defines fasting as no caloric intake for at least 8 hours. Fasting plasma glucose results between 100 to 125 mg/dL indicate increased risk for diabetes (prediabetes). Fasting plasma glucose results greater than or equal to 126 mg/dL meet the criteria for diagnosis of diabetes. In the absence of unequivocal hyperglycemia, results should be confirmed by repeat testing. In a patient with classic symptoms of hyperglycemia or hyperglycemic crisis, random plasma glucose results greater than or equal to 200 mg/dL meet the criteria for diagnosis of diabetes. Reference: Standards of Medical Care in Diabetes 2016, [place] [employer] Association. Diabetes Care. 2016.39(Suppl 1). Performed By: #### 2 4331-1, 25275-2 #### [facility] CLIA [id number] [address] [place] [address] [place] Potassium [Moles/Vol] 4.3 mmol/L Normal 3.7-5.1 [facility] Comment on above: Order Comment: Speci men Type: BLOOD SPECIMEN [facility]ing Facility[facility] Address: [address] [place] [address] Performed By: #### 2 4331-1, 87982-2 #### [facility] CLIA [id number] [address] [place] [address] [place] Protein [Mass/Vol] 7.2 g/dL Normal 6.3-8.0 [facility] Comment on above: Order Comment: Speci men Type: BLOOD SPECIMEN Order[facility] Facility[facility] Address: [address] [place] [address] Performed By: #### 2 4331-1, 82057-2 #### [facility] CLIA [id number] [address] [place] [address] [place] Sodium [Moles/Vol] 129 mmol/L Low 136-144 [facility] Comment on above: Order Comment: Speci men Type: BLOOD SPECIMEN Order[facility] Address: [address] [place] [address] Performed By: #### 2 4331-1, 77533-9 #### [facility] CLIA [id number] [address] [place] [address] [place] Urea nitrogen [Mass/Vol] 16 mg/dL Normal 9-24 [facility] Comment on above: Order Comment: Speci men Type: BLOOD SPECIMEN Ordering Facility[facility] Address: [address] [place] [address] Performed By: #### 2 4331-1, 74751-8 #### [facility] CLIA [id number] [address] [place] [address] [place] Lipid 1996 panelon 4 Cholesterol [Mass/Vol] 140 mg/dL Normal <200 [facility] Comment on above: Order Comment: Sandra men Type: BLOOD SPECIMEN Ordering Facility[facility] Address: [address] [place] [address] Result Comment: <200 mg/dL, Desirable 200-239 mg/dL, Borderline high >239 mg/dL, High Performed By: #### 2 4331-1, 74550-8 #### [facility] CLIA [id number] [address] [place] [address] [place] Cholesterol in HDL [Mass/Vol] 55 mg/dL Normal >39 [facility] Comment on above: Order Comment: Sandra pacheco Type: BLOOD SPECIMEN Ordering Facility[facility] Address: [address] [place] [address] Result Comment: 40-5 9 mg/dL, Acceptable >59 mg/dL, High: Negative risk factor for coronary heart disease <40 mg/dL, Low: Positive risk factor for coronary heart disease Performed By: #### 2 4331-1, 49896-5 #### [facility] CLIA [id number] [address] [place] [address] [place] Cholesterol in LDL [Mass/Vol] 63 mg/dL Normal <100 [facility] Comment on above: Order Comment: Sandra pacheco Type: BLOOD SPECIMEN Order[facility] Address: [address] [place] [address] Result Comment: <100 mg/dL, Optimal 100-129 mg/dL, Near optimal/above optimal 130-159 mg/dL, Borderline high 160-189 mg/dL, High >189 mg/dL, Very high Secondary prevention optimal LDL Cholesterol levels are recommended to be < 70 mg/dL Performed By: #### 2 4331-1, 37002-9 #### [facility] CLIA [id number] [address] [place] [address] [place] Cholesterol in LDL/Cholesterol in HDL [Mass ratio] 1.15 {ratio} Normal <2.54 [facility] Comment on above: Order Comment: Matteoi men Type: BLOOD SPECIMEN Order[facility] Address: [address] [place] [address] Result Comment: Nitish lang: 1. National Cholesterol Education Program ATP III Guideline At-A-Glance Quick Desk Reference: National Heart, Lung, and Blood [place]. National Institutes of Health. 2001: NIH Publication No. 01-3305. 2. An International Atherosclerosis Society position paper: global recommendations for the management of dyslipidemia: executive summary, Atherosclerosis. 2014: 232(2):410-413. Performed By: #### 2 4331-1, 86989-2 #### [facility] CLIA [id number] [address] [place] [address] [place] Cholesterol in VLDL [Mass/Vol] 22 mg/dL Normal <30 [facility] Comment on above: Order Comment: Sandra pacheco Type: BLOOD SPECIMEN [facility] Address: [address] [place] [address] Performed By: #### 2 4331-1, 61729-5 #### [facility] CLIA [id number] [address] [place] [address] [place] Cholesterol non HDL [Mass/Vol] 85 mg/dL Normal <130 [facility] Comment on above: Order Comment: Sandra pacheco Type: BLOOD SPECIMEN Order[facility] Address: [address] [place] [address] Result Comment: <130 mg/dL, Optimal 130-159 mg/dL, Near optimal/above optimal 160-189 mg/dL, Borderline high 190-219 mg/dL, High >219 mg/dL, Very high Secondary prevention optimal non HDL Cholesterol levels are recommended to be <100 mg/dL Performed By: #### 2 4331-1, 98485-2 #### [facility] CLIA [id number] [address] [place] [address] [place] Cholesterol.total/Chol esterol in HDL [Mass ratio] 2.55 {ratio} Normal <5.10 [facility] Comment on above: Order Comment: Sandra pacheco Type: BLOOD SPECIMEN Order[facility] Address: [address] [place] [address] Performed By: #### 2 4331-1, 01946-3 #### [facility] CLIA [id number] [address] [place] [address] [place] FASTING TIME 12 hrs Normal [facility] Comment on above: Order Comment: Speci men Type: BLOOD SPECIMEN Order[facility] Address: [address] [place] [address] Performed By: #### 2 4331-1, 80178-6 #### [facility] CLIA [id number] [address] [place] [address] [place] Triglyceride [Mass/Vol] 108 mg/dL Normal <150 [facility] Comment on above: Order Comment: Speci men Type: BLOOD SPECIMEN Order[facility] Address: [address] [place] [address] Result Comment: <150 mg/dL, Normal 150-199 mg/dL, Borderline high 200-499 mg/dL, High >499 mg/dL, Very high Performed By: #### 2 4331-1, 41901-0 #### [facility] CLIA [id number] [address] [place] [address] [place] PSA/PROSTATE SPECIFIC ANTIGE N SCREENINGon 11-02-2023 Prostate specific Ag [Mass/Vol] 0.31 ng/mL Normal <2.60 [facility] Comment on above: Order Comment: Speci men Type: BLOOD SPECIMEN Ordering Facility[facility] Address: [address] [place] [address] Result Comment: Tota l PSA test methodology used is the Electrochemiluminescence Immunoassay by [employer]. Total PSA values by differing methodologies cannot be interchanged. Performed By: #### P SAS1 #### [facility] CLIA [id number] [address] [place] [address] [place] CMP EXTERNAL QAIon 2 Albumin [Mass/Vol] 4.5 g/dL [facility] ALP [Catalytic activity/Vol] 62 U/L [facility] ALT [Catalytic activity/Vol] 17 U/L [facility] Anion gap [Moles/Vol] 7 mmol/L [facility] AST [Catalytic activity/Vol] 15 U/L [facility] Bilirubin [Mass/Vol] 0.7 mg/dL [facility] Calcium [Mass/Vol] 9.5 mg/dL [facility] Chloride [Moles/Vol] 100 mmol/L [facility] CO2 [Moles/Vol] 24 mmol/L [facility] Creatinine per volume 0.8 [facility] eGFR- [facility] eGFR-All Other Races 96 [facility] Glucose [facility] Potassium [Moles/Vol] 4.0 mmol/L [facility] Protein [Mass/Vol] 7.3 g/dL [facility] Sodium [Moles/Vol] 127 mmol/L [facility] Urea nitrogen [Mass/Vol] 17 mg/dL [facility] HbA1c (Bld)on 01-19-2022 HbA1c (Bld) [Mass fraction] 5.5 % 4.0 - 6.0 % [facility] LIPID PANEL (OUTSIDE)on Cholesterol [Mass/Vol] 217 mg/dL [facility] Cholesterol in HDL [Mass/Vol] 57 mg/dL [facility] Cholesterol in LDL [Mass/Vol] 167 mg/dL [facility] LDL:HDL Ratio [facility] Non-HDL Cholesterol [facility] TC:HDL Ratio [facility] Triglyceride [Mass/Vol] 96 mg/dL [facility] VLDL Cholesterol [facility] URICon 08-17-2020 Uric Acid Lvl 4.7 mg/dL Normal 3.5-7.2 [facility] ([place] Comment on above: Performed By: #### U MELODY #### [address] [address] XR FLUORO 1-2 HRS TECH TIMEo n 08-17-2020 XR FLUORO 1-2 HRS TECH TIME ORIGINAL Images acquired, not reported on this accession number. Normal [facility] ([place] XR HIP LEFT W/PELVIS 4 VIEWS on 08-17-2020 XR HIP LEFT W/PELVIS 4 VIEWS ORIGINAL XR HIP LEFT W/PELVIS 4 VIEWS CLINICAL STATEMENT: Status Post Arthroplasty. COMPARISON: None FINDINGS: There is some soft tissue air at the LEFT hip from the surgery. The prosthetic components appear well seated and there is no adjacent fracture seen. Mild degenerative changes are present at the RIGHT hip and at the lower lumbar spine. IMPRESSION: Expected postoperative findings. Interpreted By: Rico Clements MD Preliminary Report By: Rico Clements MD Electronically Signed By: Rico Clements MD Dictated Date: 08/17/2020 10:38:11 AM Prelim Date: 08/17/2020 10:38:11 AM Sign Date: 08/17/2020 10:38:53 AM Ordering Provider:Zion Caal [facility] ([place] .Auto Diffon 08-02-2020 Ammonia (P) [Mass/Vol] 0.90 10 3/mcL Normal 0.15-1.00 [facility] ([place] Comment on above: Performed By: #### C MANISH SHAH, ANEU #### [place] [address] #### GFR, BMP #### [address] [address] Basophils (Bld) [#/Vol] 0.10 10 3/mcL Normal 0.00-0.19 [facility] [place] Comment on above: Performed By: #### C MANISH SHAH, ANEU #### [place] [address] #### GFR, BMP #### [address] [address] Basophils/100 WBC (Bld) 0.7 % Normal 0.0-2.5 [facility] ([place] Comment on above: Performed By: #### C BC ADIFF, ANEU #### [place] [address] #### GFR, BMP #### [address] [address] Eosinophils (Bld) [#/Vol] 0.30 10 3/mcL Normal 0.00-0.40 [facility] ([place] Comment on above: Performed By: #### C BCMANISH, ANEU #### [address] [address] #### GFR, BMP #### [address] [address] Eosinophils/100 WBC (Bld) 4.2 % Normal 0.0-7.0 [facility] ([place]) Comment on above: Performed By: #### C BC, ADIFF, ANEU #### [address] [address] #### GFR, BMP #### [address] [address] Lymphocytes (Bld) [#/Vol] 2.30 10 3/mcL Normal 0.77-3.85 [facility] ([place]) Comment on above: Performed By: #### C BC, ADIFF, ANEU #### [address] [address] #### GFR, BMP #### [address] [address] Lymphocytes/100 WBC (Bld) 28.6 % Normal 10.0-50.0 [facility] ([place] Comment on above: Performed By: #### C BC, ADIFF, ANEU #### [address] [address] #### GFR, BMP #### [address] [address] Monocytes/100 WBC (Bld) 11.3 % Normal 1.7-13.0 [facility] ([place]) Comment on above: Performed By: #### C BC, ADIFF, ANEU #### [address] [address] #### GFR, BMP #### [address] [address] Neutrophils/100 WBC (Bld) 55.2 % Normal 37.0-80.0 [facility] ([place]) Comment on above: Performed By: #### C BC, ADIFF, ANEU #### [address] [address] #### GFR, BMP #### [address] [place] [address] [address] .GFRon 08-02-2020 GFR 132 ml/min/1.73sqm Normal [facility] ([place] Comment on above: Result Comment: GFR Population mean for , Non- Americans Ages 20-29 = 116 mL/min/1.73 sq.m. Ages 30-39 = 107 mL/min/1.73 sq.m. Ages 40-49 = 99 mL/min/1.73 sq.m. Ages 50-59 = 93 mL/min/1.73 sq.m. Ages 60-69 = 85 mL/min/1.73 sq.m. Ages 70+ = 75 mL/min/1.73 sq.m. Chronic Kidney Disease: Less than 60 mL/min/1.73 square meters End Stage Renal Disease: Less than 15 mL/min/1.73 square meters Performed By: #### C BCMANISH, ANEU #### [address] [address] #### GFR, BMP #### [place] [address] GFR Non- 109 ml/min/1.73sqm Normal [facility] ([place] Comment on above: Result Comment: GFR Population mean for , Non- Americans Ages 20-29 = 116 mL/min/1.73 sq.m. Ages 30-39 = 107 mL/min/1.73 sq.m. Ages 40-49 = 99 mL/min/1.73 sq.m. Ages 50-59 = 93 mL/min/1.73 sq.m. Ages 60-69 = 85 mL/min/1.73 sq.m. Ages 70+ = 75 mL/min/1.73 sq.m. Chronic Kidney Disease: Less than 60 mL/min/1.73 square meters End Stage Renal Disease: Less than 15 mL/min/1.73 square meters Performed By: #### C BC, ADIFF, ANEU #### [address] [address] #### GFR, BMP #### [place] [id number] .NEUABSon 08-02-2020 Neutrophils (Bld) [#/Vol] 4.50 10 3/mcL Normal 2.85-6.16 [facility] ([place] Comment on above: Performed By: #### C MANISH SHAH, ANEU #### [place] [address] #### GFR, BMP #### [address] [address] [facility] 08-02-2020 Calcium [Mass/Vol] 9.9 mg/dL Normal 8.4-10.2 [facility] ([place] Comment on above: Performed By: #### C MANISH SHAH, ANEU #### [place] [address] #### GFR, BMP #### [place] [address] Chloride [Moles/Vol] 97 mmol/L Low 98-107 [facility] ([place]) Comment on above: Performed By: #### C MANISH SHAH, ANEU #### [place] [address] #### GFR, BMP #### [address] [address] CO2 [Moles/Vol] 24 mmol/L Normal 23-31 [facility] ([place] Comment on above: Performed By: #### C MANISH SHAH, ANEU #### [place] [address] #### GFR, BMP #### [place] [address] Creatinine [Mass/Vol] 0.72 mg/dL Normal 0.70-1.30 [facility] ([place] Comment on above: Performed By: #### C AMPARO SHAHIFF, ANEU #### [place] [address] #### GFR, BMP #### [address] [address] Electrolyte Balance 11.0 mEq/L Normal [facility] ([place]) Comment on above: Performed By: #### C MANISH SHAH, ANEU #### [address] [address] #### GFR, BMP #### [address] [address] Glucose [Mass/Vol] 99 mg/dL Normal 80-115 [facility] ([place]) Comment on above: Performed By: #### C BC, ADIFF, ANEU #### [address] [address] #### GFR, BMP #### [address] [address] Potassium [Moles/Vol] 4.5 mmol/L Normal 3.5-5.1 [facility] ([place] Comment on above: Performed By: #### C BC, ADIFF, ANEU #### [address] [address] #### GFR, BMP #### [address] [address] Sodium [Moles/Vol] 132 mmol/L Low 136-145 [facility] ([place]) Comment on above: Performed By: #### C BC, ADIFF, ANEU #### [address] [address] #### GFR, BMP #### [address] [address] Urea nitrogen [Mass/Vol] 17 mg/dL Normal 7-18 [facility] ([place] Comment on above: Performed By: #### C BC, ADIFF, ANEU #### [address] [address] #### GFR, BMP #### [address] [address] Urea nitrogen/Creatinine [Mass ratio] 24 ratio Normal 7-27 [facility] ([place] Comment on above: Performed By: #### C BC, ADIFF, ANEU #### [address] [address] #### GFR, BMP #### [address] [address] CBCon 08-02-2020 Erythrocyte distribution width (RBC) [Ratio] 12.5 % Normal 11.5-14.5 [facility] ([place] Comment on above: Order Comment: Pre-A dmission Testing Performed By: #### C BC, ADIFF, ANEU #### [address] [address] #### GFR, BMP #### [address] [address] Hematocrit (Bld) [Volume fraction] 41.4 % Low 42.0-52.0 [facility] ([place] Comment on above: Order Comment: Pre-A dmission Testing Performed By: #### C BC, ADIFF, ANEU #### [place] [address] #### GFR, BMP #### [place] [address] Hemoglobin (Bld) [Mass/Vol] 14.4 G/dL Normal 14.0-18.0 [facility] ([place] Comment on above: Order Comment: Pre-A dmission Testing Performed By: #### C BC, ADIFF, ANEU #### [place] [address] #### GFR, BMP #### [address] [address] MCH (RBC) [Entitic mass] 34.3 pg High 27.0-31.2 [facility] ([place] Comment on above: Order Comment: Pre-A dmission Testing Performed By: #### C BC, ADIFF, ANEU #### [address] [address] #### GFR, BMP #### [address] [address] MCHC (RBC) [Mass/Vol] 34.7 G/dL Normal 31.8-35.4 [facility] ([place] Comment on above: Order Comment: Pre-A dmission Testing Performed By: #### C BC, ADIFF, ANEU #### [address] [address] #### GFR, BMP #### [address] [address] MCV (RBC) [Entitic vol] 98.9 fL High 80.0-94.0 [facility] ([place] Comment on above: Order Comment: Pre-A dmission Testing Performed By: #### C BC, ADIFF, ANEU #### [address] [address] #### GFR, BMP #### [address] [address] Platelet mean volume (Bld) [Entitic vol] 8.7 fL Normal 7.4-10.4 [facility] ([place] Comment on above: Order Comment: Pre-A dmission Testing Performed By: #### C BC, ADIFF, ANEU #### [address] [address] #### GFR, BMP #### [address] [address] Platelets (Bld) [#/Vol] 443 10 3/mcL High 130-400 [facility] ([place] Comment on above: Order Comment: Pre-A dmission Testing Performed By: #### C BC, ADIFF, ANEU #### [address] [address] #### GFR, BMP #### [address] [address] RBC (Bld) [#/Vol] 4.18 10 6/mcL Normal 4.04-6.13 [facility] ([place]) Comment on above: Order Comment: Pre-A dmission Testing Performed By: #### C BC, ADIFF, ANEU #### [place] [address] #### GFR, BMP #### [address] [address] WBC (Bld) [#/Vol] 8.10 10 3/mcL Normal 4.60-10.80 [facility] ([place]) Comment on above: Order Comment: Pre-A dmission Testing Performed By: #### C BC, ADIFF, ANEU #### [place] [place] [address] [place], [place] [address] #### GFR, BMP #### [address] [address] Vital Signs Date Time Vital Sign Value Performing Clinician Rad coronado 01-26-2025 11:32-0400 Body height 188 cm Reyes Saucedo MD Work Phone: [facility] 01-26-2025 11:32-0400 Body mass index (BMI) [Ratio] 28.76 kg/m2 Reyes Saucedo MD Work Phone: [facility] 01-26-2025 11:32-0400 Body temperature 97.3 [degF] Reyes Saucedo MD Work Phone: [facility] 01-26-2025 11:32-0400 Body weight 101.61 kg Reyes Saucedo MD Work Phone: [facility] 01-26-2025 11:32-0400 Diastolic blood pressure 82 mm[Hg] Reyes Saucedo MD Work Phone: [facility] 01-26-2025 11:32-0400 Heart rate 62 /min Reyes Saucedo MD Work Phone: [facility] 01-26-2025 11:32-0400 Respiratory rate 18 /min Reyes Saucedo MD Work Phone: [facility] 01-26-2025 11:32-0400 SaO2% (BldA) [Mass fraction] 95 % Reyes Saucedo MD Work Phone: [facility] 01-26-2025 11:32-0400 Systolic blood pressure 128 mm[Hg] Reyes Saucedo MD Work Phone: [facility] 01-05-2025 09:29-0400 Body height 188 cm Reyes Saucedo MD Work Phone: [facility] 01-05-2025 09:29-0400 Body mass index (BMI) [Ratio] 28.76 kg/m2 Reyes Saucedo MD Work Phone: [facility] 01-05-2025 09:29-0400 Body temperature 97.11 [degF] Reyes Saucedo MD Work Phone: [facility] 01-05-2025 09:29-0400 Body weight 101.61 kg Reyes Saucedo MD Work Phone: [facility] 01-05-2025 09:29-0400 Diastolic blood pressure 84 mm[Hg] Reyes Saucedo MD Work Phone: [facility] 01-05-2025 09:29-0400 Heart rate 62 /min Reyes Saucedo MD Work Phone: [facility] 01-05-2025 09:29-0400 Respiratory rate 18 /min Reyes Saucedo MD Work Phone: [facility] 01-05-2025 09:29-0400 SaO2% (BldA) [Mass fraction] 98 % Reyes Saucedo MD Work Phone: [facility] 01-05-2025 09:29-0400 Systolic blood pressure 130 mm[Hg] Reyes Saucedo MD Work Phone: [facility] 12-23-2024 14:59-0400 Body height 195.[address] Reyes Saucedo MD Work Phone: [facility] 12-23-2024 14:59-0400 Body mass index (BMI) [Ratio] 27.2 kg/m2 Dr. Reyes Saucedo MD Work Phone: [facility] 12-23-2024 14:59-0400 Body weight 104.[address] Reyes Saucedo MD Work Phone: [facility] 12-04-2024 08:37-0400 Body weight 104.[address] Reyes Saucedo MD Work Phone: [facility] 12-03-2024 09:01-0400 Body mass index (BMI) [Ratio] 27.2 kg/m2 Dr. Reyes Saucedo MD Work Phone: [facility] 11-25-2024 08:14-0400 Body mass index (BMI) [Ratio] 27.2 kg/m2 Dr. Reyes Saucedo MD Work Phone: [facility] 11-25-2024 08:14-0400 Body weight 104.[address] Reyes Saucedo MD Work Phone: [facility] 11-25-2024 08:14-0400 Diastolic blood pressure 82 mm[Hg] Dr. Reyes Saucedo MD Work Phone: [facility] 11-25-2024 08:14-0400 Heart rate 63 /min Dr. Reyes Saucedo MD Work Phone: [facility] 11-25-2024 08:14-0400 Respiratory rate 18 /min Dr. Reyes Saucedo MD Work Phone: [facility] 11-25-2024 08:14-0400 Systolic blood pressure 134 mm[Hg] Dr. Reyes Saucedo MD Work Phone: [facility] 10-28-2024 08:05-0400 Body mass index (BMI) [Ratio] 27.7 kg/m2 Dr. Reyes Saucedo MD Work Phone: [facility] 10-28-2024 08:05-0400 Body weight 106.[address] Reyes Saucedo MD Work Phone: [facility] 10-28-2024 08:05-0400 Diastolic blood pressure 78 mm[Hg] Dr. Reyes Saucedo MD Work Phone: [facility] 10-28-2024 08:05-0400 Heart rate 63 /min Dr. Reyes Saucedo MD Work Phone: [facility] 10-28-2024 08:05-0400 Respiratory rate 18 /min Dr. Reyes Saucedo MD Work Phone: [facility] 10-28-2024 08:05-0400 Systolic blood pressure 137 mm[Hg] Dr. Reyes Saucedo MD Work Phone: [facility] 09-24-2024 09:53-0400 Body height 188 cm Reyes Saucedo MD Work Phone: [facility] 09-24-2024 09:53-0400 Body mass index (BMI) [Ratio] 29.66 kg/m2 Reyes Saucedo MD Work Phone: [facility] 09-24-2024 09:53-0400 Body temperature 96.91 [degF] Reyes Saucedo MD Work Phone: [facility] 09-24-2024 09:53-0400 Body weight 104.78 kg Reyes Saucedo MD Work Phone: [facility] 09-24-2024 09:53-0400 Diastolic blood pressure 84 mm[Hg] Reyes Saucedo MD Work Phone: [facility] 09-24-2024 09:53-0400 Heart rate 54 /min Reeys Saucedo MD Work Phone: [facility] 09-24-2024 09:53-0400 Respiratory rate 18 /min Reyes Saucedo MD Work Phone: [facility] 09-24-2024 09:53-0400 SaO2% (BldA) [Mass fraction] 95 % Reyes Saucedo MD Work Phone: [facility] 09-24-2024 09:53-0400 Systolic blood pressure 136 mm[Hg] Reyes Saucedo MD Work Phone: [facility] 08-27-2024 15:06-0500 Body height 188 cm Reyes Saucedo MD Work Phone: [facility] 08-27-2024 15:06-0500 Body mass index (BMI) [Ratio] 28.89 kg/m2 Reyes Saucedo MD Work Phone: [facility] 08-27-2024 15:06-0500 Body temperature 97.9 [degF] Reyes Saucedo MD Work Phone: [facility] 08-27-2024 15:06-0500 Body weight 102.06 kg Reyes Saucedo MD Work Phone: [facility] 08-27-2024 15:06-0500 Diastolic blood pressure 82 mm[Hg] Reyes Saucedo MD Work Phone: [facility] 08-27-2024 15:06-0500 Heart rate 56 /min Reyes Saucedo MD Work Phone: [facility] 08-27-2024 15:06-0500 Respiratory rate 18 /min Reyes Saucedo MD Work Phone: [facility] 08-27-2024 15:06-0500 SaO2% (BldA) [Mass fraction] 96 % Reyes Saucedo MD Work Phone: [facility] 08-27-2024 15:06-0500 Systolic blood pressure 132 mm[Hg] Reyes Saucedo MD Work Phone: [facility] 08-07-2024 10:35-0500 Body mass index (BMI) [Ratio] 26.2 kg/m2 Dr. Reyes Saucedo MD Work Phone: [facility] 08-07-2024 10:35-0500 Body weight 100.[address] Reyes Saucedo MD Work Phone: [facility] 04-21-2024 08:54-0400 Body height 188 cm Reyes Saucedo MD Work Phone: [facility] 04-21-2024 08:54-0400 Body mass index (BMI) [Ratio] 27.86 kg/m2 Reyes Saucedo MD Work Phone: [facility] 04-21-2024 08:54-0400 Body temperature 96.91 [degF] Reyes Saucedo MD Work Phone: [facility] 04-21-2024 08:54-0400 Body weight 98.43 kg Reyes Saucedo MD Work Phone: [facility] 04-21-2024 08:54-0400 Diastolic blood pressure 72 mm[Hg] Reyes Saucedo MD Work Phone: [facility] 04-21-2024 08:54-0400 Heart rate 62 /min Reyes Saucedo MD Work Phone: [facility] 04-21-2024 08:54-0400 Respiratory rate 18 /min Reyes Saucedo MD Work Phone: [facility] 04-21-2024 08:54-0400 SaO2% (BldA) [Mass fraction] 97 % Reyes Saucedo MD Work Phone: [facility] 04-21-2024 08:54-0400 Systolic blood pressure 128 mm[Hg] Reyes Saucedo MD Work Phone: [facility] 02-06-2024 09:09-0400 Body height 188 cm Reyes Saucedo MD Work Phone: [facility] 02-06-2024 09:09-0400 Body mass index (BMI) [Ratio] 28.13 kg/m2 Reyes Saucedo MD Work Phone: [facility] 02-06-2024 09:09-0400 Body temperature 98.2 [degF] Reyes Saucedo MD Work Phone: [facility] 02-06-2024 09:09-0400 Body weight 99.39 kg Reyes Saucedo MD Work Phone: [facility] 02-06-2024 09:09-0400 Diastolic blood pressure 72 mm[Hg] Reyes Saucedo MD Work Phone: [facility] 02-06-2024 09:09-0400 Heart rate 57 /min Reyes Saucedo MD Work Phone: [facility] 02-06-2024 09:09-0400 Respiratory rate 17 /min Reyes Saucedo MD Work Phone: [facility] 02-06-2024 09:09-0400 SaO2% (BldA) [Mass fraction] 98 % Reyes Saucedo MD Work Phone: [facility] 02-06-2024 09:09-0400 Systolic blood pressure 126 mm[Hg] Reyes Saucedo MD Work Phone: [facility] 12-31-2023 08:03-0400 Body mass index (BMI) [Ratio] 28.12 kg/m2 Shelly Rose 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 Work Phone: [facility] 12-31-2023 08:03-0400 Body weight 99.34 kg Shelly Rose 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 Work Phone: [facility] 11-14-2023 16:03-0400 Body height 188 cm Reyes Saucedo MD Work Phone: [facility] 11-14-2023 16:03-0400 Body mass index (BMI) [Ratio] 26.83 kg/m2 Reyes Saucedo MD Work Phone: [facility] 11-14-2023 16:03-0400 Body temperature 97 [degF] Reyes Saucedo MD Work Phone: [facility] 11-14-2023 16:03-0400 Body weight 94.8 kg Reyes Saucedo MD Work Phone: [facility] 11-14-2023 16:03-0400 Diastolic blood pressure 86 mm[Hg] Reyes Saucedo MD Work Phone: [facility] 11-14-2023 16:03-0400 Heart rate 74 /min Reyes Saucedo MD Work Phone: [facility] 11-14-2023 16:03-0400 Respiratory rate 18 /min Reyes Saucedo MD Work Phone: [facility] 11-14-2023 16:03-0400 SaO2% (BldA) [Mass fraction] 96 % Reyes Saucedo MD Work Phone: [facility] 11-14-2023 16:03-0400 Systolic blood pressure 138 mm[Hg] Reyes Saucedo MD Work Phone: [facility] 11-04-2023 09:41-0400 Body temperature 97.4 [degF] [facility] 11-04-2023 09:41-0400 Diastolic blood pressure 69 mm[Hg] [facility] 11-04-2023 09:41-0400 Heart rate 60 /min [facility] 11-04-2023 09:41-0400 Respiratory rate 17 /min [facility] 11-04-2023 09:41-0400 SaO2% (BldA) [Mass fraction] 98 % [facility] 11-04-2023 09:41-0400 Systolic blood pressure 130 mm[Hg] [facility] 11-04-2023 05:57-0400 Body height 195.58 cm [facility] 11-04-2023 05:57-0400 Body mass index (BMI) [Ratio] 24.5 kg/m2 [facility] 11-04-2023 05:57-0400 Body weight 93.6 kg [facility] 10-17-2023 09:44-0400 Body height 189.2 cm Reyes Saucedo MD Work Phone: [facility] 10-17-2023 09:44-0400 Body temperature 97.9 [degF] Reyes Saucedo MD Work Phone: [facility] 10-17-2023 09:44-0400 Body weight 98.54 kg Reyes Saucedo MD Work Phone: [facility] 10-17-2023 09:44-0400 Diastolic blood pressure 70 mm[Hg] Reyes Saucedo MD Work Phone: [facility] 10-17-2023 09:44-0400 Heart rate 66 /min Reyes Saucedo MD Work Phone: [facility] 10-17-2023 09:44-0400 Respiratory rate 16 /min Reyes Saucedo MD Work Phone: [facility] 10-17-2023 09:44-0400 SaO2% (BldA) [Mass fraction] 97 % Reyes Saucedo MD Work Phone: [facility] 10-17-2023 09:44-0400 Systolic blood pressure 132 mm[Hg] Reyes Saucedo MD Work Phone: [facility] 06-13-2023 09:27-0500 Body height 189.2 cm Reyes Saucedo MD Work Phone: [facility] 06-13-2023 09:27-0500 Body temperature 97.59 [degF] Reyes Saucedo MD Work Phone: [facility] 06-13-2023 09:27-0500 Body weight 103.51 kg Reyes Saucedo MD Work Phone: [facility] 06-13-2023 09:27-0500 Diastolic blood pressure 82 mm[Hg] Reyes Saucedo MD Work Phone: [facility] 06-13-2023 09:27-0500 Heart rate 78 /min Reyes Saucedo MD Work Phone: [facility] 06-13-2023 09:27-0500 Respiratory rate 18 /min Reyes Saucedo MD Work Phone: [facility] 06-13-2023 09:27-0500 SaO2% (BldA) [Mass fraction] 98 % Reyes Saucedo MD Work Phone: [facility] 06-13-2023 09:27-0500 Systolic blood pressure 118 mm[Hg] Reyes Saucedo MD Work Phone: [facility] 04-16-2023 09:33-0400 Body height 189.2 cm Reyes Saucedo MD Work Phone: [facility] 04-16-2023 09:33-0400 Body temperature 97 [degF] Reyes Saucedo MD Work Phone: [facility] 04-16-2023 09:33-0400 Body weight 103.06 kg Reyes Saucedo MD Work Phone: [facility] 04-16-2023 09:33-0400 Diastolic blood pressure 80 mm[Hg] Reyes Saucedo MD Work Phone: [facility] 04-16-2023 09:33-0400 Heart rate 68 /min Reyes Saucedo MD Work Phone: [facility] 04-16-2023 09:33-0400 Respiratory rate 18 /min Reyes Saucedo MD Work Phone: [facility] 04-16-2023 09:33-0400 SaO2% (BldA) [Mass fraction] 99 % Reyes Saucedo MD Work Phone: [facility] 04-16-2023 09:33-0400 Systolic blood pressure 138 mm[Hg] Reyes Saucedo MD Work Phone: [facility] 12-19-2022 10:03-0400 Body height 195.[address] Reyes Saucedo Work Phone: [facility] 10-11-2022 13:37-0400 Body height 189.2 cm Reyes Saucedo MD Work Phone: [facility] 10-11-2022 13:37-0400 Body temperature 97.3 [degF] Reyes Saucedo MD Work Phone: [facility] 10-11-2022 13:37-0400 Body weight 106.87 kg Reyes Saucedo MD Work Phone: [facility] 10-11-2022 13:37-0400 Diastolic blood pressure 84 mm[Hg] Reyes Saucedo MD Work Phone: [facility] 10-11-2022 13:37-0400 Heart rate 78 /min Reyes Saucedo MD Work Phone: [facility] 10-11-2022 13:37-0400 Respiratory rate 18 /min Reyes Saucedo MD Work Phone: [facility] 10-11-2022 13:37-0400 SaO2% (BldA) [Mass fraction] 97 % Reyes Saucedo MD Work Phone: [facility] 10-11-2022 13:37-0400 Systolic blood pressure 138 mm[Hg] Reyes Saucedo MD Work Phone: [facility] 04-19-2022 10:51-0400 Body height 189.2 cm Reyes Saucedo MD Work Phone: [facility] 04-19-2022 10:51-0400 Body temperature 97.11 [degF] Reyes Saucedo MD Work Phone: [facility] 04-19-2022 10:51-0400 Body weight 103.69 kg Reyes Saucedo MD Work Phone: [facility] 04-19-2022 10:51-0400 Diastolic blood pressure 80 mm[Hg] Reyes Saucedo MD Work Phone: [facility] 04-19-2022 10:51-0400 Heart rate 71 /min Reyes Saucedo MD Work Phone: [facility] 04-19-2022 10:51-0400 Respiratory rate 14 /min Reyes Saucedo MD Work Phone: [facility] 04-19-2022 10:51-0400 SaO2% (BldA) [Mass fraction] 96 % Reyes Saucedo MD Work Phone: [facility] 04-19-2022 10:51-0400 Systolic blood pressure 138 mm[Hg] Reyes Saucedo MD Work Phone: [facility] 10-19-2021 15:24-0400 Body temperature 97.81 [degF] Christopher Stetler DO Work Phone: [facility] 10-19-2021 15:24-0400 Body weight 105.92 kg Christopher Stetler DO Work Phone: [facility] 10-19-2021 15:24-0400 Diastolic blood pressure 80 mm[Hg] Christopher Stetler DO Work Phone: [facility] 10-19-2021 15:24-0400 Heart rate 64 /min Christopher Stetler DO Work Phone: [facility] 10-19-2021 15:24-0400 Respiratory rate 14 /min Christopher Stetler DO Work Phone: [facility] 10-19-2021 15:24-0400 Systolic blood pressure 138 mm[Hg] Christopher Stetler DO Work Phone: [facility] Encounters Encounter Date Encounter Type Care Provider Facility Start: 02-04-2025 ambulatory Timothy Richardson Facility:[facility] Start: 02-03-2025 Encounter for other preprocedural examination [facility] Start: 01-29-2025 End: 01-29-[address] Timothy Richardson MD -[facility] Work Phone: Start: 01-29-2025 End: 01-29-[address] Reyes Saucedo MD Work Phone: -[facility] Start: 01-26-2025 End: 01-26-2025 Office outpatient visit 25 minutes Reyes Saucedo MD Work Phone: [facility] Comment on above: Post herpetic neural marguerite (Primary Dx) Start: 01-26-2025 End: 01-26-2025 ambulatory REYES SAUCEDO Facility:[id number] Start: 01-08-2025 End: 01-08-2025 Patient encounter procedure [facility] Provider [facility] Start: 01-05-2025 End: 01-05-2025 Patient encounter procedure Reyes Saucedo MD Work Phone: [facility] Comment on above: Wellness examination (Primary Dx); Screening for depression; Encounter for counseling regarding advance directives; Anxiety; Hypertension, essential; Hypercholesterolemia; Chronic obstructive pulmonary disease, unspecified COPD type (HCC); Alcoholic peripheral neuropathy (HCC); Herpes zoster with complication; Medicare annual wellness visit, subsequent Start: 01-05-2025 End: 01-05-2025 Patient encounter status Reyes Saucedo MD Work Phone: [facility] Work Phone: Start: 01-05-2025 End: 01-05-2025 ambulatory REYES SAUCEDO Facility:[id number] Start: 01-05-2025 Encounter for genera l adult medical examination without abnormal findings REYES SAUCEDO [facility] Start: 12-23-2024 End: 12-23-[address] Jaron Jo MD -[facility] Start: 12-23-2024 End: 12-23-[address] Reyes Saucedo MD Work Phone: [facility] Work Phone: Start: 12-04-2024 End: 12-04-2024 Admission to same day surgery center Dr. Eileen Soto MD -[employer] Work Phone: Start: 12-04-2024 End: 12-04-2024 ambulatory [facility] Facility:[facility] Start: 11-27-2024 Encounter for preprocedural cardiovascular examination Eileen Soto [facility] Start: 11-25-2024 End: 11-26-[address] Eileen Soto MD -[facility] Work Phone: Start: 11-25-2024 End: 11-25-[address] Reyes Saucedo MD Work Phone: [facility] Work Phone: Start: 11-24-2024 ambulatory Eileen Charles Facility:[facility] Start: 11-24-2024 Non-patient / Non-visit Dr. Eileen mendez MD -[facility] Start: 11-24-2024 End: 11-24-[address] Reyes Saucedo MD Work Phone: [facility] Work Phone: Start: 11-24-2024 End: 11-24-[address] Eileen Soto MD -Laboratory Work Phone: Start: 11-24-2024 End: 11-24-2024 ambulatory Eileen Soto Facility:[facility] Start: 11-19-2024 ambulatory Reyes Saucedo Facility: [facility] Start: 11-19-2024 Non-patient / Non-visit Dr. Eileen mendez MD -[facility] Start: 11-19-2024 End: 11-19-[address] Reyes Saucedo MD Work Phone: [facility] Work Phone: Start: 11-19-2024 End: 11-19-[address] Eileen Soto MD -Cardiovascular Services Work Phone: Start: 11-19-2024 End: 11-19-2024 ambulatory [facility] Facility:[facility] Start: 10-31-2024 End: 10-31-2024 Chart abstracting Reyes Saucedo MD Work Phone: [facility] Start: 10-28-2024 End: 10-29-2024 Patient encounter procedure [facility] Provider [facility] Start: 10-28-2024 End: 10-28-[address] Eileen Soto MD [facility] Start: 10-28-2024 End: 10-28-[address] Reyes Saucedo MD Work Phone: [facility] Work Phone: Start: 10-28-2024 End: 10-28-[facility] Start: 10-21-2024 End: 10-21-2024 Telephone encounter Aruna Read MD Work Phone: [facility] Start: 10-20-2024 End: 10-20-2024 Follow-up encounter Nat Ojeda LPN [facility] Comment on above: Results Start: 10-10-[address] Maverick Saucedo MD Work Phone: [facility] Start: 10-10-2024 End: 10-10-[address] Timothy Richardson MD -[facility] Work Phone: Start: 10-10-2024 End: 10-10-2024 ambulatory Timothy Richardson Facility:[facility] Start: 10-07-2024 End: 10-07-2024 ambulatory Timothy Richardson Facility:[facility] Start: 10-07-2024 End: 10-07-2024 Non-patient / Non-visit Dr. Jaron Jo MD -[facility] Work Phone: Start: 10-06-2024 ambulatory [facility] Facility:[facility] Start: 10-02-2024 End: 10-02-2024 Chart abstracting Reyes Saucedo MD Work Phone: [facility] Start: 09-25-2024 End: 09-26-2024 Refill Reyes Saucedo MD Work Phone: [facility] Comment on above: Refill Request Start: 09-24-2024 End: 09-24-2024 Office outpatient visit 25 minutes Reyes Saucedo MD Work Phone: [facility] Comment on above: Preop examination (P rimary Dx); Bradycardia; Chronic midline low back pain without sciatica; Chronic obstructive pulmonary disease, unspecified COPD type (HCC) Start: 09-24-2024 End: 09-24-2024 Preprocedural examination done Reyes Saucedo MD Work Phone: [facility] Start: 09-24-2024 End: 09-24-2024 ambulatory REYES SAUCEDO Facility:[id number] Start: 09-03-2024 End: 09-03-2024 Patient encounter procedure [facility] Provider [facility] Start: 08-28-2024 End: 08-28-2024 E-mail encounter from caregiver Reyes Saucedo MD Work Phone: [facility] Start: 08-28-2024 End: 08-28-2024 Patient encounter procedure Reyes Saucedo MD Work Phone: [facility] Comment on above: Referral Start: 08-28-2024 End: 08-28-2024 Telephone encounter Reyes Saucedo MD Work Phone: [facility] Comment on above: Pain Mgmt referral f axed to Dr Watters referral info given via [employer] Start: 08-27-2024 End: 08-27-2024 Office outpatient visit 15 minutes Reyes Saucedo MD Work Phone: [facility] Comment on above: Chronic pain syndrom e (Primary Dx) Start: 08-27-2024 End: 08-27-2024 ambulatory REYES SAUCEDO Facility:[id number] Start: 08-19-2024 End: 08-20-2024 Patient encounter procedure [facility] Provider [facility] Start: 08-19-2024 End: 08-19-2024 ambulatory Timothy Richardson Facility:[facility] Start: 08-13-2024 End: 08-13-[address] Timothy Richardson MD -[facility] Work Phone: Start: 08-13-2024 End: 08-13-2024 ambulatory Timothy Richardson Facility:[facility] Start: 08-07-2024 End: 08-08-2024 Patient encounter procedure [facility] Provider [facility] Start: 08-07-2024 End: 08-07-2024 ambulatory Timothy Richardson Facility:[facility] Start: 06-24-2024 End: 06-24-2024 ambulatory Reyes Saucedo Facility:[facility] Start: 04-27-2024 End: 04-28-2024 Patient encounter procedure [facility] Provider [facility] Start: 04-21-2024 End: 04-21-2024 Office outpatient visit 25 minutes Reyes Saucedo MD Work Phone: [facility] Comment on above: Hypertension, essent ial (Primary Dx); Pure hypercholesterolemia; Chronic obstructive pulmonary disease, unspecified COPD type (HCC); Alcoholic peripheral neuropathy (HCC); Primary insomnia; Generalized anxiety disorder Start: 04-21-2024 End: 04-21-2024 ambulatory REYES SAUCEDO Facility:[id number] Start: 04-03-2024 End: 04-03-2024 Refill Reyes Sauceod MD Work Phone: [facility] Comment on above: Refill Request Start: 03-23-2024 End: 03-24-2024 Refill Reyes Saucedo MD Work Phone: [facility] Comment on above: Refill Request Start: 02-20-2024 Patient encounter procedure [facility] Start: 02-14-2024 End: 02-14-2024 Emergency department patient visit Reyes Saucedo Facility:[facility] Start: 02-06-2024 End: 02-06-2024 Office outpatient visit 15 minutes Reyes Saucedo MD Work Phone: [facility] Comment on above: Diverticulitis (Prim samir Dx) Start: 02-06-2024 End: 02-06-2024 ambulatory REYES SAUCEDO Facility:[id number] Start: 2024 Telephone encounter Reyes Saucedo MD Work Phone: [facility] Comment on above: Patient Question Start: 01-29-2024 E-mail encounter fro m caregiver Reyes Saucedo MD Work Phone: [facility] Start: 01-29-2024 Patient encounter procedure Reyes Saucedo MD Work Phone: [facility] Comment on above: Gastroenterology Ref erral Start: 01-29-2024 Telephone encounter Reyes Saucedo MD Work Phone: [facility] Comment on above: Gastro referral faxe d to Dr Joel Cervantes Start: 01-22-2024 Telephone encounter Reyes Saucedo MD Work Phone: [facility] Comment on above: Orders Start: 01-15-2024 End: 01-15-2024 Orders Only 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 Rose 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 Work Phone: [facility] Comment on above: Tobacco abuse (Prima ry Dx) Tobacco abuse [Z72.0 ] Start: 12-31-2023 End: 12-31-2023 ambulatory REYES SAUCEDO Facility:[facility] Start: 12-31-2023 End: 12-31-2023 Patient encounter procedure Shelly Rose 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 Work Phone: [facility] Comment on above: Encounter for screen ing for lung cancer (Primary Dx); Tobacco abuse Start: 12-11-2023 Refill Reyes Guy MD Work Phone: [facility] Comment on above: Refill Request Start: 11-19-2023 Telephone encounter Reyes Saucedo MD Work Phone: [facility] Comment on above: Results Start: 11-19-2023 End: 11-19-2023 ambulatory REYES SAUCEDO Facility:[facility] Start: 11-16-2023 Telephone encounter Reyes Saucedo MD Work Phone: [facility] Comment on above: Patient Question Start: 11-14-2023 End: 11-14-2023 Office outpatient visit 15 minutes Reyes Saucedo MD Work Phone: [facility] Comment on above: Tobacco abuse (Prima ry Dx); Chronic obstructive pulmonary disease, unspecified COPD type (HCC); Unintended weight loss; Hyponatremia Start: 11-05-2023 Telephone encounter Reyes Saucedo MD Work Phone: [facility] Start: 11-05-2023 End: 11-05-2023 ambulatory REYES SAUCEDO Facility:[facility] Start: 11-04-2023 Telephone encounter Reyes Saucedo MD Work Phone: [facility] Start: 11-04-2023 End: 11-04-2023 Emergency department patient visit [facility] Work Phone: Start: 11-02-2023 End: 11-02-2023 ambulatory REYES SAUCEDO Facility:[facility] Start: 10-17-2023 End: 10-17-2023 Patient encounter procedure Reyes Saucedo MD Work Phone: [facility] Comment on above: Wellness examination (Primary Dx); Screening for depression; Advanced directives, counseling/discussion; Pure hypercholesterolemia; Hypertension, essential; Chronic obstructive pulmonary disease, unspecified COPD type (HCC); B12 deficiency; Idiopathic gout, unspecified chronicity, unspecified site; Screening PSA (prostate specific antigen); Screening for deficiency anemia; Medicare annual wellness visit, subsequent Start: 10-17-2023 End: 10-17-2023 Patient encounter status Reyes Saucedo MD Work Phone: [facility] Work Phone: Start: 09-20-2023 Patient encounter procedure [facility] Provider [facility] Start: 09-20-2023 End: 09-20-2023 ambulatory [facility] Work Phone: Start: 09-20-2023 End: 09-20-2023 [facility] Start: 08-16-2023 Patient encounter procedure [facility] Provider [facility] Start: 06-13-2023 End: 06-13-2023 Office outpatient visit 15 minutes Reyes Saucedo MD Work Phone: [facility] Comment on above: Herpes zoster withou t complication (Primary Dx); Anxiety Start: 04-24-2023 End: 04-24-[address] Reyes Saucedo Work Phone: [facility] Work Phone: Start: 04-24-2023 End: 04-24-[address] [facility] Start: 04-16-2023 End: 04-16-2023 Office outpatient visit 25 minutes Reyes Suacedo MD Work Phone: [facility] Comment on above: Hypertension, essent ial (Primary Dx); Anxiety; Alcoholic peripheral neuropathy (HCC); Primary insomnia; Pure hypercholesterolemia; Irritable bowel syndrome with diarrhea Start: 03-22-2023 Patient encounter procedure [facility] Provider [facility] Start: 03-21-2023 End: 03-21-[address] Reyes Saucedo Work Phone: [facility] Work Phone: Start: 02-12-2023 End: 02-12-2023 Patient encounter procedure [facility] Provider [facility] Start: 02-09-2023 Patient encounter procedure [facility] Provider [facility] Start: 01-18-2023 Refill Reyes Guy MD Work Phone: [facility] Comment on above: Refill Request Start: 01-12-2023 Patient encounter procedure [facility] [facility] Start: 01-01-2023 End: 01-01-2023 Patient encounter procedure Ccf Provider [facility] Start: 12-30-2022 End: 12-30-[address] Reyes Saucedo Work Phone: [facility] Work Phone: Start: 12-30-2022 End: 12-30-[address] Reyes Saucedo Work Phone: [facility] Start: 12-21-2022 End: 12-21-[address] Reyes Saucedo Work Phone: [facility] Start: 11-23-2022 End: 11-23-2022 Patient encounter procedure Cc Provider [facility] Start: 10-11-2022 End: 10-11-2022 Patient encounter procedure Reyes Saucedo MD Work Phone: [facility] Comment on above: Wellness examination (Primary Dx); Encounter for screening for depression; Encounter for counseling regarding advance directives; Anxiety; Pure hypercholesterolemia; Hypertension, essential; Chronic obstructive pulmonary disease, unspecified COPD type (HCC) Start: 10-11-2022 End: 10-11-2022 Patient encounter status [facility] Start: 10-09-2022 Chart abstracting Reyes Saucedo MD Work Phone: [facility] Start: 10-02-2022 Non-patient / Non-visit Dr. Ra rachel Saucedo Work Phone: [facility] Start: 10-02-[address] Jose L Saucedo Work Phone: [facility] Start: 09-01-2022 Patient encounter procedure Ccf Provider [facility] Start: 08-05-2022 End: 08-05-2022 ambulatory [facility] Work Phone: Start: 08-05-2022 End: 08-05-2022 Patient encounter procedure [facility] Start: 04-19-2022 Refill Reyes Guy MD Work Phone: [facility] Comment on above: Refill Request Start: 04-19-2022 End: 04-19-2022 Office outpatient visit 15 minutes Reyes Saucedo MD Work Phone: [facility] Comment on above: Primary insomnia (Pr imary Dx); Anxiety; Neck pain, chronic; Neuropathy; Primary hypertension; Hypercholesterolemia; Other emphysema (HCC); Idiopathic gout, unspecified chronicity, unspecified site Start: 04-14-2022 Encounter for other preprocedural examination REYES SAUCEDO [facility] Start: 04-14-2022 Chart abstracting Romero An DO Work Phone: [employer] [facility] Start: 04-14-2022 Patient encounter status Renan An DO Work Phone: [facility] Start: 04-14-2022 Preprocedural examin ation done Romero An DO Work Phone: [facility] Start: 03-03-2022 Telephone encounter Reyes Saucedo MD Work Phone: [facility] Comment on above: Orders Procedures Date Procedure Procedure Detail Performing Clinician Start: 01-05-2025 Adult depression screening assessment Reyes Saucedo MD Work Phone: Start: 12-23-2024 X-ray of lumbar spine, two or three views Dr. Reyes Saucedo MD Work Phone: Start: 11-24-2024 X-ray of chest, PA and lateral views Dr. Reyes Saucedo MD Work Phone: Start: 11-19-2024 Cardiovascular stress test using pharmacologic stress agent Dr. Reyes Saucedo MD Work Phone: Start: 10-28-2024 Comprehensive metabolic 2000 panel - Serum or Plasma Other Start: 09-17-2024 Comprehensive metabolic 2000 panel - Serum or Plasma Other Start: 09-17-2024 Hemoglobin A1c/Hemoglobin.total in Blood Other Start: 09-17-2024 LIPID PANEL BASIC Other Start: 09-17-2024 Lipid 1996 panel - Serum or Plasma Reyes Saucedo MD Work Phone: Start: 08-13-2024 MRI of lumbar spine Dr. Reyes Saucedo MD Work Phone: Start: 08-07-2024 X-ray of lumbosacral spine Dr. 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 Reyes Saucedo Work Phone: Start: 08-05-2022 MRI of cervical spine Start: 01-19-2022 CMP EXTERNAL QAI Reyes Saucedo MD Work Phone: Start: 01-19-2022 Hemoglobin A1c/Hemoglobin.total in Blood Reyes Saucedo MD Work Phone: Start: 01-19-2022 Lipid panel Reyes Saucedo MD Work Phone: Start: 01-19-2022 PSA screening Reyes Saucedo MD Work Phone: Start: 01-19-2022 Lipid 1996 panel - Serum or Plasma Reyes Saucedo MD Work Phone: Start: 04-17-2019 Colonoscopy Reyes Saucedo MD Work Phone: Start: 10-05-2003 Colonoscopy Reyes Saucedo MD Work Phone: H/O: surgery Hx of hemorrhoidectomy History of repair of inguinal hernia Hx of right inguinal hernia repair History of tonsillectomy Hx of tonsillect colten Plan of Treatment Date Care Activity Detail Author Start: 09-17-2029 Lipid panel Lipid Screening [facility] Start: 11-01-2028 Lipid panel Lipid Screening [facility] Start: 10-29-2027 Diabetes Screening Diabetes Screening [facility] Start: 09-18-2027 Diabetes Screening Diabetes Screening [facility] Start: 06-25-2027 Urine microalbumin profile [facility] Start: 01-19-2027 Lipid 1996 panel - Serum or Plasma Lipid Screening [facility] Start: 01-19-2027 Lipid panel Lipid Screening [facility] Start: 01-19-2027 LIPID SCREEN LIPID SCREEN [facility] Start: 11-18-2026 Diabetes Screening Diabetes Screening [facility] Start: 11-04-2026 Diabetes Screening Diabetes Screening [facility] Start: 11-01-2026 Diabetes Screening Diabetes Screening [facility] Start: 04-17-2026 Colonoscopy COLONOSCOPY [facility] Start: 04-17-2026 COLORECTAL CANCER SCREENING COLORECTAL CANCER SCREENING [facility] Start: 04-17-2026 Screening for malignant neoplasm of colon [facility] Start: 01-26-2026 Annual PCP Team Chronic Disease Visit Annual PCP Team Chronic Disease Visit [facility] Start: 01-05-2026 Annual PCP Team Chronic Disease Visit Annual PCP Team Chronic Disease Visit [facility] Start: 01-05-2026 Depression Screening Depression Screening [facility] Start: 01-05-2026 Medicare Annual Wellness Visit Medicare Annual Wellness Visit [facility] Start: 09-24-2025 Annual PCP Team Chronic Disease Visit Annual PCP Team Chronic Disease Visit [facility] Start: 08-27-2025 Annual PCP Team Chronic Disease Visit Annual PCP Team Chronic Disease Visit [facility] Start: 07-13-2025 End: 07-13-2025 Patient encounter procedure 07/13/2025 9:30 AM EST Office Visit [facility] [address] [phone] Reyes Saucedo MD [address] [place], [place] [id number] 6 mo f/u [facility] Comment on above: 6 mo f/u Start: 04-21-2025 Annual PCP Team Chronic Disease Visit Annual PCP Team Chronic Disease Visit [facility] Start: 04-21-2025 BP Controlled (<130/80) BP Controlled (<130/80) [facility] Start: 03-16-2025 Influenza [facility] Start: 2025 Annual PCP Team Chronic Disease Visit Annual PCP Team Chronic Disease Visit [facility] Start: 2025 BP Controlled (<130/80) BP Controlled (<130/80) [facility] Start: 01-19-2025 DIABETES SCREEN DIABETES SCREEN [facility] Start: 01-19-2025 Diabetes Screening Diabetes Screening [facility] Start: 01-15-2025 End: 01-15-2025 Patient encounter procedure Cat Scan Comment on above: [facility] Start: 01-05-2025 End: 01-05-2025 Patient encounter procedure 01/05/2025 9:30 AM EDT Office Visit [facility] [address] [phone] Reyes Saucedo MD [address] [place], [place] [phone] Annual Wellness [facility] Comment on above: Annual Wellness Start: 12-23-2024 X-ray of lumbar spine, two or three views Lumbar Spine 2 or 3 Views [facility] Start: 12-23-2024 XR Lumbar spine 2 or 3 Views [facility] Start: 12-04-2024 Patient discharge [facility] Start: 11-13-2024 Annual PCP Team Chronic Disease Visit Annual PCP Team Chronic Disease Visit [facility] Start: 10-28-2024 Evaluation of diagnostic study results [facility] Start: 10-20-2024 End: 10-20-2024 Patient encounter procedure 10/20/2024 9:00 AM EDT Office Visit [facility] [address] [place] [phone] Reyes Saucedo MD [address] [place], [place] [phone] Annual Wellness [facility] Comment on above: Annual Wellness Start: 10-16-2024 Annual PCP Team Chronic Disease Visit Annual PCP Team Chronic Disease Visit [facility] Start: 09-24-2024 End: 09-24-2024 Patient encounter procedure 09/24/2024 9:50 AM EDT Office Visit [facility] [address] [place] [phone] Reyes Saucedo MD [address] [place], [place] [phone] Presurgical Clearance [facility] Comment on above: Presurgical Clearance Start: 07-16-2024 Advance Directive Discussion Advance Directive Discussion [facility] Start: 06-13-2024 Annual PCP Team Chronic Disease Visit Annual PCP Team Chronic Disease Visit [facility] Start: 04-21-2024 End: 04-21-2024 Patient encounter procedure 04/21/2024 9:00 AM EDT Office Visit [facility] [address] [place] [phone] Reyes Saucedo MD [address] [place], [place] [phone] Month Follow Up [facility] Comment on above: 6 Month Follow Up Start: 04-16-2024 Annual PCP Team Chronic Disease Visit Annual PCP Team Chronic Disease Visit [facility] Start: 03-16-2024 Covid-19 Vaccine ( season) Covid-19 Vaccine ( season) [facility] Start: 03-16-2024 Covid-19 Vaccine () Covid-19 Vaccine () [facility] Start: 03-16-2024 Influenza vaccination Influenza Vaccine (#1) [facility] Start: 02-06-2024 End: 02-06-2024 Patient encounter procedure 02/06/2024 9:10 AM EDT Office Visit [facility] [address] [place] [phone] Reyes Saucedo MD [address] [place] [address] low abdominal pain/possible diverticulitis flare up *CONFIRMED GR 2024 [facility] Comment on above: low abdominal pain/possible diverticulit is flare up *CONFIRMED GR 2024 Start: 01-15-2024 End: 01-15-2024 Patient encounter procedure 01/15/2024 9:00 AM EDT Appointment Cat Scan [address] [place] [address] LDCT Cat Scan Comment on above: LDCT Start: 12-31-2023 End: 12-31-2023 Patient encounter procedure 12/31/2023 8:00 AM EDT Office Visit [facility] [address] [place] [address] Shelly Rose APRN.UPHOLSTERY REPAIRER [address] [place] [address] CT scan [facility] Comment on above: CT scan Start: 11-19-2023 End: 02-18-2024 Basic metabolic 2000 panel - Serum or Plasma BASIC METABOLIC PANEL Lab Routine Hyponatremia Expected: 11/19/2023, Expires: 02/18/2024 [facility] Work Phone: Comment on above: Expected: 11/19/2023, Expires: Start: 11-19-2023 End: 11-19-2023 ambulatory 11/19/2023 7:00 AM EDT Results Only [facility] [place] [facility] [address] [place] [address] [facility] Start: 11-14-2023 End: 11-14-2023 Patient encounter procedure 11/14/2023 4:00 PM EDT Office Visit [facility] [address] [place] [phone] Reyes Saucedo MD [address] [place], [place] [id number] Unintentional Weight Loss [facility] Comment on above: Un[facility] Start: 11-04-2023 End: 02-03-2024 Basic metabolic 1999 panel - Serum or Plasma BASIC METABOLIC PANEL Lab Routine Hyponatremia Expected: 11/04/2023, Expires: 02/03/2024 [facility] Work Phone: Comment on above: Expected: 11/04/2023, Expires: Start: 11-04-2023 [facility] Start: 10-17-2023 End: 01-16-2024 CBC W Auto Differential panel - Blood CBC + DIFF Lab Routine B12 deficiency Screening for deficiency anemia Expected: 10/17/2023, Expires: 01/16/2024 [facility] Work Phone: Comment on above: Expected: 10/17/2023, Expires: Start: 10-17-2023 End: 01-16-2024 Comprehensive metabolic 2000 panel - Serum or Plasma COMP METABOLIC PANEL Lab Routine Pure hypercholesterolemia Hypertension, essential Expected: 10/17/2023, Expires: 01/16/2024 [facility] Work Phone: Comment on above: Expected: 10/17/2023, Expires: Start: 10-17-2023 End: 01-16-2024 Lipid 1996 panel - Serum or Plasma LIPID PANEL BASIC Lab Routine Pure hypercholesterolemia Expected: 10/17/2023, Expires: 01/16/2024 [facility] Work Phone: Comment on above: Expected: 10/17/2023, Expires: Start: 10-17-2023 End: 01-16-2024 PSA/PROSTSPECAG SCRN PSA/PROSTSPECAG SCRN Lab Routine Screening PSA (prostate specific antigen) Expected: 10/17/2023, Expires: 01/16/2024 [facility] Work Phone: Comment on above: Expected: 10/17/2023, Expires: Start: 10-12-2023 ANNUAL PCP TEAM CHRONIC DISEASE VISIT ANNUAL PCP TEAM CHRONIC DISEASE VISIT [facility] Start: 07-16-2023 Advance Directive Discussion Advance Directive Discussion [facility] Start: 07-16-2023 Behavioral Health Screening Behavioral Health Screening [facility] Start: 07-16-2023 Depression Assessment Depression Assessment [facility] Start: 04-19-2023 ANNUAL PCP TEAM CHRONIC DISEASE VISIT ANNUAL PCP TEAM CHRONIC DISEASE VISIT [facility] Start: 04-19-2023 BP CONTROLLED (<130/80) BP CONTROLLED (<130/80) [facility] Start: 03-21-2023 Patient referral [facility] Work Phone: Start: 03-16-2023 Covid-19 Vaccine ( season) Covid-19 Vaccine () [facility] Start: 03-16-2023 Covid-19 Vaccine ( season) Covid-19 Vaccine () [facility] Start: 03-16-2023 Influenza vaccination [facility] Start: 01-01-2023 Patient referral [facility] Work Phone: Start: 07-16-2022 ADVANCE DIRECTIVE DISCUSSION ADVANCE DIRECTIVE DISCUSSION [facility] Start: 07-16-2022 DEPRESSION ASSESSMENT DEPRESSION ASSESSMENT [facility] Start: 06-12-2022 COVID-19 VACCINE (5 - Booster for Moderna series) COVID-19 VACCINE (5 - Booster for Moderna series) [facility] Start: 06-12-2022 COVID-19 VACCINE (5 - Moderna series) COVID-19 VACCINE (5 - Moderna series) [facility] Start: 03-16-2022 Influenza vaccination INFLUENZA (#1) [facility] Start: 07-16-2021 ADVANCE DIRECTIVE DISCUSSION ADVANCE DIRECTIVE DISCUSSION [facility] Start: 07-16-2021 DEPRESSION ASSESSMENT DEPRESSION ASSESSMENT [facility] Start: 07-13-2021 COVID-19 VACCINE (4 - Booster for Moderna series) COVID-19 VACCINE (4 - Booster for Moderna series) [facility] Start: 02-04-2017 PNEUMOCOCCAL: 65+ (1 - PCV) PNEUMOCOCCAL: 65+ (1 - PCV) [facility] Start: 10-04-2013 Colonoscopy COLONOSCOPY [facility] Start: 10-04-2013 COLORECTAL CANCER SCREENING COLORECTAL CANCER SCREENING [facility] Start: 2012 RSV Vaccine (1 - 1-dose 60+ series) RSV Vaccine (1 - 1-dose 60+ series) [facility] Start: 2012 RSV Vaccine (1 - Risk 60-74 years 1-dose series) RSV Vaccine (1 - Risk 60-74 years 1-dose series) [facility] Start: 02-04-2002 SHINGRIX VACCINE (1 of 2) SHINGRIX VACCINE (1 of 2) [facility] Start: 02-04-1997 COLOGUARD (FIT-DNA) COLOGUARD (FIT-DNA) [facility] Start: 02-04-[address] COLONOGRAPHY [facility] Start: 02-04-1997 DIABETES SCREEN DIABETES SCREEN [facility] Start: 02-04-1997 FECAL OCCULT BLOOD FECAL OCCULT BLOOD [facility] Start: 02-04-1997 Screening for malignant neoplasm of colon [facility] Start: 02-04-1997 SIGMOIDOSCOPY SIGMOIDOSCOPY [facility] Start: 02-04-1987 LIPID SCREEN LIPID SCREEN [facility] Start: 02-04-1982 Zoledronic acid therapy ALPHA-1 ANTITRYPSIN DEFICIENCY SCREENING [facility] Start: 02-04-1971 Urine microalbumin profile DTAP,TDAP,TD (1 - Tdap) [facility] Start: 02-04-1970 BP CONTROLLED (<130/80) BP CONTROLLED (<130/80) [facility] Start: 02-04-1970 Depression Screening Depression Screening [facility] Start: 02-04-1970 HEPATITIS C SCREENING HEPATITIS C SCREENING [facility] Start: 02-04-1970 Hepatitis C screening Hepatitis C Screening [facility] Start: 02-04-1970 SPIROMETRY SPIROMETRY [facility] Start: 1964 Adult depression screening assessment DEPRESSION SCREENING [facility] Start: 02-04-1958 PNEUMOCOCCAL: 65+ (1 - PCV) PNEUMOCOCCAL: 65+ (1 - PCV) [facility] Start: 1952 COVID-19 VACCINE (#1) COVID-19 VACCINE (#1) [facility] Start: 1952 ABDOMINAL AORTIC ANEURYSM SCREENING ABDOMINAL AORTIC ANEURYSM SCREENING [facility] Start: 1952 Abdominal aortic aneurysm screening Abdominal Aortic Aneurysm Screening [facility] End: 01-29-2025 CT Chest for screening WO contrast CT LUNG SCREEN WO IVCON Radiology Routine Tobacco abuse 1 Occurrences starting 12/31/2023 until 01/29/2025 [facility] Work Phone: Comment on above: 1 Occurrences starting 12/31/2023 until 01/29/2025 End: 02-13-2025 CT Chest for screening WO contrast CT LUNG SCREEN WO IVCON Radiology Routine Tobacco abuse 1 Occurrences starting 01/15/2024 until 02/13/2025 [facility] Work Phone: Comment on above: 1 Occurrences starting 01/15/2024 until 02/13/2025 NM Heart Views W str ess and W radionuclide IV [facility] OUTSIDE VENDOR CARDI AC OUTPATIENT EXTENDED RHYTHM RECORDING (WITHOUT TELEMETRY) OUTSIDE VENDOR CARDIAC OUTPATIENT EXTENDED RHYTHM RECORDING (WITHOUT TELEMETRY) Holter Routine Bradycardia Ordered: 09/24/2024 [facility] Work Phone: Comment on above: Ordered: 09/24/2024 Patient Education Hypertension D c ED Hyponatremia [facility] Work Phone: Patient referral [facility] Work Phone: US Carotid arteries [facility] Immunizations Immunization Date Immunization Notes Care Provider Fa [facility] 04-08-2024 influenza, high dose seasonal, preservative-free Reyes Saucedo MD Work Phone: [facility] 04-08-2024 influenza virus vaccine, unspecified formulation Reyes Saucedo MD Work Phone: [facility] 05-25-2023 influenza (HD-IIV4) vaccine, age 65+ yr, high dose, quadrivalent, PF (FLUZONE HIGH-DOSE) Reyes Saucedo MD Work Phone: [facility] 05-25-2023 influenza virus vaccine, unspecified formulation Shelly Rose APRN.UPHOLSTERY REPAIRER Work Phone: [facility] 05-23-2023 influenza nasal, unspecified formulation Reyes Saucedo MD Work Phone: [facility] 04-17-2022 COVID-19 vaccine, ag e 12+ yr, bivalent (PFIZER-BIONTLeveler) Reyes Saucedo MD Work Phone: [facility] 04-17-2022 COVID-19 vaccine, unspecified formulation Reyes Saucedo MD Work Phone: [facility] 04-17-2022 influenza, high dose seasonal, preservative-free Reyes Saucedo MD Work Phone: [facility] 04-17-2022 influenza virus vaccine, unspecified formulation Reyes Saucedo MD Work Phone: [facility] 03-03-2022 pneumococcal polysaccharide vaccine, 23 valent Reyes Saucedo MD Work Phone: [facility] 05-30-2021 influenza nasal, unspecified formulation Romero An DO Work Phone: [facility] 05-30-2021 influenza virus vaccine, unspecified formulation Reyes Saucedo MD Work Phone: [facility] 04-13-2021 influenza, high dose seasonal, preservative-free Reyes Saucedo MD Work Phone: [facility] 10-06-2020 Covid (Moderna) [facility] 09-08-2020 Covid (Moderna) [facility] 04-05-2020 influenza nasal, unspecified formulation Christopher Stetler DO Work Phone: [facility] 06-25-2019 influenza, high dose seasonal, preservative-free Christopher Stetler DO Work Phone: [facility] 06-15-2019 influenza nasal, unspecified formulation Reyes Saucedo MD Work Phone: [facility] 04-23-2019 zoster vaccine recombinant Reyes Saucedo MD Work Phone: [facility] 01-31-2019 zoster vaccine recombinant Reyes Saucedo MD Work Phone: [facility] 06-27-2018 AS03 adjuvant Reyes Saucedo MD Work Phone: [facility] 06-27-2018 Seasonal trivalent influenza vaccine, adjuvanted, preservative free Reyes Saucedo MD Work Phone: [facility] 06-25-2017 influenza, high dose seasonal, preservative-free Reyes Saucedo MD Work Phone: [facility] 06-25-2017 pneumococcal conjuga te vaccine, 13 valent Reyes Saucedo MD Work Phone: [facility] 06-25-2017 tetanus toxoid, redu trudi diphtheria toxoid, and acellular pertussis vaccine, adsorbed Reyes Saucedo MD Work Phone: [facility] 05-01-2016 influenza, seasonal, injectable, preservative free Reyes Saucedo MD Work Phone: [facility] 04-21-2015 influenza nasal, unspecified formulation Reyes Saucedo MD Work Phone: [facility] 04-21-2015 influenza, seasonal, injectable, preservative free Reyes Saucedo MD Work Phone: [facility] 11-11-2014 pneumococcal polysaccharide vaccine, 23 valent Reyes Saucedo MD Work Phone: [facility] 11-11-2014 pneumococcal vaccine , unspecified formulation Reyes Saucedo MD Work Phone: [facility] 04-23-2014 influenza nasal, unspecified formulation Reyes Saucedo MD Work Phone: [facility] 03-27-2013 influenza nasal, unspecified formulation Reyes Saucedo MD Work Phone: [facility] 05-17-2012 influenza nasal, unspecified formulation Reyes Saucedo MD Work Phone: [facility] 04-27-2011 influenza nasal, unspecified formulation Reyes Saucedo MD Work Phone: [facility] 04-29-2010 influenza nasal, unspecified formulation Reyes Saucedo MD Work Phone: [facility] 04-28-2009 influenza nasal, unspecified formulation Reyes Saucedo MD Work Phone: [facility] 05-08-2008 influenza nasal, unspecified formulation Reyes Saucedo MD Work Phone: [facility] 02-12-2008 TD(adult) unspecifie d formulation Reyes Saucedo MD Work Phone: [facility] 02-12-2008 tetanus toxoid, unspecified formulation Reyes Saucedo MD Work Phone: [facility] 08-05-2003 influenza virus vaccine, whole virus Reyes Saucedo MD Work Phone: [facility] 05-23-2001 influenza nasal, unspecified formulation Reyes Saucedo MD Work Phone: [facility] Payers Date Payer Category Payer Medicare [id number] 2024 Self-pay [id number] 2019 Private Health Insurance [employer] [id number] 2019 Unknown [employer] 2N D [id number] 2019-Present [phone] [address] [address] [place] [phone] Indemnity [id number] 2019 Unknown [id number] 2017 Medicare [id number] 2017 Medicare [id number] 2009 Unknown [id number] Unknown [id number] Unknown [id number] [id number] .2.462 Unknown [id number] [id number] .2.462 Unknown [id number] 2.0.1.847965.3.579 .2.462 Unknown [id number] 2.0.1.370436.3.579 .2.462 Unknown [id number] 2.840.1.407166.3.579 .2.462 Unknown [id number] 2.0.1.637408.3.579 .2.462 Unknown [id number] 2.16.840.1.264114.3.579 .2.462 Unknown [id number] 2.16.840.1.012331.3.579 .2.462 Unknown [id number] 2.16.840.1.358530.3.579 .2.462 Unknown [id number] 2.16840.1.488527.3.579 .2.462 Unknown [id number] 2.16840.1.161148.3.579 .2.462 Unknown [id number] 2.840.1.976393.3.579 .2.462 Unknown [id number] 2.840.1.364404.3.579 .2.462 Unknown [id number] 2.840.1.098426.3.579 .2.462 Unknown [id number] 2.840.1.513376.3.579 .2.462 Unknown [id number] 2.840.1.357898.3.579 .2.462 Unknown [id number] 2.840.1.892954.3.579 .2.462 Unknown [id number] 2.840.1.053722.3.579 .2.462 Unknown [id number] 2.840.1.393455.3.579 .2.462 Unknown [id number] Unknown [id number] Unknown [id number] Unknown [id number] Social History Date Type Detail Facility Start: 05-03-2012 Tobacco smoking stat [facility] Never smoked tobacco [facility] Work Phone: Start: 04-15-2013 End: 01-26-2025 Alcohol intake Current drinker of alcohol (finding) [facility] Start: 05-03-2012 History SDOH Alcohol Comment whenever [facility] Start: 1950 Sex Assigned At Not on file [facility] Start: 04-19-2022 End: 01-20-2025 Tobacco smoking status NHIS Ex-smoker [facility] History of tobacco use Current smoker [facility] History of tobacco use Cigarette Smoker [facility] Start: 04-19-2022 End: 04-16-2023 Cigarettes smoked current (pack per day) - Reported 1 [facility] Start: 04-19-2022 End: 01-05-2025 Tobacco use and exposure Smokeless tobacco non-user [facility] Start: 04-19-2022 End: 10-11-2022 History SDOH Alcohol Frequency 5 [facility] Start: 04-19-2022 End: 10-11-2022 History SDOH Alcohol Std Drinks 1 [facility] Start: 04-19-2022 End: 10-11-2022 History SDOH Social Connections Get Together 2 [facility] Start: 04-19-2022 End: 10-11-2022 History SDOH Social Connections Living 3 [facility] Start: 04-19-2022 End: 10-11-2022 History SDOH Physical Activity DPW 0 [facility] Start: 04-19-2022 Education 13 [facility] Start: 04-09-2022 End: 04-19-2022 Exposure to SARS-CoV-2 (event) Not sure [facility] Start: 08-13-2019 End: 11-04-2023 Tobacco smoking status SCIS Unknown if ever smoked [facility] Start: 06-04-2019 Non-smoker [facility] Start: 1950 Sex Assigned At Male W [facility] Start: 10-11-2022 History SDOH Alcohol Frequency 4 [facility] Start: 10-11-2022 Alcohol Comment occasional [facility] Start: 10-11-2022 End: 04-16-2023 Social connection and isolation panel [facility] Do you belong to any clubs or organizations such as taoism groups, unions, fraternal or athletic groups, or school groups? Yes [facility] Are you now , , , , never or living with a partner? [facility] How often to you hav e a drink containing alcohol? 2-3 time sa week [facility] How many standard dr inks containing alcohol do you have on a typical day? Patient does not drink [facility] How often do you hav e 6 or more drinks on 1 occasion? Never [facility] Do you feel stress - tense, restless, nervous, or anxious, or unable to sleep at night because your mind is troubled all the time - these days [OSQ] Not at all [facility] (I/We) worried bobby er (my/our) food would run out before (I/we) got money to buy more. Never true [facility] In the past 12 month s, was there a time when you were not able to pay the mortgage or rent on time? No [facility] Start: 08-15-2022 Gender identity Identifies as male gender (finding) [facility] How many standard dr inks containing alcohol do you have on a typical day? 1 or 2 [facility] How often do you hav e 6 or more drinks on 1 occasion? Monthly [facility] History of tobacco use Cigar Smoker [facility] Start: 12-31-2023 Tobacco Comment Quits smoking cigarettes in 1999. Was smoking stacey sweets since then. [facility] Start: 11-03-2024 Sex Male (finding) [facility] Start: 12-22-2024 Tobacco smoking stat us NHIS Current Light tobacco smoker [facility] NEGATED: Highlighted rowStart: FREEMANF History of tobacco use Passive smoker [facility] Medical Equipment Procedure Code Equipment Code Equipment Origin al Text Equipment Identifier Dates ANCELMO WILKINSON FDA Start: 06-06-2019 MESH,3DMAX RIGHT LG [id number] FDA Start: 06-06-2019 MESH,VENTLEX ST MED 6.4CM FDA Start: 06-06-2019 TACKER,SECURE STRAP FDA Start : 06-06-2019 ANCELMO WILKINSON FDA Start: 06-06-2019 MESH,3DMAX RIGHT LG [id number] FDA Start: 06-06-2019 MESH,VENTLEX ST MED 6.4CM FDA Start: 06-06-2019 TACKER,SECURE STRAP FDA Start : 06-06-2019 ANCELMO WILKINSON FDA Start: 06-06-2019 MESH,3DMAX RIGHT LG [id number] FDA Start: 06-06-2019 MESH,VENTLEX ST MED 6.4CM FDA Start: 06-06-2019 TACKER,SECURE STRAP FDA Start : 06-06-2019 ANCELMO WILKINSON FDA Start: 06-06-2019 MESH,3DMAX RIGHT LG [id number] FDA Start: 06-06-2019 MESH,VENTLEX ST MED 6.4CM FDA Start: 06-06-2019 TACKER,SECURE STRAP FDA Start : 06-06-2019 ANCELMO WILKINSON FDA Start: 06-06-2019 MESH,3DMAX RIGHT LG [id number] FDA Start: 06-06-2019 MESH,VENTLEX ST MED 6.4CM FDA Start: 06-06-2019 TACKER,SECURE STRAP FDA Start : 06-06-2019 ANCELMO WILKINSON FDA Start: 06-06-2019 MESH,3DMAX RIGHT LG [id number] FDA Start: 06-06-2019 MESH,VENTLEX ST MED 6.4CM FDA Start: 06-06-2019 TACKER,SECURE STRAP FDA Start : 06-06-2019 ANCELMO WILKINSON FDA Start: 06-06-2019 MESH,3DMAX RIGHT LG [id number] FDA Start: 06-06-2019 MESH,VENTLEX ST MED 6.4CM FDA Start: 06-06-2019 TACKER,SECURE STRAP FDA Start : 06-06-2019 ANCELMO WILKINSON FDA Start: 06-06-2019 MESH,3DMAX RIGHT LG [id number] FDA Start: 06-06-2019 MESH,VENTLEX ST MED 6.4CM FDA Start: 06-06-2019 TACKER,SECURE STRAP FDA Start : 06-06-2019 ANCELMO WILKINSON FDA Start: 06-06-2019 MESH,3DMAX RIGHT LG [id number] FDA Start: 06-06-2019 MESH,VENTLEX ST MED 6.4CM FDA Start: 06-06-2019 TACKER,SECURE STRAP FDA Start : 06-06-2019 ANCELMO WILKINSON FDA Start: 06-06-2019 MESH,3DMAX RIGHT LG [id number] FDA Start: 06-06-2019 MESH,VENTLEX ST MED 6.4CM FDA Start: 06-06-2019 TACKER,SECURE STRAP FDA Start : 06-06-2019 ANCELMO WILKINSON FDA Start: 06-06-2019 MESH,3DMAX RIGHT LG [id number] FDA Start: 06-06-2019 MESH,VENTLEX ST MED 6.4CM FDA Start: 06-06-2019 TACKER,SECURE STRAP FDA Start : 06-06-2019 ANCELMO WILKINSON WEPATO FDA Start: 06-06-2019 MESH,3DMAX RIGHT LG [id number] FDA Start: 06-06-2019 MESH,VENTLEX ST MED 6.4CM FDA Start: 06-06-2019 TACKER,SECURE STRAP FDA Start : 06-06-2019 Functional Status Date Assessment Result Facility 01-05-2025 Total score [AUDIT-C] 3 01/06/20 9:28 AM EDT Nat Ojeda LPN [facility] Mental Status Date Assessment Result Facility 11-04-2023 Cognitive function Level Of Cons ciousness Awake;Alert;Appropriate;Follow s Commands [facility] Work Phone: Clinical Notes 03-08-2022 to 01-26-2025 Reyes Saucedo MD - 01/26/2025 1:37 PM Nat Koroma LPN - 01/26/2025 11:31 AM EDTPatient Reyes Weir MD - 01/05/2025 10:20 AM EDT Note Date & Type Note Facility 01-26-2025 Note HNO ID: [id number] Author: REYES SAUCEDO MD Service: ? Author Type: Physician Type: Progress Notes Filed: 01/26/2025 13:38 Note Text: Subjective Torsten Pradhan is a 74-year-old male with a history of neuropathy, presenting for evaluation of neuropathic pain. Neuropathic Pain: - Chronic neuropathic pain, managed with gabapentin 1500 mg daily for 20-25 years. - Reports current gabapentin regimen is ineffective. - Tried lidoderm cream, Biofreeze, and peppermint oil with minimal relief. - Previously trialed duloxetine for 5 days, but discontinued due to adverse effects including insomnia and elevated blood pressure. - Denies history of rash or blisters. - Scheduled for lower back surgery next Sunday. Review of Systems GENERAL: No weight loss, malaise, or fever. HEENT: Negative for frequent or significant headaches, no changes in vision or hearing, no epistaxis or other nasal problems. NECK: Negative for lumps, goiter, pain, and significant neck swelling. RESPIRATORY: Negative for cough, dyspnea, or shortness of breath. CARDIOVASCULAR: Negative for chest pain, leg swelling, congestive heart failure, or palpitations. GI: No nausea, vomiting, diarrhea, heartburn, abdominal pain, hematochezia, or melena. GENITOURINARY: No history of dysuria, frequency, or incontinence. MUSCULOSKELETAL: Positive for chronic back pain; negative for joint pain, joint swelling, or myalgia. SKIN: Negative for lesions, rash, and itching; positive for lump in the right inner thigh. PSYCH: Negative for anxiety or depression. HEMATOLOGY/LYMPHOLOGY: No bleeding concerns. NEURO: Positive for neuropathic pain; negative for headaches, syncope, paralysis, seizures, or tremors. ENDOCRINE: No history of polydipsia, increased thirst, or other endocrine symptoms. PAST SURGICAL HISTORY Procedure Laterality Date COLONOSCOPY FLX DX W/COLLJ SPEC WHEN PFRMD 10/05/2003 Colonoscopy [facility] outpt HEMORRHOID;BAND LIGAT, SNGL/MUL INGUINAL HERNIA REPAIR HX TONSILLECTOMY AND ADENOIDECTOMY PAST MEDICAL HISTORY Diagnosis Date B12 deficiency Dust allergy Gout HTN (hypertension) HTN (hypertension) Hypercholesteremia Hypercholesterolemia Hypertriglyceridemia Neuropathy History reviewed. No pertinent family history. Social History Tobacco Use Smoking status: Former Current packs/day: 1.00 Average packs/day: 1 pack/day for 30.0 years (30.0 ttl pk-yrs) Types: Cigarettes, Cigars Passive exposure: Never Smokeless tobacco: Never Tobacco comments: Quits smoking cigarettes in 1999. Was smoking stacey sweets since then. Vaping Use Vaping status: Never Used Substance Use Topics Alcohol use: Yes Comment: occasional Drug use: No ALLERGIES Allergen Reactions Augmentin [Amoxicil* Swelling Other reaction(s): SWELLING-THROAT, SWELLING (NON-SPECIFIC) Potassium Clavulana* Angioedema Can take Amoxicillin, but Augmentin caused swelling of the tongue Pravastatin Unknown Simvastatin Unknown MEDICATIONS: isosorbide mononitrate ER (IMDUR) 30 mg 24 hr tablet 30 mg. HYDROcodone-Acetaminophen (NORCO) 7.5-325 mg per tablet TAKE 1 TABLET BY MOUTH 1 TO 2 TIMES A DAY NEEDED FOR PAIN ALPRAZolam (XANAX) 0.5 mg tablet Take 1 tablet by mouth daily at bedtime for 90 days. amoxicillin (AMOXIL) 500 mg capsule take 4 capsules by mouth 1 hour prior to dental appointment amLODIPine (NORVASC) 5 mg tablet Take 1 tablet by mouth once daily. SUTAB 1.479-0.188- 0.225 gram tab TAKE TABLETS BY MOUTH A SPLIT DOSEAGE DIRECTED oxyCODONE-acetaminophen (PERCOCET) 7.5-325 mg tablet Take 1 tablet by mouth two times a day as needed. traZODone (DESYREL) 50 mg tablet take 1 tablet by mouth once daily at bedtime lisinopril (ZESTRIL) 40 mg tablet Take 1 tablet by mouth once daily. omeprazole (PRILOSEC) 20 mg capsule Take 20 mg by mouth once daily. mecobalamin (B12 ACTIVE ORAL) Take by mouth. Coenzyme Q10 (CO Q-10) 200 mg cap Take by mouth once daily. tamsulosin (FLOMAX) 0.4 mg Take 0.4 mg by mouth once daily. atorvastatin (LIPITOR) 20 mg tablet Take 20 mg by mouth once daily. pregabalin (LYRICA) 75 mg capsule Take 1 capsule by mouth three times a day for 90 days. Allergies, past surgical history, family history and past medical history were reviewed per this encounter. Medications were reviewed and verified. 12/29/2024 01/26/2025 INTAKE PAIN ASSESSMENT Are you having pain associated with your visit today? Yes, Provider notified Yes, Provider notified Pain Level 9 8 Pain Location Back Chest Description Burning;Sharp;Stabbing Duration Units Years Years Frequency Continuous Continuous If pain assessment is 0, no action needed. If pain assessment is positive, please see assessment and plain. Objective BP 128/82 (BP Site: Left Arm, BP Position: Sitting, BP Cuff Size: Regular Adult) Pulse 62 Temp 36.3 ?C (97.3 ?F) (Temporal) Resp 18 Ht 188 cm (6' 2) Wt 101.6 kg (224 lb) (more content not included)... [facility] 01-26-2025 History of Present illness Narrative Subjective Torsten Pradhan is a 74-year-old male with a history of neuropathy, presenting for evaluation of neuropathic pain. Neuropathic Pain: - Chronic neuropathic pain, managed with gabapentin 1500 mg daily for 20-25 years. - Reports current gabapentin regimen is ineffective. - Tried lidoderm cream, Biofreeze, and peppermint oil with minimal relief. - Previously trialed duloxetine for 5 days, but discontinued due to adverse effects including insomnia and elevated blood pressure. - Denies history of rash or blisters. - Scheduled for lower back surgery next Sunday. Review of Systems GENERAL: No weight loss, malaise, or fever. HEENT: Negative for frequent or significant headaches, no changes in vision or hearing, no epistaxis or other nasal problems. NECK: Negative for lumps, goiter, pain, and significant neck swelling. RESPIRATORY: Negative for cough, dyspnea, or shortness of breath. CARDIOVASCULAR: Negative for chest pain, leg swelling, congestive heart failure, or palpitations. GI: No nausea, vomiting, diarrhea, heartburn, abdominal pain, hematochezia, or melena. GENITOURINARY: No history of dysuria, frequency, or incontinence. MUSCULOSKELETAL: Positive for chronic back pain; negative for joint pain, joint swelling, or myalgia. SKIN: Negative for lesions, rash, and itching; positive for lump in the right inner thigh. PSYCH: Negative for anxiety or depression. HEMATOLOGY/LYMPHOLOGY: No bleeding concerns. NEURO: Positive for neuropathic pain; negative for headaches, syncope, paralysis, seizures, or tremors. ENDOCRINE: No history of polydipsia, increased thirst, or other endocrine symptoms. PAST SURGICAL HISTORY Procedure Laterality Date COLONOSCOPY FLX DX W/COLLJ SPEC WHEN PFRMD 10/05/2003 Colonoscopy [facility] outpt HEMORRHOID;BAND LIGAT, SNGL/MUL INGUINAL HERNIA REPAIR HX TONSILLECTOMY & ADENOIDECTOMY <AGE 14 PAST MEDICAL HISTORY Diagnosis Date B12 deficiency Dust allergy Gout HTN (hypertension) HTN (hypertension) Hypercholesteremia Hypercholesterolemia Hypertriglyceridemia Neuropathy History reviewed. No pertinent family history. Social History Tobacco Use Smoking status: Former Current packs/day: 1.00 Average packs/day: 1 pack/day for 30.0 years (30.0 ttl pk-yrs) Types: Cigarettes, Cigars Passive exposure: Never Smokeless tobacco: Never Tobacco comments: Quits smoking cigarettes in 1999. Was smoking stacey sweets since then. Vaping Use Vaping status: Never Used Substance Use Topics Alcohol use: Yes Comment: occasional Drug use: No ALLERGIES Allergen Reactions Augmentin [Amoxicil* Swelling Other reaction(s): SWELLING-THROAT, SWELLING (NON-SPECIFIC) Potassium Clavulana* Angioedema Can take Amoxicillin, but Augmentin caused swelling of the tongue Pravastatin Unknown Simvastatin Unknown MEDICATIONS: isosorbide mononitrate ER (IMDUR) 30 mg 24 hr tablet 30 mg. HYDROcodone-Acetaminophen (NORCO) 7.5-325 mg per tablet TAKE 1 TABLET BY MOUTH 1 TO 2 TIMES A DAY NEEDED FOR PAIN ALPRAZolam (XANAX) 0.5 mg tablet Take 1 tablet by mouth daily at bedtime for 90 days. amoxicillin (AMOXIL) 500 mg capsule take 4 capsules by mouth 1 hour prior to dental appointment amLODIPine (NORVASC) 5 mg tablet Take 1 tablet by mouth once daily. SUTAB 1.479-0.188- 0.225 gram tab TAKE TABLETS BY MOUTH A SPLIT DOSEAGE DIRECTED oxyCODONE-acetaminophen (PERCOCET) 7.5-325 mg tablet Take 1 tablet by mouth two times a day as needed. traZODone (DESYREL) 50 mg tablet take 1 tablet by mouth once daily at bedtime lisinopril (ZESTRIL) 40 mg tablet Take 1 tablet by mouth once daily. omeprazole (PRILOSEC) 20 mg capsule Take 20 mg by mouth once daily. mecobalamin (B12 ACTIVE ORAL) Take by mouth. Coenzyme Q10 (CO Q-10) 200 mg cap Take by mouth once daily. tamsulosin (FLOMAX) 0.4 mg Take 0.4 mg by mouth once daily. atorvastatin (LIPITOR) 20 mg tablet Take 20 mg by mouth once daily. pregabalin (LYRICA) 75 mg capsule Take 1 capsule by mouth three times a day for 90 days. Allergies, past surgical history, family history and past medical history were reviewed per this encounter. Medications were reviewed and verified. 12/29/2024 01/26/2025 INTAKE PAIN ASSESSMENT Are you having pain associated with your visit today? Yes, Provider notified Yes, Provider notified Pain Level 9 8 Pain Location Back Chest Description Burning;Sharp;Stabbing Duration Units Years Years Frequency Continuous Continuous If pain assessment is 0, no action needed. If pain assessment is positive, please see assessment and plain. Objective BP 128/82 (BP Site: Left Arm, BP Position: Sitting, BP Cuff Size: Regular Adult) Pulse 62 Temp 36.3 C (97.3 F) (Temporal) Resp 18 Ht 188 cm (6' 2) Wt 101.6 kg (224 lb) SpO2 95% BMI 28.76 kg/m Physical Exam GENERAL: NAD, alert and oriented. SKIN: Unremarkable, no rash or skin lesions. HEAD: Normocephalic. EYES: PERRLA, EOMI, conjunctiva clear. EARS: External ears normal, canals clear, TM's normal. NOSE/SINUSES: Nares normal. Septum midline. OROPHARYNX: Lips, mucosa, and tongue normal, good dentition. No oral lesions noted. NECK: Supple, no lymphadenopathy, normal thyroid, no carotid bruits. LUNGS: Clear to auscultation bilaterally, no wheezes/rhonchi/rales. HEART: Regular rate and rhythm, no murmurs. No ectopy. EXTREMITIES: Normal, no deformities, no skin discoloration, no edema. NEURO: Awake, alert and oriented x3, cranial nerves II-XII grossly intact, normal gait, no involuntary motions. Procedures Assessment and Plan 1. Post herpetic neuralgia (B02.29) - Discontinued gabapentin 1500 mg daily due to inadequate pain control. - Initiated Lyrica, one capsule TID. Advised patient to start with BID dosing and increase to TID if necessary. - Educated patient on potential side effects of Lyrica, including sedation and euphoria. Advised caution with alcohol consumption as it may potentiate these effects. - Discussed differential diagnosis of postherpetic neuralgia versus neuropathy; no history of rash or blisters noted. - Patient to monitor response to Lyrica over the next few weeks; follow-up if inadequate pain relief. Reyes Saucedo MD 01/26/2025 Recording using ambient [employer] software for draft documentation of the visit was discussed with the patient/authorized sales representative [employer]; all questions welcomed and answered. Patient/authorized sales representative [employer] agreed to proceed Patient is in office for follow up for shingles. Patient was last seen in office on 01-05-2025 Patient was advised: Herpes zoster with complication B02.8 Recent exacerbation. Increase gabapentin to 600 mg in the morning and evening to treat increased nerve pain from shingles. Patient states pain continues to increase. Gabapentin is not effective Nat Ojeda LPN January 26, 2025 11:38 AM documented in this encounter [facility] 01-26-2025 Note HNO ID: [id number] Author: NAT OJEDA LPN Service: ? Author Type: LICENSED NURSE Type: Progress Notes Filed: 01/26/2025 13:38 Note Text: Patient is in office for follow up for shingles. Patient was last seen in office on 01-05-2025 Patient was advised: Herpes zoster with complication B02.8 Recent exacerbation. Increase gabapentin to 600 mg in the morning and evening to treat increased nerve pain from shingles. Patient states pain continues to increase. Gabapentin is not effective Nat Ojeda LPN January 26, 2025 11:38 AM [facility] 01-05-2025 Instructions Reyes Saucedo MD - 01/05/2025 10:23 AM EDT Screening schedule The following prevention plan is recommended: Abdominal Aortic Aneurysm Screening Never done Hepatitis C Screening Never done RSV Vaccine(1 - Risk 60-74 years 1-dose series) Never done Covid-19 Vaccine( season) due on 03/16/2024 Medicare Annual Wellness Visit due on 10/16/2024 WHAT YOU CAN DO TO PREVENT FALLS Many falls can be prevented. By making some changes, you can lower your chances of falling. Four things YOU can do to prevent falls for you* and your caregiver 1. Begin a regular exercise program Exercise is one of the most important ways to lower your chances of falling. It makes you stronger and helps you feel better. Exercises that improve balance and coordination (like Fabien Chi) are the most helpful. Lack of exercise leads to weakness and increases your chances of falling. Ask your doctor or health care provider about the best type of exercise program for you. 2. Have your health care provider review your medicines Have your doctor or pharmacist review all the medicines you take, even [id number] medicines. As you get older, the way medicines work in your body can change. Some medicines, or combinations of medicines, can make you sleepy or dizzy and can cause you to fall. 3. Have your vision checked Have your eyes checked by an eye doctor at least once a year. You may be wearing the wrong glasses or have a condition like glaucoma or cataracts that limits your vision. Poor vision can increase your chances of falling. 4. Make your home safer About half of all falls happen at home. To make your home safer: Remove things you can trip over (like papers, books, clothes, and shoes) from stairs and places where you walk. Remove small throw rugs or use double-sided tape to keep the rugs from slipping. Keep items you use often in cabinets you can reach easily without using a step stool. Have grab bars put in next to your toilet and in the tub or shower. Use non-slip mats in the bathtub and on shower floors. Improve the lighting in your home. As you get older, you need brighter lights to see well. Hang light-weight curtains or shades to reduce glare. Have handrails and lights put in on all staircases. Wear shoes both inside and outside the house. Avoid going barefoot or wearing slippers. For more information, contact: Centers for Disease Control and Prevention www.cdc.gov/injury * This information may not apply if you have certain medical conditions. documented in this encounter [facility] 01-05-2025 Note HNO ID: [id number] Author: REYES SAUCEDO MD Service: ? Author Type: Physician Type: Progress Notes Filed: 01/05/2025 10:23 Note Text: Subjective Valeria Pradhan is a 74 year old male. Torsten presents today for his Medicare wellness visit. Additionally follows up for multiple medical problems. See list. His chronic medical problems been stable. His blood pressures been under good control on current medication. Cholesterol is well-controlled on Lipitor. Breathing has been stable. He has had increased pain in his right side around his rib cage from recent shingles exacerbation. He has been taking Percocet without much relief. He is also on gabapentin 300 mg 3 times a day. Review of Systems Constitutional: Negative. HENT: Negative. Eyes: Negative. Respiratory: Negative. Cardiovascular: Negative. Gastrointestinal: Negative. Endocrine: Negative. Genitourinary: Negative. Musculoskeletal: Negative. Skin: Negative. Allergic/Immunologic: Negative. Neurological: Negative. Hematological: Negative. Psychiatric/Behavioral: Negative. PAST SURGICAL HISTORY Procedure Laterality Date COLONOSCOPY FLX DX W/COLLJ SPEC WHEN PFRMD 10/05/2003 Colonoscopy [facility] outpt HEMORRHOID;BAND LIGAT, SNGL/MUL INGUINAL HERNIA REPAIR HX TONSILLECTOMY AND ADENOIDECTOMY PAST MEDICAL HISTORY Diagnosis Date B12 deficiency Dust allergy Gout HTN (hypertension) HTN (hypertension) Hypercholesteremia Hypercholesterolemia Hypertriglyceridemia Neuropathy History reviewed. No pertinent family history. Social History Tobacco Use Smoking status: Former Current packs/day: 1.00 Average packs/day: 1 pack/day for 30.0 years (30.0 ttl pk-yrs) Types: Cigarettes, Cigars Passive exposure: Never Smokeless tobacco: Never Tobacco comments: Quits smoking cigarettes in 1999. Was smoking stacey sweets since then. Vaping Use Vaping status: Never Used Substance Use Topics Alcohol use: Yes Comment: occasional Drug use: No ALLERGIES Allergen Reactions Augmentin [Amoxicil* Swelling Other reaction(s): SWELLING-THROAT, SWELLING (NON-SPECIFIC) Potassium Clavulana* Angioedema Can take Amoxicillin, but Augmentin caused swelling of the tongue Pravastatin Unknown Simvastatin Unknown MEDICATIONS: isosorbide mononitrate ER (IMDUR) 30 mg 24 hr tablet 30 mg. HYDROcodone-Acetaminophen (NORCO) 7.5-325 mg per tablet TAKE 1 TABLET BY MOUTH 1 TO 2 TIMES A DAY NEEDED FOR PAIN amoxicillin (AMOXIL) 500 mg capsule take 4 capsules by mouth 1 hour prior to dental appointment amLODIPine (NORVASC) 5 mg tablet Take 1 tablet by mouth once daily. SUTAB 1.479-0.188- 0.225 gram tab TAKE TABLETS BY MOUTH A SPLIT DOSEAGE DIRECTED gabapentin (NEURONTIN) 300 mg capsule Take 300 mg by mouth three times a day. oxyCODONE-acetaminophen (PERCOCET) 7.5-325 mg tablet Take 1 tablet by mouth two times a day as needed. traZODone (DESYREL) 50 mg tablet take 1 tablet by mouth once daily at bedtime lisinopril (ZESTRIL) 40 mg tablet Take 1 tablet by mouth once daily. omeprazole (PRILOSEC) 20 mg capsule Take 20 mg by mouth once daily. mecobalamin (B12 ACTIVE ORAL) Take by mouth. Coenzyme Q10 (CO Q-10) 200 mg cap Take by mouth once daily. tamsulosin (FLOMAX) 0.4 mg Take 0.4 mg by mouth once daily. atorvastatin (LIPITOR) 20 mg tablet Take 20 mg by mouth once daily. ALPRAZolam (XANAX) 0.5 mg tablet Take 1 tablet by mouth daily at bedtime for 90 days. Allergies, past surgical history, family history and past medical history were reviewed per this encounter. Medications were reviewed and verified. 09/17/2024 12/29/2024 INTAKE PAIN ASSESSMENT Are you having pain associated with your visit today? Yes, Provider notified Yes, Provider notified Pain Level 7 9 Pain Location Back Description Aching;Radiating;Sharp;Stabbing Duration Units Months Years Frequency Continuous Continuous Intervention/Comfort measure Medication If pain assessment is 0, no action needed. If pain assessment is positive, please see assessment and plain. Objective BP 130/84 (BP Site: Left Arm, BP Position: Sitting, BP Cuff Size: Regular Adult) Pulse 62 Temp 36.2 ?C (97.1 ?F) (Temporal) Resp 18 Ht 188 cm (6' 2) Wt 101.6 kg (224 lb) SpO2 98% BMI 28.76 kg/m? Physical Exam Vitals reviewed. Constitutional: Appearance: Normal appearance. HENT: Head: Normocephalic and atraumatic. Nose: Nose normal. Eyes: Extraocular Movements: Extraocular movements intact. Pupils: Pupils are equal, round, and reactive to light. Cardiovascular: Rate and Rhythm: Normal rate and regular rhythm. Pulmonary: Effort: Pulmonary effort is normal. Breath sounds: Normal breath sounds. Abdominal: General: Bowel sounds are normal. Palpations: Abdomen is soft. Musculoskeletal: General: Normal range of motion. Cervical back: Normal range of motion and neck supple. Skin: General: Skin is warm and dry. Capillary R (more content not included)... [facility] 01-05-2025 History of Present illness Narrative Images from the original note were not included. Subjective Valeria Pradhan is a 74 year old male. Torsten presents today for his Medicare wellness visit. Additionally follows up for multiple medical problems. See list. His chronic medical problems been stable. His blood pressures been under good control on current medication. Cholesterol is well-controlled on Lipitor. Breathing has been stable. He has had increased pain in his right side around his rib cage from recent shingles exacerbation. He has been taking Percocet without much relief. He is also on gabapentin 300 mg 3 times a day. Review of Systems Constitutional: Negative. HENT: Negative. Eyes: Negative. Respiratory: Negative. Cardiovascular: Negative. Gastrointestinal: Negative. Endocrine: Negative. Genitourinary: Negative. Musculoskeletal: Negative. Skin: Negative. Allergic/Immunologic: Negative. Neurological: Negative. Hematological: Negative. Psychiatric/Behavioral: Negative. PAST SURGICAL HISTORY Procedure Laterality Date COLONOSCOPY FLX DX W/COLLJ SPEC WHEN PFRMD 10/05/2003 Colonoscopy [facility] outpt HEMORRHOID;BAND LIGAT, SNGL/MUL INGUINAL HERNIA REPAIR HX TONSILLECTOMY & ADENOIDECTOMY <AGE 14 PAST MEDICAL HISTORY Diagnosis Date B12 deficiency Dust allergy Gout HTN (hypertension) HTN (hypertension) Hypercholesteremia Hypercholesterolemia Hypertriglyceridemia Neuropathy History reviewed. No pertinent family history. Social History Tobacco Use Smoking status: Former Current packs/day: 1.00 Average packs/day: 1 pack/day for 30.0 years (30.0 ttl pk-yrs) Types: Cigarettes, Cigars Passive exposure: Never Smokeless tobacco: Never Tobacco comments: Quits smoking cigarettes in 1999. Was smoking stacey sweets since then. Vaping Use Vaping status: Never Used Substance Use Topics Alcohol use: Yes Comment: occasional Drug use: No ALLERGIES Allergen Reactions Augmentin [Amoxicil* Swelling Other reaction(s): SWELLING-THROAT, SWELLING (NON-SPECIFIC) Potassium Clavulana* Angioedema Can take Amoxicillin, but Augmentin caused swelling of the tongue Pravastatin Unknown Simvastatin Unknown MEDICATIONS: isosorbide mononitrate ER (IMDUR) 30 mg 24 hr tablet 30 mg. HYDROcodone-Acetaminophen (NORCO) 7.5-325 mg per tablet TAKE 1 TABLET BY MOUTH 1 TO 2 TIMES A DAY NEEDED FOR PAIN amoxicillin (AMOXIL) 500 mg capsule take 4 capsules by mouth 1 hour prior to dental appointment amLODIPine (NORVASC) 5 mg tablet Take 1 tablet by mouth once daily. SUTAB 1.479-0.188- 0.225 gram tab TAKE TABLETS BY MOUTH A SPLIT DOSEAGE DIRECTED gabapentin (NEURONTIN) 300 mg capsule Take 300 mg by mouth three times a day. oxyCODONE-acetaminophen (PERCOCET) 7.5-325 mg tablet Take 1 tablet by mouth two times a day as needed. traZODone (DESYREL) 50 mg tablet take 1 tablet by mouth once daily at bedtime lisinopril (ZESTRIL) 40 mg tablet Take 1 tablet by mouth once daily. omeprazole (PRILOSEC) 20 mg capsule Take 20 mg by mouth once daily. mecobalamin (B12 ACTIVE ORAL) Take by mouth. Coenzyme Q10 (CO Q-10) 200 mg cap Take by mouth once daily. tamsulosin (FLOMAX) 0.4 mg Take 0.4 mg by mouth once daily. atorvastatin (LIPITOR) 20 mg tablet Take 20 mg by mouth once daily. ALPRAZolam (XANAX) 0.5 mg tablet Take 1 tablet by mouth daily at bedtime for 90 days. Allergies, past surgical history, family history and past medical history were reviewed per this encounter. Medications were reviewed and verified. 09/17/2024 12/29/2024 INTAKE PAIN ASSESSMENT Are you having pain associated with your visit today? Yes, Provider notified Yes, Provider notified Pain Level 7 9 Pain Location Back Description Aching;Radiating;Sharp;Stabbing Duration Units Months Years Frequency Continuous Continuous Intervention/Comfort measure Medication If pain assessment is 0, no action needed. If pain assessment is positive, please see assessment and plain. Objective BP 130/84 (BP Site: Left Arm, BP Position: Sitting, BP Cuff Size: Regular Adult) Pulse 62 Temp 36.2 C (97.1 F) (Temporal) Resp 18 Ht 188 cm (6' 2) Wt 101.6 kg (224 lb) SpO2 98% BMI 28.76 kg/m Physical Exam Vitals reviewed. Constitutional: Appearance: Normal appearance. HENT: Head: Normocephalic and atraumatic. Nose: Nose normal. Eyes: Extraocular Movements: Extraocular movements intact. Pupils: Pupils are equal, round, and reactive to light. Cardiovascular: Rate and Rhythm: Normal rate and regular rhythm. Pulmonary: Effort: Pulmonary effort is normal. Breath sounds: Normal breath sounds. Abdominal: General: Bowel sounds are normal. Palpations: Abdomen is soft. Musculoskeletal: General: Normal range of motion. Cervical back: Normal range of motion and neck supple. Skin: General: Skin is warm and dry. Capillary Refill: Capillary refill takes less than 2 seconds. Neurological: General: No focal deficit present. Mental Status: He is alert and oriented to person, place, and time. Mental status is at baseline. Psychiatric: Mood and Affect: Mood normal. Behavior: Behavior normal. Procedures Assessment and Plan Encounter Diagnosis ICD-10-CM 1. Wellness examination Z00.00 2. Screening for depression Z13.31 DEPRESSION SCREENING 3. Encounter for counseling regarding advance directives Z71.89 ADVANCE CARE PLAN DISCUSSION 4. Anxiety F41.9 ALPRAZolam (XANAX) 0.5 mg tablet Improved and stable on current medication. 5. Hypertension, essential I10 Blood pressure well-controlled. Continue present medications. Monitor blood pressure regularly 6. Hypercholesterolemia E78.00 Stable. Continue Lipitor 7. Chronic obstructive pulmonary disease, unspecified COPD type (HCC) J44.9 Stable on current medication 8. 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 Herpes zoster with complication B02.8 Recent exacerbation. Increase gabapentin to 600 mg in the morning and evening to treat increased nerve pain from shingles. All open preventative health maintenance topics discussed with patient in detail. This includes risks and benefits regarding vaccines, cancer screening, healthy life style, and diet. Continue present medications. Labs reviewed from [place] with the patient.. Monitor blood pressure regularly. Exercise as tolerated. Maintain good diet. Follow-up in 6 months. Medicare Health Risk Assessment General Health Good Exercise: Minutes/Day 40 min Exercise: Days/Week 3 days Alcohol: Daily Use 2-3 times a week Alcohol: Drinks/Day 1 or 2 Alcohol: 6 or more drinks Never Feel off balance No Concerns: Teeth/Dentures No Concerns: Sexual function No Troubled by feelings Stressed Frequency: Eating healthy diet Nearly every day ADLs requiring help None of the above Safety precautions in home/vehicle Yes Smoke, vape, chews tobacco No Difficulty hearing Yes, I wear a hearing aid Difficulty seeing No Current Providers Specialists: I have reviewed specialist-related care of the patient in the medical record. Medical/Family history review Reviewed and updated problem list, medical/surgical/family/social history, medications, and allergies. Opioid use review Opioid Medications (last 90 days) 10/08/2024 00:00 12/16/2024 00:00 01/05/2025 Opioid Medications hydrocodone/acetaminophen No sig TAKE 1 TABLET BY MOUTH 1 TO 2 TIMES A DAY NEEDED FOR PAIN (7.5-325 mg tab) oxycodone HCl/acetaminophen Take 1 tablet by mouth two times a day as needed. Take 1 tablet by mouth two times a day as needed. 1 tablet BID PRN PO (7.5-325 mg tab) Details Patient-reported Prescribed No opioid use on file in the last 90 days Does patient have risk factors for opioid abuse? No Pain overview Pain Level: 9 Pain Location: Back Duration Units: Years Frequency: Continuous Current pain concerns and treatment plan reviewed. Patient under the care of a specialist. Anxiety/Depression screening PHQ-2 Score: 0 (Lower risk for depression) Recommendation: no further intervention at this time Cognitive screening Mini Cog Score: 5 Cognitive screening reviewed and No further action needed (score 3-5). Functional Observation Was the patient's Timed Up & Go test unsteady or >= 12 seconds? No Advance Care Planning Surrogate decision maker documented and/or advance directives scanned in chart Measurements BP 130/84 (BP Site: Left Arm, BP Position: Sitting, BP Cuff Size: Regular Adult) Pulse 62 Temp 36.2 C (97.1 F) (Temporal) Resp 18 Ht 188 cm (6' 2) Wt 101.6 kg (224 lb) SpO2 98% BMI 28.76 kg/m Vision Screening: Follows with optometry/ophthalmology Assessment/Plan Medicare annual wellness visit, subsequent (Z00.00) - Counseled on healthy diet and regular exercise - Fall avoidance information provided - Personalized prevention plan provided [employer] Abdominal Aortic Aneurysm Screening declined Hepatitis C Screening declined RSV Vaccine(1 - Risk 60-74 years 1-dose series) declined Covid-19 Vaccine( season) declined Medicare Annual Wellness Visit - today Patient currently has shingles on right side. Nat Ojeda LPN January 05, 2025 9:35 AM documented in this encounter [facility] 01-05-2025 Note HNO ID: [id number] Author: NAT OJEDA LPN Service: ? Author Type: LICENSED NURSE Type: Progress Notes Filed: 01/05/2025 10:23 Note Text: [employer] Abdominal Aortic Aneurysm Screening declined Hepatitis C Screening declined RSV Vaccine(1 - Risk 60-74 years 1-dose series) declined Covid-19 Vaccine( season) declined Medicare Annual Wellness Visit - today Patient currently has shingles on right side. Nat Ojeda LPN January 05, 2025 9:35 AM [facility] 11-25-2024 Progress note [facility] 11-25-2024 Progress note Note Date/Time November 25, 2024 9:42am [facility] [address] [place], [place] [address] OFFICE VISIT Date of Service: 11/25/24 MR#: [id number] Acct: [id number] Name: VALERIA PRADHAN Rep #: [id number] : 1950 Provider: Dr. Madi Soto MD Age/Sex: 74/M Location: [facility] Status: Signed HPI HPI History of Present Illness Details: This gentleman has had a Lexiscan stress Myoview done. It showed mild anterior and apical ischemia. Echocardiogram showed normal left ventricular systolic function. Stage I diastolic dysfunction was noted. Clinically, patient continues to have floaters in his vision with moderate to strenuous exertion. Denies any chest pains or shortness of breath. Carotid Doppler failed to show any significant disease. 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 Accompanied by: Self Is patient in pain?: Yes (chronic; back; managed by specialist) Allergies amoxicillin trihydrate (From Augmentin) Allergy (Verified 11/25/24 09:20) Angioedema potassium clavulanate (From Augmentin) Allergy (Verified 11/25/24 09:20) Angioedema pravastatin Adverse Reaction (Unknown, Verified 11/25/24 09:20) Unknown simvastatin Adverse Reaction (Unknown, Verified 11/25/24 09:20) Unknown Medications ?Medication ?Instructions ?Recorded ?Confirmed ?Type cyanocobalamin (vitamin B-12) 1,000 mcg PO DAILY SUPPL EMENT 06/04/19 11/25/24 History 1,000 mcg tablet atorvastatin 20 mg tablet 20 mg PO QHS CHOLESTEROL 11/25/24 History amlodipine 5 mg tablet 5 mg PO QDAY BP 08/07/24 History gabapentin 300 mg capsule 300 mg PO TID PAIN 08/07/24 11/25/24 History oxycodone-acetaminophen 7.5 mg-325 1 tab PO BID PRN pa in 08/07/24 11/25/24 History mg tablet trazodone 50 mg tablet 50 mg PO QHS SLEEP 08/07/24 11/25/24 History alprazolam 0.5 mg tablet (Xanax) 0.5 mg PO BID anxiety 10/10/24 11/25/24 History coenzyme Q10 200 mg capsule 200 mg PO QDAY 10/10/24 History lisinopril 40 mg tablet 40 mg PO QDAY 10/10/2411/25 History omeprazole 20 mg capsule,delayed 20 mg PO DAILY GERD 0 10/10/24 11/25/24 History release sodium sul 1.479 gram-potas ch See Rx Instructions PO PER PKG DIR 10/10/24 11/25/24 History 0.188 gram-magnes sul 0.225 gram tablet (Sutab) tamsulosin 0.4 mg capsule 0.4 mg PO QDAY 10/10/2411/13 History Ejection fraction %: 65 Have you fallen in the past year?: No PFSH Medical History Acid reflux Alcohol use Arthritis B12 deficiency Back pain Cardiology follow-up encounter COPD (chronic obstructive pulmonary disease) Easy bruising Former smoker Gastric reflux Gout Hemorrhoids High cholesterol History of echocardiogram History of Holter monitoring History of pain when walking History of stress test Hypercholesterolemia Hypertension Hypertriglyceridemia Injury of back Recurrent inguinal hernia of right side without obstruction or gangrene Symptom of bladder outlet obstruction Umbilical hernia without obstruction or gangrene Wears glasses Wears hearing aid Surgical History History of right and left heart catheterization (01/06/10) Hx of colonoscopy Hx of hemorrhoidectomy Hx of right inguinal hernia repair Hx of tonsillectomy Hx of umbilical hernia repair Family History Father Heart disease Hypertension High cholesterol Mother High cholesterol Hypertension Sister CVA (cerebral vascular accident) Social History Smoking Status: Light Smoker (<10/day) second hand exposure: No alcohol intake: current alcohol intake frequency: holidays/special occasions only substance use type: does not use caffeine: Yes what type of physical activity do you participate in: none frequency: does not exercise ROS Const Const: Positive for fatigue and weakness; Negative for headache(s) or weight gain Eyes Eyes: Positive for blurry vision, change in vision, floaters and other (bright yellow/nevarez spots; resolves in 20mins or so) ENT ENT: Positive for dizziness and balance problems; Negative for headache(s) or Nosebleed/epistaxis Cardio Chest Pain: No Palpitations: Yes (at rest; brief) feels like its: fast Edema: None Muscle aches with walking: None Resp Respiratory: Positive for SOB with activity (with exertion); Negative for SOB at rest or SOB orthopneaundefinedSOB lying down GI GI: Negative nausea, vomiting or heartburn Musc Musc: Positive for muscle aches/ myalgia, joint pain and balance problems; Negative for muscle weakness Neuro Neuro: Positive for dizziness, weakness and blurry vision; Negative for lightheadedness, near syncope, syncope or headache(s) Endo Endo: Positive for fatigue Cardiology Exam Const Appearance: comfortable and no acute distress Nutritional Appearance: well nourished Neck Neck: no JVD Carotids: Negative bruit Chest Auscultation: Bilateral: Clear to Auscultation Cardio Rate: regular rate Rhythm: regular rhythm Heart sounds: S1 normal and S2 normal Neuro General: patient alert, patient awake and patient oriented x3 Extremities Lower Extremity Edema: None: Bilateral Supplemental Info Supplemental Information Echo Complete 11/19/2024 Interpretation Summary Mild concentric left ventricular hypertrophy. The LV systolic function is normal. EF is 65 %. Stage 1 diastolic dysfunction. The left atrium is mildly enlarged. Right ventricular systolic pressure estimated to be 43 mmHg. Mildly thickened and calcified noncoronary cusp of the aortic valve. Echocardiogram 11/01/2009 Interpretation Summary Normal LV size. Mild concentric left ventricular hypertrophy. Left ventricular systolic function is normal. The estimated ejection fraction is 65%. Structurally normal valves. Stress Test 11/19/2024: Impression: 1. Pharmacologic (Regadenoson) evaluation 2. Peak pharmacologic ECG with no ischemic changes. 3. There were no cardiac dysrhythmias pretest, during pharmacologic infusion, or recovery. 5. Anterior and apical reversible perfusion defect suggestive of ischemia. 6. The gated Cardiolite study reports an LVEF of 64%. Stress Test 11/01/2009: Conclusion 1. Normal myocardial perfusion scan. 2. Preserved ejection fraction. Blood Flow Screening 10/02/2022 Interpretation Summary Normal carotid artery screening (0 to 15% narrowing). Normal aortic ultrasound exam. The ankle/brachial index is normal (1.0 or greater). Assessment and Plan Assessment and Plan (1) Abnormal cardiovascular stress test: Status: Acute Plan: Patient having atypical symptoms with floaters in his vision with exertion. Recommend coronary angiography with possible revascularization. Risks benefits and alternatives explained to the patient. He understands these and wishes to proceed. Start enteric-coated aspirin 81 mg daily. Imdur 30 mg daily. Patient counseled to avoid strenuous physical activity while awaiting his procedure. (2) Diastolic dysfunction: Status: Chronic Plan: Stage I diastolic dysfunction without heart failure. Continue to monitor. Riskfactor modification. Optimal blood pressure control. (3) Sick sinus syndrome: Status: Chronic Plan: First-degree AV block noted on ECG. Episodes of bradycardia noted at very earlymorning on event monitoring. Check TSH. Check complete metabolic panel. (4) Hypertension: Status: Chronic Comment: CONTROLLED ON MED Plan: Amlodipine. (5) Dyslipidemia: Status: Chronic Plan: On atorvastatin. Plan Details Follow Up: 4 Weeks Coding Level of Care Code Off vis,est,level 4 Diagnoses Abnormal cardiovascular stress test R94.39 Diastolic dysfunction I51.89 Sick sinus syndrome I49.5 Hypertension I10 Dyslipidemia E78.5 Coding Level of Care Code Off vis,est,level 4 Diagnoses Abnormal cardiovascular stress test R94.39 Diastolic dysfunction I51.89 Sick sinus syndrome I49.5 Hypertension I10 Dyslipidemia E78.5 Clinical Quality Measures Falls Risk Screening/Assistive Devices Have you fallen in the past year?: No Cardiac Ejection fraction %: 65 11/25/24 0942 <Electronically signed by Eileen Soto MD> Date _ Eileen Soto MD Cosigner Signature: Date (if applicable) CC: Dr. Reyes Saucedo MD ~ [facility] Work Phone: [phone]) 316-186605-12-2025 Radiology Diagnostic study note [facility] Imaging Services [address] [place] [address] [id number] Chest PA and Lateral MR#: [id number] Acct: [id number] Name: VALERIA PRADHAN Rep #: [id number] : 1950 M 74 From: Stuart Davison MD PCP: Dr. Reyes Saucedo MD Status: REG CLI Study:Chest PA and Lateral Date of Exam: 11/24/24 Exam# [id number] Ordering Dr: Damaris Singh PA PA PROCEDURE: CHEST PA AND LATERAL 11/24/2024 REASON FOR EXAM: PRE-PROCEDURE DIAGNOSTIC TECHNIQUE: Frontal and lateral views of the chest. COMPARISON: Prior study dated November 04, 2019 4. FINDINGS: Hardware: Electrodes from a spinal cord stimulating device is seen. Heart: The heart size is normal. Mediastinum: The mediastinal contour is unremarkable. Lungs: Stable mild increased markings at the lung bases suggestive of mild basilar scarring. Bones: Degenerative changes are identified within the thoracic spine. RAD/Chest PA and Lateral IMPRESSION: Mild degree of stable linear scarring at the lung bases. Reading Location: [id number] CC: Dr. Reyes Saucedo MD; JOJO Guardado ~ [employer] Specialist: Signed [facility]05-12-2025 [facility] Medical Records Department [address] [place] [address] History Physical Exam 11/24/24 1013 MR#: [id number] Acct: [id number] Name: VALERIA PRADHAN Rep #: [id number] : 1950 74 From: Eileen Soto MD PCP: Dr. 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 He has a past medical history significant for hypertension, dyslipidemia and COPD. He has been having chronic back pain and is being contemplated for spinal fusion. We are asked to evaluate his cardiac risk for the proposed procedure. Patient denies any chest pains either at rest or with exertion. He does have some shortness of breath with exertion. His functional capacity is limited because of his severe lower back pain. Denies orthopnea. No PND. No ankle edema. Per patient, he occasionally sees floaters in front of his eyes. This is mostly after he exerts himself. No syncope or presyncope with these events. Remote history of syncope which according to the patient, happened because of his neck problems. Per patient, he checks his pulse and notices it to be in the 40s on occasions. He has had a 14-day event monitor done. It showed normal sinus rhythm. Low heart rate was noted to be sinus bradycardia at 37 bpm. Few runs of supraventricular rhythm were also noted. Intake Vital Signs See EMR Allergies See EMR Medications See EMR PFSH Medical History Acid reflux Alcohol use Arthritis B12 deficiency Back pain Cardiology follow-up encounter COPD (chronic obstructive pulmonary disease) Easy bruising Former smoker Gastric reflux Gout Hemorrhoids High cholesterol History of echocardiogram History of Holter monitoring History of pain when walking History of stress test Hypercholesterolemia Hypertension Hypertriglyceridemia Injury of back Recurrent inguinal hernia of right side without obstruction or gangrene Symptom of bladder outlet obstruction Umbilical hernia without obstruction or gangrene Wears glasses Wears hearing aid Surgical History History of right and left heart catheterization (01/06/10) Hx of colonoscopy Hx of hemorrhoidectomy Hx of right inguinal hernia repair Hx of tonsillectomy Hx of umbilical hernia repair Family History Father Heart disease Hypertension High cholesterolMother High cholesterol HypertensionSister CVA (cerebral vascular accident) Social History Smoking Status: Light Smoker (<10/day) second hand exposure: No alcohol intake: current alcohol intake frequency: holidays/special occasions only substance use type: does not use caffeine: Yes what type of physical activity do you participate in: none frequency: does not exercise ROS Const Const: Negative for fatigue, weakness, headache(s) or weight gain Eyes Eyes: Positive for blurry vision, change in vision and other (yellow/nevarez spots; exertion worsens) ENT ENT: Positive for balance problems (r/t neuropathy); Negative for headache(s), dizziness or Nosebleed/epistaxis Cardio Chest Pain: No Palpitations: Yes (seconds) feels like its: fast Edema: None Muscle aches with walking: None Additional Details: Low HR- 40s-50s Resp Respiratory: Negative for SOB with activity, SOB at rest or SOB orthopnea SOB lying down GI GI: Negative nausea, vomiting or heartburn Musc Musc: Positive for joint pain (back; surgery pending) and balance problems (r/t neuropathy); Negative for muscle aches/ myalgia or muscle weakness Neuro Neuro: Positive for blurry vision; Negative for dizziness, lightheadedness, near syncope, syncope, headache(s) or weakness Endo Endo: Negative for fatigue Cardiology Exam Const Appearance: comfortable and no acute distress Nutritional Appearance: well nourished Neck Neck: no JVD Carotids: Negative bruit Chest Auscultation: Bilateral: Clear to Auscultation Cardio Rate: regular rate Rhythm: regular rhythm Heart sounds: S1 normal and S2 normal Neuro General: patient alert, patient awake and patient oriented x3 Extremities Lower Extremity Edema: None: Bilateral Supplemental Info Supplemental Information Blood Flow Screening 10/02/2022 Interpretation Summary Normal carotid artery screening (0 to 15% narrowing). Normal aortic ultrasound exam. The ankle/brachial index is normal (1.0 or greater). Echocardiogram 11/01/2009 Interpretation Summary Normal LV size. Mild concentric left ventricular hypertrophy. Left ventricular systolic function is normal. The estimated ejection fraction is 65%. Structurally normal valves. Stress Test 11/01/2009 Conclusion 1. Normal myocardial perfusion scan. 2. Preserved ejection fraction. (more content not included)...[facility]04-08-2025 Telephone encounter Note* Telephone Encounter - Rogelio Fuchs RN - 10/21/2024 11:44 AM EDTSummary: Event monitor Please interpret ZIO event monitor IMPORTANT!!! Please check your EPIC in-basket under the Printing Table Hand folder to interpret the ZIO report. Thank you, Rogelio Fuchs RN [facility]04-08-2025 Miscellaneous Notes* Telephone Encounter - Rogelio Fuchs RN - 10/21/2024 11:44 AM EDTSummary: Event monitor Please interpret ZIO event monitor IMPORTANT!!! Please check your EPIC in-basket under the Printing Table Hand folder to interpret the ZIO report. Thank you, Rogelio Fuchs RN documented [facility] Telephone encounter Note * Telephone Encounter - Nat Ojeda LPN - 10/20/2024 11:09 AM EDT Patient notified of information, verbalized understanding. No questions, comments, or concerns at this time. Nat Ojeda LPN October 20, 2024 11:09 AM [facility]04-07-2025 Telephone encounter Note* Telephone Encounter - Nat Ojeda LPN - 10/20/2024 11:09 AM EDT ----- Message from Reyes Saucedo MD sent at 10/19/2024 1:53 PM EDT ----- Cardiology consult placed previously. Zio patch showed bradycardia into the 30s. Rare SVT. He will need cleared by cardiology for procedure. [facility]04-07-2025 Miscellaneous Notes* Telephone Encounter - Nat Ojeda LPN - 10/20/2024 11:09 AM EDT Patient notified of information, verbalized understanding. No questions, comments, or concerns at this time. Nat Ojeda LPN October 20, 2024 11:09 AM * Telephone Encounter - Nat Ojeda LPN - 10/20/2024 11:09 AM EDT ----- Message from Reyes Saucedo MD sent at 10/19/2024 1:53 PM EDT ----- Cardiology consult placed previously. Zio patch showed bradycardia into the 30s. Rare SVT. He will need cleared by cardiology for procedure. documented in this encounterK[facility] Evaluation note* Diagnosis Onset Date Resolution Status Admit Date Lumbar scoliosis acute October 102024 8:54am Other intervertebral disc degeneration, lumbar region with discogenic back acute October 10, 2024 8:54am Spinal stenosis of lumbar re gion with neurogenic claudication acute Sep 8:54am Preop cardiovascular exam acute October 28, 2024 10:57am Dyslipidemia chronic October 28, 2024 10:57am Hypertension chronic October 28, 2024 10:57am Sick sinus syndrome chronic October 28, 2024 10:57am Abnormal cardiovascular stre ss test acute November 25, 2024 9 :16am Diastolic dysfunction chronic November 25, 2024 9:16am Dyslipidemia chronic November 25 9:16am Hypertension chronic November 25 9:16am Sick sinus syndrome chronic November 13 3t2024 9:16am [facility] Work Phone: 1(378) 927-783203-28-2025 Evaluation note* Diagnosis Onset Date Resolution Status Admit Date Lumbar scoliosis acute October 102024 8:54am Other intervertebral disc degeneration, lumbar region with discogenic back acute October 10, 2024 8:54am Spinal stenosis of lumbar re gion with neurogenic claudication acute Sep 8:54am Preop cardiovascular exam acute October 28, 2024 10:57am Dyslipidemia chronic October 28, 2024 10:57am Hypertension chronic October 28, 2024 10:57am Sick sinus syndrome chronic October 28, 2024 10:57am Abnormal cardiovascular stre ss test acute November 25, 2024 9 :16am Diastolic dysfunction chronic November 25, 2024 9:16am Dyslipidemia chronic November 25 9:16am Hypertension chronic November 25 9:16am Sick sinus syndrome November 132024 9:16am Lumbar scoliosis acute December 2:54pm Other intervertebral disc degeneration, lumbar region with discogenic back acute December 23, 2024 2:54pm Spinal stenosis of lumbar re gion with neurogenic claudication acute Dec 2:54pm [facility] Work Phone: 1(886) 717-314203-13-2025 Telephone encounter Note* Telephone Encounter - Dawna Izaguirre LPN - 09/25/2024 1:21 PM EDT Patient called requesting the following refill. Requested Prescriptions Pending Prescriptions Disp Refills ALPRAZolam (XANAX) 0.5 mg tablet 60 tablet 2 Sig: Take 1 tablet by mouth two times a day as needed for up to 90 days. Patient last appointment: 09/24/2024 Next appointment 01/05/2025 Patient Phone numbers: [phone] (home) [phone] (work) Request is for script(s) to be escript to [facility] pharmacy. Dawna Izaguirre LPN [facility]03-13-2025 Miscellaneous Notes* Telephone Encounter - Dawna Izaguirre LPN - 09/25/2024 1:21 PM EDT Patient called requesting the following refill. Requested Prescriptions Pending Prescriptions Disp Refills ALPRAZolam (XANAX) 0.5 mg tablet 60 tablet 2 Sig: Take 1 tablet by mouth two times a day as needed for up to 90 days. Patient last appointment: 09/24/2024 Next appointment 01/05/2025 Patient Phone numbers: [phone] (home) [phone] (work) Request is for script(s) to be escript to [facility] pharmacy. Dawna Izaguirre LPN documented in this encounterK[facility]03-12-2025 NoteHNO ID: [id number] Author: REYES SAUCEDO MD Service: ? Author Type: Physician Type: Progress Notes Filed: 09/28/2024 19:33 Note Text: Subjective Valeria Pradhan is a 74 year old male. Patient is in office for surgical clearance for upcoming lumbar fusion. He has not had any prior difficulties with anesthesia. He denies cardiovascular, pulmonary, or neurological symptoms. Patient has been experiencing seeing floaters. Patient recently had an eye exam, and it was brought up to check his blood pressure during episodes. Patient states that his pulse has been becoming low throughout the day. Radial pulse is 54 at this time. Patient is followed with Dr. Jo, but has not seen in years. Review of Systems Constitutional: Negative. HENT: Negative. Eyes: Negative. Respiratory: Negative. Cardiovascular: Negative. Gastrointestinal: Negative. Endocrine: Negative. Genitourinary: Negative. Musculoskeletal: Negative. Skin: Negative. Allergic/Immunologic: Negative. Neurological: Negative. Hematological: Negative. Psychiatric/Behavioral: Negative. PAST SURGICAL HISTORY Procedure Laterality Date COLONOSCOPY FLX DX W/COLLJ SPEC WHEN PFRMD 10/05/2003 Colonoscopy [facility] outpt HEMORRHOID;BAND LIGAT, SNGL/MUL INGUINAL HERNIA REPAIR HX TONSILLECTOMY AND ADENOIDECTOMY PAST MEDICAL HISTORY Diagnosis Date B12 deficiency Dust allergy Gout HTN (hypertension) HTN (hypertension) Hypercholesteremia Hypercholesterolemia Hypertriglyceridemia Neuropathy History reviewed. No pertinent family history. Social History Tobacco Use Smoking status: Former Current packs/day: 1.00 Average packs/day: 1 pack/day for 30.0 years (30.0 ttl pk-yrs) Types: Cigarettes, Cigars Passive exposure: Never Smokeless tobacco: Never Tobacco comments: Quits smoking cigarettes in 1999. Was smoking stacey sweets since then. Vaping Use Vaping status: Never Used Substance Use Topics Alcohol use: Yes Comment: occasional Drug use: No ALLERGIES Allergen Reactions Augmentin [Amoxicil* Swelling Other reaction(s): SWELLING-THROAT, SWELLING (NON-SPECIFIC) Potassium Clavulana* Angioedema Can take Amoxicillin, but Augmentin caused swelling of the tongue Pravastatin Unknown Simvastatin Unknown MEDICATIONS: amoxicillin (AMOXIL) 500 mg capsule take 4 capsules by mouth 1 hour prior to dental appointment ALPRAZolam (XANAX) 0.5 mg tablet Take 1 tablet by mouth every 12 hours. SUTAB 1.479-0.188- 0.225 gram tab TAKE TABLETS BY MOUTH A SPLIT DOSEAGE DIRECTED gabapentin (NEURONTIN) 300 mg capsule Take 300 mg by mouth three times a day. oxyCODONE-acetaminophen (PERCOCET) 7.5-325 mg tablet Take 1 tablet by mouth two times a day as needed. traZODone (DESYREL) 50 mg tablet take 1 tablet by mouth once daily at bedtime lisinopril (ZESTRIL) 40 mg tablet Take 1 tablet by mouth once daily. omeprazole (PRILOSEC) 20 mg capsule Take 20 mg by mouth once daily. mecobalamin (B12 ACTIVE ORAL) Take by mouth. Coenzyme Q10 (CO Q-10) 200 mg cap Take by mouth once daily. tamsulosin (FLOMAX) 0.4 mg Take 0.4 mg by mouth once daily. atorvastatin (LIPITOR) 20 mg tablet Take 20 mg by mouth once daily. amLODIPine (NORVASC) 5 mg tablet Take 1 tablet by mouth once daily. Allergies, past surgical history, family history and past medical history were reviewed per this encounter. Medications were reviewed and verified. 08/21/2024 09/17/2024 INTAKE PAIN ASSESSMENT Are you having pain associated with your visit today? Yes, Provider notified Yes, Provider notified Pain Level 8 7 Description Aching;Burning;Numbness;Sharp;Stabbing;Tingling Aching;Radiating;Sharp;Stabbing Duration Amount of Time 24 Duration Units Months Months Frequency Continuous Continuous Intervention/Comfort measure Medication If pain assessment is 0, no action needed. If pain assessment is positive, please see assessment and plain. Objective BP 136/84 (BP Site: Left Arm, BP Position: Sitting, BP Cuff Size: Regular Adult) Pulse (!) 54 Temp 36.1 ?C (96.9 ?F) (Temporal) Resp 18 Ht 188 cm (6' 2) Wt 104.8 kg (231 lb) SpO2 95% BMI 29.66 kg/m? Physical Exam Vitals reviewed. Constitutional: Appearance: Normal appearance. HENT: Head: Normocephalic and atraumatic. Nose: Nose normal. Eyes: Extraocular Movements: Extraocular movements intact. Pupils: Pupils are equal, round, and reactive to light. Cardiovascular: Rate and Rhythm: Normal rate and regular rhythm. Pulmonary: Effort: Pulmonary effort is normal. Breath sounds: Normal breath sounds. Abdominal: General: Bowel sounds are normal. Palpations: Abdomen is soft. Musculoskeletal: General: Normal range of motion. Cervical back: Normal range of motion and neck supple. Skin: General: Skin is warm and dry. Capillary Refill: Capillary refill takes less than 2 seconds. Neurological: General: No focal deficit present. Mental Status (more content not included)...[facility]03-12-2025 History of Present illness Narrative* Reyes Saucedo MD - 09/24/2024 10:12 AM EDT Subjective Valeria Pradhan is a 74 year old male. Patient is in office for surgical clearance for upcoming lumbar fusion. He has not had any prior difficulties with anesthesia. He denies cardiovascular, pulmonary, or neurological symptoms. Patient has been experiencing seeing floaters. Patient recently had an eye exam, and it was broughtup to check his blood pressure during episodes. Patient states that his pulse has been becoming low throughout the day. Radial pulse is 54 at this time. Patient is followed with Dr. Jo, but has not seen in years. Review of Systems Constitutional: Negative. HENT: Negative. Eyes: Negative. Respiratory: Negative. Cardiovascular: Negative. Gastrointestinal: Negative. Endocrine: Negative. Genitourinary: Negative. Musculoskeletal: Negative. Skin: Negative. Allergic/Immunologic: Negative. Neurological: Negative. Hematological: Negative. Psychiatric/Behavioral: Negative. PAST SURGICAL HISTORY Procedure Laterality Date COLONOSCOPY FLX DX W/COLLJ SPEC WHEN PFRMD 10/05/2003 Colonoscopy [facility] outpt HEMORRHOID;BAND LIGAT, SNGL/MUL INGUINAL HERNIA REPAIR HX TONSILLECTOMY & ADENOIDECTOMY <AGE 14 PAST MEDICAL HISTORY Diagnosis Date B12 deficiency Dust allergy Gout HTN (hypertension) HTN (hypertension) Hypercholesteremia Hypercholesterolemia Hypertriglyceridemia Neuropathy History reviewed. No pertinent family history. Social History Tobacco Use Smoking status: Former Current packs/day: 1.00 Average packs/day: 1 pack/day for 30.0 years (30.0 ttl pk-yrs) Types: Cigarettes, Cigars Passive exposure: Never Smokeless tobacco: Never Tobacco comments: Quits smoking cigarettes in 1999. Was smoking stacey sweets since then. Vaping Use Vaping status: Never Used Substance Use Topics Alcohol use: Yes Comment: occasional Drug use: No ALLERGIES Allergen Reactions Augmentin [Amoxicil* Swelling Other reaction(s): SWELLING-THROAT, SWELLING (NON-SPECIFIC) Potassium Clavulana* Angioedema Can take Amoxicillin, but Augmentin caused swelling of the tongue Pravastatin Unknown Simvastatin Unknown MEDICATIONS: amoxicillin (AMOXIL) 500 mg capsule take 4 capsules by mouth 1 hour prior to dental appointment ALPRAZolam (XANAX) 0.5 mg tablet Take 1 tablet by mouth every 12 hours. SUTAB 1.479-0.188- 0.225 gram tab TAKE TABLETS BY MOUTH A SPLIT DOSEAGE DIRECTED gabapentin (NEURONTIN) 300 mg capsule Take 300 mg by mouth three times a day. oxyCODONE-acetaminophen (PERCOCET) 7.5-325 mg tablet Take 1 tablet by mouth two times a day as needed. traZODone (DESYREL) 50 mg tablet take 1 tablet by mouth once daily at bedtime lisinopril (ZESTRIL) 40 mg tablet Take 1 tablet by mouth once daily. omeprazole (PRILOSEC) 20 mg capsule Take 20 mg by mouth once daily. mecobalamin (B12 ACTIVE ORAL) Take by mouth. Coenzyme Q10 (CO Q-10) 200 mg cap Take by mouth once daily. tamsulosin (FLOMAX) 0.4 mg Take 0.4 mg by mouth once daily. atorvastatin (LIPITOR) 20 mg tablet Take 20 mg by mouth once daily. amLODIPine (NORVASC) 5 mg tablet Take 1 tablet by mouth once daily. Allergies, past surgical history, family history and past medical history were reviewed per this encounter. Medications were reviewed and verified. 08/21/2024 09/17/2024 INTAKE PAIN ASSESSMENT Are you having pain associated with your visit today? Yes, Provider notified Yes, Provider notified Pain Level 8 7 Description Aching;Burning;Numbness;Sharp;Stabbing;Tingling Aching;Radiating;Sharp;Stabbing Duration Amount of Time 24 Duration Units Months Months Frequency Continuous Continuous Intervention/Comfort measure Medication If pain assessment is 0, no action needed. If pain assessment is positive, please see assessment and plain. Objective BP 136/84 (BP Site: Left Arm, BP Position: Sitting, BP Cuff Size: Regular Adult) Pulse (!) 54 Temp 36.1 C (96.9 F) (Temporal) Resp 18 Ht 188 cm (6' 2) Wt 104.8 kg (231 lb) SpO2 95% BMI29.66 kg/m Physical Exam Vitals reviewed. Constitutional: Appearance: Normal appearance. HENT: Head: Normocephalic and atraumatic. Nose: Nose normal. Eyes: Extraocular Movements: Extraocular movements intact. Pupils: Pupils are equal, round, and reactive to light. Cardiovascular: Rate and Rhythm: Normal rate and regular rhythm. Pulmonary: Effort: Pulmonary effort is normal. Breath sounds: Normal breath sounds. Abdominal: General: Bowel sounds are normal. Palpations: Abdomen is soft. Musculoskeletal: General: Normal range of motion. Cervical back: Normal range of motion and neck supple. Skin: General: Skin is warm and dry. Capillary Refill: Capillary refill takes less than 2 seconds. Neurological: General: No focal deficit present. Mental Status: He is alert and oriented to person, place, and time. Mental status is at baseline. Psychiatric: Mood and Affect: Mood normal. Behavior: Behavior normal. Procedures Assessment and Plan Encounter Diagnosis ICD-10-CM 1. Preop examination Z01.818 2. Bradycardia R00.1 CONSULT TO CARDIOLOGY OUTSIDE VENDOR CARDIAC OUTPATIENT EXTENDED RHYTHM RECORDING (WITHOUT TELEMETRY) Follow-up with cardiology. Obtain Zio patch. 3. Chronic midline low back pain without sciatica M54.50 G89.29 Scheduled for spinal fusion of the lumbar spine 4. Chronic obstructive pulmonary disease, unspecified COPD type (HCC) J44.9 Stable Patient is medically maximized for procedure. He is cleared for anesthesia pending results of Zio patch. He has consult to cardiology for review. Reyes Saucedo MD September 24, 2024 * Nat Ojeda LPN - 09/24/2024 9:50 AM EDT Patient is in office for surgical clearance for upcoming lumbar fusion. He has not had any prior difficulties with anesthesia. He denies cardiovascular, pulmonary, or neurological symptoms. Patient has been experiencing seeing floaters. Patient recently had an eye exam, and it was broughtup to check his blood pressure during episodes. Patient states that his pulse has been becoming low throughout the day. Radial pulse is 54 at this time. Patient is followed with Dr. Jo, but has not seen in years. Nat Ojeda LPN September 24, 2024 9:53 AM documented in this encounterK[facility]-2025 NoteHNO ID: [id number] Author: NAT OJEDA LPN Service: ? Author Type: LICENSED NURSE Type: Progress Notes Filed: 09/28/2024 19:33 Note Text: Patient is in office for surgical clearance for upcoming lumbar fusion. He has not had any prior difficulties with anesthesia. He denies cardiovascular, pulmonary, or neurological symptoms. Patient has been experiencing seeing floaters. Patient recently had an eye exam, and it was brought up to check his blood pressure during episodes. Patient states that his pulse has been becoming low throughout the day. Radial pulse is 54 at this time. Patient is followed with Dr. Jo, but has not seen in years. Nat Ojeda LPN September 24, 2024 9:53 [facility]03-12-2025 NoteHNO ID: [id number] Author: ARUNA READ MD Service: ? Author Type: Physician Type: Procedures Filed: 10/22/2024 09:23 Note Text: Patient Name: Valeria Pradhan : 1950 Ordering Provider: Reyes Saucedo Indication: R00.1 Bradycardia, unspecified Type of Monitor: Extended Monitoring-Zio Patch Enrollment Dates: 09/27/2024-10/10/2024 IRHYTHM FINDINGS: Patient had a min HR of 34 bpm (sinus bradycardia on 10/04/2024 at 6:15 am), max HR of 158 bpm (SVT), and avg HR of 54 bpm. Predominant underlying rhythm was Sinus Rhythm. First Degree AV Block was present. 6 Supraventricular Tachycardia runs occurred, the run with the fastest interval lasting 7 beats with a max rate of 158 bpm, the longest lasting 8 beats with an avg rate of 116 bpm. Isolated SVEs were rare (<1.0%), SVE Couplets were rare (<1.0%), and SVE Triplets were rare (<1.0%). Isolated VEs were rare (<1.0%), VE Couplets were rare (<1.0%), and no VE Triplets were present. No patient triggered events.[facility]02-16-2025 NoteHNO ID: [id number] Author: REYES SAUCEDO MD Service: ? Author Type: Physician Type: Progress Notes Filed: 09/01/2024 12:00 Note Text: Subjective Valeria Pradhan is a 74 year old male. He presents today with history of low back pain. He is currently being treated at pain management but request second opinion. He would like to see Dr. Lau in [place]. Additionally he is seeking surgical clearance for upcoming lumbar fusion. He has not had any prior difficulties with anesthesia. He denies cardiovascular, pulmonary, or neurological symptoms. Review of Systems Constitutional: Negative. HENT: Negative. Eyes: Negative. Respiratory: Negative. Cardiovascular: Negative. Gastrointestinal: Negative. Endocrine: Negative. Genitourinary: Negative. Musculoskeletal: Negative. Skin: Negative. Allergic/Immunologic: Negative. Neurological: Negative. Hematological: Negative. Psychiatric/Behavioral: Negative. PAST SURGICAL HISTORY Procedure Laterality Date COLONOSCOPY FLX DX W/COLLJ SPEC WHEN PFRMD 10/05/2003 Colonoscopy [facility] outpt HEMORRHOID;BAND LIGAT, SNGL/MUL INGUINAL HERNIA REPAIR HX TONSILLECTOMY AND ADENOIDECTOMY PAST MEDICAL HISTORY Diagnosis Date B12 deficiency Dust allergy Gout HTN (hypertension) HTN (hypertension) Hypercholesteremia Hypercholesterolemia Hypertriglyceridemia Neuropathy History reviewed. No pertinent family history. Social History Tobacco Use Smoking status: Former Current packs/day: 1.00 Average packs/day: 1 pack/day for 30.0 years (30.0 ttl pk-yrs) Types: Cigarettes, Cigars Passive exposure: Never Smokeless tobacco: Never Tobacco comments: Quits smoking cigarettes in 1999. Was smoking stacey sweets since then. Vaping Use Vaping status: Never Used Substance Use Topics Alcohol use: Yes Comment: occasional Drug use: No ALLERGIES Allergen Reactions Amoxicillin Angioedema Potassium Clavulana* Angioedema Can take Amoxicillin, but Augmentin caused swelling of the tongue Pravastatin Unknown Simvastatin Unknown MEDICATIONS: ALPRAZolam (XANAX) 0.5 mg tablet Take 1 tablet by mouth every 12 hours. SUTAB 1.479-0.188- 0.225 gram tab TAKE TABLETS BY MOUTH A SPLIT DOSEAGE DIRECTED gabapentin (NEURONTIN) 300 mg capsule Take 300 mg by mouth three times a day. oxyCODONE-acetaminophen (PERCOCET) 7.5-325 mg tablet Take 1 tablet by mouth two times a day as needed. traZODone (DESYREL) 50 mg tablet take 1 tablet by mouth once daily at bedtime lisinopril (ZESTRIL) 40 mg tablet Take 1 tablet by mouth once daily. omeprazole (PRILOSEC) 20 mg capsule Take 20 mg by mouth once daily. mecobalamin (B12 ACTIVE ORAL) Take by mouth. Coenzyme Q10 (CO Q-10) 200 mg cap Take by mouth once daily. amLODIPine (NORVASC) 5 mg tablet Take 1 tablet by mouth once daily. tamsulosin (FLOMAX) 0.4 mg Take 0.4 mg by mouth once daily. atorvastatin (LIPITOR) 20 mg tablet Take 20 mg by mouth once daily. Allergies, past surgical history, family history and past medical history were reviewed per this encounter. Medications were reviewed and verified. 04/14/2024 08/21/2024 INTAKE PAIN ASSESSMENT Are you having pain associated with your visit today? No Yes, Provider notified Pain Level 8 Description Aching;Burning;Numbness;Sharp;Stabbing;Tingling Duration Amount of Time 24 Duration Units Months Frequency Continuous If pain assessment is 0, no action needed. If pain assessment is positive, please see assessment and plain. Objective BP 132/82 Pulse (!) 56 Temp 36.6 ?C (97.9 ?F) (Temporal) Resp 18 Ht 188 cm (6' 2) Wt 102.1 kg (225 lb) SpO2 96% BMI 28.89 kg/m? Physical Exam Vitals reviewed. Constitutional: Appearance: Normal appearance. HENT: Head: Normocephalic and atraumatic. Nose: Nose normal. Eyes: Extraocular Movements: Extraocular movements intact. Pupils: Pupils are equal, round, and reactive to light. Cardiovascular: Rate and Rhythm: Normal rate and regular rhythm. Pulmonary: Effort: Pulmonary effort is normal. Breath sounds: Normal breath sounds. Abdominal: General: Bowel sounds are normal. Palpations: Abdomen is soft. Musculoskeletal: General: Normal range of motion. Cervical back: Normal range of motion and neck supple. Skin: General: Skin is warm and dry. Capillary Refill: Capillary refill takes less than 2 seconds. Neurological: General: No focal deficit present. Mental Status: He is alert and oriented to person, place, and time. Mental status is at baseline. Psychiatric: Mood and Affect: Mood normal. Behavior: Behavior normal. Procedures Assessment and Plan Encounter Diagnosis ICD-10-CM 1. Preop examination Z01.818 Patient is medically maximized for procedure. He is cleared for anesthesia. 2. Chronic pain syndrome G89.4 [facility]SULT TO [facility] ([facility] PAIN) Consult to pain management [facility] with Dr. Sid Domingo (more content not included)...[facility]02-16-2025 History of Present illness Narrative* Reyes Saucedo MD - 08/31/2024 1:43 PM EST Subjective Valeria Pradhan is a 74 year old male. He presents today with history of low back pain. He is currently being treated at pain management but request second opinion. He would like to see Dr. Perla Heller Review of Systems Constitutional: Negative. HENT: Negative. Eyes: Negative. Respiratory: Negative. Cardiovascular: Negative. Gastrointestinal: Negative. Endocrine: Negative. Genitourinary: Negative. Musculoskeletal: Negative. Skin: Negative. Allergic/Immunologic: Negative. Neurological: Negative. Hematological: Negative. Psychiatric/Behavioral: Negative. PAST SURGICAL HISTORY Procedure Laterality Date COLONOSCOPY FLX DX W/COLLJ SPEC WHEN PFRMD 10/05/2003 Colonoscopy [facility] outpt HEMORRHOID;BAND LIGAT, SNGL/MUL INGUINAL HERNIA REPAIR HX TONSILLECTOMY & ADENOIDECTOMY <AGE 14 PAST MEDICAL HISTORY Diagnosis Date B12 deficiency Dust allergy Gout HTN (hypertension) HTN (hypertension) Hypercholesteremia Hypercholesterolemia Hypertriglyceridemia Neuropathy History reviewed. No pertinent family history. Social History Tobacco Use Smoking status: Former Current packs/day: 1.00 Average packs/day: 1 pack/day for 30.0 years (30.0 ttl pk-yrs) Types: Cigarettes, Cigars Passive exposure: Never Smokeless tobacco: Never Tobacco comments: Quits smoking cigarettes in 1999. Was smoking stacey sweets since then. Vaping Use Vaping status: Never Used Substance Use Topics Alcohol use: Yes Comment: occasional Drug use: No ALLERGIES Allergen Reactions Amoxicillin Angioedema Potassium Clavulana* Angioedema Can take Amoxicillin, but Augmentin caused swelling of the tongue Pravastatin Unknown Simvastatin Unknown MEDICATIONS: ALPRAZolam (XANAX) 0.5 mg tablet Take 1 tablet by mouth every 12 hours. SUTAB 1.479-0.188- 0.225 gram tab TAKE TABLETS BY MOUTH A SPLIT DOSEAGE DIRECTED gabapentin (NEURONTIN) 300 mg capsule Take 300 mg by mouth three times a day. oxyCODONE-acetaminophen (PERCOCET) 7.5-325 mg tablet Take 1 tablet by mouth two times a day as needed. traZODone (DESYREL) 50 mg tablet take 1 tablet by mouth once daily at bedtime lisinopril (ZESTRIL) 40 mg tablet Take 1 tablet by mouth once daily. omeprazole (PRILOSEC) 20 mg capsule Take 20 mg by mouth once daily. mecobalamin (B12 ACTIVE ORAL) Take by mouth. Coenzyme Q10 (CO Q-10) 200 mg cap Take by mouth once daily. amLODIPine (NORVASC) 5 mg tablet Take 1 tablet by mouth once daily. tamsulosin (FLOMAX) 0.4 mg Take 0.4 mg by mouth once daily. atorvastatin (LIPITOR) 20 mg tablet Take 20 mg by mouth once daily. Allergies, past surgical history, family history and past medical history were reviewed per this encounter. Medications were reviewed and verified. 04/14/2024 08/21/2024 INTAKE PAIN ASSESSMENT Are you having pain associated with your visit today? No Yes, Provider notified Pain Level 8 Description Aching;Burning;Numbness;Sharp;Stabbing;Tingling Duration Amount of Time 24 Duration Units Months Frequency Continuous If pain assessment is 0, no action needed. If pain assessment is positive, please see assessment and plain. Objective BP 132/82 Pulse (!) 56 Temp 36.6 C (97.9 F) (Temporal) Resp 18 Ht 188 cm (6' 2) Wt 102.1kg (225 lb) SpO2 96% BMI 28.89 kg/m Physical Exam Vitals reviewed. Constitutional: Appearance: Normal appearance. HENT: Head: Normocephalic and atraumatic. Nose: Nose normal. Eyes: Extraocular Movements: Extraocular movements intact. Pupils: Pupils are equal, round, and reactive to light. Cardiovascular: Rate and Rhythm: Normal rate and regular rhythm. Pulmonary: Effort: Pulmonary effort is normal. Breath sounds: Normal breath sounds. Abdominal: General: Bowel sounds are normal. Palpations: Abdomen is soft. Musculoskeletal: General: Normal range of motion. Cervical back: Normal range of motion and neck supple. Skin: General: Skin is warm and dry. Capillary Refill: Capillary refill takes less than 2 seconds. Neurological: General: No focal deficit present. Mental Status: He is alert and oriented to person, place, and time. Mental status is at baseline. Psychiatric: Mood and Affect: Mood normal. Behavior: Behavior normal. Procedures Assessment and Plan Encounter Diagnosis ICD-10-CM 1. Chronic pain syndrome G89.4 [facility]ULT TO [facility] ([facility]) Consult to pain management [facility] with Dr. Sid Saucedo MD August 31, 2024 08/27/2024 * Andreas Patton LPN - 08/27/2024 2:58 PM EST Patient is here to get a referral to Pain Mgmt for second opinion. Pain has C/O back/neck pain. Andreas Patton LPN August 27, 2024 3:07 PM [facility] Telephone encounter Note * Telephone Encounter - Dilcia Simms MA - 08/28/2024 6:59 AM EST Items addressed in this encounter: MyChart Encounter referral info given via [employer] Able to close encounter. Dilcia Simms MA August 28, 2024 6:59 AM 6:59 AM [facility]02-13-2025 Miscellaneous Notes* Telephone Encounter - Dilcia Simms MA - 08/28/2024 6:59 AM EST Items addressed in this encounter: MyChart Encounter referral info given via [employer] Able to close encounter. Dilcia Simms MA August 28, 2024 6:59 AM 6:59 AM documented in [facility]-2025 Telephone encounter Note * Telephone Encounter - Dilcia Simms MA - 08/28/2024 6:48 AM EST Items addressed in this encounter: Fax/Forms Pain Mgmt referral faxed to Dr Watters Faxed via [employer], fax confirmation received Able to close encounter. Dilcia Simms MA August 28, 2024 6:48 AM 6:48 AM [address]13-2025 Miscellaneous Notes* Telephone Encounter - Dilcia Simms MA - 08/28/2024 6:48 AM EST Items addressed in this encounter: Fax/Forms Pain Mgmt referral faxed to Dr Watters Faxed via [employer]ax, fax confirmation received Able to close encounter. Dilcia Simms MA August 28, 2024 6:48 AM 6:48 AM documented in [facility]-12-2025 NoteHNO ID: [id number] Author: ANDREAS PATTON LPN Service: ? Author Type: LICENSED NURSE Type: Progress Notes Filed: 08/27/2024 15:07 Note Text: Patient is here to get a referral to Pain Mgmt for second opinion. Pain has C/O back/neck pain. Andreas Patton LPN August 27, 2024 3:07 [facility]01-23-2025 Evaluation note* Diagnosis Onset Date Resolution Status Admit Date Balance problem acute July 172024 10:23am Lumbar scoliosis acute August 07, 2024 10:23am Peripheral neuropathy acute Jul 10:23am Spinal stenosis of lumbar region with neurogenic claudication acute August 07 10:23am Lumbar scoliosis acute August 19, 2024 9:22am Other intervertebral disc degeneration, lumbar region with discogenic back acute August 9:22am Spinal stenosis of lumbar region with neurogenic claudication acute August 19 9:22am Lumbar scoliosis acute October 102024 8:54am Other intervertebral disc degeneration, lumbar region with discogenic back acute October 10, 2024 8:54am Spinal stenosis of lumbar region with neurogenic claudication acute October 10, 2024 8:54am Preop cardiovascular exam acute October 28, 2024 10:57am Dyslipidemia chronic October 28, 2024 10:57am Hypertension chronic October 28, 2024 10:57am Sick sinus syndrome chronic October 28, 2024 10:57am [facility] Work Phone: 1(405) 313-180401-23-2025 Evaluation note* Diagnosis Onset Date Resolution Status Admit Date Balance problem acute July 172024 10:23am Lumbar scoliosis acute August 07, 2024 10:23am Peripheral neuropathy acute Jul 10:23am Spinal stenosis of lumbar region with neurogenic claudication acute August 07 10:23am Lumbar scoliosis acute August 19, 2024 9:22am Other intervertebral disc degeneration, lumbar region with discogenic back acute August 4t 2024 9:22am Spinal stenosis of lumbar region with neurogenic claudication acute August 19 9:22am Lumbar scoliosis acute October 102024 8:54am Other intervertebral disc degeneration, lumbar region with discogenic back acute October 10, 2024 8:54am Spinal stenosis of lumbar region with neurogenic claudication acute October 10, 2024 8:54am Preop cardiovascular exam acute October 28, 2024 10:57am Dyslipidemia chronic October 28, 2024 10:57am Hypertension chronic October 28, 2024 10:57am Sick sinus syndrome chronic October 28, 2024 10:57am Abnormal cardiovascular stre ss test acute November 25, 2024 9 :16am Diastolic dysfunction chronic November 25, 2024 9:16am Dyslipidemia chronic November 25 9:16am Hypertension chronic November 25 9:16am Sick sinus syndrome chronic November 132024 9:16am [employer] Work Phone: 1(760) 124-736710-07-2024 NoteHNO ID: [id number] Author: REYES SAUCEDO MD Service: ? Author Type: Physician Type: Progress Notes Filed: 04/21/2024 09:49 Note Text: Елена Pradhan is a 74 year old male.Patient presents today for follow-up for multiple medical problems. See list. His chronic medical problems been stable. He is compliant with his medications. He has no new complaints today. Review of Systems Constitutional: Negative. HENT: Negative. Eyes: Negative. Respiratory: Negative. Cardiovascular: Negative. Gastrointestinal: Negative. Endocrine: Negative. Genitourinary: Negative. Musculoskeletal: Negative. Skin: Negative. Allergic/Immunologic: Negative. Neurological: Negative. Hematological: Negative. Psychiatric/Behavioral: Negative. PAST SURGICAL HISTORY Procedure Laterality Date COLONOSCOPY FLX DX W/COLLJ SPEC WHEN PFRMD 10/05/2003 Colonoscopy [facility] outpt HEMORRHOID;BAND LIGAT, SNGL/MUL INGUINAL HERNIA REPAIR HX TONSILLECTOMY AND ADENOIDECTOMY PAST MEDICAL HISTORY Diagnosis Date B12 deficiency Gout HTN (hypertension) HTN (hypertension) Hypercholesteremia Hypercholesterolemia Hypertriglyceridemia Neuropathy History reviewed. No pertinent family history. Social History Tobacco Use Smoking status: Former Current packs/day: 1.00 Average packs/day: 1 pack/day for 30.0 years (30.0 ttl pk-yrs) Types: Cigarettes, Cigars Passive exposure: Never Smokeless tobacco: Never Tobacco comments: Quits smoking cigarettes in 1999. Was smoking stacey sweets since then. Vaping Use Vaping status: Never Used Substance Use Topics Alcohol use: Yes Comment: occasional Drug use: No ALLERGIES Allergen Reactions Amoxicillin Angioedema House Dust Mite Unknown Potassium Clavulana* Angioedema Can take Amoxicillin, but Augmentin caused swelling of the tongue Pravastatin Unknown Simvastatin Unknown MEDICATIONS: SUTAB 1.479-0.188- 0.225 gram tab TAKE TABLETS BY MOUTH A SPLIT DOSEAGE DIRECTED gabapentin (NEURONTIN) 300 mg capsule Take 300 mg by mouth three times a day. oxyCODONE-acetaminophen (PERCOCET) 7.5-325 mg tablet Take 1 tablet by mouth two times a day as needed. ALPRAZolam (XANAX) 0.5 mg tablet Take 1 tablet by mouth two times a day as needed for up to 90 days. traZODone (DESYREL) 50 mg tablet take 1 tablet by mouth once daily at bedtime lisinopril (ZESTRIL) 40 mg tablet Take 1 tablet by mouth once daily. omeprazole (PRILOSEC) 20 mg capsule Take 20 mg by mouth once daily. mecobalamin (B12 ACTIVE ORAL) Take by mouth. Coenzyme Q10 (CO Q-10) 200 mg cap Take by mouth once daily. amLODIPine (NORVASC) 5 mg tablet Take 1 tablet by mouth once daily. tamsulosin (FLOMAX) 0.4 mg Take 0.4 mg by mouth once daily. atorvastatin (LIPITOR) 20 mg tablet Take 20 mg by mouth once daily. Allergies, past surgical history, family history and past medical history were reviewed per this encounter. Medications were reviewed and verified. 2024 04/14/2024 INTAKE PAIN ASSESSMENT Are you having pain associated with your visit today? Yes, Provider notified No Pain Level 5 Description Aching;Cramping Duration Units Weeks Frequency Continuous If pain assessment is 0, no action needed. If pain assessment is positive, please see assessment and plain. Objective BP 128/72 (BP Site: Left Arm, BP Position: Sitting, BP Cuff Size: Regular Adult) Pulse 62 Temp 36.1 ?C (96.9 ?F) (Temporal) Resp 18 Ht 188 cm (6' 2) Wt 98.4 kg (217 lb) SpO2 97% BMI 27.86 kg/m? Physical Exam Vitals reviewed. Constitutional: Appearance: Normal appearance. HENT: Head: Normocephalic and atraumatic. Nose: Nose normal. Eyes: Extraocular Movements: Extraocular movements intact. Pupils: Pupils are equal, round, and reactive to light. Cardiovascular: Rate and Rhythm: Normal rate and regular rhythm. Pulmonary: Effort: Pulmonary effort is normal. Breath sounds: Normal breath sounds. Abdominal: General: Bowel sounds are normal. Palpations: Abdomen is soft. Musculoskeletal: General: Normal range of motion. Cervical back: Normal range of motion and neck supple. Skin: General: Skin is warm and dry. Capillary Refill: Capillary refill takes less than 2 seconds. Neurological: General: No focal deficit present. Mental Status: He is alert and oriented to person, place, and time. Mental status is at baseline. Psychiatric: Mood and Affect: Mood normal. Behavior: Behavior normal. Assessment and Plan Encounter Diagnosis ICD-10-CM 1. Hypertension, essential I10 Improved and stable on current medication 2. Pure hypercholesterolemia E78.00 Improved on atorvastatin. 3. Chronic obstructive pulmonary disease, unspecified COPD type (HCC) J44.9 Stable. Patient has quit smoking cigarettes. He still occasionally smokes a cigar. Recommended no more smoking. 4. 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 Having nerve conducti (more content not included)...[facility]10-07-2024 History of Present illness Narrative* Reyes Saucedo MD - 04/21/2024 9:47 AM EDT Subjective Valeria Pradhan is a 74 year old male.Patient presents today for follow-up for multiple medical problems. See list. His chronic medical problems been stable. He is compliant with his medications. He has no new complaints today. Review of Systems Constitutional: Negative. HENT: Negative. Eyes: Negative. Respiratory: Negative. Cardiovascular: Negative. Gastrointestinal: Negative. Endocrine: Negative. Genitourinary: Negative. Musculoskeletal: Negative. Skin: Negative. Allergic/Immunologic: Negative. Neurological: Negative. Hematological: Negative. Psychiatric/Behavioral: Negative. PAST SURGICAL HISTORY Procedure Laterality Date COLONOSCOPY FLX DX W/COLLJ SPEC WHEN PFRMD 10/05/2003 Colonoscopy [facility] outpt HEMORRHOID;BAND LIGAT, SNGL/MUL INGUINAL HERNIA REPAIR HX TONSILLECTOMY & ADENOIDECTOMY <AGE 14 PAST MEDICAL HISTORY Diagnosis Date B12 deficiency Gout HTN (hypertension) HTN (hypertension) Hypercholesteremia Hypercholesterolemia Hypertriglyceridemia Neuropathy History reviewed. No pertinent family history. Social History Tobacco Use Smoking status: Former Current packs/day: 1.00 Average packs/day: 1 pack/day for 30.0 years (30.0 ttl pk-yrs) Types: Cigarettes, Cigars Passive exposure: Never Smokeless tobacco: Never Tobacco comments: Quits smoking cigarettes in 1999. Was smoking stacey sweets since then. Vaping Use Vaping status: Never Used Substance Use Topics Alcohol use: Yes Comment: occasional Drug use: No ALLERGIES Allergen Reactions Amoxicillin Angioedema House Dust Mite Unknown Potassium Clavulana* Angioedema Can take Amoxicillin, but Augmentin caused swelling of the tongue Pravastatin Unknown Simvastatin Unknown MEDICATIONS: SUTAB 1.479-0.188- 0.225 gram tab TAKE TABLETS BY MOUTH A SPLIT DOSEAGE DIRECTED gabapentin (NEURONTIN) 300 mg capsule Take 300 mg by mouth three times a day. oxyCODONE-acetaminophen (PERCOCET) 7.5-325 mg tablet Take 1 tablet by mouth two times a day as needed. ALPRAZolam (XANAX) 0.5 mg tablet Take 1 tablet by mouth two times a day as needed for up to 90 days. traZODone (DESYREL) 50 mg tablet take 1 tablet by mouth once daily at bedtime lisinopril (ZESTRIL) 40 mg tablet Take 1 tablet by mouth once daily. omeprazole (PRILOSEC) 20 mg capsule Take 20 mg by mouth once daily. mecobalamin (B12 ACTIVE ORAL) Take by mouth. Coenzyme Q10 (CO Q-10) 200 mg cap Take by mouth once daily. amLODIPine (NORVASC) 5 mg tablet Take 1 tablet by mouth once daily. tamsulosin (FLOMAX) 0.4 mg Take 0.4 mg by mouth once daily. atorvastatin (LIPITOR) 20 mg tablet Take 20 mg by mouth once daily. Allergies, past surgical history, family history and past medical history were reviewed per this encounter. Medications were reviewed and verified. 2024 04/14/2024 INTAKE PAIN ASSESSMENT Are you having pain associated with your visit today? Yes, Provider notified No Pain Level 5 Description Aching;Cramping Duration Units Weeks Frequency Continuous If pain assessment is 0, no action needed. If pain assessment is positive, please see assessment and plain. Objective BP 128/72 (BP Site: Left Arm, BP Position: Sitting, BP Cuff Size: Regular Adult) Pulse 62 Temp 36.1 C (96.9 F) (Temporal) Resp 18 Ht 188 cm (6' 2) Wt 98.4 kg (217 lb) SpO2 97% BMI 27.86 kg/m Physical Exam Vitals reviewed. Constitutional: Appearance: Normal appearance. HENT: Head: Normocephalic and atraumatic. Nose: Nose normal. Eyes: Extraocular Movements: Extraocular movements intact. Pupils: Pupils are equal, round, and reactive to light. Cardiovascular: Rate and Rhythm: Normal rate and regular rhythm. Pulmonary: Effort: Pulmonary effort is normal. Breath sounds: Normal breath sounds. Abdominal: General: Bowel sounds are normal. Palpations: Abdomen is soft. Musculoskeletal: General: Normal range of motion. Cervical back: Normal range of motion and neck supple. Skin: General: Skin is warm and dry. Capillary Refill: Capillary refill takes less than 2 seconds. Neurological: General: No focal deficit present. Mental Status: He is alert and oriented to person, place, and time. Mental status is at baseline. Psychiatric: Mood and Affect: Mood normal. Behavior: Behavior normal. Assessment and Plan Encounter Diagnosis ICD-10-CM 1. Hypertension, essential I10 Improved and stable on current medication 2. Pure hypercholesterolemia E78.00 Improved on atorvastatin. 3. Chronic obstructive pulmonary disease, unspecified COPD type (HCC) J44.9 Stable. Patient has quit smoking cigarettes. He still occasionally smokes a cigar. Recommended no more smoking. 4. 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 Having nerve conduction study/EMG completed at the [facility]. 5. Primary insomnia F51.01 Improved. 6. Generalized anxiety disorder F41.1 Improved and stable on current medication. Continue present medications. Labs from [facility] reviewed with the patient. Monitor blood pressure regularly. Exercise as tolerated. Maintain good diet. Follow-up in 6 months. Reyes Saucedo MD April 21, 2024 April 21, 2024 * Nat Ojeda LPN - 04/21/2024 8:50 AM EDT Patient is in office for 6 month exam. Patient has no current complaints or concerns. No refills needed Nat Ojeda LPN April 21, 2024 8:54 AM documented in [facility]-2024 NoteHNO ID: [id number] Author: NAT OJEDA LPN Service: ? Author Type: LICENSED NURSE Type: Progress Notes Filed: 04/21/2024 09:49 Note Text: Patient is in office for 6 month exam. Patient has no current complaints or concerns. No refills needed Nat Ojeda LPN April 21, 2024 8:54 [facility] Tele[facility] encounter Note* Telephone Encounter - Dawna Izaguirre LPN - 04/03/2024 9:41 AM EDT Patient called requesting the following refill. Requested Prescriptions Pending Prescriptions Disp Refills ALPRAZolam (XANAX) 0.5 mg tablet 60 tablet 2 Sig: Take 1 tablet by mouth two times a day as needed for up to 90 days. Patient last appointment: 02/06/2024 Next appointment 04/21/2024 Patient Phone numbers: [phone] (home) [phone] (work) Request is for script(s) to be escript to [facility] pharmacy. Dawna Izaguirre LPN [facility]09-19-2024 Miscellaneous Notes* Telephone Encounter - Dawna Izaguirre LPN - 04/03/2024 9:41 AM EDT Patient called requesting the following refill. Requested Prescriptions Pending Prescriptions Disp Refills ALPRAZolam (XANAX) 0.5 mg tablet 60 tablet 2 Sig: Take 1 tablet by mouth two times a day as needed for up to 90 days. Patient last appointment: 02/06/2024 Next appointment 04/21/2024 Patient Phone numbers: [phone] (home) [phone] (work) Request is for script(s) to be escript to [facility] pharmacy. Dawna Izaguirre LPN documented in this encounterK[facility]09-09-2024 Telephone encounter Note * Telephone Encounter - Nat Ojeda LPN - 03/24/2024 12:28 PM EDT Last Office Visit: 02-06-2024 Next Scheduled Office Visit: 04-21-2024 Requested Prescriptions Pending Prescriptions Disp Refills traZODone (DESYREL) 50 mg tablet [Pharmacy Med Name: traZODone HCl 50 MG Oral Tablet] 90 tablet 3 Sig: take 1 tablet by mouth once daily at bedtime Nat Ojeda LPN March 24, 2024 12:28 PM [facility]09-09-2024 Miscellaneous Notes* Telephone Encounter - Nat Ojeda LPN - 03/24/2024 12:28 PM EDT Last Office Visit: 02-06-2024 Next Scheduled Office Visit: 04-21-2024 Requested Prescriptions Pending Prescriptions Disp Refills traZODone (DESYREL) 50 mg tablet [Pharmacy Med Name: traZODone HCl 50 MG Oral Tablet] 90 tablet 3 Sig: take 1 tablet by mouth once daily at bedtime Nat Ojeda LPN March 24, 2024 12:28 PM documented in this encounterK[facility]07-24-2024 NoteHNO ID: [id number] Author: REYES SAUCEDO MD Service: ? Author Type: Physician Type: Progress Notes Filed: 02/06/2024 09:49 Note Text: Subjective Valeria Pradhan is a 74 year old male. Patient presents today with history of left lower quadrant pain for the last 11 days. He denies any blood in his stool. He denies fever. Symptoms occurred after eating cashews. He has a history of diverticulitis. He states this feels the same as the last time he had diverticulitis. Review of Systems All other systems reviewed and are negative. PAST SURGICAL HISTORY Procedure Laterality Date COLONOSCOPY FLX DX W/COLLJ SPEC WHEN PFRMD 10/05/2003 Colonoscopy [facility] outpt HEMORRHOID;BAND LIGAT, SNGL/MUL INGUINAL HERNIA REPAIR HX TONSILLECTOMY AND ADENOIDECTOMY PAST MEDICAL HISTORY Diagnosis Date B12 deficiency Gout HTN (hypertension) HTN (hypertension) Hypercholesteremia Hypercholesterolemia Hypertriglyceridemia Neuropathy History reviewed. No pertinent family history. Social History Tobacco Use Smoking status: Former Packs/day: 1.00 Years: 30.00 Additional pack years: 0.00 Total pack years: 30.00 Types: Cigarettes, Cigars Passive exposure: Never Smokeless tobacco: Never Tobacco comments: Quits smoking cigarettes in 1999. Was smoking stacey sweets since then. Vaping Use Vaping Use: Never used Substance Use Topics Alcohol use: Yes Comment: occasional Drug use: No ALLERGIES Allergen Reactions House Dust Mite Unknown Potassium Clavulana* Angioedema Can take Amoxicillin, but Augmentin caused swelling of the tongue Pravastatin Unknown Simvastatin Unknown MEDICATIONS: ALPRAZolam (XANAX) 0.5 mg tablet Take 1 tablet by mouth two times a day as needed for up to 90 days. gabapentin (NEURONTIN) 100 mg capsule 100 mg. lisinopril (ZESTRIL) 40 mg tablet Take 1 tablet by mouth once daily. omeprazole (PRILOSEC) 20 mg capsule Take 20 mg by mouth once daily. mecobalamin (B12 ACTIVE ORAL) Take by mouth. Coenzyme Q10 (CO Q-10) 200 mg cap Take by mouth once daily. amLODIPine (NORVASC) 5 mg tablet Take 1 tablet by mouth once daily. tamsulosin (FLOMAX) 0.4 mg Take 0.4 mg by mouth once daily. traZODone (DESYREL) 50 mg tablet Take 1 tablet by mouth daily at bedtime. atorvastatin (LIPITOR) 20 mg tablet Take 20 mg by mouth once daily. ciprofloxacin HCl (CIPRO) 500 mg tablet Take 1 tablet by mouth three times a day. Allergies, past surgical history, family history and past medical history were reviewed per this encounter. Medications were reviewed and verified. Objective BP 126/72 (BP Site: Left Arm, BP Position: Sitting, BP Cuff Size: Large Adult) Pulse (!) 57 Temp 36.8 ?C (98.2 ?F) (Temporal) Resp 17 Ht 188 cm (6' 2) Wt 99.4 kg (219 lb 2 oz) SpO2 98% BMI 28.13 kg/m? Physical Exam Vitals reviewed. Constitutional: Appearance: Normal appearance. HENT: Head: Normocephalic and atraumatic. Nose: Nose normal. Eyes: Extraocular Movements: Extraocular movements intact. Pupils: Pupils are equal, round, and reactive to light. Cardiovascular: Rate and Rhythm: Normal rate and regular rhythm. Pulmonary: Effort: Pulmonary effort is normal. Breath sounds: Normal breath sounds. Abdominal: General: Bowel sounds are normal. Palpations: Abdomen is soft. Tenderness: There is abdominal tenderness in the left lower quadrant. Musculoskeletal: General: Normal range of motion. Cervical back: Normal range of motion and neck supple. Skin: General: Skin is warm and dry. Capillary Refill: Capillary refill takes less than 2 seconds. Neurological: General: No focal deficit present. Mental Status: He is alert and oriented to person, place, and time. Mental status is at baseline. Psychiatric: Mood and Affect: Mood normal. Behavior: Behavior normal. Assessment and Plan Encounter Diagnosis ICD-10-CM 1. Diverticulitis K57.92 Treat with Cipro. Patient does not want Flagyl due to history of alcohol use. Reyes Saucedo [facility]07-24-2024 History of Present illness Narrative* Reyes Saucedo MD - 02/06/2024 9:46 AM EDT Subjective Valeria Pradhan is a 74 year old male. Patient presents today with history of left lower quadrantpain for the last 11 days. He denies any blood in his stool. He denies fever. Symptoms occurred after eating cashews. He has a history of diverticulitis. He states this feels the same as the last time he had diverticulitis. Review of Systems All other systems reviewed and are negative. PAST SURGICAL HISTORY Procedure Laterality Date COLONOSCOPY FLX DX W/COLLJ SPEC WHEN PFRMD 10/05/2003 Colonoscopy [facility] outpt HEMORRHOID;BAND LIGAT, SNGL/MUL INGUINAL HERNIA REPAIR HX TONSILLECTOMY & ADENOIDECTOMY <AGE 14 PAST MEDICAL HISTORY Diagnosis Date B12 deficiency Gout HTN (hypertension) HTN (hypertension) Hypercholesteremia Hypercholesterolemia Hypertriglyceridemia Neuropathy History reviewed. No pertinent family history. Social History Tobacco Use Smoking status: Former Packs/day: 1.00 Years: 30.00 Additional pack years: 0.00 Total pack years: 30.00 Types: Cigarettes, Cigars Passive exposure: Never Smokeless tobacco: Never Tobacco comments: Quits smoking cigarettes in 1999. Was smoking stacey sweets since then. Vaping Use Vaping Use: Never used Substance Use Topics Alcohol use: Yes Comment: occasional Drug use: No ALLERGIES Allergen Reactions House Dust Mite Unknown Potassium Clavulana* Angioedema Can take Amoxicillin, but Augmentin caused swelling of the tongue Pravastatin Unknown Simvastatin Unknown MEDICATIONS: ALPRAZolam (XANAX) 0.5 mg tablet Take 1 tablet by mouth two times a day as needed for up to 90 days. gabapentin (NEURONTIN) 100 mg capsule 100 mg. lisinopril (ZESTRIL) 40 mg tablet Take 1 tablet by mouth once daily. omeprazole (PRILOSEC) 20 mg capsule Take 20 mg by mouth once daily. mecobalamin (B12 ACTIVE ORAL) Take by mouth. Coenzyme Q10 (CO Q-10) 200 mg cap Take by mouth once daily. amLODIPine (NORVASC) 5 mg tablet Take 1 tablet by mouth once daily. tamsulosin (FLOMAX) 0.4 mg Take 0.4 mg by mouth once daily. traZODone (DESYREL) 50 mg tablet Take 1 tablet by mouth daily at bedtime. atorvastatin (LIPITOR) 20 mg tablet Take 20 mg by mouth once daily. ciprofloxacin HCl (CIPRO) 500 mg tablet Take 1 tablet by mouth three times a day. Allergies, past surgical history, family history and past medical history were reviewed per this encounter. Medications were reviewed and verified. Objective BP 126/72 (BP Site: Left Arm, BP Position: Sitting, BP Cuff Size: Large Adult) Pulse (!) 57 Temp 36.8 C (98.2 F) (Temporal) Resp 17 Ht 188 cm (6' 2) Wt 99.4 kg (219 lb 2 oz) SpO2 98% BMI 28.13 kg/m Physical Exam Vitals reviewed. Constitutional: Appearance: Normal appearance. HENT: Head: Normocephalic and atraumatic. Nose: Nose normal. Eyes: Extraocular Movements: Extraocular movements intact. Pupils: Pupils are equal, round, and reactive to light. Cardiovascular: Rate and Rhythm: Normal rate and regular rhythm. Pulmonary: Effort: Pulmonary effort is normal. Breath sounds: Normal breath sounds. Abdominal: General: Bowel sounds are normal. Palpations: Abdomen is soft. Tenderness: There is abdominal tenderness in the left lower quadrant. Musculoskeletal: General: Normal range of motion. Cervical back: Normal range of motion and neck supple. Skin: General: Skin is warm and dry. Capillary Refill: Capillary refill takes less than 2 seconds. Neurological: General: No focal deficit present. Mental Status: He is alert and oriented to person, place, and time. Mental status is at baseline. Psychiatric: Mood and Affect: Mood normal. Behavior: Behavior normal. Assessment and Plan Encounter Diagnosis ICD-10-CM 1. Diverticulitis K57.92 Treat with Cipro. Patient does not want Flagyl due to history of alcohol use. Reyes Saucedo MD * Macey Carr LPN - 02/06/2024 9:10 AM EDT Patient is in office with complaint of abdominal pain x 11 days. Patient does have history of diverticulitis. Referral for Gastroenterology was sent to Dr. Cervantes on 01-29-2024. Refills entered. Macey Carr LPN February 06, 2024 9:12 AM documented in this encounterK[facility]-2024 NoteHNO ID: [id number] Author: MACEY CARR LPN Service: ? Author Type: LICENSED NURSE Type: Progress Notes Filed: 02/06/2024 09:49 Note Text: Patient is in office with complaint of abdominal pain x 11 days. Patient does have history of diverticulitis. Referral for Gastroenterology was sent to Dr. Cervantes on 01-29-2024. Refills entered. Macey Carr LPN February 06, 2024 9:12 [facility] Tele[facility] encounter Note* Telephone Encounter - Dilcia Simms MA - 01/29/2024 8:49 AM EDT Items addressed in this encounter: MyChart Encounter referral info given via mychart Able to close encounter. Dilcia Simms MA January 29, 2024 8:49 AM 8:49 AM [facility]07-16-2024 Miscellaneous Notes* Telephone Encounter - Dilcia Simms MA - 01/29/2024 8:49 AM EDT Items addressed in this encounter: MyChart Encounter referral info given via mychart Able to close encounter. Dilcia Simms MA January 29, 2024 8:49 AM 8:49 AM documented in this encounterK[facility]07-16-2024 Telephone encounter Note * Telephone Encounter - Dilcia Simms MA - 01/29/2024 6:14 AM EDT Items addressed in this encounter: Fax/Forms Gastro referral faxed to Dr Joel [facility], fax confirmation received Able to close encounter. Dilcia Simms MA January 29, 2024 6:14 AM 6:14 AM M [facility]07-16-2024 Miscellaneous Notes* Telephone Encounter - Dilcia Simms MA - 01/29/2024 6:14 AM EDT Items addressed in this encounter: Fax/Forms Gastro referral faxed to Dr Joel Cervantes Faxed via [employer], fax confirmation received Able to close encounter. Dilcia Simms MA January 29, 2024 6:14 AM 6:14 AM M documented in this encounterK[facility]07-09-2024 Telephone encounter Note * Telephone Encounter - Nat Ojeda LPN - 01/22/2024 2:37 PM EDT Last Office Visit: 11-14-2023 Next Scheduled Office Visit: 04-21-2024 Patient phoned office requesting referral to Dr. Cervantes to have Colonoscopy completed. Patient states that Dr. Cervantes's office stated they will not do Colonoscopy unless the patients PCP sends order Nat Ojeda LPN January 22, 2024 2:40 PM [facility]07-09-2024 Miscellaneous Notes* Telephone Encounter - Nat Ojeda LPN - 01/22/2024 2:37 PM EDT Last Office Visit: 11-14-2023 Next Scheduled Office Visit: 04-21-2024 Patient phoned office requesting referral to Dr. Cervantes to have Colonoscopy completed. Patient states that Dr. Cervantes's office stated they will not do Colonoscopy unless the patients PCP sends order Nat Ojeda LPN January 22, 2024 2:40 PM documented in this encounterKet[facility]06-17-2024 Instructions* Patient Instructions* Shelly Rose APRN.UPHOLSTERY REPAIRER - 12/31/2023 8:[address] Lung Screen Results The CT scan that you will have done will show if you have any nodules (small spots) in your lungs that are suspicious for cancer. Around 90% of the patients who have this scan done are found to have at least one nodule. Most nodules are benign (not cancer) and of no harm to you at all. A specialistwill make a scientific evaluation about whether or not a nodule is worrisome based on its size and shape. The radiologist who will read your scan will put it into one of four categories: LUNG-RADS Category Description Overall Probability of Malignancy Recommended Follow-Up 1 Negative No nodules and definitely benign (non-cancerous nodules) Essentially 0. 1 Year - Follow-up Low dose CT 2 Benign Appearance or Behavior Nodules with a very low likelihood of becoming cancer due to size or lack of growth Less than 1% 1 Year - Follow-up Low dose CT 3 Probably Benign Probably benign finding, short term follow-up recommended 1 to 2% 6 Months - Follow-up Low dose CT 4 Suspicious Findings for which additional diagnostic testing and/or biopsy is recommended Will be calculated based on nodule characteristics. Dependent on what is seen on the exam. (3 month follow-up CT, PET-CT, or biopsy) 0 Incomplete Findings suggestive of an inflammatory or infectious process AND/OR part of the lung cannot be evaluated Additional lung cancer screening CT imaging needed AND/OR comparison with prior chest CT imaging At times, we may see something outside of the lungs on the scan that could be a health concern. Below are some of the most common findings: S Clinically Significant or Potentially Clinically Significant Findings (non lung cancer) Referral or additional imaging/labs depending on result. Approximately 10% of people receive this result. Coronary Artery Calcifications (Moderate or Severe) - Referral to cardiology for further work-up and recommendations. Thyroid Nodule - TSH level and Thyroid Ultrasound dependent on size, referral to endocrinology. Adrenal Nodule - blood work and referral to endocrinology. Others Lung Cancer Screening hotline: [phone] Lung Cancer Screening [phone] Billing Questions: or [email or web address] Specialist Providers: (Zully Rothman PA-C; Radha Carter CNP; Melissa Peterson CNP, Beatriz Quiñones CNP; Pia Chacon CNP; ARSENIO Mendoza; Shelly Rose CNP; Natasha Jimenez CNP; Tracy Mascorro CNP; Alka Bowie CNP; Isidra Sosa PA-C; Andie Burnett PA-C; Dilcia John CNP; Hannah Brower CNP; Amna Browning CNP): [phone] documented in this encounterKettering [facility]06-17-2024 NoteHNO ID: [id number] Author: SHELLY ROSE APRN.CNP Service: ? Author Type: Nurse Practitioner Type: Progress Notes Filed: 12/31/2023 08:59 Note Text: LUNG SCREENING VISIT PRIMARY CARE PHYSICIAN: Reyes Saucedo MD PULMONARY PROVIDER: None Results will be communicated via letter or electronic record if applicable. Visit Delivery: In Person Patient Visit Type: New to Screening Current or Ex-smoker? Current Exam Type: baseline LDCT Number of Pack Years: 30 cigarettes Current smoker (=0) or Number of Years since Quit: <1 REQUESTER: The referring provider advised the patient to have screening. HISTORY OF PRESENT ILLNESS: Valeria Pradhan is a 73 year old Former smoker who presents for lung screening. Respiratory symptoms include: SOB: No Chest tightness: No Coughing: No Hemoptysis: No Wheezing: No Fever/Chills: No Recent Respiratory Infection: No Unintentional weight loss: Yes, was in chronic pain was not eating, lost 35 lb. Last 6 Encounter Wt Readings: Date: Wt: 12/31/2023 219 lb 11/14/2023 94.8 kg (209 lb) 10/17/2023 98.5 kg (217 lb 4 oz) 06/13/2023 103.5 kg (228 lb 3.2 oz) 04/16/2023 103.1 kg (227 lb 3.2 oz) 10/11/2022 106.9 kg (235 lb 9.6 oz) ECOG PERFORMANCE STATUS: 0- Fully active, able to carry on all pre-disease performance w/o restriction. Modified Medical Research [place] Dyspnea Scale (MMRC) I only get breathless with strenous exercise 0 PAST MEDICAL HISTORY Diagnosis Date B12 deficiency Gout HTN (hypertension) HTN (hypertension) Hypercholesteremia Hypercholesterolemia Hypertriglyceridemia Neuropathy PAST SURGICAL HISTORY Procedure Laterality Date COLONOSCOPY FLX DX W/COLLJ SPEC WHEN PFRMD 10/05/2003 Colonoscopy [facility] outpt HEMORRHOID;BAND LIGAT, SNGL/MUL INGUINAL HERNIA REPAIR HX TONSILLECTOMY AND ADENOIDECTOMY History reviewed. No pertinent family history. ALPRAZolam (XANAX) 0.5 mg tablet Take 1 tablet by mouth two times a day as needed for up to 90 days. gabapentin (NEURONTIN) 100 mg capsule 100 mg. lisinopril (ZESTRIL) 40 mg tablet Take 1 tablet by mouth once daily. omeprazole (PRILOSEC) 20 mg capsule Take 20 mg by mouth once daily. mecobalamin (B12 ACTIVE ORAL) Take by mouth. Coenzyme Q10 (CO Q-10) 200 mg cap Take by mouth once daily. amLODIPine (NORVASC) 5 mg tablet Take 1 tablet by mouth once daily. tamsulosin (FLOMAX) 0.4 mg Take 0.4 mg by mouth once daily. traZODone (DESYREL) 50 mg tablet Take 1 tablet by mouth daily at bedtime. atorvastatin (LIPITOR) 20 mg tablet Take 20 mg by mouth once daily. ALLERGIES Allergen Reactions House Dust Mite Unknown Potassium Clavulana* Angioedema Pravastatin Unknown Simvastatin Unknown The medications and allergies were reviewed and reconciled for this patient and deemed current. Lung Cancer Risk Factors: 1.Tobacco Use: Start Age 19, Quit cigarettes in 1999, but continued to smoke small cigars-stacey sweets. Quit those 2 mos ago, but had 2 yesterday. Quit Age: 73, Average packs per day 1, Pack Years 54 2. Passive Smoke Exposure: Yes, as a Child 3. Personal hx of malignancy: No, Type of Cancer: 4. Significant exposures (1 year or more of exposure): , 5. Race: White 6. Education: High School Graduate 7. BMI:Body mass index is 25.81 kg/m?. Patient-entered Height: 6'4 Patient-entered Weight: 220 pounds 8. COPD: Yes 9. Pneumonia in the past 5 years: No 10. Is there a history of lung cancer in a first degree relative? No 11. Is there a history of lung cancer in a non-first degree relative? No 12. Is there a history of any other cancer in a first degree relative? Yes Health Maintenance Immunization History Administered Date(s) Administered AS03 adjuvant 06/27/2018 COVID-19 original vaccine, full dose, monovalent (MODERNA) 09/08/2020 10/06/2020 05/18/2021 COVID-19 vaccine, age 12+ yr, bivalent (PFIZER-BIONTECH) 04/17/2022 COVID-19 vaccine, unspecified formulation 04/17/2022 influenza (HD-IIV3) vaccine, age 65+ yr, high dose, PF (FLUZONE HIGH-DOSE) 06/25/2017 06/25/2019 04/13/2021 04/17/2022 influenza (HD-IIV4) vaccine, age 65+ yr, high dose, quadrivalent, PF (FLUZONE HIGH-DOSE) 05/25/2023 influenza (IIV3) vaccine, trivalent, PF (AFLURIA, FLUARIX, FLULAVAL, FLUVIRIN, FLUZONE) 04/21/2015 05/01/2016 influenza (LAIV) vaccine, nasal, unspecified formulation 05/23/2001 05/08/2008 04/28/2009 04/29/2010 04/27/2011 05/17/2012 03/27/2013 04/23/2014 04/21/2015 06/15/2019 04/05/2020 05/30/2021 05/23/2023 influenza vaccine, whole virus 08/05/2003 pneumococcal conjugate (PCV13) vaccine, 13 valent (PREVNAR 13) 06/25/2017 pneumococcal polysaccharide (PPV23) vaccine, 23 valent (PNEUMOVAX 23) 11/11/2014 03/03/2022 pneumococcal vaccine, unspecified formulation 11/11/2014 tetanus diphtheria (Td) vaccine, adult, unspecified formulation 02/12/2008 tetanus diphtheria pertussis (Tdap) vaccine, age 7+ yr (ADACEL, BOOSTRIX) 12 (more content not included)...[facility]06-17-2024 History of Present illness Narrative* Shelly Rose APRN.UPHOLSTERY REPAIRER - 12/31/2023 8:10 AM EDT Images from the original note were not included. LUNG SCREENING VISIT PRIMARY CARE PHYSICIAN: Reyes Saucedo MD PULMONARY PROVIDER: None Results will be communicated via letter or electronic record if applicable. Visit Delivery: In Person Patient Visit Type: New to Screening Current or Ex-smoker? Current Exam Type: baseline LDCT Number of Pack Years: 30 cigarettes Current smoker (=0) or Number of Years since Quit: <1 REQUESTER: The referring provider advised the patient to have screening. HISTORY OF PRESENT ILLNESS: Valeria Pradhan is a 73 year old Former smoker who presents for lung screening. Respiratory symptoms include: SOB: No Chest tightness: No Coughing: No Hemoptysis: No Wheezing: No Fever/Chills: No Recent Respiratory Infection: No Unintentional weight loss: Yes, was in chronic pain was not eating, lost 35 lb. Last 6 Encounter Wt Readings: Date: Wt: 12/31/2023 219 lb 11/14/2023 94.8 kg (209 lb) 10/17/2023 98.5 kg (217 lb 4 oz) 06/13/2023 103.5 kg (228 lb 3.2 oz) 04/16/2023 103.1 kg (227 lb 3.2 oz) 10/11/2022 106.9 kg (235 lb 9.6 oz) ECOG PERFORMANCE STATUS: 0- Fully active, able to carry on all pre-disease performance w/o restriction. Modified Medical Research [place] Dyspnea Scale (MMRC) I only get breathless with strenous exercise 0 PAST MEDICAL HISTORY Diagnosis Date B12 deficiency Gout HTN (hypertension) HTN (hypertension) Hypercholesteremia Hypercholesterolemia Hypertriglyceridemia Neuropathy PAST SURGICAL HISTORY Procedure Laterality Date COLONOSCOPY FLX DX W/COLLJ SPEC WHEN PFRMD 10/05/2003 Colonoscopy [facility] outpt HEMORRHOID;BAND LIGAT, SNGL/MUL INGUINAL HERNIA REPAIR HX TONSILLECTOMY & ADENOIDECTOMY <AGE 12 History reviewed. No pertinent family history. ALPRAZolam (XANAX) 0.5 mg tablet Take 1 tablet by mouth two times a day as needed for up to 90 days. gabapentin (NEURONTIN) 100 mg capsule 100 mg. lisinopril (ZESTRIL) 40 mg tablet Take 1 tablet by mouth once daily. omeprazole (PRILOSEC) 20 mg capsule Take 20 mg by mouth once daily. mecobalamin (B12 ACTIVE ORAL) Take by mouth. Coenzyme Q10 (CO Q-10) 200 mg cap Take by mouth once daily. amLODIPine (NORVASC) 5 mg tablet Take 1 tablet by mouth once daily. tamsulosin (FLOMAX) 0.4 mg Take 0.4 mg by mouth once daily. traZODone (DESYREL) 50 mg tablet Take 1 tablet by mouth daily at bedtime. atorvastatin (LIPITOR) 20 mg tablet Take 20 mg by mouth once daily. ALLERGIES Allergen Reactions House Dust Mite Unknown Potassium Clavulana* Angioedema Pravastatin Unknown Simvastatin Unknown The medications and allergies were reviewed and reconciled for this patient and deemed current. Lung Cancer Risk Factors: 1.Tobacco Use: Start Age 19, Quit cigarettes in 1999, but continued to smoke small cigars-stacey sweets. Quit those 2 mos ago, but had 2 yesterday. Quit Age: 73, Average packs per day 1, Pack Years 54 2. Passive Smoke Exposure: Yes, as a Child 3. Personal hx of malignancy: No, Type of Cancer: 4. Significant exposures (1 year or more of exposure): , 5. Race: White 6. Education: High School Graduate 7. BMI:Body mass index is 25.81 kg/m . Patient-entered Height: 6'4 Patient-entered Weight: 220 pounds 8. COPD: Yes 9. Pneumonia in the past 5 years: No 10. Is there a history of lung cancer in a first degree relative? No 11. Is there a history of lung cancer in a non-first degree relative? No 12. Is there a history of any other cancer in a first degree relative? Yes Health Maintenance Immunization History Administered Date(s) Administered AS03 adjuvant 06/27/2018 COVID-19 original vaccine, full dose, monovalent (MODERNA) 09/08/2020 10/06/2020 05/18/2021 COVID-19 vaccine, age 12+ yr, bivalent ([employer]) 04/17/2022 COVID-19 vaccine, unspecified formulation 04/17/2022 influenza (HD-IIV3) vaccine, age 65+ yr, high dose, PF (FLUZONE HIGH-DOSE) 06/25/2017 06/25/2019 04/13/2021 04/17/2022 influenza (HD-IIV4) vaccine, age 65+ yr, high dose, quadrivalent, PF (FLUZONE HIGH-DOSE) 05/25/2023 influenza (IIV3) vaccine, trivalent, PF (AFLURIA, FLUARIX, FLULAVAL, FLUVIRIN, FLUZONE) 04/21/2015 05/01/2016 influenza (LAIV) vaccine, nasal, unspecified formulation 05/23/2001 05/08/2008 04/28/2009 04/29/2010 04/27/2011 05/17/2012 03/27/2013 04/23/2014 04/21/2015 06/15/2019 04/05/2020 05/30/2021 05/23/2023 influenza vaccine, whole virus 08/05/2003 pneumococcal conjugate (PCV13) vaccine, 13 valent (PREVNAR 13) 06/25/2017 pneumococcal polysaccharide (PPV23) vaccine, 23 valent (PNEUMOVAX 23) 11/11/2014 03/03/2022 pneumococcal vaccine, unspecified formulation 11/11/2014 tetanus diphtheria (Td) vaccine, adult, unspecified formulation 02/12/2008 tetanus diphtheria pertussis (Tdap) vaccine, age 7+ yr (ADACEL, BOOSTRIX) 06/25/2017 tetanus toxoid (TT) vaccine, unspecified formulation 02/12/2008 zoster (RZV) vaccine, recombinant (SHINGRIX) 01/31/2019 04/23/2019 Colonoscopy: Mammogram: DATA REVIEW I have directly visualized the testing documented: none Prior Imaging: Last CT/CTA Chest/Lungs No resulted procedures found. Last CT Chest - Impression Only No resulted procedures found. Last XR Chest - Impression Only No resulted procedures found. Pulmonary Function Testing: No textual results found for the specified procedure(s). PHYSICAL EXAM: Wt 91.2 kg (201 lb) BMI 25.81 kg/m Deferred ASSESSMENT and RECOMMENDATIONS: 1. Screening for lung cancer: Six year risk for lung cancer: 2.1 Https://[employer]/[place]/result/male_[email or web address]_yes_unknown http://www.[employer]onge[employer]/tiny/01sk4 https://youtu.be/[email or web address] I have determined that the patient is eligible for a low dose CT based on age, absence of signs or symptoms of lung cancer, and total pack years: Yes. The patient and I engaged in shared decision making, including the use of one or more decision aids, to include benefits, harms, follow-up diagnostic testing, over-diagnosis, false positive rate, andtotal radiation exposure. The patient understands and feels comfortable with it: Yes. The patient was counseled on the importance of adherence to annual LDCT lung cancer screening, impact of comorbidities and ability or willingness to undergo diagnosis and treatment. The patient understands and feels comfortable with it:Yes. 2. Nicotine dependence: The patient was counseled on the importance of maintaining cigarette smoking abstinence - The patient is committed to remaining abstinent from tobacco. Shelly Rose APRN.CNP NPI #: December 31, 2023 8:10 AM documented in this encounterK[facility]05-29-2024 Telephone encounter Note * Telephone Encounter - Nat Ojeda LPN - 12/12/2023 8:14 AM EDT Patient phoned office for request Last Office Visit: 11-14-2023 Next Scheduled Office Visit: 04-21-2024 Requested Prescriptions Pending Prescriptions Disp Refills ALPRAZolam (XANAX) 0.5 mg tablet [Pharmacy Med Name: ALPRAZolam 0.5 MG Oral Tablet] 60 tablet 2 Sig: Take 1 tablet by mouth two times a day as needed for up to 90 days. Nat Ojeda LPN December 12, 2023 8:15 AM [facility]05-29-2024 Miscellaneous Notes* Telephone Encounter - Nat Ojeda LPN - 12/12/2023 8:14 AM EDT Patient phoned office for request Last Office Visit: 11-14-2023 Next Scheduled Office Visit: 04-21-2024 Requested Prescriptions Pending Prescriptions Disp Refills ALPRAZolam (XANAX) 0.5 mg tablet [Pharmacy Med Name: ALPRAZolam 0.5 MG Oral Tablet] 60 tablet 2 Sig: Take 1 tablet by mouth two times a day as needed for up to 90 days. Nat Ojeda LPN December 12, 2023 8:15 AM documented in this encounterK[facility]05-12-2024 History of Present illness Narrative* Reyes Saucedo MD - 11/25/2023 10:06 AM EDT This note was created using [employer]. Subjective Valeria Pradhan is a 73 year old male. Valeria presents today for chief complaint of unintentional weight loss. Additionally following up for low sodium. Patient's medication was changed from Prinzide to Norvasc. And lisinopril. Blood pressure has been okay since the change. Most recent sodium is now normal since change away from hydrochlorothiazide. Patient is a longstanding smoker. Review of Systems Constitutional: Positive for unexpected weight change. HENT: Negative. Eyes: Negative. Respiratory: Negative. Cardiovascular: Negative. Gastrointestinal: Negative. Endocrine: Negative. Genitourinary: Negative. Musculoskeletal: Negative. Skin: Negative. Allergic/Immunologic: Negative. Neurological: Negative. Hematological: Negative. Psychiatric/Behavioral: Negative. Objective BP 138/86 (BP Site: Left Arm, BP Position: Sitting, BP Cuff Size: Regular Adult) Pulse 74 Temp 36.1 C (97 F) (Temporal) Resp 18 Ht 188 cm (6' 2) Wt 94.8 kg (209 lb) SpO2 96% BMI 26.83 kg/m Physical Exam Vitals reviewed. Constitutional: Appearance: Normal appearance. HENT: Head: Normocephalic and atraumatic. Nose: Nose normal. Eyes: Extraocular Movements: Extraocular movements intact. Pupils: Pupils are equal, round, and reactive to light. Cardiovascular: Rate and Rhythm: Normal rate and regular rhythm. Pulmonary: Effort: Pulmonary effort is normal. Breath sounds: Normal breath sounds. Abdominal: General: Bowel sounds are normal. Palpations: Abdomen is soft. Musculoskeletal: General: Normal range of motion. Cervical back: Normal range of motion and neck supple. Skin: General: Skin is warm and dry. Capillary Refill: Capillary refill takes less than 2 seconds. Neurological: General: No focal deficit present. Mental Status: He is alert and oriented to person, place, and time. Mental status is at baseline. Psychiatric: Mood and Affect: Mood normal. Behavior: Behavior normal. Assessment and Plan Encounter Diagnosis ICD-10-CM 1. Tobacco abuse Z72.0 CONSULT LUNG CANCER SCREENING CLINIC CANCELED: CONSULT LUNG CANCER SCREENING CLINIC 2. Chronic obstructive pulmonary disease, unspecified COPD type (HCC) J44.9 3. Unintended weight loss R63.4 4. Hyponatremia E87.1 Lung cancer screening. Labs reviewed. Continue Norvasc and lisinopril for blood pressure control. Patient has poor diet. Encourage patient to improve calorie consumption. Monitor weight. Reyes Saucedo MD * Nat Ojeda LPN - 11/14/2023 3:54 PM EDT Patient is in office for complaint of unintentional weight loss. Patient was recently in ED in [place]. NA= 129 K= 3.6 Chloride = 95 Creatinine = 0.68 Glucose = 108 Anion Gap = 6 Patient states he is having increased muscle spasms in bilateral lower extremities. No refills needed Nat Ojeda LPN November 14, 2023 4:05 PM [facility] Telephone encounter Note * Telephone Encounter - Dawna Izaguirre LPN - 11/19/2023 3:35 PM EDT I spoke with patient and advised him per Dr Saucedo's note. Torsten said he will think about it and discuss it more with Dr Saucedo when he comes in for his next check up in April. Dawna Izaguirre LPN November 19, 2023 3:36 PM [facility]05-06-2024 Miscellaneous Notes* Telephone Encounter - Dawna Izaguirre LPN - 11/19/2023 3:35 PM EDT I spoke with patient and advised him per Dr Saucedo's note. Torsten said he will think about it and discuss it more with Dr Saucedo when he comes in for his next check up in April. Dawna Izaguirre LPN November 19, 2023 3:36 PM * Telephone Encounter - Reyes Saucedo MD - 11/19/2023 9:31 AM EDT It is available for him to do if he wants to have it done. Medicare will cover having it done once. * Telephone Encounter - Dawna Izaguirre LPN - 11/16/2023 7:58 AM EDT Valeria Maverick Pradhan called today. : 1950 Allergies: House Dust Mite, Potassium Clavulanate, Pravastatin, and Simvastatin (home) [phone] (work) [phone] (cell) Reason for call: Patient called asking about getting an aortic aneurysm screening. He keeps getting notifications that he is due for this. Does Dr Saucedo think he needs to get this test done? Torsten said he will do it if Dr Saucedo says it is necessary. Please advise. Patient last appointment: 11/14/2023 The patients preferred pharmacy has been captured for this encounter? no Dawna Izaguirre LPN documented [facility] Telephone encounter Note * Telephone Encounter - Nat Ojeda LPN - 11/19/2023 10:52 AM EDT Patient notified of result information on My Chart. Notification will be sent to this nurse if message has not been read within 2 days. Patient will be contacted by another form of communication if notification of not reading My Chart message is received. Nat Ojeda LPN November 19, 2023 10:52 AM [facility] Miscellaneous Notes* Telephone Encounter - Nat Ojeda LPN - 11/19/2023 10:52 AM EDT Patient notified of result information on My Chart. Notification will be sent to this nurse if message has not been read within 2 days. Patient will be contacted by another form of communication if notification of not reading My Chart message is received. Nat Ojeda LPN November 19, 2023 10:52 AM * Telephone Encounter - Nat Ojeda LPN - 11/19/2023 10:51 AM EDT ----- Message from Reyes Saucedo MD sent at 11/19/2023 9:30 AM EDT ----- Sodium now normal. Continue present medications. documented in [facility] Telephone encounter Note * Telephone Encounter - Nat Ojeda LPN - 11/19/2023 10:51 AM EDT ----- Message from Reyes Saucedo MD sent at 11/19/2023 9:30 AM EDT ----- Sodium now normal. Continue present medications. [facility] Tele[facility] encounter Note* Telephone Encounter - Reyes Saucedo MD - 11/19/2023 9:31 AM EDT It is available for him to do if he wants to have it done. Medicare will cover having it done once. [facility]-03[facility] Telephone encounter Note* Telephone Encounter - Dawna Izaguirre LPN - 11/16/2023 7:58 AM EDT Valeria Pradhan called today. : 1950 Allergies: House Dust Mite, Potassium Clavulanate, Pravastatin, and Simvastatin (home) [phone] (work) [phone] (cell) Reason for call: Patient called asking about getting an aortic aneurysm screening. He keeps getting notifications that he is due for this. Does Dr Saucedo think he needs to get this test done? Torsten said he will do it if Dr Saucedo says it is necessary. Please advise. Patient last appointment: 11/14/2023 The patients preferred pharmacy has been captured for this encounter? no Dawna Izaguirre LPN [facility]-03-[facility] Instructions* Patient Instructions* Reyes Saucedo MD - 10/17/2023 10:03 AM EDT Screening schedule The following prevention plan is recommended: Abdominal Aortic Aneurysm Screening Never done Spirometry Never done Hepatitis C Screening Never done Alpha-1 Antitrypsin Deficiency Screening Never done RSV Vaccine(1 - 1-dose 60+ series) Never done Covid-19 Vaccine(2022- season) due on 03/16/2023 BP Controlled (<130/80) due on 04/19/2023 Advance Directive Discussion due on 07/16/2023 Depression Assessment due on 07/16/2023 WHAT YOU CAN DO TO PREVENT FALLS Many falls can be prevented. By making some changes, you can lower your chances of falling. Four things YOU can do to prevent falls for you* and your caregiver 1. Begin a regular exercise program Exercise is one of the most important ways to lower your chances of falling. It makes you stronger and helps you feel better. Exercises that improve balance and coordination (like Fabien Chi) are the most helpful. Lack of exercise leads to weakness and increases your chances of falling. Ask your doctor or health care provider about the best type of exercise program for you. 2. Have your health care provider review your medicines Have your doctor or pharmacist review all the medicines you take, even tqee-obg-laukigr medicines. As you get older, the way medicines work in your body can change. Some medicines, or combinations of medicines, can make you sleepy or dizzy andcan cause you to fall. 3. Have your vision checked Have your eyes checked by an eye doctor at least once a year. You may be wearing the wrong glasses or have a condition like glaucoma or cataracts that limits your vision. Poor vision can increase your chances of falling. 4. Make your home safer About half of all falls happen at home. To make your home safer: Remove things you can trip over (like papers, books, clothes, and shoes) from stairs and places where you walk. Remove small throw rugs or use double-sided tape to keep the rugs from slipping. Keep items you use often in cabinets you can reach easily without using a step stool. Have grab bars put in next to your toilet and in the tub or shower. Use non-slip mats in the bathtub and on shower floors. Improve the lighting in your home. As you get older, you need brighter lights to see well. Hang light-weight curtains or shades to reduce glare. Have handrails and lights put in on all staircases. Wear shoes both inside and outside the house. Avoid going barefoot or wearing slippers. For more information, contact: Centers for Disease Control and Prevention www.cdc.gov/injury * This information may not apply if you have certain medical conditions. documented in this [facility] History of Present illness Narrative* Reyes Saucedo MD - 10/17/2023 9:56 AM EDT Images from the original note were not included. Subjective Valeria Pradhan is a 73 year old male. Torsten presents today for his Medicare wellness visit. Additionally he follows up for multiple medical problems. See list. His chronic medical problems been stable. His blood pressure is under good control on his current regimen. [facility] He continues to have nerve pain in his legs and feet as well as postherpetic neuralgia in his right side. He has been taking gabapentin for this without significant relief. He does not want to increase the dose. Review of Systems Constitutional: Negative. HENT: Negative. Eyes: Negative. Respiratory: Negative. Cardiovascular: Negative. Gastrointestinal: Negative. Endocrine: Negative. Genitourinary: Negative. Musculoskeletal: Negative. Skin: Negative. Allergic/Immunologic: Negative. Neurological: Negative. Hematological: Negative. Psychiatric/Behavioral: Negative. PAST SURGICAL HISTORY Procedure Laterality Date COLONOSCOPY FLX DX W/COLLJ SPEC WHEN PFRMD 10/05/2003 Colonoscopy [facility] outpt HEMORRHOID;BAND LIGAT, SNGL/MUL INGUINAL HERNIA REPAIR HX TONSILLECTOMY & ADENOIDECTOMY <AGE 14 PAST MEDICAL HISTORY Diagnosis Date B12 deficiency Gout HTN (hypertension) HTN (hypertension) Hypercholesteremia Hypercholesterolemia Hypertriglyceridemia Neuropathy History reviewed. No pertinent family history. Social History Tobacco Use Smoking status: Former Packs/day: 1.00 Years: 32.00 Additional pack years: 0.00 Total pack years: 32.00 Types: Cigarettes Passive exposure: Never Smokeless tobacco: Never Vaping Use Vaping Use: Never used Substance Use Topics Alcohol use: Yes Comment: occasional Drug use: No ALLERGIES Allergen Reactions House Dust Mite Unknown Potassium Clavulana* Angioedema Pravastatin Unknown Simvastatin Unknown MEDICATIONS: HYDROcodone-acetaminophen (NORCO) 5-325 mg per tablet TAKE 1/2 (ONE-HALF) TO 1 TABLET BY MOUTH THREE TIMES DAILY NEEDED FOR PAIN tamsulosin (FLOMAX) 0.4 mg Take 0.4 mg by mouth once daily. ALPRAZolam (XANAX) 0.5 mg tablet Take 1 tablet by mouth two times a day as needed for up to 90 days. traZODone (DESYREL) 50 mg tablet Take 1 tablet by mouth daily at bedtime. lisinopril (ZESTRIL) 20 mg tablet Take 40 mg by mouth once daily. [facility] increased gabapentin (NEURONTIN) 300 mg capsule Take 300 mg by mouth three times daily. fluticasone (FLONASE) 50 mcg/actuation nasal spray Use 1 Braggs in each nostril once daily. atorvastatin (LIPITOR) 20 mg tablet Take 20 mg by mouth once daily. Azelastine 205.5 mcg (0.15 %) spry Apply to affected area. hydrochlorothiazide 25 mg tablet Take 1 tablet by mouth once daily. L.acid/L.casei/B.bif/B.federico/FOS (PROBIOTIC BLEND ORAL) Take by mouth. Allergies, past surgical history, family history and past medical history were reviewed per this encounter. Medications were reviewed and verified. Objective BP 132/70 (BP Site: Left Arm, BP Position: Sitting, BP Cuff Size: Large Adult) Pulse 66 Temp 36.6 C (97.9 F) (Temporal) Resp 16 Ht 189.2 cm (6' 2.5) Wt 98.5 kg (217 lb 4 oz) SpO2 97% BMI 27.52 kg/m Physical Exam Vitals reviewed. Constitutional: Appearance: Normal appearance. HENT: Head: Normocephalic and atraumatic. Nose: Nose normal. Eyes: Extraocular Movements: Extraocular movements intact. Pupils: Pupils are equal, round, and reactive to light. Cardiovascular: Rate and Rhythm: Normal rate and regular rhythm. Pulmonary: Effort: Pulmonary effort is normal. Breath sounds: Normal breath sounds. Abdominal: General: Bowel sounds are normal. Palpations: Abdomen is soft. Musculoskeletal: General: Normal range of motion. Cervical back: Normal range of motion and neck supple. Skin: General: Skin is warm and dry. Capillary Refill: Capillary refill takes less than 2 seconds. Neurological: General: No focal deficit present. Mental Status: He is alert and oriented to person, place, and time. Mental status is at baseline. Psychiatric: Mood and Affect: Mood normal. Behavior: Behavior normal. Assessment and Plan Encounter Diagnosis ICD-10-CM 1. Wellness examination Z00.00 2. Screening for depression Z13.31 DEPRESSION SCREENING/ASSESSMENT 3. Advanced directives, counseling/discussion Z71.89 ADVANCE CARE PLAN DISCUSSION 4. Pure hypercholesterolemia E78.00 COMP METABOLIC PANEL LIPID PANEL BASIC 5. Hypertension, essential I10 COMP METABOLIC PANEL 6. Chronic obstructive pulmonary disease, unspecified COPD type (HCC) J44.9 7. B12 deficiency E53.8 CBC + DIFF 8. Idiopathic gout, unspecified chronicity, unspecified site M10.00 9. Screening PSA (prostate specific antigen) Z12.5 PSA/PROSTSPECAG SCRN 10. Screening for deficiency anemia Z13.0 CBC + DIFF All open preventative health maintenance topics discussed with patient in detail. This includes risks and benefits regarding vaccines, cancer screening, healthy life style, and diet. Continue present medications. Check labs as above. Monitor blood pressure regularly. Exercise as tolerated. Maintain good diet. Follow-up in 6 months. Medicare Health Risk Assessment General Health Good Exercise: Minutes/Day 30 min Exercise: Days/Week 2 days Alcohol: Daily Use 2-3 times a week Alcohol: Drinks/Day 1 or 2 Alcohol: 6 or more drinks Monthly Feel off balance No Concerns: Teeth/Dentures No Concerns: Sexual function No Troubled by feelings None of the above Frequency: Eating healthy diet Nearly every day ADLs requiring help None of the above Safety precautions in home/vehicle No Smoke, vape, chews tobacco Yes, but I'm not ready to quit Difficulty hearing No Difficulty seeing No Current Providers Specialists: I have reviewed specialist-related care of the patient in the medical record. Medical/Family history review Reviewed and updated problem list, medical/surgical/family/social history, medications, and allergies. Opioid use review Opioid Medications (last 90 days) 09/12/2023 00:00 Opioid Medications hydrocodone/acetaminophen TAKE 1/2 (ONE-HALF) TO 1 TABLET BY MOUTH THREE TIMES DAILY NEEDED FOR PAIN (5-325 mg tab) Details Patient-reported medication Prescribed No opioid use on file in the last 90 days Does patient have risk factors for opioid abuse? No Pain overview Current pain concerns and treatment plan reviewed. Patient stable on current treatment plan. Depression screening Depression Screening PHQ-2 Score 10/17/2023 0 Depression screening tool completed and reviewed. Based on score and interview, patient is not at risk for depression. Screening tool discussed with patient, and I recommended no further interventionat this time. Cognitive screening Cognitive screening reviewed and no further action needed (score 3-5) Functional Observation Was the patient's Timed Up & Go test unsteady or ? 12 seconds? No Advance Care Planning Surrogate decision maker documented and/or advance directives scanned in chart Measurements BP 132/70 Pulse 66 Temp (Src) 97.9 (Temporal) Resp 16 Ht 6' 2.5 (1.89m) Wt 217 lb 4 oz (98.5kg) SpO2 97% BMI 27.53 kg/(m^2). Assessment/Plan Medicare annual wellness visit, subsequent (00.) - Counseled on healthy diet and regular exercise - Fall avoidance information provided - Personalized prevention plan provided * Macey Carr LPN - 10/17/2023 9:20 AM EDT Patient in the office today for an annual Medicare Wellness exam. No refills needed today. Health Maintenance Due: Abdominal Aortic Aneurysm Screening Never done Spirometry Never done Hepatitis C Screening Never done Alpha-1 Antitrypsin Deficiency Screening Never done RSV Vaccine(1 - 1-dose 60+ series) Never done Covid-19 Vaccine( season) due on 03/16/2023 BP Controlled (<130/80) due on 04/19/2023 Advance Directive Discussion due on 07/16/2023 DONE Depression Assessment due on 07/16/2023 DONE Macey Carr LPN October 17, 2023 9:47 AM documented in this encounterK[facility]24 Discharge summary Author Epifanio Guerra [facility] September 20, 2023 12:51pm Note Date/Time September 20, 2023 12:5 1pm [facility] [address] [place] [address] [address] [place] [address] / REHABILITATION SERVICES DISCHARGE SUMMARY MR#: [id number] Acct: [id number] Name: VALERIA PRADHAN Rep #: [id number] 2 : 1950 73 From: Epifanio Guerra DP T Referring Dr.: Dr. Joe James DO Status : REG RCR Insurance: MEDICARE PART A B MEDICARE SUPPLEMENT PLAN Discharge Summary D/C summary: It has been my pleasure to treat VALERIA PRADHAN referred by Dr. Joe James DO, with the diagnosis of L shoulder strain, impingement, and arthritisfor a total of 9 visit(s). Discharge Date: 09/20/23 Please see the following information for a summary of their discharge status. Subjective Subjective: Pt feels that PT has helped with shoulder pain, but still feels thatit needs to be fixed with surgery. Has been working out a few time a week consistently and has no major limitations d/t shoulder pain. Pain Left Shoulder: Pain Intensity (Out of 10): 2 Overall Improvement % Improvement: 50 Objective Objective/Function: ROM: full AROM, some pain with IR at 90 deg ABD MMT: 5/5 chris shoulders PALPATION: some tightness in L biceps, UT, and teres major Farhat-Elfego: (+) at very end range with OP Pt overall has decreased pain, still has some catching with impingement positions. Pt has been able to workout consistently and recognizes what he can or cannot do and feels he would benefit the most from surgery. Goals Goal 1:: Pt will report <3/10 pain at worst with overhead movement Goal Progress: 07/25 Goal 2:: Pt will improve L shoulder strength to 5/5 with 0/10 pain Goal Progress: Goal Met Goal 3:: Pt will consistently perform HEP at least 4 days per week with correct form Goal Progress: Goal Met Goal 4:: Pt will improve Quick DASH sum to 19 to demonstrate improved ADL tolerance and function Goal Progress: 21 not met Plan Plan: Pt to d/c back to physician to have further work up. Pt has had some pain relief with PT, but feels it did not fix the problem. D/C Information Discharge Comments: D/C back to surgeon, pt feels PT helped to reduce pain but did not fix the issue. d/c sentence: If there are questions or concerns regarding this patient's physical therapy, please feel free to call me at [phone]. Thank you for the referral of thispatient. Sincerely, Epifanio Guerra DPT Balance/Gait/Functional tests Balance/Special Test Scores Quick DASH Score: 22.7250 Improvement % Improvement: 50 <Electronically signed by Epifanio Guerra DPT> 09/20/23 1251 CC: Dr. Joe James DO; Dr. Reyes Saucedo MD ~ CLS Signed [facility] Work Phone: 1(981) 172-746611-29-2023 History of Present illness Narrative* Reyes Saucedo MD - 06/13/2023 9:23 PM EST This note was created using NoteWriter. Subjective Valeria Pradhan is a 73 year old male.Patient is in office with complaint of possible shingles. Patient states he has been experiencing aching, burning, itching, radiating, stabbing, sharp, tingling pain along his right side. Patient states this has been going on for about a month. Patient statesthat he does not have a rash. Originally had a rash about 2 weeks ago. Rash is now resolved. Review of Systems Constitutional: Negative. HENT: Negative. Eyes: Negative. Respiratory: Negative. Cardiovascular: Negative. Gastrointestinal: Negative. Endocrine: Negative. Genitourinary: Negative. Musculoskeletal: Negative. Skin: Negative. Allergic/Immunologic: Negative. Neurological: Negative. Hematological: Negative. Psychiatric/Behavioral: Negative. Objective BP 118/82 (BP Site: Left Arm, BP Position: Sitting, BP Cuff Size: Regular Adult) Pulse 78 Temp 36.4 C (97.6 F) (Temporal) Resp 18 Ht 189.2 cm (6' 2.5) Wt 103.5 kg (228 lb 3.2 oz) SpO2 98% BMI 28.91 kg/m Physical Exam Vitals reviewed. Constitutional: Appearance: Normal appearance. HENT: Head: Normocephalic and atraumatic. Nose: Nose normal. Eyes: Extraocular Movements: Extraocular movements intact. Pupils: Pupils are equal, round, and reactive to light. Cardiovascular: Rate and Rhythm: Normal rate and regular rhythm. Pulmonary: Effort: Pulmonary effort is normal. Breath sounds: Normal breath sounds. Abdominal: General: Bowel sounds are normal. Palpations: Abdomen is soft. Musculoskeletal: General: Normal range of motion. Cervical back: Normal range of motion and neck supple. Skin: General: Skin is warm and dry. Capillary Refill: Capillary refill takes less than 2 seconds. Neurological: General: No focal deficit present. Mental Status: He is alert and oriented to person, place, and time. Mental status is at baseline. Psychiatric: Mood and Affect: Mood normal. Behavior: Behavior normal. Assessment and Plan Encounter Diagnosis ICD-10-CM 1. Herpes zoster without complication B02.9 2. Anxiety F41.9 ALPRAZolam (XANAX) 0.5 mg tablet Patient with continued stinging and pain along nerve distribution of site of original shingles. He is to take his gabapentin 3 times a day. Monitor for improvement of symptoms. Patient also with significantly increased anxiety. Increase alprazolam to twice daily. Reyes Saucedo MD * Nat Ojeda LPN - 06/13/2023 9:18 AM EST Patient is in office with complaint of possible shingles. Patient states he has been experiencing aching, burning, itching, radiating, stabbing, sharp, tingling pain along his right side. Patient states this has been going on for about a month. Patient states that he does not have a rash. Patient does currently have a very red back. Patient claims it is from heated seats in vehicle. Patient also has a red pustule on right side, and patient picked at area to have it burst. No refills needed Nat Ojeda LPN June 13, 2023 9:30 AM documented in [facility] Discharge summary Author Reggie Marie [facility] April 24, 2023 10:11am Note Date/Time April 24, 2023 1 0:10am [facility] [address] [place] [address]. [address] [place] [address] / REHABILITATION SERVICES DISCHARGE SUMMARY MR#: [id number] Acct: [id number] Name: VALERIA PRADHAN Rep #: [id number] 8 : 1950 73 From: Cert. KAMI GlassT, OCS Referring Dr.: Dr. Ced Johnston DO Status: REG RCR Insurance: MEDICARE PART A B MEDICARE SUPPLEMENT PLAN Discharge Summary D/C summary: It has been my pleasure to treat VALERIA PRADHAN referred by Dr. Ced Johnston DO, with the diagnosis of RADICULOPATHY ,LUMBOSCARAL for a total of 24 visit(s). Discharge Date: Please see the following information for a summary of their discharge status. Subjective Subjective: Ready to be d/c own on to gym Pain Bilateral Back: Pain Intensity (Out of 10): 3 Left Hip: Pain Intensity (Out of 10): 3 Overall Improvement % Improvement: 60 Objective Objective/Function: POSTURE: mild forward posture NEURO: denies paresthesia/tingling , reflexes L3-L4-5 ,L5-S1 1/3 GAIT: reciprocal pattern slight decrease stance PALAPTION: tender SI/LS FLEXABLITY: hamstrings WFL MMT: (peak force) left quads 45.6 ,hamstrings 35.9 ,hip flexion 49.0 ,hip abd 25.5 LUMBAR ROM: flexion min loss ,extension min loss ,side glides mod loss Goals Goal 1:: Patient to be I with HEP Goal Progress: Progressing Goal 2:: Patient to demonstrate 50% improvement with decrease pain and improved function. Goal Progress: Goal Met Goal 3:: Patient to improve lumbar ROM for function of recovery to tie shoes Goal Progress: Goal Met Goal 4:: Patient to improve peak force left leg by 10 # to improve gait and function Goal Progress: Progressing Goal 5:: Patient to improve back oswestry score by 5 points to improve QOL and function Goal Progress: Goal Met Plan Plan: d/c to Gym on own and HEP D/C Information d/c sentence: If there are questions or concerns regarding this patient's physical therapy, please feel free to call me at [phone]. Thank you for the referral of thispatient. Sincerely, Reggie Marie PT, Cert MDT, OCS Balance/Gait/Functional tests Balance/Special Test Scores Oswestry Low Back Score: 9 Improvement % Improvement: 60 <Electronically signed by Jessica Cook PT. T, OCS> 04/24/23 1011 CC: Dr. Ced Johnston DO; Dr. Reyes Saucedo MD ~ JLA Signed [facility] Work Phone: 1(153) 457-168710-02-2023 History of Present illness Narrative* Reyes Saucedo MD - 04/16/2023 9:55 AM EDT Subjective Valeria Pradhan is a 73 year old male. Torsten presents today for follow-up for multiple medical problems. See list. His chronic medical problems are stable. Blood pressure is under excellent control on his current regimen. He is having some difficulties staying asleep and getting a full nights rest. He is currently taking Xanax at bedtime along with a Sominex tablet. Additionally he is having increased IBS symptoms with periodic diarrhea. He has started taking a probiotic. Review of Systems PAST SURGICAL HISTORY Procedure Laterality Date COLONOSCOPY FLX DX W/COLLJ SPEC WHEN PFRMD 10/05/2003 Colonoscopy [facility] outpt HEMORRHOID;BAND LIGAT, SNGL/MUL INGUINAL HERNIA REPAIR HX TONSILLECTOMY & ADENOIDECTOMY <AGE 14 PAST MEDICAL HISTORY Diagnosis Date B12 deficiency Gout HTN (hypertension) HTN (hypertension) Hypercholesteremia Hypercholesterolemia Hypertriglyceridemia Neuropathy PAST SURGICAL HISTORY Procedure Laterality Date COLONOSCOPY FLX DX W/COLLJ SPEC WHEN PFRMD 10/05/2003 Colonoscopy [facility] outpt HEMORRHOID;BAND LIGAT, SNGL/MUL INGUINAL HERNIA REPAIR HX TONSILLECTOMY & ADENOIDECTOMY <AGE 14 History reviewed. No pertinent family history. Social History Tobacco Use Smoking status: Former Packs/day: 1.00 Years: 32.00 Additional pack years: 0.00 Total pack years: 32.00 Types: Cigarettes Smokeless tobacco: Never Vaping Use Vaping Use: Never used Substance Use Topics Alcohol use: Yes Comment: occasional Drug use: No ALLERGIES Allergen Reactions House Dust Mite Other: See Comments Potassium Clavulana* Angioedema Pravastatin Other: See Comments Simvastatin Other: See Comments MEDICATIONS: L.acid/L.casei/B.bif/B.federico/FOS (PROBIOTIC BLEND ORAL) Take by mouth. lisinopril (ZESTRIL) 20 mg tablet Take 1 tablet by mouth once daily. gabapentin (NEURONTIN) 300 mg capsule Take 300 mg by mouth three times daily. fluticasone (FLONASE) 50 mcg/actuation nasal spray Use 1 Braggs in each nostril once daily. atorvastatin (LIPITOR) 20 mg tablet Take 20 mg by mouth once daily. Azelastine 205.5 mcg (0.15 %) spry Apply to affected area. hydrochlorothiazide 25 mg tablet Take 1 tablet by mouth once daily. ALPRAZolam (XANAX) 0.5 mg tablet Take 1 tablet by mouth daily at bedtime for 90 days. Allergies, past surgical history, family history and past medical history were reviewed per this encounter. Medications were reviewed and verified. Objective BP 138/80 (BP Site: Left Arm, BP Position: Sitting, BP Cuff Size: Regular Adult) Pulse 68 Temp 36.1 C (97 F) (Temporal) Resp 18 Ht 189.2 cm (6' 2.5) Wt 103.1 kg (227 lb 3.2 oz) SpO2 99% BMI 28.78 kg/m Physical Exam Vitals reviewed. Constitutional: Appearance: Normal appearance. HENT: Head: Normocephalic and atraumatic. Nose: Nose normal. Eyes: Extraocular Movements: Extraocular movements intact. Pupils: Pupils are equal, round, and reactive to light. Cardiovascular: Rate and Rhythm: Normal rate and regular rhythm. Pulmonary: Effort: Pulmonary effort is normal. Breath sounds: Normal breath sounds. Abdominal: General: Bowel sounds are normal. Palpations: Abdomen is soft. Musculoskeletal: General: Normal range of motion. Cervical back: Normal range of motion and neck supple. Skin: General: Skin is warm and dry. Capillary Refill: Capillary refill takes less than 2 seconds. Neurological: General: No focal deficit present. Mental Status: He is alert and oriented to person, place, and time. Mental status is at baseline. Psychiatric: Mood and Affect: Mood normal. Behavior: Behavior normal. Assessment and Plan Encounter Diagnosis ICD-10-CM 1. Hypertension, essential I10 2. Anxiety F41.9 ALPRAZolam (XANAX) 0.5 mg tablet 3. 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 Primary insomnia F51.01 5. Pure hypercholesterolemia E78.00 6. Irritable bowel syndrome with diarrhea K58.0 Continue present medications. Trial of trazodone at bedtime to help with insomnia. Follow IBS diet.Continue probiotic. Reyes Saucedo MD * Nat Ojeda LPN - 04/16/2023 9:21 AM EDT Patient is in office today for 6 month exam. Patient has concerns with increased diarrhea throughout the day. Patient states that he has had a stool sample tested at Urgent Care before with negative results, it was normal. Patient states that he is only sleeping for about 4 hours a night, and would like medication to help him sleep 8 hours a night. Patient states he does wake up to use the restroom in the middle of thenight though. Nat Ojeda LPN April 16, 2023 9:32 AM documented in this encounterK[facility]23 Miscellaneous Notes* Telephone Encounter - Dawna Izaguirre LPN - 01/18/2023 8:38 AM EDT Patient called requesting the following refill. Requested Prescriptions Pending Prescriptions Disp Refills ALPRAZolam (XANAX) 0.5 mg tablet 30 tablet 2 Sig: Take 1 tablet by mouth daily at bedtime for 90 days. Patient last appointment: 10/11/2022 Next appointment 04/16/2023 Patient Phone numbers: [phone] (home) [phone] (work) Request is for script(s) to be escript to [facility] pharmacy. Dawna Izaguirre LPN documented in this encounterK[facility]03-29-2023 History of Present illness Narrative* Reyes Saucedo MD - 10/11/2022 2:33 PM EDT This note was created using Mandiantriter. Subjective Valeria Pradhan is a 72 year old male. Torsten presents today for his Medicare wellness exam Review of Systems Constitutional: Negative. HENT: Negative. Eyes: Negative. Respiratory: Negative. Cardiovascular: Negative. Gastrointestinal: Negative. Endocrine: Negative. Genitourinary: Negative. Musculoskeletal: Negative. Skin: Negative. Allergic/Immunologic: Negative. Neurological: Negative. Hematological: Negative. Psychiatric/Behavioral: Negative. Objective BP 138/84 (BP Site: Left Arm, BP Position: Sitting, BP Cuff Size: Regular Adult) Pulse 78 Temp 36.3 C (97.3 F) (Temporal) Resp 18 Ht 189.2 cm (6' 2.5) Wt 106.9 kg (235 lb 9.6 oz) SpO2 97% BMI 29.84 kg/m Physical Exam Vitals reviewed. Constitutional: Appearance: Normal appearance. HENT: Head: Normocephalic and atraumatic. Nose: Nose normal. Eyes: Extraocular Movements: Extraocular movements intact. Pupils: Pupils are equal, round, and reactive to light. Cardiovascular: Rate and Rhythm: Normal rate and regular rhythm. Pulmonary: Effort: Pulmonary effort is normal. Breath sounds: Normal breath sounds. Abdominal: General: Bowel sounds are normal. Palpations: Abdomen is soft. Musculoskeletal: General: Normal range of motion. Cervical back: Normal range of motion and neck supple. Skin: General: Skin is warm and dry. Capillary Refill: Capillary refill takes less than 2 seconds. Neurological: General: No focal deficit present. Mental Status: He is alert and oriented to person, place, and time. Mental status is at baseline. Psychiatric: Mood and Affect: Mood normal. Behavior: Behavior normal. Assessment and Plan Valeria was seen today for medicare wellness exam. Diagnoses and all orders for this visit: Encounter for screening for depression - DEPRESSION SCREENING/ASSESSMENT Encounter for counseling regarding advance directives - ADVANCE CARE PLAN DISCUSSION Anxiety - ALPRAZolam (XANAX) 0.5 mg tablet; Take 1 tablet by mouth daily at bedtime for 90 days. Wellness examination Pure hypercholesterolemia Hypertension, essential Chronic obstructive pulmonary disease, unspecified COPD type (HCC) Patient's labs from the [facility] reviewed. Continue present medications. Follow-up in 6 months * Nat Ojeda LPN - 10/11/2022 1:30 PM EDT DUE HEALTH MAINTENANCE ABDOMINAL AORTIC ANEURYSM SCREENING SPIROMETRY HEPATITIS C SCREENING ALPHA-1 ANTITRYPSIN DEFICIENCY SCREENING COVID-19 VACCINE(5 - Booster for Moderna series) [facility] [place], [place] Medicare Yearly Visit Current Outpatient Medications Medication Sig ALPRAZolam (XANAX) 0.5 mg tablet Take 0.5 mg by mouth daily at bedtime. lisinopril (ZESTRIL) 20 mg tablet Take 1 tablet by mouth once daily. gabapentin (NEURONTIN) 300 mg capsule Take 300 mg by mouth three times daily. fluticasone (FLONASE) 50 mcg/actuation nasal spray Use 1 Braggs in each nostril once daily. atorvastatin (LIPITOR) 20 mg tablet Take 20 mg by mouth once daily. Azelastine 205.5 mcg (0.15 %) spry Apply to affected area. hydrochlorothiazide 25 mg tablet Take 1 tablet by mouth once daily. No current facility-administered medications for this visit. Medications reviewed: Yes Valeria denies regular aerobic exercise. He watches his diet for sodium, low fat and low cholesterol most of the time. End of Live Planning discussed including patients advanced directive wishes: Yes I am willing to follow Valeria advanced directives. Depression screen He in the past two weeks denies having felt down, depressed, hopeless, or with little interest or pleasure in doing things. Functional Ability/Safety Screen 1. Was the patient's timed Up and Go test unsteady or longer than 30 seconds? 2. Does the patient need help with the phone, transportation, shopping,preparing meals, housework, laundry, medications or managing money? No 3. Does your home have rungs in the hallway, lack of grab bars in the bathroom, lack of handrails on the stairs or have poor lighting? No BP 138/84 Pulse 78 Temp (Src) 97.3 (Temporal) Resp 18 Ht 6' 2.5 (1.89m) Wt 235 lb 9.6 oz(106.9kg) SpO2 97% BMI 29.85 kg/(m^2). Reyes Saucedo MD documented in this encounterK[facility]10-05-2022 History of Present illness Narrative* Reyes Saucedo MD - 04/19/2022 4:47 PM EDT This note was created using Mandiantriter. Subjective Valeria Pradhan is a 72 year old male. Torsten presents today for follow-up for multiple medical problems. See list. His chronic medical problems are improved and stable. Blood pressures been under good control on his current regimen. Review of Systems Constitutional: Negative. HENT: Negative. Eyes: Negative. Respiratory: Negative. Cardiovascular: Negative. Gastrointestinal: Negative. Endocrine: Negative. Genitourinary: Negative. Musculoskeletal: Negative. Skin: Negative. Allergic/Immunologic: Negative. Neurological: Negative. Hematological: Negative. Psychiatric/Behavioral: Negative. Objective BP 138/80 (BP Site: Right Arm, BP Cuff Size: Large Adult) Pulse 71 Temp 36.2 C (97.1 F) (Temporal) Resp 14 Ht 189.2 cm (6' 2.5) Wt 103.7 kg (228 lb 9.6 oz) SpO2 96% BMI 28.96 kg/m Physical Exam Vitals reviewed. Constitutional: Appearance: Normal appearance. HENT: Head: Normocephalic and atraumatic. Nose: Nose normal. Eyes: Extraocular Movements: Extraocular movements intact. Pupils: Pupils are equal, round, and reactive to light. Cardiovascular: Rate and Rhythm: Normal rate and regular rhythm. Pulmonary: Effort: Pulmonary effort is normal. Breath sounds: Normal breath sounds. Abdominal: General: Bowel sounds are normal. Palpations: Abdomen is soft. Musculoskeletal: General: Normal range of motion. Cervical back: Normal range of motion and neck supple. Skin: General: Skin is warm and dry. Capillary Refill: Capillary refill takes less than 2 seconds. Neurological: General: No focal deficit present. Mental Status: He is alert and oriented to person, place, and time. Mental status is at baseline. Psychiatric: Mood and Affect: Mood normal. Behavior: Behavior normal. Assessment and Plan Valeria was seen today for 6 month exam. Diagnoses and all orders for this visit: Primary insomnia Anxiety - ALPRAZolam (XANAX) 0.5 mg tablet; Take 1 tablet by mouth daily at bedtime for 90 days. Neck pain, chronic Neuropathy Primary hypertension Hypercholesterolemia Other emphysema (HCC) Idiopathic gout, unspecified chronicity, unspecified site documented in this encounterK[facility]10-05-2022 Miscellaneous Notes* Telephone Encounter - Dawna Izaguirre LPN - 04/19/2022 8:22 AM EDT Pharmacy [email or web address] message requesting the following refill. Requested Prescriptions Pending Prescriptions Disp Refills ALPRAZolam (XANAX) 0.5 mg tablet [Pharmacy Med Name: ALPRAZolam 0.5 MG Oral Tablet] 30 tablet 2 Sig: TAKE 1 TABLET BY MOUTH AT NIGHT Patient last appointment: 03/03/2022 Patient Phone numbers: [phone] (home) [phone] (work) Request is for script(s) to be escript to [facility] pharmacy. Dawna Izaguirre LPN documented in this encounterK[facility]08-24-2022 Miscellaneous Notes* Telephone Encounter - Nat Ojeda LPN - 03/08/2022 2:47 PM EDT Patient requesting handicap parking. Please sign attached if agree Nat Ojeda LPN March 08, 2022 2:48 PM * Telephone Encounter - Valentina Tran - 03/03/2022 9:10 AM EDT Valeria stopped in the office. He is requesting parking placard. He has a bad back and is seeing pain mgmt for this. He asked them for this and they referred him back to his PCP. Can you order this and patient would like a call when it is ready to warehouse order picker at the office @ [phone]. NOTE: [facility] and I imported them to his chart. documented in this encounterK[facility]* Diagnosis Generalized weakness- Primary Other malaise and fatigue [facility] Diagnosis Anxiety- Primary Anxiety state, unspecified documented [facility] this [facility]* Diagnosis Primary insomnia- Primary Persistent disorder of initiating or maintaining sleep Anxiety Anxiety state, unspecified Neck pain, chronic Cervicalgia Neuropathy Mononeuritis of unspecified site Primary hypertension Unspecified essential hypertension Hypercholesterolemia Pure hypercholesterolemia Other emphysema (HCC) Other emphysema Idiopathic gout, unspecified chronicity, unspecified site documented [facility] this [facility] noteNo assessment information availableWPremier Health [facility] Work Phone: Evaluation note* Diagnosis Wellness examination- Primary Encounter for screening for depression Encounter for counseling regarding advance directives Anxiety Anxiety state, unspecified Pure hypercholesterolemia Hypertension, essential Unspecified essential hypertension Chronic obstructive pulmonary disease, unspecified COPD type (HCC) documented [facility] this [facility]* Diagnosis Onset Date Resolution Status DDD (degenerative disc disease), lumbar acute Lumbosacral radiculopathy at L4 acute DDD (degenerative disc disease), lumbar acute Lumbosacral radiculopathy at L4 acute [facility] Work Phone: Evaluation note* Diagnosis Anxiety Anxiety state, unspecified [facility] Diagnosis Hypertension, essential- Primary Unspecified essential hypertension Anxiety Anxiety state, unspecified Alcoholic peripheral neuropathy (HCC) Alcoholic polyneuropathy Primary insomnia Persistent disorder of initiating or maintaining sleep Pure hypercholesterolemia Irritable bowel syndrome with diarrhea Irritable bowel syndrome [facility]* Diagnosis Onset Date Resolution Status DDD (degenerative disc disease), lumbar acute Lumbosacral radiculopathy at L4 acute Lumbosacral radiculopathy at L4 acute DDD (degenerative disc disease), lumbar acute Lumbosacral radiculopathy at L4 acute [facility] Work Phone: Evaluation note* Diagnosis Herpes zoster without complication- Primary Herpes zoster without mention of complication Anxiety Anxiety state, unspecified [facility]* Diagnosis Wellness examination- Primary Screening for depression Advanced directives, counseling/discussion Other specified counseling Pure hypercholesterolemia Hypertension, essential Unspecified essential hypertension Chronic obstructive pulmonary disease, unspecified COPD type (HCC) B12 deficiency Other B-complex deficiencies Idiopathic gout, unspecified chronicity, unspecified site Screening PSA (prostate specific antigen) Special screening for malignant neoplasm of prostate Screening for deficiency anemia Screening for other and unspecified deficiency anemia Medicare annual wellness visit, subsequent Routine general medical examination at a health care facility documented [facility]* Diagnosis Hyponatremia- Primary Hyposmolality and/or hyponatremia [facility]* Diagnosis Tobacco abuse- Primary Tobacco use disorder Chronic obstructive pulmonary disease, unspecified COPD type (HCC) Unintended weight loss Loss of weight Hyponatremia Hyposmolality and/or hyponatremia [facility]* Diagnosis Anxiety Anxiety state, unspecified [facility]* Diagnosis Encounter for screening for lung cancer- Primary Tobacco abuse Tobacco use disorder [facility]* Diagnosis Tobacco abuse- Primary Tobacco use disorder [facility]* Diagnosis Tobacco abuse Tobacco use disorder [facility]* Diagnosis Screening for colon cancer- Primary Special screening for malignant neoplasms, colon documented [facility]* Diagnosis Diverticulitis- Primary Diverticulitis of colon (without mention of hemorrhage) documented [facility]* Diagnosis Anxiety Anxiety state, unspecified documented [facility]* Diagnosis Hypertension, essential- Primary Unspecified essential hypertension Pure hypercholesterolemia Chronic obstructive pulmonary disease, unspecified COPD type (HCC) Alcoholic peripheral neuropathy (HCC) Alcoholic polyneuropathy Primary insomnia Persistent disorder of initiating or maintaining sleep Generalized anxiety disorder documented [facility]* Diagnosis Chronic pain syndrome- Primary documented [facility]* Diagnosis Anxiety Anxiety state, unspecified documented [facility]* Diagnosis Preop examination- Primary Preoperative examination, unspecified Bradycardia Other specified cardiac dysrhythmias Chronic midline low back pain without sciatica Chronic obstructive pulmonary disease, unspecified COPD type (HCC) [facility]* Diagnosis Wellness examination- Primary Screening for depression Encounter for counseling regarding advance directives Anxiety Anxiety state, unspecified Hypertension, essential Unspecified essential hypertension Hypercholesterolemia Pure hypercholesterolemia Chronic obstructive pulmonary disease, unspecified COPD type (HCC) Alcoholic peripheral neuropathy (HCC) Alcoholic polyneuropathy Herpes zoster with complication Herpes zoster with unspecified complication Medicare annual wellness visit, subsequent Routine general medical examination at a health care facility [facility]* Diagnosis Post herpetic neuralgia- Primary Herpes zoster with other nervous system complications documented in this encounter [facility] Discharge instructionsAmbulatory Orders* Physical Therapy Referral Location: None Selected [facility] Work Phone: Hospital Discharge instructions Additional Instructions Stop your diuretic it could be causing your low sodium level. Follow-up with your doctor regarding your blood pressure. If you continue to have very high readings over 165 fairly consistently before you follow-up, you may double your dose of lisinopril to 40 mg daily.[facility] Work Phone: Reason for referral (narrative)No reason for referral information availableWPremier Health [facility] Work Phone: Summary Purpose Family History No Family History Records Found Relationship Condition Age at Onset Recorded Date/T raymond father Cardiac disease Unknown Hypertension Unknown High blood cholesterol Unknown mother High blood cholesterol Unknown sister Cerebrovascular accident (CVA) Unknown Advance Directives No Advanced Directives Records Found Advance Directive Response Recorded Date/ Time Living Will Yes August 13 7:08am Power of Audio Tape Librarian Yes August 13, 2019 7:08am Advance Directive Response Recorded Date/ Time Living Will Yes December 19, 2022 1 0:03am Power of Audio Tape Librarian Yes December 19, 2022 10:03am Advance Directive Response Recorded Date/ Time Living Will Yes December 19, 2022 9 :03am Power of Audio Tape Librarian Yes December 19, 2022 9:03am Advance Directive Response Recorded Date/ Time Living Will No November 04, 2023 5:57am Power of Audio Tape Librarian No November 03 5:57am Advance Directive Response Recorded Date/ Time Advance Directives No December 22 8:40am Living Will No December 04, 2024 8 :37am Do you have a Healthcare Power of Audio Tape Librarian? No December 04, 2024 8:37am Chief Complaint and Reason for Visit Chief Complaint CERVICAL PAIN Chief Complaint Blood Flow Screening - Barber LUMBAR SPINE LUMBER SPINE Pain LUMBER SPINE Reason for Visit DDD (degenerative di sc disease), lumbar Lumbosacral radiculopathy at L4 DDD (degenerative disc disease), lumbar Lumbosacral radiculopathy at L4 Chief Complaint Pain LUMBER SPINE LUMBER SPINE LUMBER SPINE LUMBOSACRAL RADICULOPATHY/RX HERE Reason for Visit DDD (degenerative di sc disease), lumbar Lumbosacral radiculopathy at L4 Lumbosacral radiculopathy at L4 DDD (degenerative disc disease), lumbar Lumbosacral radiculopathy at L4 Chief Complaint STRAIN OF LEFT SHOUL LIBERTAD. RX HERE Chief Complaint STRAIN OF LEFT SHOUL LIBERTAD. RX HERE GENERAL ILLNESS Chief Complaint Admit Date LUMBAR SPINE August 07, 2024 1 0:23am room 2 August 07, 2024 1 0:48am LUMBAR STENOSIS August 13, 2024 4 :15pm LUMBAR SPINE August 19, 2024 9 :22am PREOP October 07, 2024 9:3 9am lumbar spine October 10, 2024 8:5 4am SURGICAL CLEARANCE (LEWIS) October 28, 2 025 10:57am INT LAB ORDERS October 28, 2024 11: 55am Reason for Visit Admit Date Balance problem August 07, 2024 1 0:23am Lumbar scoliosis August 07, 2024 1 0:23am Peripheral neuropathy August 07, 2024 10:23am Spinal stenosis of lumbar re gion with neurogenic claudication August 07, 2024 10:23am Lumbar scoliosis August 19, 2024 9 :22am Other intervertebral disc de generation, lumbar region with discogenic back August 19, 2024 9:22am Spinal stenosis of lumbar re gion with neurogenic claudication August 19, 2024 9:22am Lumbar scoliosis October 10, 2024 8:5 4am Other intervertebral disc de generation, lumbar region with discogenic back October 10, 2024 8:54am Spinal stenosis of lumbar re gion with neurogenic claudication October 10, 2024 8:54am Preop cardiovascular exam October 28 10:57am Dyslipidemia October 28, 2024 10: 57am Hypertension October 28, 2024 10: 57am Sick sinus syndrome October 28, 2024 10: 57am Chief Complaint Admit Date LUMBAR SPINE August 07, 2024 1 0:23am room 2 August 07, 2024 1 0:48am LUMBAR STENOSIS August 13, 2024 4 :15pm LUMBAR SPINE August 19, 2024 9 :22am PREOP October 07, 2024 9:3 9am lumbar spine October 10, 2024 8:5 4am SURGICAL CLEARANCE (LEWIS) October 28, 2 025 10:57am INT LAB ORDERS October 28, 2024 11: 55am PREOP CARDIOVASCULAR EXAM November 19, 2024 6:45am PREOP CARDIOVASCULAR EXAM November 19, 2024 9:38am INT LABS AND RAD November 24, 2024 8:35a m 6 wk FU November 25, 2024 9:16a m Reason for Visit Admit Date Balance problem August 07, 2024 1 0:23am Lumbar scoliosis August 07, 2024 1 0:23am Peripheral neuropathy August 07, 2024 10:23am Spinal stenosis of lumbar re gion with neurogenic claudication August 07, 2024 10:23am Lumbar scoliosis August 19, 2024 9 :22am Other intervertebral disc de generation, lumbar region with discogenic back August 19, 2024 9:22am Spinal stenosis of lumbar re gion with neurogenic claudication August 19, 2024 9:22am Lumbar scoliosis October 10, 2024 8:5 4am Other intervertebral disc de generation, lumbar region with discogenic back October 10, 2024 8:54am Spinal stenosis of lumbar re gion with neurogenic claudication October 10, 2024 8:54am Preop cardiovascular exam October 28 10:57am Dyslipidemia October 28, 2024 10: 57am Hypertension October 28, 2024 10: 57am Sick sinus syndrome October 28, 2024 10: 57am Abnormal cardiovascular stress test November 25, 2024 9:16am Diastolic dysfunction November 25, 2024 9:1 6am Dyslipidemia November 25, 2024 9:16a m Hypertension November 25, 2024 9:16a m Sick sinus syndrome November 25, 2024 9:16a m Chief Complaint Admit Date PREOP October 07, 2024 9:3 9am lumbar spine October 10, 2024 8:5 4am SURGICAL CLEARANCE (LEWIS) October 28, 2 025 10:57am INT LAB ORDERS October 28, 2024 11: 55am PREOP CARDIOVASCULAR EXAM November 19, 2024 6:45am PREOP CARDIOVASCULAR EXAM November 19, 2024 9:38am INT LABS AND RAD November 24, 2024 8:35a m ABN STRESS November 24, 2024 10:13 am 6 wk FU November 25, 2024 9:16a m ABN STRESS December 04, 2024 8:26a m LUMBAR SPINE December 23, 2024 2:54 pm Room 4 December 23, 2024 3:09 pm Reason for Visit Admit Date Lumbar scoliosis October 10, 2024 8:5 4am Other intervertebral disc de generation, lumbar region with discogenic back October 10, 2024 8:54am Spinal stenosis of lumbar re gion with neurogenic claudication October 10, 2024 8:54am Preop cardiovascular exam October 28 10:57am Dyslipidemia October 28, 2024 10: 57am Hypertension October 28, 2024 10: 57am Sick sinus syndrome October 28, 2024 10: 57am Abnormal cardiovascular stress test November 25, 2024 9:16am Diastolic dysfunction November 25, 2024 9:1 6am Dyslipidemia November 25, 2024 9:16a m Hypertension November 25, 2024 9:16a m Sick sinus syndrome November 25, 2024 9:16a m Chief Complaint Admit Date PREOP October 07, 2024 9:3 9am lumbar spine October 10, 2024 8:5 4am SURGICAL CLEARANCE (LEWIS) October 28 10:57am INT LAB ORDERS October 28, 2024 11: 55am PREOP CARDIOVASCULAR EXAM November 19, 2024 6:45am PREOP CARDIOVASCULAR EXAM November 19, 2024 9:38am INT LABS AND RAD November 24, 2024 8:35a m ABN STRESS November 24, 2024 10:13 am 6 wk FU November 25, 2024 9:16a m ABN STRESS December 04, 2024 8:26a m LUMBAR SPINE December 23, 2024 2:54 pm Room 4 December 23, 2024 3:09 pm lumbar spine January 29, 2025 8:53 am Reason for Visit Admit Date Lumbar scoliosis October 10, 2024 8:5 4am Other intervertebral disc de generation, lumbar region with discogenic back October 10, 2024 8:54am Spinal stenosis of lumbar re gion with neurogenic claudication October 10, 2024 8:54am Preop cardiovascular exam October 28 10:57am Dyslipidemia October 28, 2024 10: 57am Hypertension October 28, 2024 10: 57am Sick sinus syndrome October 28, 2024 10: 57am Abnormal cardiovascular stress test November 25, 2024 9:16am Diastolic dysfunction November 25, 2024 9:1 6am Dyslipidemia November 25, 2024 9:16a m Hypertension November 25, 2024 9:16a m Sick sinus syndrome November 25, 2024 9:16a m Lumbar scoliosis December 23, 2024 2:54 pm Other intervertebral disc de generation, lumbar region with discogenic back December 23, 2024 2:54pm Spinal stenosis of lumbar re gion with neurogenic claudication December 23, 2024 2:54pm Reason for Referral Specialty Diagnoses / Procedures Referred By Kierra marcus Referred To Contact CT IMAGING Diagnoses Tobacco abuse Procedures CT LUNG SCREEN WO IVCON COMPUTED TOMOGRAPHY THORAX LW DOSE LNG CA SCR 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, 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 [address] [place] [address] Ct Imaging [id number] Referral ID Status Reason Start Date Expiration Date Visits Requested Visits Authorized [id number] Authorized Auto-Generat ed Referral 12/31/2023 01/29/2025 1 1 Referral ID Status Reason Start Date Expiration Date Visits Requested Visits Authorized [id number] Pending Review Auto-Generat ed Referral 01/15/2024 02/13/2025 1 1 Referral ID Status Reason Start Date Expiration Date V isits Requested Visits Authorized [id number] Closed Auto-Generate d Referral 12/31/2023 01/29/2025 1 1 Specialty Diagnoses / Procedures Referred By Contac t Referred To Contact Gastroenterology Diagnoses Screening for colon cancer Procedures CONSULT TO GASTROENTEROLOGY Reyes Saucedo MD [address] [place] [address] Joel Cervantes MD [address] [facility] [address] [place] [address] Referral ID Status Reason Start Date Expiration Date Visits Requested Visits Authorized [id number] Ref Not Required PCP Requested Referral 01/27/2024 01/21/2025 1 1 Additional Source Comments (unrecognized sect ion and content) No Status Records FoundNo Status Records FoundNo Status Records FoundNo Status Records Found INFORMATION SOURCE (unrecogn ized section and content) DATE CREATED AUTHOR 08/17/2020 [facility] ([place]) DATE CREATED AUTHOR AUTHOR'S ORGANIZ ATION 01/16/2024 [facility] DATE CREATED AUTHOR AUTHOR'S ORGANIZ ATION 01/29/2025 [facility] DATE CREATED AUTHOR AUTHOR'S ORGANIZ ATION 02/04/2025 [facility] Source Comments (unrecognize d section and content) In the event this informatio n is protected by the Federal Confidentiality of Alcohol and Drug Abuse Patient Records regulations: The Federal rules restrict any use of the information to criminally investigate or prosecute any alcohol or drug abuse patient.[facility] the event this information is protected by the Federal Confidentiality of Alcohol and Drug Abuse Patient Records regulations: The Federal rules restrict any use of the information to criminally investigate or prosecute any alcohol or drug abuse patient.[facility] HamiltonIn the event this information is protected by the Federal Confidentiality of Alcohol and Drug Abuse Patient Records regulations: The Federal rules restrict any use of the information to criminally investigate or prosecute any alcohol or drug abuse patient.[facility] HamiltonIn the event this information is protected by the Federal Confidentiality of Alcohol and Drug Abuse Patient Records regulations: The Federal rules restrict any use of the information to criminally investigate or prosecute any alcohol or drug abuse patient.[facility] HamiltonIn the event this information is protected by the Federal Confidentiality of Alcohol and Drug Abuse Patient Records regulations: The Federal rules restrict any use of the information to criminally investigate or prosecute any alcohol or drug abuse patient.[facility] HamiltonIn the event this information is protected by the Federal Confidentiality of Alcohol and Drug Abuse Patient Records regulations: The Federal rules restrict any use of the information to criminally investigate or prosecute any alcohol or drug abuse patient.[facility] HamiltonIn the event this information is protected by the Federal Confidentiality of Alcohol and Drug Abuse Patient Records regulations: The Federal rules restrict any use of the information to criminally investigate or prosecute any alcohol or drug abuse patient.[facility] HamiltonIn the event this information is protected by the Federal Confidentiality of Alcohol and Drug Abuse Patient Records regulations: The Federal rules restrict any use of the information to criminally investigate or prosecute any alcohol or drug abuse patient.[facility] HamiltonIn the event this information is protected by the Federal Confidentiality of Alcohol and Drug Abuse Patient Records regulations: The Federal rules restrict any use of the information to criminally investigate or prosecute any alcohol or drug abuse patient.[facility] HamiltonIn the event this information is protected by the Federal Confidentiality of Alcohol and Drug Abuse Patient Records regulations: The Federal rules restrict any use of the information to criminally investigate or prosecute any alcohol or drug abuse patient.[facility] HamiltonIn the event this information is protected by the Federal Confidentiality of Alcohol and Drug Abuse Patient Records regulations: The Federal rules restrict any use of the information to criminally investigate or prosecute any alcohol or drug abuse patient.[facility] HamiltonIn the event this information is protected by the Federal Confidentiality of Alcohol and Drug Abuse Patient Records regulations: The Federal rules restrict any use of the information to criminally investigate or prosecute any alcohol or drug abuse patient.[facility] HamiltonIn the event this information is protected by the Federal Confidentiality of Alcohol and Drug Abuse Patient Records regulations: The Federal rules restrict any use of the information to criminally investigate or prosecute any alcohol or drug abuse patient.[facility] HamiltonIn the event this information is protected by the Federal Confidentiality of Alcohol and Drug Abuse Patient Records regulations: The Federal rules restrict any use of the information to criminally investigate or prosecute any alcohol or drug abuse patient.[facility] HamiltonIn the event this information is protected by the Federal Confidentiality of Alcohol and Drug Abuse Patient Records regulations: The Federal rules restrict any use of the information to criminally investigate or prosecute any alcohol or drug abuse patient.[facility] HamiltonIn the event this information is protected by the Federal Confidentiality of Alcohol and Drug Abuse Patient Records regulations: The Federal rules restrict any use of the information to criminally investigate or prosecute any alcohol or drug abuse patient.[facility] HamiltonIn the event this information is protected by the Federal Confidentiality of Alcohol and Drug Abuse Patient Records regulations: The Federal rules restrict any use of the information to criminally investigate or prosecute any alcohol or drug abuse patient.[facility] HamiltonIn the event this information is protected by the Federal Confidentiality of Alcohol and Drug Abuse Patient Records regulations: The Federal rules restrict any use of the information to criminally investigate or prosecute any alcohol or drug abuse patient.[facility] HamiltonIn the event this information is protected by the Federal Confidentiality of Alcohol and Drug Abuse Patient Records regulations: The Federal rules restrict any use of the information to criminally investigate or prosecute any alcohol or drug abuse patient.[facility] HamiltonIn the event this information is protected by the Federal Confidentiality of Alcohol and Drug Abuse Patient Records regulations: The Federal rules restrict any use of the information to criminally investigate or prosecute any alcohol or drug abuse patient.[facility] HamiltonIn the event this information is protected by the Federal Confidentiality of Alcohol and Drug Abuse Patient Records regulations: The Federal rules restrict any use of the information to criminally investigate or prosecute any alcohol or drug abuse patient.[facility] HamiltonIn the event this information is protected by the Federal Confidentiality of Alcohol and Drug Abuse Patient Records regulations: The Federal rules restrict any use of the information to criminally investigate or prosecute any alcohol or drug abuse patient.[facility] HamiltonIn the event this information is protected by the Federal Confidentiality of Alcohol and Drug Abuse Patient Records regulations: The Federal rules restrict any use of the information to criminally investigate or prosecute any alcohol or drug abuse patient.[facility] HamiltonIn the event this information is protected by the Federal Confidentiality of Alcohol and Drug Abuse Patient Records regulations: The Federal rules restrict any use of the information to criminally investigate or prosecute any alcohol or drug abuse patient.[facility] HamiltonIn the event this information is protected by the Federal Confidentiality of Alcohol and Drug Abuse Patient Records regulations: The Federal rules restrict any use of the information to criminally investigate or prosecute any alcohol or drug abuse patient.[facility] HamiltonIn the event this information is protected by the Federal Confidentiality of Alcohol and Drug Abuse Patient Records regulations: The Federal rules restrict any use of the information to criminally investigate or prosecute any alcohol or drug abuse patient.[facility] HamiltonIn the event this information is protected by the Federal Confidentiality of Alcohol and Drug Abuse Patient Records regulations: The Federal rules restrict any use of the information to criminally investigate or prosecute any alcohol or drug abuse patient.[facility] HamiltonIn the event this information is protected by the Federal Confidentiality of Alcohol and Drug Abuse Patient Records regulations: The Federal rules restrict any use of the information to criminally investigate or prosecute any alcohol or drug abuse patient.[facility] HamiltonIn the event this information is protected by the Federal Confidentiality of Alcohol and Drug Abuse Patient Records regulations: The Federal rules restrict any use of the information to criminally investigate or prosecute any alcohol or drug abuse patient.[facility] HamiltonIn the event this information is protected by the Federal Confidentiality of Alcohol and Drug Abuse Patient Records regulations: The Federal rules restrict any use of the information to criminally investigate or prosecute any alcohol or drug abuse patient.[facility] HamiltonIn the event this information is protected by the Federal Confidentiality of Alcohol and Drug Abuse Patient Records regulations: The Federal rules restrict any use of the information to criminally investigate or prosecute any alcohol or drug abuse patient.[facility] HamiltonIn the event this information is protected by the Federal Confidentiality of Alcohol and Drug Abuse Patient Records regulations: The Federal rules restrict any use of the information to criminally investigate or prosecute any alcohol or drug abuse patient.[facility] HamiltonIn the event this information is protected by the Federal Confidentiality of Alcohol and Drug Abuse Patient Records regulations: The Federal rules restrict any use of the information to criminally investigate or prosecute any alcohol or drug abuse patient.[facility] HamiltonIn the event this information is protected by the Federal Confidentiality of Alcohol and Drug Abuse Patient Records regulations: The Federal rules restrict any use of the information to criminally investigate or prosecute any alcohol or drug abuse patient.[facility] HamiltonIn the event this information is protected by the Federal Confidentiality of Alcohol and Drug Abuse Patient Records regulations: The Federal rules restrict any use of the information to criminally investigate or prosecute any alcohol or drug abuse patient.[facility] HamiltonIn the event this information is protected by the Federal Confidentiality of Alcohol and Drug Abuse Patient Records regulations: The Federal rules restrict any use of the information to criminally investigate or prosecute any alcohol or drug abuse patient.[facility] HamiltonIn the event this information is protected by the Federal Confidentiality of Alcohol and Drug Abuse Patient Records regulations: The Federal rules restrict any use of the information to criminally investigate or prosecute any alcohol or drug abuse patient.[facility] HamiltonIn the event this information is protected by the Federal Confidentiality of Alcohol and Drug Abuse Patient Records regulations: The Federal rules restrict any use of the information to criminally investigate or prosecute any alcohol or drug abuse patient.[facility] HamiltonIn the event this information is protected by the Federal Confidentiality of Alcohol and Drug Abuse Patient Records regulations: The Federal rules restrict any use of the information to criminally investigate or prosecute any alcohol or drug abuse patient.[facility] HamiltonIn the event this information is protected by the Federal Confidentiality of Alcohol and Drug Abuse Patient Records regulations: The Federal rules restrict any use of the information to criminally investigate or prosecute any alcohol or drug abuse patient.[facility] the event this information is protected by the Federal Confidentiality of Alcohol and Drug Abuse Patient Records regulations: The Federal rules restrict any use of the information to criminally investigate or prosecute any alcohol or drug abuse patient.[facility] HamiltonIn the event this information is protected by the Federal Confidentiality of Alcohol and Drug Abuse Patient Records regulations: The Federal rules restrict any use of the information to criminally investigate or prosecute any alcohol or drug abuse patient.[facility] HamiltonIn the event this information is protected by the Federal Confidentiality of Alcohol and Drug Abuse Patient Records regulations: The Federal rules restrict any use of the information to criminally investigate or prosecute any alcohol or drug abuse patient.[facility] HamiltonIn the event this information is protected by the Federal Confidentiality of Alcohol and Drug Abuse Patient Records regulations: The Federal rules restrict any use of the information to criminally investigate or prosecute any alcohol or drug abuse patient.[facility] HamiltonIn the event this information is protected by the Federal Confidentiality of Alcohol and Drug Abuse Patient Records regulations: The Federal rules restrict any use of the information to criminally investigate or prosecute any alcohol or drug abuse patient.[facility] HamiltonIn the event this information is protected by the Federal Confidentiality of Alcohol and Drug Abuse Patient Records regulations: The Federal rules restrict any use of the information to criminally investigate or prosecute any alcohol or drug abuse patient.[facility] HamiltonIn the event this information is protected by the Federal Confidentiality of Alcohol and Drug Abuse Patient Records regulations: The Federal rules restrict any use of the information to criminally investigate or prosecute any alcohol or drug abuse patient.[facility] HamiltonIn the event this information is protected by the Federal Confidentiality of Alcohol and Drug Abuse Patient Records regulations: The Federal rules restrict any use of the information to criminally investigate or prosecute any alcohol or drug abuse patient.[facility] HamiltonIn the event this information is protected by the Federal Confidentiality of Alcohol and Drug Abuse Patient Records regulations: The Federal rules restrict any use of the information to criminally investigate or prosecute any alcohol or drug abuse patient.[facility] HamiltonIn the event this information is protected by the Federal Confidentiality of Alcohol and Drug Abuse Patient Records regulations: The Federal rules restrict any use of the information to criminally investigate or prosecute any alcohol or drug abuse patient.[facility] HamiltonIn the event this information is protected by the Federal Confidentiality of Alcohol and Drug Abuse Patient Records regulations: The Federal rules restrict any use of the information to criminally investigate or prosecute any alcohol or drug abuse patient.[facility] HamiltonIn the event this information is protected by the Federal Confidentiality of Alcohol and Drug Abuse Patient Records regulations: The Federal rules restrict any use of the information to criminally investigate or prosecute any alcohol or drug abuse patient.[facility] HamiltonIn the event this information is protected by the Federal Confidentiality of Alcohol and Drug Abuse Patient Records regulations: The Federal rules restrict any use of the information to criminally investigate or prosecute any alcohol or drug abuse patient.[facility] HamiltonIn the event this information is protected by the Federal Confidentiality of Alcohol and Drug Abuse Patient Records regulations: The Federal rules restrict any use of the information to criminally investigate or prosecute any alcohol or drug abuse patient.[facility] HamiltonIn the event this information is protected by the Federal Confidentiality of Alcohol and Drug Abuse Patient Records regulations: The Federal rules restrict any use of the information to criminally investigate or prosecute any alcohol or drug abuse patient.[facility] HamiltonIn the event this information is protected by the Federal Confidentiality of Alcohol and Drug Abuse Patient Records regulations: The Federal rules restrict any use of the information to criminally investigate or prosecute any alcohol or drug abuse patient.[facility] HamiltonIn the event this information is protected by the Federal Confidentiality of Alcohol and Drug Abuse Patient Records regulations: The Federal rules restrict any use of the information to criminally investigate or prosecute any alcohol or drug abuse patient.[facility] HamiltonIn the event this information is protected by the Federal Confidentiality of Alcohol and Drug Abuse Patient Records regulations: The Federal rules restrict any use of the information to criminally investigate or prosecute any alcohol or drug abuse patient.[facility] Reason for Visit (unrecogniz ed section and content) Reason Comments Orders Reason Comments Refill Request Reason Comments 6 Month Exam F/u for HTN,COPD and other medical problems no concerns Reason Comments Medicare Wellness Exam Reason Onset Date Comments Refill Request 01/18/2023 Reason Comments 6 Month Exam Reason Comments Pain Reason Comments Results Reason Comments Patient Question Reason Comments Follow Up Reason Comments New Patient [facility]CS Specialty Diagnoses / Procedures Referred By Contac t Referred To Contact CT IMAGING Diagnoses Tobacco abuse Procedures CT LUNG SCREEN WO IVCON COMPUTED TOMOGRAPHY THORAX LW DOSE LNG CA SCR 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, 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 [address] [place] [id number] Imaging [id number] Referral ID Status Reason Start Date Expiration Date V isits Requested Visits Authorized [id number] Closed Auto-Generate d Referral 12/31/2023 01/29/2025 1 1 Reason Comments Orders Reason Comments Gastro referral faxed to Dr Joel Gimenez ur Reason Comments Abdominal Pain Reason Onset Date Comments Refill Request 04/03/2024 Reason Comments Pain Mgmt referral faxed to Dr Watters Reason Comments referral info given via [place] Reason Comments Referral Request Pain Mgmt Reason Onset Date Comments Refill Request 09/25/2024 Reason Comments Medical Clearance Reason Onset Date Comments Results 10/20/2024 Care Teams (unrecognized sec tion and content) Team Status: Active Member Role Status Dates Dr. Reyes Saucedo MD Primary Care Provider Active Team Status: Active Member Role Status Dates Dr. Reyes Saucedo MD Primary Care Provider Active Start: October 07, 2024 End: October 07, 2024 Dr. Jaron Jo MD Attending Provider Active S tart: October 07, 2024 End: October 07, 2024 Dr. Timothy Richardson MD Referring Provider Active Start: October 07, 2024 End: October 07, 2024 Team Status: Inactive Member Role Status Dates Dr. Reyes Saucedo MD Primary Care Provider Active Start: October 10, 2024 End: October 10, 2024 Dr. Reyes Saucedo MD Referring Provider Active Start: October 10, 2024 End: October 10, 2024 Dr. Timothy Richardson MD Attending Provider Active Start: October 10, 2024 End: October 10, 2024 Team Status: Inactive Member Role Status Dates Dr. Reyes Saucedo MD Primary Care Provider Active Start: October 28, 2024 End: October 28, 2024 Dr. Reyes Saucedo MD Referring Provider Active Start: October 28, 2024 End: October 28, 2024 Dr. Eileen Soto MD Attending Provider Active Start: October 28, 2024 End: October 28, 2024 Team Status: Inactive Member Role Status Dates Dr. Reyes Saucedo MD Primary Care Provider Active Start: October 28, 2024 End: October 28, 2024 Dr. Eileen Soto MD Attending Provider Active Start: October 28, 2024 End: October 28, 2024 Dr. Eileen Soto MD Referring Provider Active Start: October 28, 2024 End: October 28, 2024 Team Status: Inactive Member Role Status Dates Dr. Reyes Saucedo MD Primary Care Provider Active Start: November 19, 2024 End: November 19, 2024 Dr. Eileen Soto MD Attending Provider Active Start: November 19, 2024 End: November 19, 2024 Dr. Eileen Soto MD Referring Provider Active Start: November 19, 2024 End: November 19, 2024 Team Status: Active Member Role Status Dates Dr. Reyes Saucedo MD Primary Care Provider Active Start: November 19, 2024 Dr. Ramo Caraballo MD Attending Provider Active S tart: November 19, 2024 Dr. Eileen Soto MD Referring Provider Active Start: November 19, 2024 Team Status: Active Member Role Status Dates Dr. Reyes Saucedo MD Primary Care Provider Active Start: November 19, 2024 Dr. Eileen Soto MD Attending Provider Active Start: November 19, 2024 Dr. Eileen Soto MD Referring Provider Active Start: November 19, 2024 Dr. Eileen Soto MD Other Provider Active Star t: November 19, 2024 Team Status: Inactive Member Role Status Dates Dr. Reyes Saucedo MD Primary Care Provider Active Start: November 24, 2024 End: November 24, 2024 Dr. Eileen Soto MD Attending Provider Active Start: November 24, 2024 End: November 24, 2024 Dr. Eileen Soto MD Referring Provider Active Start: November 24, 2024 End: November 24, 2024 Team Status: Active Member Role Status Dates Dr. Reyes Saucedo MD Primary Care Provider Active Start: November 24, 2024 Dr. Eileen Soto MD Attending Provider Active Start: November 24, 2024 Dr. Eileen Soto MD Referring Provider Active Start: November 24, 2024 Dr. Eileen Soto MD Other Provider Active Star t: November 24, 2024 Team Status: Inactive Member Role Status Dates Dr. Reyes Saucedo MD Primary Care Provider Active Start: November 25, 2024 End: November 25, 2024 Dr. Reyes Saucedo MD Referring Provider Active Start: November 25, 2024 End: November 25, 2024 Dr. Eileen Soto MD Attending Provider Active Start: November 25, 2024 End: November 25, 2024 Team Status: Inactive Member Role Status Dates Dr. Reyes Saucedo MD Primary Care Provider Active Start: December 04, 2024 End: December 04, 2024 Dr. Eileen Soto MD Attending Provider Active Start: December 04, 2024 End: December 04, 2024 Dr. Eileen Soto MD Referring Provider Active Start: December 04, 2024 End: December 04, 2024 Team Status: Active Member Role Status Dates Dr. Reyes Saucedo MD Primary Care Provider Active Start: December 23, 2024 Dr. Reyes Saucedo MD Referring Provider Active Start: December 23, 2024 Dr. Timothy Richardson MD Attending Provider Active Start: December 23, 2024 Team Status: Inactive Member Role Status Dates Dr. Reyes Saucedo MD Primary Care Provider Active Start: December 23, 2024 End: December 23, 2024 Dr. 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 Reyes Saucedo MD Family Provider Active Dr. Reyes Saucedo MD Primary Care Provider Active Team Status: Inactive Member Role Status Dates Dr. Reyes Saucedo MD Primary Care Provider Active Addis Bernardo [employer] [place], [employer] [place] Attending Provider Active Chemical Processing Laborer Relationship Specialty Start Date End Date Reyes Saucedo MD [address] [place] [address] PCP - General Family Medicine 05/08/19 Chemical Processing Laborer Relationship Specialty Start Date End Date Reyes Saucedo MD [address] [place] [address] PCP - General Family Medicine 05/08/19 Joel Cervantes [address] [place] [address] Gastroenterology 10/09/22 Chemical Processing Laborer Relationship Specialty Start Date End Date Reyes Saucedo MD [address] [place] [address] PCP - General Family Medicine 05/08/19 Joel Cervantes [address] [place] [address] Gastroenterology 10/09/22 Chemical Processing Laborer Relationship Specialty Start Date End Date Reyes Saucedo MD [address] [place] [address] PCP - General Family Medicine 05/08/19 Joel Cervantes [employer] [address] [place] [address] Gastroenterology 10/09/22 Team Status: Active Member Role Status Dates Dr. Reyes Saucedo MD Primary Care Provider Active Dr. Nils Brown MD Attending Provider Active Team Status: Inactive Member Role Status Dates Dr. Reyes Saucedo MD Primary Care Provider, Referrin g Provider Active Dr. Ced Johnston DO Attending Provider Active Team Status: Active Member Role Status Dates Dr. Reyes Saucedo MD Primary Care Provider Active Dr. Ramo Caraballo MD Attending Provider Active Team Status: Inactive Member Role Status Dates Dr. Reyes Saucedo MD Primary Care Provider Active Dr. Ced Johnston DO Attending Provider, Referring P meredith Active Chemical Processing Laborer Relationship Specialty Start Date End Date Reyes Saucedo MD [address] [place] [address] PCP - General Family Medicine 05/08/19 Joel Cervantes [address] [facility] [facility] [address] [place] [address] Gastroenterology 10/09/22 Chemical Processing Laborer Relationship Specialty Start Date End Date Reyes Saucedo MD [address] [place] [address] PCP - General Family Medicine 05/08/19 Joel Cervantes [address] [place] [address] Gastroenterology 10/09/22 Chemical Processing Laborer Relationship Specialty Start Date End Date Reyes Saucedo MD [address] [place] [address] PCP - General Family Medicine 05/08/19 Joel Cervantes [address] [place] [address] Gastroenterology 10/09/22 Chemical Processing Laborer Relationship Specialty Start Date End Date Reyes Saucedo MD [address] [place] [address] PCP - General Family Medicine 05/08/19 Joel Cervantes MD [address] [place] [address] Gastroenterology 10/09/22 Chemical Processing Laborer Relationship Specialty Start Date End Date Reyes Saucedo MD [address] [place] [address] PCP - General Family Medicine 05/08/19 Joel Cervantes MD [address] [place] [address] Gastroenterology 10/09/22 Chemical Processing Laborer Relationship Specialty Start Date End Date Reyes Saucedo MD [address] [place] [address] PCP - General Family Medicine 05/08/19 Joel Cervantes MD [address] [place] [address] Gastroenterology 10/09/22 Team Status: Inactive Member Role Status Dates Dr. Reyes Saucedo MD Primary Care Provider Active Dr. Joe James DO Attending Provider, Referpatsy cook Provider Active [employer] Laborer Relationship Specialty Start Date End Date Reyes Saucedo MD [address] [place] [address] PCP - General Family Medicine 05/08/19 Joel Cervantes MD [address] [place] [address] Gastroenterology 10/09/22 Team Status: Inactive Member Role Status Dates Dr. Reyes Saucedo MD Primary Care Provider Active Dr. Chris Madden DO Emergency Provider Active Chemical Processing Laborer Relationship Specialty Start Date End Date Reyes Saucedo MD [address] [place] [address] PCP - General Family Medicine 05/08/19 Joel Cervantes MD [address] [facility] [address] [place] [address] Gastroenterology 10/09/22 Chemical Processing Laborer Relationship Specialty Start Date End Date Reyes Saucedo MD [address] [place] [address] PCP - General Family Medicine 05/08/19 Joel Cervantes MD [address] [facility] [address] [place] [address] Gastroenterology 10/09/22 Chemical Processing Laborer Relationship Specialty Start Date End Date Reyes Saucedo MD [address] [place] [address] PCP - General Family Medicine 05/08/19 Joel Cervantes MD [address] [facility] [address] [place], [place] [address] Gastroenterology 10/09/22 Chemical Processing Laborer Relationship Specialty Start Date End Date Reyes Saucedo MD [address] [place] [address] PCP - General Family Medicine 05/08/19 Joel Cervantes MD [address] [place] [address] Gastroenterology 10/09/22 Chemical Processing Laborer Relationship Specialty Start Date End Date Reyes Saucedo MD [address] [place] [address] PCP - General Family Medicine 05/08/19 Joel Cervantes MD [address] [place] [address] Gastroenterology 10/09/22 Chemical Processing Laborer Relationship Specialty Start Date End Date Reyes Saucedo MD [address] [place] [address] PCP - General Family Medicine 05/08/19 Joel Cervantes MD [address] [place] [address] Gastroenterology 10/09/22 Chemical Processing Laborer Relationship Specialty Start Date End Date Reyes Saucedo MD [address] [place] [address] PCP - General Family Medicine 05/08/19 Joel Cervantes MD [address] [place] [address] Gastroenterology 10/09/22 Chemical Processing Laborer Relationship Specialty Start Date End Date Reyes Saucedo MD [address] [place] [address] PCP - General Family Medicine 05/08/19 Joel Cervantes MD [address] [place] [address] Gastroenterology 10/09/22 Chemical Processing Laborer Relationship Specialty Start Date End Date Reyes Saucedo MD [address] [place] [address] PCP - General Family Medicine 05/08/19 Joel Cervantes MD [address] [place] [address] Gastroenterology 10/09/22 Chemical Processing Laborer Relationship Specialty Start Date End Date Reyes Saucedo MD [address] [place] [address] PCP - General Family Medicine 05/08/19 Joel Cervantes MD [address] [place] [address] Gastroenterology 10/09/22 Chemical Processing Laborer Relationship Specialty Start Date End Date Reyes Saucedo MD [address] [place] [address] PCP - General Family Medicine 05/08/19 Joel Cervantes MD [address] [place] [address] Gastroenterology 10/09/22 Chemical Processing Laborer Relationship Specialty Start Date End Date Reyes Saucedo MD [address] [place] [address] PCP - General Family Medicine 05/08/19 Joel Cervantes MD [address] [place] [address] Gastroenterology 10/09/22 Chemical Processing Laborer Relationship Specialty Start Date End Date Reyes Saucedo MD [address] [place] [address] PCP - General Family Medicine 05/08/19 Joel Cervantes MD [address] [place] [address] Gastroenterology 10/09/22 Chemical Processing Laborer Relationship Specialty Start Date End Date Reyes Saucedo MD [address] [place] [address] PCP - General Family Medicine 05/08/19 Joel Cervantes MD [address] [place] [address] Gastroenterology 10/09/22 Chemical Processing Laborer Relationship Specialty Start Date End Date Reyes Saucedo MD [address] [place] [address] PCP - General Family Medicine 05/08/19 Joel Cervantes MD [address] [place] [address] Gastroenterology 10/09/22 Chemical Processing Laborer Relationship Specialty Start Date End Date Reyes Saucedo MD [address] [place] [address] PCP - General Family Medicine 05/08/19 Joel Cervantes MD [address] [place] [address] Gastroenterology 10/09/22 Chemical Processing Laborer Relationship Specialty Start Date End Date Reyes Saucedo MD [address] [place] [address] PCP - General Family Medicine 05/08/19 Joel Cervantes MD [address] [place], [place] [address] Gastroenterology 10/09/22 Chemical Processing Laborer Relationship Specialty Start Date End Date Reyes Saucedo MD [address] [place] [address] PCP - General Family Medicine 05/08/19 Joel Cervantes MD [address] [place], [place] [address] Gastroenterology 10/09/22 Chemical Processing Laborer Relationship Specialty Start Date End Date Reyes Saucedo MD [address] [place] [address] PCP - General Family Medicine 05/08/19 Joel Cervantes MD [address] [place], [place] [address] Gastroenterology 10/09/22 Team Status: Inactive Member Role Status Dates Dr. Reyes Saucedo MD Primary Care Provider Active Start: August 07, 2024 End: August 07, 2024 Dr. Reyes Saucedo MD Referring Provider Active Start: August 07, 2024 End: August 07, 2024 Dr. Timothy Richardson MD Attending Provider Active Start: August 07, 2024 End: August 07, 2024 Team Status: Inactive Member Role Status Dates Dr. Reyes Saucedo MD Primary Care Provider Active Start: August 07, 2024 End: August 07, 2024 Dr. Jaron Jo MD Attending Provider Active S tart: August 07, 2024 End: August 07, 2024 Team Status: Inactive Member Role Status Dates Dr. Reyes Saucedo MD Primary Care Provider Active Start: August 13, 2024 End: August 13, 2024 Dr. Timothy Richardson MD Attending Provider Active Start: August 13, 2024 End: August 13, 2024 Dr. Timothy Richardson MD Referring Provider Active Start: August 13, 2024 End: August 13, 2024 Team Status: Inactive Member Role Status Dates Dr. Reyes Saucedo MD Primary Care Provider Active Start: August 19, 2024 End: August 19, 2024 Dr. Reyes Saucedo MD Referring Provider Active Start: August 19, 2024 End: August 19, 2024 Dr. Timothy Richardson MD Attending Provider Active Start: August 19, 2024 End: August 19, 2024 Team Status: Active Member Role Status Dates Dr. Reyes Saucedo MD Primary Care Provider Active Start: November 19, 2024 Dr. Eileen Soto MD Attending Provider Active Start: November 19, 2024 Dr. Eileen Soto MD Referring Provider Active Start: November 19, 2024 Team Status: Active Member Role Status Dates Dr. Reyes Saucedo MD Primary Care Provider Active Start: November 19, 2024 Dr. Ramo Caraballo MD Attending Provider Active S tart: November 19, 2024 Team Status: Active Member Role Status Dates Dr. Reyes Saucedo MD Primary Care Provider Active Start: November 24, 2024 Dr. Eileen Soto MD Attending Provider Active Start: November 24, 2024 Dr. Eileen Soto MD Referring Provider Active Start: November 24, 2024 Team Status: Inactive Member Role Status Dates Dr. Reyes Saucedo MD Primary Care Provider Active Start: December 23, 2024 End: December 23, 2024 Dr. Reyes Saucedo MD Referring Provider Active Start: December 23, 2024 End: December 23, 2024 Dr. Timothy Richardson MD Attending Provider Active Start: December 23, 2024 End: December 23, 2024 Chemical Processing Laborer Relationship Specialty Start Date End Date Reyes Saucedo MD [address] [place] [address] PCP - General Family Medicine 05/08/19 Joel Cervantes MD [address] [facility] [address] [place] [address] Gastroenterology 10/09/22 Team Status: Active Member Role/Relationship Status Dates Dr. Reyes Saucedo MD Primary Care Provider Active Team Status: Active Member Role/Relationship Status Dates Dr. Reyes Saucedo MD Primary Care Provider Active Start: October 07, 2024 End: October 07, 2024 Dr. Jaron Jo MD Attending Provider Active S tart: October 07, 2024 End: October 07, 2024 Dr. Timothy Richardson MD Referring Provider Active Start: October 07, 2024 End: October 07, 2024 Team Status: Inactive Member Role/Relationship Status Dates Dr. Reyes Saucedo MD Primary Care Provider Active Start: October 10, 2024 End: October 10, 2024 Dr. Reyes Saucedo MD Referring Provider Active Start: October 10, 2024 End: October 10, 2024 Dr. Timothy Richardson MD Attending Provider Active Start: October 10, 2024 End: October 10, 2024 Team Status: Inactive Member Role/Relationship Status Dates Dr. Reyes Saucedo MD Primary Care Provider Active Start: October 28, 2024 End: October 28, 2024 Dr. Reyes Saucedo MD Referring Provider Active Start: October 28, 2024 End: October 28, 2024 Dr. Eileen Soto MD Attending Provider Active Start: October 28, 2024 End: October 28, 2024 Team Status: Inactive Member Role/Relationship Status Dates Dr. Reyes Saucedo MD Primary Care Provider Active Start: October 28, 2024 End: October 28, 2024 Dr. Eileen Soto MD Attending Provider Active Start: October 28, 2024 End: October 28, 2024 Dr. Eileen Soto MD Referring Provider Active Start: October 28, 2024 End: October 28, 2024 Team Status: Inactive Member Role/Relationship Status Dates Dr. Reyes Saucedo MD Primary Care Provider Active Start: November 19, 2024 End: November 19, 2024 Dr. Eileen Soto MD Attending Provider Active Start: November 19, 2024 End: November 19, 2024 Dr. Eileen Soto MD Referring Provider Active Start: November 19, 2024 End: November 19, 2024 Team Status: Active Member Role/Relationship Status Dates Dr. Reyes Saucedo MD Primary Care Provider Active Start: November 19, 2024 Dr. Ramo Caraballo MD Attending Provider Active S tart: November 19, 2024 Dr. Eileen Soto MD Referring Provider Active Start: November 19, 2024 Team Status: Active Member Role/Relationship Status Dates Dr. Reyes Saucedo MD Primary Care Provider Active Start: November 19, 2024 Dr. Eileen Soto MD Attending Provider Active Start: November 19, 2024 Dr. Eileen Soto MD Referring Provider Active Start: November 19, 2024 Dr. Eileen Soto MD Other Provider Active Star t: November 19, 2024 Team Status: Inactive Member Role/Relationship Status Dates Dr. Reyes Saucedo MD Primary Care Provider Active Start: November 24, 2024 End: November 24, 2024 Dr. Eileen Soto MD Attending Provider Active Start: November 24, 2024 End: November 24, 2024 Dr. Eileen Soto MD Referring Provider Active Start: November 24, 2024 End: November 24, 2024 Team Status: Active Member Role/Relationship Status Dates Dr. Reyes Saucedo MD Primary Care Provider Active Start: November 24, 2024 Dr. Eileen Soto MD Attending Provider Active Start: November 24, 2024 Dr. Eileen Soto MD Referring Provider Active Start: November 24, 2024 Dr. Eileen Soto MD Other Provider Active Star t: November 24, 2024 Team Status: Inactive Member Role/Relationship Status Dates Dr. Reyes Saucedo MD Primary Care Provider Active Start: November 25, 2024 End: November 25, 2024 Dr. Reyes Saucedo MD Referring Provider Active Start: November 25, 2024 End: November 25, 2024 Dr. Eileen Soto MD Attending Provider Active Start: November 25, 2024 End: November 25, 2024 Team Status: Inactive Member Role/Relationship Status Dates Dr. Reyes Saucedo MD Primary Care Provider Active Start: December 04, 2024 End: December 04, 2024 Dr. Eileen Soto MD Attending Provider Active Start: December 04, 2024 End: December 04, 2024 Dr. Eileen Soto MD Referring Provider Active Start: December 04, 2024 End: December 04, 2024 Team Status: Inactive Member Role/Relationship Status Dates Dr. Reyes Saucedo MD Primary Care Provider Active Start: December 23, 2024 End: December 23, 2024 Dr. Reyes Saucedo MD Referring Provider Active Start: December 23, 2024 End: December 23, 2024 Dr. Timothy Richardson MD Attending Provider Active Start: December 23, 2024 End: December 23, 2024 Team Status: Inactive Member Role/Relationship Status Dates Dr. Reyes Saucedo MD Primary Care Provider Active Start: December 23, 2024 End: December 23, 2024 Dr. Jaron Jo MD Attending Provider Active S tart: December 23, 2024 End: December 23, 2024 Team Status: Inactive Member Role/Relationship Status Dates Dr. Reyes Saucedo MD Primary Care Provider Active Start: January 29, 2025 End: January 29, 2025 Dr. Reyes Saucedo MD Referring Provider Active Start: January 29, 2025 End: January 29, 2025 Dr. Timothy Richardson MD Attending Provider Active Start: January 29, 2025 End: January 29, 2025 Goals (unrecognized section and content) Goals may be documented in a n alternate sectionGoals may be documented in an alternate sectionGoals may be documented in an alternate sectionGoals may be documented in an alternate sectionGoals may be documented in an alternate sectionGoals may be documented in an alternate sectionGoals may be documented in an alternate sectionGoals may be documented in an alternate sectionGoals may be documented in an alternate sectionGoals may be documented in an alternate sectionGoals may be documented in an alternate sectionGoals may be documented in an alternate section FOR RECORDS PERTAINING TO PATIENTS WHO ARE OR HAVE BEEN ENROLLED IN A CHEMICAL DEPENDENCY/SUBSTANCEABUSE PROGRAM, SOME INFORMATION MAY BE OMITTED. This clinical summary was aggregated from multiple sources. Caution should be exercised in using it in the provision of clinical care. This summary normalizes information from multiple sources, and as a consequence, information in this document may materially change the coding, format and clinical context of patient data. In addition, data may be omitted in some cases. CLINICAL DECISIONS SHOULD BE BASED ON THE PRIMARY CLINICAL RECORDS. [facility]. provides no warranty or guarantee of the accuracy or completeness of information in this document.
[2025-02-04] MEDS: Magnesium 1 GM over 15 mins IV (06:21)
[2025-02-04] MEDS: Lactated Ringers 1,000 ML 15 ML IV ×2 (06:23→15:02)
--- NOTE | 2025-02-04 06:30 | RAD_ITS ---
PROCEDURE: LUMBAR SPINE 2 OR 3 VIEWS 02/04/2025 REASON FOR EXAM: ERAS, 360 LUMBAR FUSION L3-4, L4-5, AND L5-S1 TECHNIQUE: LUMBAR SPINE 2 OR 3 VIEWS Fluoroscopy time: 194 seconds Total images: 21 COMPARISON: Lumbar spine December 23, 2024 FINDINGS: Intraoperative fluoroscopic spot images were obtained in the AP and lateral projection during intraoperative disc spacer placement at L3/4, L4/5 and L5/S1. Pedicle screws and rods at L3, L5 and S1. Single screw at the sacral promontory left of midline. RAD/Lumbar Spine 2 or 3 Views IMPRESSION: Intraoperative localization and guidance. Correlate with procedural note. Reading Location: [id number]
--- NOTE | 2025-02-04 06:34 | PRE.ANES_ITS ---
ASA Classification* ASA Classification ASA Classification: 2 Assessment & Plan Anesthesia* Anesthesia Assessment Anesthesia Assessment: Discussed sedation and/or anesthesia options, risks, benefits, and alternatives with patient/parents/legal guardian/POA. Questions invited. The patient/parents/legal guardian/POA seems to understand and agrees to proceed with anesthesia plan. Reviewed the physical assessment, medical history, allergy history and patient home medications list prior to surgery/procedure/anesthetic and documented any changes. Performed airway and anesthesia risk assessments. Anesthesia Type Anesthesia Type: General (History of severe sore throat after intubation. Consider Salado scope intubation.) History Source History Obtained from:: Patient and Chart Anesthesia Focused Assessment* Temperature: 97.8 F Pulse Rate: 56 Blood Pressure: 106/75 Respiratory Rate: 17 Pulse Ox: 95 Airway Assessment Mouth opens: >3 cm Mallampati Score: I Teeth Condition: Caps/Crowns (Multiple crowns. They are all tight.) and Missing (Patient has a couple missing teeth.) Neck Range of motion (ROM): Limited ROM (Slight Decrease) Labs Anesthesia Preop lab: CBC WBC 7.2 K/mm3 (4.4-11.0) 11/24/24 08:43 11/24/24 RBC 4.53 M/mm3 (4.6-6.2) L 11/24/24 08:43 11/24/24 Hgb 15.5 g/dL (13.0-16.5) 11/24/24 08:43 11/24/24 Hct 45.0 % (40-54) 11/24/24 08:43 11/24/24 Plt Count 225 K/mm3 (150-450) 11/24/24 08:43 11/24/24 CHEMISTRY Potassium 3.6 mmol/L (3.3-5.1) 11/24/24 08:48 11/24/24 Sodium 138 mmol/L (133-145) 11/24/24 08:48 11/24/24 Magnesium 2.0 mg/dL (1.5-2.2) 01/21/25 08:07 01/21/25 BUN 11 mg/dL (4-19) 11/24/24 08:48 11/24/24 Creatinine 0.78 mg/dL (0.70-1.20) 11/24/24 08:48 11/24/24 Glucose 114 mg/dL (70-99) H 11/24/24 08:48 11/24/24 TSH 1.350 uIU/mL (0.300-4.200) 10/28/24 12:06 10/14 12/07 COAG PT 12.9 SECONDS (11.7-14.9) 11/24/24 08:43 Pre-Assessment Diagnosis/Proposed Procedure Planned Operative Procedure(s): 360 LUMBAR FUSION L3-4 L4-5 L5-S1 Anesthesia History Anesthesia History - vocational nurse: Anesthesia History - vocational nurse Hx Hospitalization No 01/20/25 11:35 Any Problems With Anesthesia Severe sore throat 01/20/25 11:35 Cholinesterase deficiency No 01/20/25 11:35 You/Your Family Experience No 01/20/25 11:35 fever (hyperthermia) with Relationship Recent Exposure to Contagious No 02/04/25 06:24 Disease Does patient have nerve Yes: SPINAL CORD STIMULATOR/ 01/20/25 11:35 stimulator TURN OFF Patient instructed to have device shut off --Does patient have Pacemaker No 02/04/25 06:24 or ICD? When Was Last Pacemaker Check QUESTION #4 FULL TEXT: You/Your Family Experience fever (hyperthermia) with Anesthesia Last Oral Intake Last Oral intake: Last Oral Intake NPO since 04:00 02/04/25 06:24 Meds taken in AM with sips of Yes 02/04/25 06:24 water? Meds patient instructed to take am of surgery Any additional information?: Yes NPO since: 04:00 (Patient finishes preop Ensure at 4 AM.) Meds taken in AM with sips of water?: Yes PONV PONV - vocational nurse: PONV - vocational nurse Female No 01/20/25 11:35 HX of Motion Sickness No 01/20/25 11:35 HX of N/V After Surgery No 01/20/25 11:35 Non-Smoker Yes 01/20/25 11:35 Duration of Surgery greater Yes 01/20/25 11:35 than 60 minutes Number of Risk Factors 2 01/20/25 11:35 PONV Score Moderate Risk 01/20/25 11:35 Height & Weight Height & Weight: Anesthesia: Height & Weight Height 6 ft 4 in 02/04/25 06:24 Weight: 101 kg 02/04/25 06:24 Body Mass Index (BMI) 27.1 02/04/25 06:24 Respiratory Assessment Respiratory Assessment - vocational nurse: Respiratory Tract Infection Hx - vocational nurse Hx Respiratory Tract Infection No 01/20/25 11:35 STOP Sleep Apnea STOP Sleep Apnea - vocational nurse: STOP Sleep Apnea - vocational nurse Hx Hypertension Yes: CONTROLLED WITH MED 01/20/25 11:35 Hx Sleep Apnea No 01/20/25 11:35 CPAP BIPAP Do you snore loudly (louder No 01/20/25 11:35 than talking or can be heard Do you often feel tired/ Yes 01/20/25 11:35 fatigued/ sleepy during daytime? Has anyone observed you stop No 01/20/25 11:35 breathing during sleep? STOP Results Positive 01/20/25 11:35 QUESTION #5 FULL TEXT : Do you snore loudly (louder than talking or can be heard through closed doors)? Tobacco Use History Tobacco Use History - vocational nurse: Tobacco Use History - vocational nurse Tobacco Use Smoking Status Former smoker 01/20/25 11:35 Hx Tobacco Use Yes 01/20/25 11:35 Years Smoking Packs Smoked per Day Smoking Cessation Date was Yes - quit smoking within 15 01/20/25 11:35 within the last 15 years years Hx Smoking Cessation Date Hx Smoking Cessation Counseling Hematologic Medial History Hematologic Hx - vocational nurse: Hematologic Medical Hx - technical documentation specialist Hx of Blood Transfusion No 01/20/25 11:35 Hx of Transfusion in last 3 No 01/20/25 11:35 Months Date of Last Transfusion (if within last 3 months) Ever experience any problems No 01/20/25 11:35 with transfusion(s)? Specify any problems Hx of Preganancy in last 3 N/A 01/20/25 11:35 Months Nurse Filling Out Transfusion DSCHRIBER 01/20/25 11:35 & Questions: Date: 01/20/25 01/20/25 11:35 Time: 11:38 01/20/25 11:35 Patient unable to answer at this time (ie. confused, unrespo /Reproduction History /Reproductive History - vocational nurse: /Reproductive Hx- vocational nurse Hx Now No 01/20/25 11:35 Gestational Age (in weeks): EDC: Hx Hx Para Hx Section SAB No 01/20/25 11:35 Active Medications Active Medications: Current Medications Generic Name Dose Route Start Last Admin Trade Name Gracy PRN Reason Stop Dose Admin Acetaminophen 1,000 mg 02/04/25 07:30 02/04/25 06:20 Acetaminophen 500 Mg Tablet PO 02/04/25 07:31 1,000 mg PREOP ONE Administration Clindamycin Phosphate 900 mg in 50 mls @ 75 mls/hr 02/04/25 07:30 Cleocin IV 02/04/25 08:09 INTRAOP ONE Tranexamic Acid 1,000 mg/ 110 mls @ 440 mls/hr 02/04/25 07:30 Sodium Chloride IV 02/04/25 07:44 INTRAOP ONE Tranexamic Acid 1,000 mg/ 110 mls @ 440 mls/hr 02/04/25 07:30 Sodium Chloride IV 02/04/25 07:44 INTRAOP ONE Magnesium Sulfate 1 gm/ 102 mls @ 408 mls/hr 02/04/25 07:30 02/04/25 06:21 Dextrose IV 02/04/25 07:44 408 mls/hr PREOP ONE Administration Sodium Chloride 1,000 mls @ 15 mls/hr 02/04/25 05:50 02/04/25 05:50 IV Not Given .Q48H ASHLEY Lactated Ringer's 1,000 mls @ 15 mls/hr 02/04/25 06:30 02/04/25 06:23 IV 15 mls/hr .Q48H ASHLEY Administration Insulin Human Lispro 1 - 6 unit 02/04/25 07:30 Insulin Lispro 100 Unit/Ml Insuln.Pen SC 02/04/25 18:00 Q4H PRN PRN BG>/= 180, SEE PROTOCOL Protocol PFSH Medical History Bladder disease Shortness of breath on exertion Neuropathy Wears hearing aid Wears glasses Alcohol use Arthritis High cholesterol Easy bruising Back pain Injury of back Gastric reflux Former smoker History of pain when walking History of echocardiogram History of stress test Cardiology follow-up encounter History of Holter monitoring Symptom of bladder outlet obstruction Recurrent inguinal hernia of right side without obstruction or gangrene Umbilical hernia without obstruction or gangrene Hemorrhoids Hypertension Hypertriglyceridemia Hypercholesterolemia Gout COPD (chronic obstructive pulmonary disease) B12 deficiency Home Medications ?Medication ?Instructions ?Recorded ?Last Taken ?Type cyanocobalamin (vitamin B-12) 1,000 mcg PO DAILY SUPPL EMENT 06/04/19 02/03/25 History 1,000 mcg tablet atorvastatin 20 mg tablet 20 mg PO QHS CHOLESTEROL 02/03/25 History amlodipine 5 mg tablet 5 mg PO QDAY BP 08/07/24 History trazodone 50 mg tablet 50 mg PO QHS SLEEP 08/07/24 02/03/25 History alprazolam 0.5 mg tablet (Xanax) 0.5 mg PO BID PRN anx iety 10/10/24 02/04/25 History coenzyme Q10 200 mg capsule 200 mg PO QDAY SUPPLEMENT 10/10/24 02/03/25 History lisinopril 40 mg tablet 40 mg PO QDAY BP 10/10/24 History omeprazole 20 mg capsule,delayed 20 mg PO DAILY GERD 0 10/10/24 02/04/25 History release tamsulosin 0.4 mg capsule 0.8 mg PO QHS PROSTATE 10/1002/03/25 History aspirin 81 mg tablet,delayed 81 mg PO QDAY HEART HEALT H #90 tabs 11/25/2401/29 Rx release (Adult Aspirin Regimen) isosorbide mononitrate 30 mg 30 mg PO QDAY HEART #90 t abs 11/25/24 02/04/25 Rx tablet,extended release 24 hr pregabalin 75 mg capsule (Lyrica) 75 mg PO TID NERVE P AIN 01/29/25 02/04/25 History Allergy/AdvReac Type Severity Reaction Status Date / Time amoxicillin trihydrate (From Allergy Angioedema Verified 02/04/25 05:43 Augmentin) potassium clavulanate (From Allergy Angioedema Verified 02/04/25 05:43 Augmentin) pravastatin AdvReac Unknown Unknown Verified 02/04/25 05:43 simvastatin AdvReac Unknown Unknown Verified 02/04/25 05:43 Family History Father Heart disease Hypertension High cholesterol Mother High cholesterol Hypertension Sister CVA (cerebral vascular accident) Surgical History History of right and left heart catheterization (01/06/10) Hx of umbilical hernia repair Hx of colonoscopy Hx of tonsillectomy Hx of hemorrhoidectomy Hx of right inguinal hernia repair Social History Smoking Status: Light Smoker (<10/day) second hand exposure: No alcohol intake: current alcohol intake frequency: holidays/special occasions only substance use type: does not use caffeine: Yes what type of physical activity do you participate in: none frequency: does not exercise Review of Systems (Anesthesia) ROS Narrative System reviewed and no additional complaints, except as documented.
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
[2025-02-04] MEDS: Clindamycin 900 MG/50 ML BAG 75 MG IV ×3 (13:45→22:10)
--- NOTE | 2025-02-04 13:54 | OP.PCM_ITS ---
Procedures Musculoskeletal 20xxx-29xxx: Other Procedure See Report Operative Report (Standard) Operative Information Date of Procedure: 02/04/25 Pre-Operative Diagnosis: L3-S1 disc degeneration, degenerative scoliosis, stenosis with neurogenic claudication, prior spinal cord stimulator placement Post-Operative Diagnosis: Same Surgery/Procedure Performed: L3-S1 oblique lumbar body fusion production operations inspector: Yes Caser In: Ramo Caraballo Tasks completed by nurse first assist: Opening & closing, Dissecting tissue, Removing tissue, Hemostasis: Electrocautery, Retracting and Other ([id number] surgery-access) Additional blood donor unit assistant?: Yes Additional Assistant Speech Language Pathologist #2: Trista Upton Tasks completed by blood donor unit assistant #2: Closing, Removing tissue, Hemostasis: Electrocautery and Retracting Type of Anesthesia: General RN Documented Start/Stop Times: Operation Date: 02/04/25 07:30 Case Time Into Pre-Op 02/04/25 05:44 Out of Pre-Op 02/04/25 07:32 Anesthesia Start 02/04/25 07:38 Into Room 02/04/25 07:38 Procedure Start 02/04/25 08:14 Procedure End 02/04/25 13:35 Anesthesia End 02/04/25 13:51 Out of Room 02/04/25 13:51 Procedure Start Time: 08:14 Procedure Stop Time: 13:35 Select all DRAINS/GRAFTS/IMPLANTS that apply: Graft Graft details: Allograft cancellous chips, autologous bone marrow aspirate and Implanted device Implanted device details: DePuy cougar lateral lumbar interbody cage?peek Estimated Blood Loss: 50 cc Specimen collected: No Description of surgery: Preoperative diagnosis: L3-S1 disc degeneration, degenerative scoliosis, stenosis with neurogenic claudication, prior spinal cord stimulator placement Postoperative diagnosis: Same Name of procedures L3-S1 oblique lumbar interbody fusion (OLIF), minimally invasive right sided approach, lateral decubitus: ? L3-4 anterolateral spinal fusion 97362 ? L4-5 anterolateral fusion 41781/51 ? L5-S1 anterolateral fusion 10935/51 ? L3-4 insertion of cage 15727 ? L4-5 insertion of cage 29652/51 ? L5-S1 insertion of cage 38713/51 ? Bone graft aspirate left iliac crest separate incision ? Allograft cancellous chips Attending Surgeon: Dr. Ephraim Richardson Co-surgeon: Dr. Ramo Caraballo Estimated blood loss: 50 mL Anesthesia: General Complications: None Indications: Patient is a 75-year-old pleasant gentleman who has had a long history of low back pain and bilateral lower extremity radiation, difficulty walking distances. Xrays & MRI revealed L3-S1 disc degeneration, degenerative scoliosis, stenosis, prior spinal cord stimulator placement. After undergoing a prolonged period of nonoperative treatment, the patient elected to undergo surgical decompression & fusion. All surgical options were discussed with the patient including anterior and posterior approaches. All risks and benefits associated with the procedure were explained to the patient. The risks include but are not limited to infection, bleeding, injury to nerves and vessels including major vessels like IVC and aorta, persistent paresthesia, persistent pain, dural tear, need for further procedures, adjacent segment degeneration, pseudoarthrosis, hardware failure, retrograde ejaculation, paralytic ileus, etc. Procedure: The patient was identified in the preoperative holding suite using Unique patient identifiers. Skin was marked, consent was reviewed, and all questions were answered. The patient was then brought back to the operative room. A surgical timeout was performed to make sure correct procedure was being done on the correct patient and all operative room staff were on the same page. General endotracheal anesthesia was then given to the patient. Ham catheter was inserted. The patient was then carefully positioned in left lateral decubitus position with the right side up on a regular OR table. Axillary roll was placed and all bony prominences were well- padded. Hip positioners were placed in the posterior buttocks and anterior sternal area. The surgical area was prepped and draped in usual fashion. Preoperative antibiotic was injected IV as preoperative antibiotic. A final timeout was then again done just before starting the procedure. A 2 inch incision oblique was taken in the right lower quadrant of the abdomen 2 fingerbreadths away from the iliac crest and the lower ribs. Sharp dissection with Bovie was carried out up to the fascia covering the external oblique. The external oblique, internal oblique and transversus abdominis muscles were split along the muscle fibers and retroperitoneal space was entered. Sponge sticks were utilized to move the bowel and peritoneum gbd-wh-esa-way and psoas muscle was exposed staying within the retroperitoneal plane. Zadego retractor system was positioned and the retractor blade was applied onto the psoas. The interval between psoas and midline structures was developed and appropriate retractors were placed. Once adequate interval was cleared, a disc space was identified and a marker x-ray was taken. This identified the L4-5 disc level. The prepsoas interval was then traced inferiorly to expose the L5-S1 disc. An attempt was made to identify the iliolumbar vein on the right, but significant thick fatty granulation tissue obscured this view. Adequate exposure of L5-S1 disc was possible without having to ligate any segmental vein. L5-S1 disc was confirmed on C-arm. Please see detailed note of exposure and vascular retraction in Dr. Caraballo's note. Annulotomy was done with a long handled knife. Pituitary was used to remove disc material. Curettes were used to prepare the endplates. Disc space spreaders were utilized to distract and increase the disc height. Near complete discectomy was performed. Trials of serially increasing sizes were used. A Jamshidi needle was used to aspirate bone marrow from the left anterior iliac crest through a separate incision and this aspirate was mixed with the allograft bone chips. A Depuy [place] cage of size of the 18 x 50 x 14 mm with 15 degrees lordosis was packed with corticocancellous allograft bone chips mixed with bone marrow aspirate. This was inserted into the L5-S1 disc space. The retractors were then repositioned to expose the L4-5 and L3-4 discs and the procedure was repeated with complete discectomy and endplate preparation. Smaller disc distractors were also used to bluntly perform a contralateral annulotomy at the L4-5 and L3-4 levels. Cage size was 18 x 55 x 10 mm at L4-5 and L3-4. AP and lateral C-arm pictures were taken to confirm good position of the cage. Some bone chips were also packed around the cages. Screw with washer was placed into the lower L3 body and upper S1 body with a washer partially covering the cages at L3-4 and L5-S1 respectively. Hemostasis was confirmed. The retractor blades were removed. Closure was done in layers with a continuous strand of # 1 Vicryl in all muscle layers. 2-0 Vicryl was used for subcutaneous tissue and 4-0 for Monocryl for the skin. Steri-Strips were applied and 4 x 4 gauze and Tegaderm were applied. Assistant Speech Language Pathologist Trista Upton PA-C. My physician blood donor unit assistant was a vital part of this case. They were important in appropriate retraction during the case, and protection of soft tissues during the procedure. Their intimate knowledge of the case and my steps aided in safe and expedient completion of the procedure as well as appropriate position of the patient during the surgery. They were also vital in assisting with closure under my direct supervision. Surgical Findings: See operative note Complications Complications: No
--- NOTE | 2025-02-04 14:01 | OP.PCM_ITS ---
Procedures Musculoskeletal 20xxx-29xxx: Other Procedure See Report Operative Report (Standard) Operative Information Date of Procedure: 02/04/25 Pre-Operative Diagnosis: L3-S1 disc degeneration, degenerative scoliosis, stenosis with neurogenic claudication, prior spinal cord stimulator placement Post-Operative Diagnosis: Same Surgery/Procedure Performed: L3-S1 posterior spinal instrumented fusion senior statistical programmer: Yes Auger Press Operator: Trista Upton Tasks completed by ex assistant/program director: Closing, Implanting device, Hemostasis: Electrocautery and Retracting Type of Anesthesia: General RN Documented Start/Stop Times: Operation Date: 02/04/25 07:30 Case Time Into Pre-Op 02/04/25 05:44 Out of Pre-Op 02/04/25 07:32 Anesthesia Start 02/04/25 07:38 Into Room 02/04/25 07:38 Procedure Start 02/04/25 08:14 Procedure End 02/04/25 13:35 Anesthesia End 02/04/25 13:51 Out of Room 02/04/25 13:51 Procedure Start Time: 08:14 Procedure Stop Time: 13:35 Select all DRAINS/GRAFTS/IMPLANTS that apply: Graft Graft details: Allograft cancellous chips and Implanted device Implanted device details: DePuy [employer] prime pedicle screw instrumentation Estimated Blood Loss: 50 cc Specimen collected: No Description of surgery: Preoperative diagnosis: L3-S1 disc degeneration, degenerative scoliosis, stenosis with neurogenic claudication, prior spinal cord stimulator placement Postoperative diagnosis: Same Name of procedures: L3-S1 posterior percutaneous pedicle screw instrumented fusion, retraction of spinal cord stimulator lead wires, prone: ? L3-4 posterior spinal fusion 80631 ? L3-S1 posterior pedicle screw instrumentation 19819 ? L4-5 posterior fusion 45434/51 ? L5-S1 posterior fusion 05554/51 ? Allograft cancellous chips Attending Surgeon: Dr. Ephraim Richardson Estimated blood loss: 50 mL (total for entire case) Anesthesia: General Complications: None Description of procedure: After the anterior procedure was complete, the patient was then turned supine. The patient was then transferred to Swapnil table in prone position. Back was prepped and draped in usual fashion. C-arm AP view was then taken. C-arm was positioned in a way that L3 was centralized and superior endplate of was parallel to the beam. Spinous process was centered between the pedicles. Midline was marked with skin marker and lateral borders of the pedicles were also marked. Skin marker was also utilized to myrna transversely across the middle of the pedicles at L3. 2 transverse paramedian incisions of 1 inch were placed. The fascia was incised vertically. Finger dissection was utilized to palpate the transverse process and facet joint. Viper Prime screws with towers were inserted and docked onto the transverse processes. This was then slowly moved medially to reach the superior articular process of L3. This was then confirmed on C-arm and then a mallet was utilized to drive the trocar into the pedicle going up to the medial wall of the pedicle on AP view. This was performed both sides. C-arm lateral view confirmed that the tip of the trocar was in the vertebral body, and the screw was advanced into the pedicle and vertebral body. This was repeated similarly at L5 and S1 bilaterally. While attempting the screws at L5-S1 on the right, under C arm AP view, the spinal cord stimulator wires were identified in the subcutaneous space. A loop of these wires were then delivered out of the wound and were retracted using a loop retractor during the placement of the L5 and S1 screws on the right side. No obvious damage was seen on the lead wires. Screw sizes were 7 x 55 mm at L3 and L5, and 7 x 50 mm at S1 on both sides. 100 mm precontoured titanium 5.5 mm lordotic alex on both sides were then passed through the screw extensions and reduced down to the screws with the help of [employer] instrumentation system on both sides. AP and lateral view of the C-arm showed good positioning of the screws and cages. Final tightening with the torque screwdriver was then completed. [place] was utilized to roughen the facet joint at L3-4, L4-5, L5-S1 on the right side. Cancellous allograft bone chips mixed with bone marrow aspirate were then placed over this decorticated area. Hemostasis was achieved. Closure was done in layers with 0 Vicryls for the fascia, 2-0 Vicryls for the subcutaneous tissue, and Monocryl for the skin. Closure was done around the spinal cord stimulator lead wires in the subcutaneous space on the right lower incision. Dermabond was applied. Dressings were applied covered with Tegaderm. The patient was then turned supine onto a hospital bed. The patient was extubated and taken to PACU in stable condition. The patient tolerated the procedure well and no complications occurred. Depuy [place] cage & Viper Prime minimally invasive pedicle screw instrumentation system was utilized in this case. No dural tear was identified intraoperatively. I was present for the entirety of the case and performed the surgery. Flight Operations Dispatch Clerk Trista Upton PA-C. My physician print shop assistant was a vital part of this case. They were important in appropriate retraction during the case, and protection of soft tissues during the procedure. Their intimate knowledge of the case and my steps aided in safe and expedient completion of the procedure as well as appropriate position of the patient during the surgery. They were also vital in assisting with closure under my direct supervision. Surgical Findings: See operative note Complications Complications: No
--- NOTE | 2025-02-04 14:01 | PCM.POST.ANE ---
Anesthesia: Postop Eval I Current Vital Signs Temperature: 97 F Pulse Rate: 80 Blood Pressure: 146/79 Respiratory Rate: 16 Pulse Ox: 98 Oxygen Delivery Method: Simple Mask Oxygen Flow Rate (L/min): 6 Assessment Airway patent: Yes Spontaneous unlabored respirations: Yes Mental status: Awake and Calm nausea: No Vomiting: No Anesthesia Complication: No Fluid Hydration Crystalloid volume administer (ml): 1,700 Total IV fluid infused: 1,700 Progress Note Anesthesia document: Postop Eval 1 completed: Yes
--- NOTE | 2025-02-04 16:00 | PCM.OPRPT ---
Operative Report (Standard) Operative Information Date of Procedure: 02/04/25 Pre-Operative Diagnosis: L3-S1 disc degeneration, degenerative scoliosis, stenosis with neurogenic claudication, prior spinal cord stimulator placement Post-Operative Diagnosis: Same Surgery/Procedure Performed: L3-S1 oblique lumbar body fusion planning supervisor: Yes Verify Rep: Trista Upton Tasks completed by training and development assistant: Opening, Closing, Opening & closing and Retracting Type of Anesthesia: General RN Documented Start/Stop Times: Operation Date: 02/04/25 07:30 Case Time Into Pre-Op 02/04/25 05:44 Out of Pre-Op 02/04/25 07:32 Anesthesia Start 02/04/25 07:38 Into Room 02/04/25 07:38 Procedure Start 02/04/25 08:14 Procedure End 02/04/25 13:35 Anesthesia End 02/04/25 13:51 Out of Room 02/04/25 13:51 Into Recovery 02/04/25 13:55 Out of Recovery 02/04/25 15:19 Procedure Start Time: 08:15 Procedure Stop Time: 11:30 Select all DRAINS/GRAFTS/IMPLANTS that apply: Graft Graft details: Allograft cancellous chips, autologous bone marrow aspirate and Implanted device Implanted device details: DePuy cougar lateral lumbar interbody cage?peek Estimated Blood Loss: 50 Specimen collected: No Description of surgery: Name of procedures L3-S1 oblique lumbar interbody fusion (OLIF), minimally invasive right sided approach, lateral decubitus: ? L3-4 anterolateral spinal fusion 88877 ? L4-5 anterolateral fusion 35500/51 ? L5-S1 anterolateral fusion 26096/51 ? L3-4 insertion of cage 72490 ? L4-5 insertion of cage 42818/51 ? L5-S1 insertion of cage 83900/51 ? Bone graft aspirate left iliac crest separate incision ? Allograft cancellous chips Co surgeons: Dr. Richardson, Dr. Caraballo HPI: Patient is a 75-year-old male with L3-S1 degenerative disc disease, scoliosis, and neurogenic claudication. He has been assessed by Dr. Richardson and found to be appropriate for L3-S1 oblique lumbar interbody fusion. Vascular surgery services are requested to provide exposure. Description of procedure: Upon obtaining informed consent and verification correct patient procedure site the patient was taken to the operating room where he was placed under general anesthesia. He was then positioned prepped and draped in usual sterile fashion and timeout was performed. Oblique incision was created parallel to the iliac crest and Bovie used to dissect through the subcutaneous tissue to the level of the fascia. Hand-held retractors then placed in the wound and the fascia was incised parallel to the muscle fibers. The external bleak muscle was then split bluntly to dissect down to the internal oblique. Likewise the aponeurosis was divided parallel to the muscle fibers and the muscle belly split with blunt dissection down to the transverse abdominis muscle. Finally this was split parallel to the muscle fibers gaining entry into the retroperitoneal space which was bluntly dissected mobilizing the abdominal contents from the lateral and posterior aspect of the abdominal wall. Once the psoas muscle was visualized the Syn frame self-retaining retractors put in position and blades positioned. Combination of blunt and Bovie dissection was then utilized to mobilize the anterior aspect of the psoas muscle and retracted posteriorly exposing the L4-L5 disc space. This was then marked and further dissection carried distally to expose the L5-S1 disc space. Once position was confirmed radiographically Dr. Richardson performed the discectomy and implant placement which she will describe in further detail. We then turned our attention to the L4-L5 disc space at which point Dr. Richardson performed his discectomy and then placed Gelfoam within the disc space. Finally retractors were repositioned and the lateral aspect of the L3-L4 disc dissected free and position confirmed radiographically. Dr. Richardson then performed the discectomy and implant placement which were described in further detail. Finally the implant was placed within the L4-L5 disc space. Upon completion the retroperitoneum was inspected and satisfactory hemostasis observed. The retractor blades were then removed sequentially allowing inspection of the nasal cavity which were free from injury and any obvious bleeding. Once the retractor was removed the superficial wound space was irrigated with saline. The muscle layers of the abdominal wall were then closed individually with running 1 Vicryl. Finally the subcutaneous space was irrigated with saline and the incision closed with 2-0 Vicryl, 3-0 Vicryl, 4-0 Monocryl. Dry sterile dressing was then applied and the patient was repositioned for posterior instrumentation which Dr. Richardson will dictate separately. Surgical Findings: see above Complications Complications: No
[2025-02-04] MEDS: 0.9% Saline Lock 10 ML Syringe IV (18:37)
--- NOTE | 2025-02-04 18:59 | POSTOPAN2_ITS ---
Anesthesia Postop Eval I Sum Postop Eval Completion status Anesthesia document: Postop Eval 1 completed: Yes Anesthesia Postop Eval I Summary Anesthesia Postop Eval I Summary: Anesthesia Postop Eval I: Assessment Summary Airway patent Yes 02/04/25 14:02 [email or web address] [email or web address] Spontaneous unlabored Yes 02/04/25 14:02 [email or web address] [email or web address] respirations Mental status Awake,Calm 02/04/25 14:02 [email or web address] [email or web address] nausea No 02/04/25 14:02 STAGECRAFT [email or web address].SUE Vomiting No 02/04/25 14:02 STAGECRAFT [email or web address].SUE Anesthesia Postop Eval I: Fluid Summary Crystalloid volume administer 1,700 02/04/25 14:02 [email or web address] [email or web address] (ml) Colloids volume administered ( ml) Blood Product volume administered (ml) Total IV fluid infused 1,700 02/04/25 14:02 STAGECRAFT [email or web address].SUE Anesthesia Postop Eval I: Summary Notes Anesthesia Complication No 02/04/25 14:02 STAGECRAFT [email or web address].SUE Anesthesia Complication Comment: Post-operative progress note Anesthesia: Postop Eval II Evaluation Mental status: Awake Pain Level: 4 nausea: No Vomiting: No
--- NOTE | 2025-02-04 18:59 | PCM.POSTANE2 ---
Anesthesia Postop Eval I Sum Postop Eval Completion status Anesthesia document: Postop Eval 1 completed: Yes Anesthesia Postop Eval I Summary Anesthesia Postop Eval I Summary: Anesthesia Postop Eval I: Assessment Summary Airway patent Yes 02/04/25 14:02 PRODUCTION [email or web address] Spontaneous unlabored Yes 02/04/25 14:02 PRODUCTION MINER.SUE respirations Mental status Awake,Calm 02/04/25 14:02 PRODUCTION [email or web address] nausea No 02/04/25 14:02 PRODUCTION MINER.SUE Vomiting No 02/04/25 14:02 PRODUCTION MINER.SUE Anesthesia Postop Eval I: Fluid Summary Crystalloid volume administer 1,700 02/04/25 14:02 PRODUCTION [email or web address] (ml) Colloids volume administered ( ml) Blood Product volume administered (ml) Total IV fluid infused 1,700 02/04/25 14:02 PRODUCTION MINER.SUE Anesthesia Postop Eval I: Summary Notes Anesthesia Complication No 02/04/25 14:02 PRODUCTION MINER.SUE Anesthesia Complication Comment: Post-operative progress note Anesthesia: Postop Eval II Evaluation Mental status: Awake Pain Level: 4 nausea: No Vomiting: No
[2025-02-04] MEDS: Senna/Docusate Sodium 1 Tablet 2 TABLET PO (21:54)
[2025-02-05 00:58] VITALS: BP 133/70; PULSE 67; RESP 16; TEMP 36.4; O2SAT 97
[2025-02-05 04:08] VITALS: BP 127/59; PULSE 68; RESP 16; TEMP 36.7; O2SAT 95
[2025-02-05] MEDS: 0.9% Saline Lock 10 ML Syringe IV ×3 (04:09→16:27)
--- NOTE | 2025-02-05 05:33 | RAD_ITS ---
PROCEDURE: LUMBAR SPINE 2 OR 3 VIEWS 02/05/2025 REASON FOR EXAM: S/P LUMBAR FUSION TECHNIQUE: LUMBAR SPINE 2 OR 3 VIEWS COMPARISON: 12/23/2024 FINDINGS: Mild scoliosis. Status post posterior fusion, L3 through S1. Intact hardware. Status post anterior interbody disc spacer placement, L3 through S1. Anatomic alignment. Scattered mild lumbar spine degeneration. Stimulator wires enter lower thoracic canal. Extensive aortoiliac calcifications. No acute bone or soft tissue pathology. RAD/Lumbar Spine 2 or 3 Views IMPRESSION: Lumbar spine scoliosis, degeneration, and postop change. Reading [facility]
[2025-02-05 05:49] LABS: Hematocrit 41.3 % (40-54); Hemoglobin 14.4 g/dL (13.0-16.5); Immature Granulocytes Count 0.050 X10^3/uL (0.0-0.0); Mean Corp Hgb Conc 34.9 g/dL (32-36); Mean Corpuscular Volume 97.4 fL (80-94); Mean Platelet Vol. 11.3 fl (6.2-12.0); NRBC Flagged by Analyzer 0 % (0-5); Platelet Count 160 K/mm3 (150-450); RBC Distribution Width CV 12.6 % (11.6-14.6); RBC Distribution Width SD 45.3 fl (35.1-43.9); Red Blood Count 4.24 M/mm3 (4.6-6.2); White Blood Count 13.1 K/mm3 (4.4-11.0)
[2025-02-05 06:07] LABS: Anion Gap 11 (5-15); BUN 14 mg/dL (4-19); BUN/Creat Ratio 20.9 RATIO (10-20); Calcium,Total 8.6 mg/dL (7.6-11.0); Carbon Dioxide 23.8 mmol/L (21.0-32.0); Chloride 98 mmol/L (98-108); Estimated Creatinine Clearance 100.97 ml/min (50-250); Glucose 103 mg/dL (70-99); Potassium 4.3 mmol/L (3.3-5.1)
[2025-02-05 07:27] VITALS: BP 134/60; PULSE 56; RESP 15; TEMP 36.4; O2SAT 97
[2025-02-05] MEDS: Senna/Docusate Sodium 1 Tablet 2 TABLET PO ×2 (07:44→21:53)
--- NOTE | 2025-02-05 08:25 | PCM.PN.HOSP ---
Subjective Subjective 75-year-old male presented to the hospital for an elective L3-S1 fusion for disc this generation as well as stenosis with neurogenic claudication. Postoperatively he did well currently not requiring any oxygen. Renal function is stable and he had a slight bump in his white blood cell count to 13.1 consistent with reactive leukocytosis. Objective Data Objective Data Vital Signs: Vital Signs Temp Pulse Resp BP Pulse Ox O2 Del Method O2 Flow Rate 97.6 F L 56 L 15 134/60 H 97 Room Air 2 02/05/25 07:27 02/05/25 07:27 02/05/25 07:27 02/05/25 07:27 02/05/25 07:27 02/05/25 07:02/04/25 21:04 Oxygen Flow Rate (L/min) 2 Oxygen Delivery Method Room Air Weight: 222 lb 10.67 oz Body Mass Index (BMI) 27.1 Intake & Output: Intake and Output for Last 24 Hours 02/04/25 02/05/25 02/06/25 03:59 03:59 03:59 Intake Total 1250 / 1250 Output Total 700 / 700 350 / 350 Balance 550 / 550 -350 / -350 Lab / Micro Data 02/05/25 04:58 02/05/25 04:58 Labs: Laboratory Results - last 24 hr 02/05/25 04:58: WBC 13.1 H, RBC 4.24 L, Hgb 14.4, Hct 41.3, MCV 97.4 H, MCH 34.0 H, MCHC 34.9, RDW Std Deviation 45.3 H, RDW Coeff of Luna 12.6, Plt Count 160, MPV 11.3, Immature Gran % (Auto) 0.400, Neut % (Auto) 75.5 H, Lymph % (Auto) 13.1 L, [place] % (Auto) 10.8 H, Eos % (Auto) 0.1, Baso % (Auto) 0.1, Absolute Neuts (auto) 9.9 H, Absolute Lymphs (auto) 1.71, Nucleated RBC % 0, Sodium 133, Potassium 4.3, Chloride 98, Carbon Dioxide 23.8, Anion Gap 11, BUN 14, Creatinine 0.68 L, Estim Creat Clear Calc 100.97, Est GFR (MDRD) Non-Af 98, BUN/Creatinine Ratio 20.9 H, Glucose 103 H, Calcium 8.6 Micro: Microbiology 01/21/25 08:07 Swab (Method) Nasal Screen MRSA/MSSA - Final Physical Exam Narrative General: Alert, Oriented x3, Cooperative, No apparent distress HEENT: Atraumatic, PERRLA, EOMI, Normocephalic Oral: Moist Mucosa Neck: Supple, No JVD Lungs: Diminished, Normal air movement, No rhonchi, No wheeze, No rales Cardiovascular: Regular rate, Regular Rhythm, Normal S1, Normal S2, No murmurs Abdomen: Soft, Non Tender, Non-Distended, No Hepato-splenomegaly Extremities: No edema, Capillary Refill Less than 3 Seconds Skin: No rashes, No breakdown, dressing CDI Musculoskeletal: No Tenderness to Palpation of Joints or Extremities Neurological: No focal neurological deficits, Motor Exam 5/5 strength throughout, Sensory exam intact to light touch and pain Psych/Mental Status: Normal Affect, Appropriate Assessment & Plan Assessment/Plan (1) Status post lumbar spinal fusion: PLAN: Plan 1. Status post L3-S1 lumbar fusion for degenerative disc disease and neurogenic claudication on 02/04/2025 ? Pain management per primary ? PT/OT ? Discharge planning per primary ? Continue with his Lyrica ? From medical standpoint stable for discharge 2. Essential HTN/HLD ? Continue with his home blood pressure medications ? Will monitor make adjustments as necessary ? Continue with his cholesterol medications echo on 11/19/2024 with an EF of 65% stage I diastolic dysfunction with an RVSP of 43 mmHg ? Stress test 11/19/2024 demonstrated possible reversible perfusion defect is anterior and apical, cardiac catheterization on 12/04/2024 with moderate stenoses in his LAD and his RCA, medical therapy was recommended 3. GERD ? Stable ? Continue with PPI 4. Anxiety/depression ? Stable ? Continue with his home medications 5. BPH with obstruction ? Stable ? Continue with his Flomax DVT: Per primary Charges/Coding Visit Charges Inpatient E&M: 77567 Subs Hosp L2
--- NOTE | 2025-02-05 11:38 | CASEMGMT ---
Dx:360 lumbar fusion LACE:1 6-Clicks:19, no therapy recommended. Medical record reviewed and patient evaluated for identification of discharge planning needs. Based on this review, at this time criteria are not present to indicate a need for discharge planning. JUANY PAGE met with pt, pt states he has a walker at home that he will use. Pt states he is typically indep at home. Pt denies any homegoing needs at this time. Will remain available to assist with discharge planning needs as identified or requested.
[2025-02-05 14:00] VITALS: BP 145/69; PULSE 65; RESP 15; TEMP 36.5; O2SAT 99
--- NOTE | 2025-02-05 16:35 | PN.ORTHO_ITS ---
Subjective Subjective Postop day 1 status post L3-S1 fusion. Pain well-controlled. Walked hallways with PT. No flatus yet Objective Data Objective Data Vital Signs: Vital Signs Temp Pulse Resp BP Pulse Ox O2 Del Method O2 Flow Rate 97.7 F L 65 15 145/69 H 99 Room Air 2 02/05/25 14:00 02/05/25 14:00 02/05/25 14:00 02/05/25 14:00 02/05/25 14:00 02/05/25 14:00 02/04/25 21:04 Oxygen Flow Rate (L/min) 2 Oxygen Delivery Method Room Air Weight: 222 lb 10.67 oz Body Mass Index (BMI) 27.1 Intake & Output: Intake and Output for Last 24 Hours 02/03/25 02/04/25 02/05/25 23:59 23:59 23:59 Intake Total 1250 / 1250 Output Total 700 / 700 350 / 350 Balance 550 / 550 -350 / -350 Lab / Micro Data 02/05/25 04:58 02/05/25 04:58 Labs: Laboratory Results - last 24 hr 02/05/25 04:58: WBC 13.1 H, RBC 4.24 L, Hgb 14.4, Hct 41.3, MCV 97.4 H, MCH 34.0 H, MCHC 34.9, RDW Std Deviation 45.3 H, RDW Coeff of Luna 12.6, Plt Count 160, MPV 11.3, Immature Gran % (Auto) 0.400, Neut % (Auto) 75.5 H, Lymph % (Auto) 13.1 L, [place] % (Auto) 10.8 H, Eos % (Auto) 0.1, Baso % (Auto) 0.1, Absolute Neuts (auto) 9.9 H, Absolute Lymphs (auto) 1.71, Nucleated RBC % 0, Sodium 133, Potassium 4.3, Chloride 98, Carbon Dioxide 23.8, Anion Gap 11, BUN 14, C reatinine 0.68 L, Estim Creat Clear Calc 100.97, Est GFR (MDRD) Non-Af 98, B UN/Creatinine Ratio 20.9 H, Glucose 103 H, Calcium 8.6 Micro: Microbiology 01/21/25 08:07 Swab (Method) Nasal Screen MRSA/MSSA - Final Radiography Diagnostic Testing: Radiology Impression Lumbar Spine X-Ray 02/05/25 05:33 IMPRESSION: Lumbar spine scoliosis, degeneration, and postop change. Reading [facility]- Physical Exam Narrative Dressing CDI. Neurologic evaluation of lower extremity shows 5 x 5 power. Abdomen soft. Assessment & Plan Assessment/Plan (1) Status post lumbar spinal fusion: PLAN: Plan Postop day 1 status post L3-S1 fusion. Patient doing well. X-rays done, reviewed, look good. PT cleared for home. No flatus yet. Continue clear liquids until passes flatus. Added oral Dulcolax. Advance to regular diet once starts passing flatus. Encouraged continued out of bed mobility. Encourage incentive spirometry. Likely discharge tomorrow pending flatus.
[2025-02-05 19:45] VITALS: BP 164/88; PULSE 72; RESP 18; TEMP 36.6; O2SAT 97
[2025-02-06] MEDS: 0.9% Saline Lock 10 ML Syringe IV ×2 (02:38→10:06)
[2025-02-06 02:45] VITALS: BP 178/100; PULSE 78; RESP 18; TEMP 36.7; O2SAT 97
[2025-02-06 06:33] VITALS: BP 147/75; PULSE 58; RESP 16; TEMP 36.7; O2SAT 98
[2025-02-06 07:46] VITALS: BP 151/75; PULSE 65; RESP 16; TEMP 36.6; O2SAT 96
[2025-02-06] MEDS: Ensure Surgery 237 ML LIQUID PO (07:54)
--- NOTE | 2025-02-06 08:08 | DCINST_ITS ---
Discharge Instructions DC O2, CPAP, BIPAP needs Home O2 Discharge instructions: No Dressing / Incision Discharge Activity: Return to Normal Activity, May Shower and Use Walker Weight Bearing Status: Weight bearing as tolerated Lifting Restrictions: No lifting more than 1 gallon of milk Additional Activity Instructions:: No excessive bending twisting his lower back. Dressing / Incision Call your doctor if your incision/area has: Continuous Slow Oozing, Sudden Increased Bleeding, Increased Redness and Foul Smelling Discharge Call your doctor if you observe: Fever of 101 or Higher Remove Dressing in: 5 days Cleanse incision/area with: Keep Dressing Clean & Dry Follow Up Care Test Results: Test results from this visit will be discussed in further detail at your follow- up appointment, if applicable. Discharge Plan Admission Admit Date/Time: 02/04/25 05:30 Primary Reason for Your Visit: Status post lumbar fusion Attending Provider: Ephraim Richardson Primary Care Provider: Eulalio Pan Consulting Providers: Bin Richter; Joe Salazar Instructions Patient Instructions: Lumbar Fusion Dc Additional Instructions / Restrictions: Please keep dressing on for 5 days. Okay to shower starting tomorrow if no peeling off of the Tegaderm. Remove Tegaderm and gauze in 5 days and replace with Band-Aids daily thereafter. No bending lifting twisting. Follow-up in 2 weeks. Discharge Orders/Prescriptions Prescriptions: New acetaminophen 500 mg Tablet 500 mg PO Q6H 7 Days Qty: 28 0RF methocarbamol 500 mg Tablet 750 mg PO TID PRN (Reason: Pain/spasms) 7 Days Qty: 30 0RF oxycodone 5 mg Tablet 2.5 - 5 mg PO Q6H PRN (Reason: pain) 7 Days Qty: 30 0RF sennosides-docusate sodium [Stimulant Laxative Plus] 8.6-50 mg Tablet 2 tab PO BID PRN (Reason: constipation) 7 Days Qty: 30 0RF meloxicam 15 mg tablet 15 mg PO DAILY Qty: 30 0RF Continued omeprazole 20 mg capsule,delayed release(DR/EC) 20 mg PO DAILY trazodone 50 mg tablet 50 mg PO QHS amlodipine 5 mg tablet 5 mg PO QDAY lisinopril 40 mg tablet 40 mg PO QDAY coenzyme Q10 200 mg capsule 200 mg PO QDAY tamsulosin 0.4 mg capsule 0.8 mg PO QHS aspirin [Adult Aspirin Regimen] 81 mg tablet,delayed release (DR/EC) 81 mg PO QDAY Qty: 90 3RF isosorbide mononitrate 30 mg tablet extended release 24 hr 30 mg PO QDAY Qty: 90 3RF pregabalin [Lyrica] 75 mg capsule 75 mg PO TID cyanocobalamin (vitamin B-12) 1,000 MCG tablet 1,000 mcg PO DAILY atorvastatin 20 mg tablet 20 mg PO QHS alprazolam [Xanax] 0.5 mg tablet 0.5 mg PO BID PRN (Reason: anxiety) Referrals / Follow Up: Eulalio Pan MD [Primary Care Provider] - Disposition Disposition (needs filled in before D/C Order can be placed): Home, Self Care
[2025-02-06] MEDS: Senna/Docusate Sodium 1 Tablet 2 TABLET PO (09:52)
== END 2025-02-06 13:20 | disposition home or self-care (01) | DRG 427 ==
LOC: MS3 23:34
PROVIDERS: Anesthesiology; Student in an Organized Health Care Education/Training Program; Admitting Provider Orthopaedic Surgery Orthopaedic Surgery of the Spine; PCP Family Medicine; Referring Provider Orthopaedic Surgery Orthopaedic Surgery of the Spine; Visit Provider Orthopaedic Surgery Orthopaedic Surgery of the Spine
PROC: 0SG10A0 Fusion of 2 or more Lumbar Vertebral Joints with Interbody Fusion Device, Anterior Approach, Anterior Column, Open Approach (ICD-10-PCS; principal; 2025-02-04 07:00)
DX: M51.362 Other intervertebral disc degeneration, lumbar region with discogenic back pain and lower extremity pain (principal); N13.8 Other obstructive and reflux uropathy; J44.9 Chronic obstructive pulmonary disease, unspecified; I10 Essential (primary) hypertension; E78.00 Pure hypercholesterolemia, unspecified; M41.86 Other forms of scoliosis, lumbar region; M48.062 Spinal stenosis, lumbar region with neurogenic claudication; K21.9 Gastro-esophageal reflux disease without esophagitis; N40.1 Benign prostatic hyperplasia with lower urinary tract symptoms; G89.29 Other chronic pain; Z79.899 Other long term (current) drug therapy; Z79.82 Long term (current) use of aspirin; Z87.891 Personal history of nicotine dependence
CPT/HCPCS: 36415; 72100; 76000; 80048; 80076; 82962; 83036; 83735; 85025; 86703; 86706; 86708; 86803; 86850; 86900; 86901; 87081; 94668; 97162; 97165; A4648; C1713; A4216; J2405; J3475

== ENCOUNTER → 2025-04-28 | Outpatient (CLI) | payer MEDICARE, OTHER, SELFPAY ==
--- NOTE | 2025-04-28 07:21 | MRI_ITS ---
PROCEDURE: SPINE THORACIC (ROUTINE) 04/28/2025 REASON FOR EXAM: RADICULOPATHY, THORACIC REGION TECHNIQUE: Procedure Code: MRISPT Modality: MR Procedure: SPINE THORACIC (ROUTINE) Multiplanar and multisequence images were obtained. CONTRAST: None COMPARISON: Recent radiographs. FINDINGS: T1-T2: Vertebral bodies: Negative. Disk Space: Negative. Negative for Modic changes. Facet Joints: Mild bilateral facet joint hypertrophy. Neural foramina: Negative for neural foraminal narrowing Spinal Canal: Negative forcentral spinal narrowing. T2-T3: Vertebral bodies: Negative. Disk Space: Negative. Negative for Modic changes. Facet Joints: Mild bilateral facet joint hypertrophy. Neural foramina: Negative for neural foraminal narrowing Spinal Canal: Negative forcentral spinal narrowing. T3-T4: Vertebral bodies: Negative. Disk Space: Disc desiccation mild loss of disc height mild diffuse disc bulge. Mild bilateral facet joint hypertrophy. Negative for Modic changes. Facet Joints: Mild bilateral facet joint hypertrophy. Neural foramina: Mild bilateral neural foraminal narrowing Spinal Canal: Mild central spinal narrowing. T4-T5: Vertebral bodies: Negative. Disk Space: Disc desiccation. Negative for Modic changes. Facet Joints: Mild bilateral facet joint hypertrophy. Neural foramina: Mild bilateral neural foraminal narrowing Spinal Canal: Negative for central spinal narrowing. T5-T6: Vertebral bodies: Negative. Disk Space: Disc desiccation mild loss of disc height. Fatty endplate changes. Facet Joints: Mild bilateral facet joint hypertrophy. Neural foramina: Negative for neural foraminal narrowing Spinal Canal: Negative for central spinal narrowing. T6-T7: Vertebral bodies: Negative. Disk Space: Disc desiccation. Mild loss of disc height. Fatty endplate changes. Facet Joints: Mild bilateral facet joint hypertrophy. Neural foramina: Negative for neural foraminal narrowing Spinal Canal: Negative forcentral spinal narrowing. T7-T8: Vertebral bodies: Negative. Disk Space: Disc desiccation. Mild loss of disc height. Mild diffuse disc bulge. Fatty endplate changes. Facet Joints: Mild bilateral facet joint hypertrophy. Neural foramina: Negative for neural foraminal narrowing Spinal Canal: Negative forcentral spinal narrowing. T8-T9: Vertebral bodies: Negative. Disk Space: Disc desiccation. Mild loss of disc height. Negative for Modic changes. Facet Joints: Mild bilateral facet joint hypertrophy. Neural foramina: Negative for neural foraminal narrowing Spinal Canal: Negative forcentral spinal narrowing. T9-T10: Vertebral bodies: Negative. Disk Space: Negative. Negative for Modic changes. Facet Joints: Mild bilateral facet joint hypertrophy. Neural foramina: Negative for neural foraminal narrowing Spinal Canal: Negative forcentral spinal narrowing. T10-T11: Vertebral bodies: Negative. Disk Space: Negative. Negative for Modic changes. Facet Joints: Mild bilateral facet joint hypertrophy. Neural foramina: Negative for neural foraminal narrowing Spinal Canal: Negative forcentral spinal narrowing. T11-T12: Vertebral bodies: Negative. Disk Space: Disc desiccation. Mild loss of disc height. Negative for Modic changes. Facet Joints: [id number] bilateral facet joint hypertrophy. Neural foramina: Negative for neural foraminal narrowing Spinal Canal: Negative forcentral spinal narrowing. Spinal cord: Spinal canal stimulator noted entering spinal canal at a proximally T12-L1 extending superiorly to T7. The metallic component is from T7 T8-T10. This is in the posterior epidural space. Spinal cord itself is negative. Old healed posterior right-sided rib fractures. Adjacent structures otherwise negative. 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 Spinal stimulator in the posterior epidural space of the lower thoracic spine. Negative for significant neural foraminal or central spinal canal narrowing. Reading Location: [place] [id number]
== END | disposition home or self-care (01) ==
LOC: OPMRI 07:17
PROVIDERS: PCP Family Medicine; Referring Provider Anesthesiology Pain Medicine; Visit Provider Anesthesiology Pain Medicine
DX: M54.14 Radiculopathy, thoracic region (principal)
CPT/HCPCS: 72146

== ENCOUNTER 2025-05-19 09:00 | Outpatient (RCR) | payer MEDICARE, OTHER, SELFPAY ==
--- NOTE | 2025-02-18 10:52 | HP.PTEVAL ---
Patient's Visit Information Visit Information Visit Information: VALERIA PRADHAN is a 75 year old M referred to Physical Therapy by JOJO Guthrie with a diagnosis of ARTHRODESIS STATUS. Date of Evaluation: 02/18/25 Physical Therapist: Reggie Marie, PT, Cert MDT, OCS Visit Plan Frequency: 2x /Week Duration: 4 Weeks Plan: S/P LUMBAR FUSION 02/04 NO BLT X3 MONTHS NO LIFTING EXCEPT GALLON MILK( 8#) PT INTERVENTIONS LUMBAR FLEXABILITY ,DLS ,STRENGTHENING BLE QUADS/HAMS/HIP , POSTURAL EX'S ,POSTURE TRAINING AND ACTIVITY MODIFICATION Subjective Subjective: This 75 y/o male presents to physical therapy with s/p L3-S1 posterior spinal instrumented fusion 02/04/25 at [facility] by DR Richardson . Patient surgery consisted · L3-4 posterior spinal fusion L3-S1 posterior pedicle screw instrumentation L4-5 posterior fusion L5-S1 posterior fusion Allograft cancellous chips . Patient was d/c to home 02/06/25 with fww. Patient recently seen Lalitha Upton ,no BLT for 3 months ,no more gallon of milk 8 #. Patient had x-rays looked. No pain medication. Prior had MRI showed At the L4-5 level, degenerative disc and endplate changes with a broad-based disc osteophyte complex. Facet arthrosis contributes to moderate to severe neuroforaminal stenosis on the right. No central spinal stenosis. At the L5-S1 level, broad-based disc bulge. Facet arthrosis contributes to moderate left and mild right neural foraminal stenosis ,levoscoliosis. Patient had prior PT before surgery. Patient has had tried pain management epidural in past. But plans to get epidural for thoracic spine.After surgery weak in legs but also has neuropathy. Pain located symmetrical lumbar. c/o paraesthesia/tingling in legs from neuropathy. Patient coughing/sneezing-. Bowel/bladder -.Pain affects sleeping . Aggravating factors walking /standing . Alleviating factors rest . Patient has right upper quarter pain from thoracic. Patient is able to bath dress . Patient lives in 1 story home with 1 step. Patient condition affects QOL and function. 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 Pain Bilateral Back: Pain Intensity (Out of 10): 6 Pain Intensity Range: 6 and 9 Comment: thoracic Objective Objective: POSTURE: mild forward posture GAIT: reciprocal pattern unsteady slow denisa mild forward posture NEURO: c/o paresthesia/tingling legs light touch intact ,reflexes L3-4,L4-5,L5-S1 1/3 INSCION: well approximate posterior ,and lateral FLEXABILITY: hamstrings mod tight LUMBAR ROM: flexion mod/severe loss ,extension mod/severe loss ,side glides mod loss MMT: ( peak force) quads right 22.1 ,left 16.2 ,hamstrings 16.8 right ,left 22.8 , hip flexion right 34.2,left 24.8 ,ankle 4/5 Special Tests L/S Slump test left side: Negative L/S Slump test right side: Negative L/S Left Straight Leg Raise: Negative L/S Right Straight Leg Raise: Negative Balance/Special Test Scores Oswestry Low Back Score: 33 Goals Goal 1:: Patient to be I with HEP for back fusion Goal Time Frame: 4-6 Weeks Goal 2:: Patient to demonstrate 50% improvement with less pain and improved function Goal Time Frame: 4-6 Weeks Goal 3:: Patient to improve lumbar ROM for function of recovery to put on shoes Goal Time Frame: 4-6 Weeks Goal 4:: Patient to improve peak force quads/hams/hip by 5-10# strength to improve function. Goal Time Frame: 4-6 Weeks Goal 5:: Patient to improve lumbar oswestry score by 5 points to improve QOL. Rehabilitation Potential Physical Therapy Diagnosis: This patient undeRwent s/p lumbar fusion 02/04 with decrease gait ,weakness ,decrease lumbar ROM , lumbar pain impairs ADLS and function thus benefit from skilled PT Rehabilitation Potential: Good Anticipated Interventions Patient/Client Instruction: Educate patient on: Condition and Plan of Care For the Purpose of:: To decrease pain, To increase ROM, To improve muscle performance and motor function, To improve ability to perform ADL's, To increase tolerance to activity/condition/position, To improve ability of physical actions for home/community/work/leisure, To improve gait and locomotor functions, To improve health of tissue, To decrease soft tissue restriction, To increase flexibility/ROM, To improve endurance, To improve balance and To improve tolerance to ADL's Therapeutic Exercise to Include: Strength training, Balance training, Postural training, Flexibilty training and Dynamic Lumbar Stabilization For the Purpose of:: To decrease pain, To increase ROM, To improve muscle performance and motor function, To improve ability to perform ADL's, To increase tolerance to activity/condition/position, To improve performance and independence with ADL's, To improve ability of physical actions for home/community/work/leisure, To improve gait and locomotor functions, To improve health of tissue, To decrease soft tissue restriction, To increase flexibility/ROM and To improve tolerance to ADL's Text: Thank you for the opportunity to evaluate your patient. For Medicare and Medicare HMO plans, please review the plan of care and approve it. It will need to be FAXED BACK to us at [phone] for Medicare purposes. For Medicare only, by signing this I certify the plan of care. Please let me know if there are questions or concerns regarding this plan of care. Physician Signature: Date:
--- NOTE | 2025-03-13 09:57 | HP.PTEVAL_ITS ---
Patient's Visit Information Visit Information Visit Information: VALERIA PRADHAN is a 75 year old M referred to Physical Therapy by JOJO Guthrie with a diagnosis of ARTHRODESIS STATUS. Date of Evaluation: 02/18/25 Physical Therapist: Reggie Marie, PT, Cert MDT, OCS Visit Plan Frequency: 2x /Week Duration: 4 Weeks Plan: S/P LUMBAR FUSION 02/04 NO BLT X3 MONTHS NO LIFTING EXCEPT GALLON MILK( 8#) PT INTERVENTIONS LUMBAR FLEXABILITY ,DLS ,STRENGTHENING BLE QUADS/HAMS/HIP , POSTURAL EX'S ,POSTURE TRAINING AND ACTIVITY MODIFICATION Subjective Subjective: This 75 y/o male presents to physical therapy with s/p L3-S1 posterior spinal instrumented fusion 02/04/[address] [facility] by DR Richardson . Patient surgery consisted · L3-4 posterior spinal fusion L3-S1 posterior pedicle screw instrumentation L4-5 posterior fusion L5-S1 posterior fusion Allograft cancellous chips . Patient was d/c to home 02/06/25 with fww. Patient recently seen Lalitha Upton ,no BLT for 3 months ,no more gallon of milk 8 #. Patient had x-rays looked. No pain medication. Prior had MRI showed At the L4-5 level, degenerative disc and endplate changes with a broad-based disc osteophyte complex. Facet arthrosis contributes to moderate to severe neuroforaminal stenosis on the right. No central spinal stenosis. At the L5-S1 level, broad-based disc bulge. Facet arthrosis contributes to moderate left and mild right neural foraminal stenosis ,levoscoliosis. Patient had prior PT before surgery. Patient has had tried pain management epidural in past. But plans to get epidural for thoracic spine.After surgery weak in legs but also has neuropathy. Pain located symmetrical lumbar. c/o paraesthesia/tingling in legs from neuropathy. Patient coughing/sneezing-. Bowel/bladder -.Pain affects sleeping . Aggravating factors walking /standing . Alleviating factors rest . Patient has right upper quarter pain from thoracic. Patient is able to bath dress . Patient lives in 1 story home with 1 step. Patient condition affects QOL and function. 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 Pain Bilateral Back: Pain Intensity (Out of 10): 7 Pain Intensity Range: 6 and 9 Comment: hips-calfs Bilateral Lower Extremity: Pain Intensity (Out of 10): 7 Objective Objective: POSTURE: mild forward posture GAIT: reciprocal pattern unsteady slow denisa mild forward posture NEURO: c/o paresthesia/tingling legs light touch intact ,reflexes L3-4,L4-5,L5-S1 1/3 INSCION: well approximate posterior ,and lateral FLEXABILITY: hamstrings mod tight LUMBAR ROM: flexion mod/severe loss ,extension mod/severe loss ,side glides mod loss MMT: ( peak force) quads right 22.1 ,left 16.2 ,hamstrings 16.8 right ,left 22.8 , hip flexion right 34.2,left 24.8 ,ankle 4/5 Special Tests L/S Slump test left side: Negative L/S Slump test right side: Negative L/S Left Straight Leg Raise: Negative L/S Right Straight Leg Raise: Negative Balance/Special Test Scores Oswestry Low Back Score: 33 Goals Goal 1:: Patient to be I with HEP for back fusion Goal Time Frame: 4-6 Weeks Goal 2:: Patient to demonstrate 50% improvement with less pain and improved function Goal Time Frame: 4-6 Weeks Goal 3:: Patient to improve lumbar ROM for function of recovery to put on shoes Goal Time Frame: 4-6 Weeks Goal 4:: Patient to improve peak force quads/hams/hip by 5-10# strength to impr ove function. Goal Time Frame: 4-6 Weeks Goal 5:: Patient to improve lumbar oswestry score by 5 points to improve QOL. Rehabilitation Potential Physical Therapy Diagnosis: This patient undeRwent s/p lumbar fusion 02/04 with decrease gait ,weakness ,decrease lumbar ROM , lumbar pain impairs ADLS and fun ction thus benefit from skilled PT Rehabilitation Potential: Good Anticipated Interventions Patient/Client Instruction: Educate patient on: Condition and Plan of Care For the Purpose of:: To decrease pain, To increase ROM, To improve muscle performance and motor function, To improve ability to perform ADL's, To increase tolerance to activity/condition/position, To improve ability of physical actions for home/community/work/leisure, To improve gait and locomotor functions, To improve health of tissue, To decrease soft tissue restriction, To increase flexibility/ROM, To improve endurance, To improve balance and To improve tolerance to ADL's Therapeutic Exercise to Include: Strength training, Balance training, Postural training, Flexibilty training and Dynamic Lumbar Stabilization For the Purpose of:: To decrease pain, To increase ROM, To improve muscle performance and motor function, To improve ability to perform ADL's, To increase tolerance to activity/condition/position, To improve performance and independence with ADL's, To improve ability of physical actions for home/community/work/leisure, To improve gait and locomotor functions, To improve health of tissue, To decrease soft tissue restriction, To increase flexibility/ROM and To improve tolerance to ADL's Text: Thank you for the opportunity to evaluate your patient. For Medicare and Medicare HMO plans, please review the plan of care and approve it. It will need to be FAXED BACK to us at [phone] for Medicare purposes. For Medicare only, by signing this I certify the plan of care. Please let me know if there are questions or concerns regarding this plan of care. Physician Signature: Date:
--- NOTE | 2025-03-17 09:57 | HP.PTREVAL ---
Re-Evaluation Intro: JOJO Guthrie, It has been my pleasure to treat VALERIA PRADHAN over the last 9 visits for ARTHRODESIS STATUS. Please see the progress note below for an update on the physical therapy plan of care! Subjective Subjective: Seems like feeling better turning the turning Objective Objective/Function: Patient will continue to benefit from skilled PT to improve strength and improve function with decreasing pain POSTURE: mild forward posture GAIT: reciprocal pattern unsteady slow denisa mild forward posture NEURO: c/o paresthesia/tingling legs light touch intact ,reflexes L3-4,L4-5,L5-S1 1/3 INSCION: well approximate posterior ,and lateral FLEXABILITY: hamstrings mod tight LUMBAR ROM: flexion mod loss ,extension mod loss ,side glides mod loss MMT: ( peak force) quads right 21.2 ,left 16.4 ,hamstrings 15.8 right ,left 22.2 , hip flexion right 33.2,left 24.2 ,ankle 4/5 Special Tests Plan Plan Plan: S/P LUMBAR FUSION 02/04 NO BLT X3 MONTHS NO LIFTING EXCEPT GALLON MILK( 8#) PT INTERVENTIONS LUMBAR FLEXABILITY ,DLS ,STRENGTHENING BLE QUADS/HAMS/HIP , POSTURAL EX'S ,POSTURE TRAINING AND ACTIVITY MODIFICATION Balance/Gait/Functional tests Balance/Special Test Scores Oswestry Low Back Score: 29 Goals Goals Goal 1:: Patient to be I with HEP for back fusion Goal Time Frame: 4-6 Weeks Goal 2:: Patient to demonstrate 50% improvement with less pain and improved function Goal Time Frame: 4-6 Weeks Goal Progress: Progressing Goal 3:: Patient to improve lumbar ROM for function of recovery to put on shoes Goal Time Frame: 4-6 Weeks Goal Progress: Progressing Goal 4:: Patient to improve peak force quads/hams/hip by 5-10# strength to improve function. Goal Time Frame: 4-6 Weeks Goal Progress: Progressing Goal 5:: Patient to improve lumbar oswestry score by 5 points to improve QOL. Goal Progress: Progressing Anticipated Interventions Anticipated Interventions Patient/Client Instruction: Educate patient on: Condition and Plan of Care For the Purpose of:: To decrease pain, To increase ROM, To improve muscle performance and motor function, To improve ability to perform ADL's, To increase tolerance to activity/condition/position, To improve ability of physical actions for home/community/work/leisure, To improve gait and locomotor functions, To improve health of tissue, To decrease soft tissue restriction, To increase flexibility/ROM, To improve endurance, To improve balance and To improve tolerance to ADL's Therapeutic Exercise to Include: Strength training, Balance training, Postural training, Flexibilty training and Dynamic Lumbar Stabilization For the Purpose of:: To decrease pain, To increase ROM, To improve muscle performance and motor function, To improve ability to perform ADL's, To increase tolerance to activity/condition/position, To improve performance and independence with ADL's, To improve ability of physical actions for home/community/work/leisure, To improve gait and locomotor functions, To improve health of tissue, To decrease soft tissue restriction, To increase flexibility/ROM and To improve tolerance to ADL's Re-Evaluation Ending Re-evaluation ending: Please do not hesitate to contact me at [phone] by phone or if you have questions or concerns regarding this new plan of care! Sincerely, Reggie Marie, PT, Cert MDT, OCS
--- NOTE | 2025-04-17 09:59 | HP.PTREVAL_ITS ---
Re-Evaluation Intro: JOJO Guthrie, It has been my pleasure to treat VALERIA PRADHAN over the last 18 visits for ARTHRODESIS STATUS. Please see the progress note below for an update on the physical therapy plan of care! Subjective Subjective: Patient continues to be in pain in back and legs Uses walking sticks with gait expended distances also been diagnosed with neuropathy Discussed with patient about Aquatic therapy due to pain is not getting Patient seen DR Trevizo plan to have MRI thoracic Plan to do EMG at [facility] Objective Objective/Function: Patient will continue to benefit from skilled PT with Aquatics therapy due to pain not improving POSTURE: mild forward posture GAIT: reciprocal pattern unsteady slow denisa mild forward posture NEURO: c/o paresthesia/tingling /trunk legs light touch intact ,reflexes L3-4,L4-5,L5-S1 1/3 INSCION: GOOD FLEXABILITY: hamstrings mod tight LUMBAR ROM: flexion mod loss ,extension mod loss ,side glides mod loss MMT: ( peak force) quads right 26.2 ,left 20.4 ,hamstrings 15.8 right ,left 22.2 , hip flexion right 20.2,left 24.2 ,ankle 4/5 Plan Plan Plan: Change POC to Aquatics therapy S/P LUMBAR FUSION 02/04 NO BLT X3 MONTHS NO LIFTING EXCEPT GALLON MILK( 8#) PT INTERVENTIONS AQUATIC THERAPY LUMBAR ROM ,DLS ,STRENGTHENING BLE , POSTURAL EX'S ,POSTURE TRAINING AND ACTIVITY MODIFICATION Balance/Gait/Functional tests Balance/Special Test Scores Oswestry Low Back Score: 29 Goals Goals Goal 1:: Patient to be I with HEP for back fusion and Aquatics Goal Time Frame: 4-6 Weeks Goal Progress: Progressing Goal 2:: Patient to demonstrate 50% improvement with less pain and improved function Goal Time Frame: 4-6 Weeks Goal Progress: Progressing Goal 3:: Patient to improve lumbar ROM for function of recovery to put on shoes Goal Time Frame: 4-6 Weeks Goal Progress: Not Progressing Goal 4:: Patient to improve peak force quads/hams/hip by 5-10# strength to improve function. Goal Time Frame: 4-6 Weeks Goal Progress: Not Progressing Goal 5:: Patient to improve lumbar oswestry score by 5 points to improve QOL. Goal Progress: Not Progressing Anticipated Interventions Anticipated Interventions Patient/Client Instruction: Educate patient on: Condition and Plan of Care For the Purpose of:: To decrease pain, To increase ROM, To improve muscle performance and motor function, To improve ability to perform ADL's, To increase tolerance to activity/condition/position, To improve ability of physical actions for home/community/work/leisure, To improve gait and locomotor functions, To improve health of tissue, To decrease soft tissue restriction, To increase flexibility/ROM, To improve endurance, To improve balance and To improve tolerance to ADL's Therapeutic Exercise to Include: Strength training, Balance training, Postural training, Flexibilty training and Dynamic Lumbar Stabilization For the Purpose of:: To decrease pain, To increase ROM, To improve muscle performance and motor function, To improve ability to perform ADL's, To increase tolerance to activity/condition/position, To improve performance and independence with ADL's, To improve ability of physical actions for home/community/work/leisure, To improve gait and locomotor functions, To improve health of tissue, To decrease soft tissue restriction, To increase flexibility/ROM and To improve tolerance to ADL's Re-Evaluation Ending Re-evaluation ending: Please do not hesitate to contact me at [phone] by phone or if you have questions or concerns regarding this new plan of care! Sincerely, Reggie Marie, PT, Cert MDT, OCS
--- NOTE | 2025-05-19 09:28 | HP.PTDCSUM ---
Discharge Summary D/C summary: It has been my pleasure to treat VALERIA PRADHAN referred by JOJO Guthrie, with the diagnosis of ARTHRODESIS STATUS for a total of 26 visit(s). Discharge Date: 05/19/25 Please see the following information for a summary of their discharge status. Subjective Subjective: Patient had EMG showed nerve damage ,L5-S1 Permanent nerve damage per DR Patient had muscle spasms thighs feels burning No much better Pain and legs constant Pain Bilateral Back: Pain Intensity (Out of 10): 5 Bilateral Lower Extremity: Pain Intensity (Out of 10): 5 Overall Improvement % Improvement: 40 Objective Objective/Function: POSTURE: mild forward posture GAIT: reciprocal pattern unsteady slow denisa mild forward posture NEURO: c/o paresthesia/tingling /trunk legs light touch intact ,reflexes L3-4,L4-5,L5-S1 1/3 INSCION: GOOD FLEXABILITY: hamstrings mod tight LUMBAR ROM: flexion mod loss ,extension mod loss ,side glides mod loss MMT: ( peak force) quads right 31.6 left 30.4 ,hamstrings 15.8 right ,left 22.2 , hip flexion right 24.2,left 26.2 ,ankle 4/5 Goals Goal 1:: Patient to be I with HEP for back fusion and Aquatics Goal Progress: Progressing Goal 2:: Patient to demonstrate 50% improvement with less pain and improved function Goal Progress: Progressing Goal 3:: Patient to improve lumbar ROM for function of recovery to put on shoes Goal Progress: Not Progressing Goal 4:: Patient to improve peak force quads/hams/hip by 5-10# strength to improve function. Goal Progress: Not Progressing Goal 5:: Patient to improve lumbar oswestry score by 5 points to improve QOL. Goal Progress: Not Progressing Plan Plan: D/C D/C Information Discharge Comments: HEP AND GYM d/c sentence: If there are questions or concerns regarding this patient's physical therapy, please feel free to call me at [phone]. Thank you for the referral of this patient. Sincerely, Reggie Marie, PT, Cert MDT, OCS Balance/Gait/Functional tests Balance/Special Test Scores Oswestry Low Back Score: 29 Improvement % Improvement: 40
== END 2025-05-19 19:00 | disposition home or self-care (01) ==
LOC: PT 09:00
PROVIDERS: PCP Family Medicine; Referring Provider Student in an Organized Health Care Education/Training Program; Visit Provider Student in an Organized Health Care Education/Training Program
DX: Z98.1 Arthrodesis status (principal)
CPT/HCPCS: 97110; 97113; 97162; 97530